=== PATIENT | female | born 1960 | race Caucasian/White ===

== ENCOUNTER 2019-01-04 13:03 | Emergency (ER) | payer SELFPAY ==
[~2019-01-04] VITALS: Ht 172.7 cm; Wt 59.9 kg
[~2019-01-04 13:03] MED LIST: APIX5TAB PO; ASPI-983 PO; CALC-694 PO; DILT180C84 PO; DILT90TA PO; LYSI100014 PO; MULT1TAB69 PO; VITAMIN C PO
[2019-01-04] MEDS ORDERED: NS IV 1000 ML 1,000 ML IV SCH ×3 (13:12→15:45)
[2019-01-04] MEDS ORDERED: DILTIAZEM INJECTION 125 MG in NS (IVPB) 100 ML IV SCH (13:15)
[2019-01-04] MEDS ORDERED: DILTIAZEM 25 MG/5 ML INJ (CARDIZEM) VIAL IVP ONE (13:15)
--- OUTSIDE RECORDS SUMMARY | 2019-01-04 13:20 | XMS REPORT ---
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 Name Role Phone PHUONG REILLY Unavailable PROBLEMS Unknown Problems ALLERGIES Substance Reaction Event Type Date Status Codeine Sulfate Unknown Drug Allergy Oct, Active ENCOUNTERS Encounter Location Date Diagnosis [facility] [id number], [place] [address] Oct, Bilateral impacted cerumen H61.23 [facility] [id number], [place] [id number] Aug, Dental examination Z01.20 and Dental caries K02.9 IMMUNIZATIONS No Known Immunizations SOCIAL HISTORY Never Assessed REASON FOR VISIT fluid in ear, reports right side worse but thinks left may have some also. CBrumbackRn PLAN OF CARE Activity Details Follow Up prn Reason: VITAL SIGNS Height 68 in 2017-11-12 Weight 133.3 lbs 2017-11-12 Temperature 98.0 degrees Fahrenheit 2017-11-12 Heart Rate 70 bpm 2017-11-12 Respiratory Rate 18 2017-11-12 BMI 20.27 kg/m2 2017-11-12 Blood pressure systolic 106 mmHg 2017-11-12 Blood pressure diastolic 76 mmHg 2017-11-12 MEDICATIONS Medication Instructions Dosage Frequency Start Date End Date Duration Status Eliquis 5 mg Orally 2 times a day 1 tablet 12h Active Multivitamin Active Cardizem 90 MG Orally 2 times a day 2 tablets 12h Active Vitamin C Active Calcium 600 MG Orally Twice a day 1 tablet with meals 12h Active RESULTS No Results PROCEDURES Procedure Date Ordered Result Body Site EAR LAVAGE 2017-11-12 N/A INSTRUCTIONS MEDICATIONS ADMINISTERED No Known Medications MEDICAL (GENERAL) HISTORY Type Description Date Medical History mitral valve prolapse Medical History blood thinners- aspirin Medical History A-Fib Surgical History Cardioversion for a-fib 08/2017 Hospitalization History a-fib 08/2016
[2019-01-04 13:22] LABS: BASOPHILS % (AUTO) 0 % (0-10); EOSINOPHILS % (AUTO) 0 % (0-10); HEMATOCRIT 46 % (35-52); HEMOGLOBIN 15.3 G/DL (11.5-16.0); LYMPHOCYTES # (AUTO) 1.5 X 10^3 (1.0-4.0); LYMPHOCYTES % (AUTO) 19 % (12-44); MEAN CORPUSCULAR HEMOGLOBIN 32 PG (25-34); MEAN CORPUSCULAR HGB CONC 33 G/DL (32-36); MEAN CORPUSCULAR VOLUME 97 FL (80-99); MEAN PLATELET VOLUME 10.5 FL (7.4-10.4); MONOCYTES # (AUTO) 0.4 X 10^3 (0.0-1.0); MONOCYTES % (AUTO) 5 % (0-12); NEUTROPHILS # (AUTO) 6.1 X 10^3 (1.8-7.8); NEUTROPHILS % (AUTO) 76 % (42-75); PLATELET COUNT 333 10^3/uL (130-400); RED CELL DISTRIBUTION WIDTH 12.2 % (10.0-14.5); WHITE BLOOD COUNT 8.1 10^3/uL (4.3-11.0)
--- NOTE | 2019-01-04 13:23 | ED Cardiac General ---
History of Present Illness General Stated Complaint: A-FIB Source: patient Exam Limitations: no limitations History of Present Illness Date Seen by Provider: Jan 04, 2019 Time Seen by Provider: 12:59 Initial Comments The patient presents to ER by private conveyance with chief complaint of palpitations, racing heart, fatigue and weakness since Wednesday. She says she knows she has a history of atrial fibrillation and she's had to be shocked for it before. She is on Cardizem 180 mg twice a day and Eliquis. She says she's been taking her medications routinely. She does not have a history of heart attacks, coronary artery disease, heart catheterizations, high blood pressure, thyroid, diabetes, cholesterolemia. She's not having any chest pain nausea sweats chills. She has for the past 3 weeks been having symptoms of an upper respiratory infection with facial congestion and runny nose. She took some over- the-counter medicines but she's not sure what they are called. She's not sure if they had pseudoephedrine or phenylephrine in them. Because of the illness she 's had rather poor appetite and fluid intake. She does not use caffeine, tobacco or alcohol. Allergies and Home Medications Allergies Coded Allergies: codeine (Verified Allergy, Mild, NAUSEA, 09/15/16) Home Medications Apixaban 5 Mg Tablet, 5 MG PO BID Prescribed by: UTE AMAYA on 09/16/16 1117 Calcium Carbonate/Vitamin D3 1 Each Tablet, 1 TAB PO HS, (Reported) Diltiazem HCl 180 Mg Cap.er.24h, 180 MG PO DAILY Prescribed by: UTE AMAYA on 09/16/16 1117 Lysine 1,000 Mg Tablet, 1,000 MG PO DAILY, (Reported) Multivitamin 1 Each Tablet, 1 TAB PO DAILY, (Reported) [Vitamin C] , 1 TAB PO HS, (Reported) Patient Home Medication List Home Medication List Reviewed: Yes Review of Systems Review of Systems Constitutional: No chills, No diaphoresis EENTM: No Blurred Vision, No Double Vision Respiratory: Denies Cough, Denies Shortness of Air Cardiovascular: Denies Chest Pain, Denies Edema; Irregular Heart Rate, Lightheadedness, Palpitations; Denies Syncope Gastrointestinal: Denies Abdomen Distended, Denies Abdominal Pain, Denies Nausea; Poor Appetite, Poor Fluid Intake Genitourinary: Denies Discharge, Denies Drainage Musculoskeletal: No joint pain, No joint swelling Past Qylujke-Oxfeiq-Cfyvqj Hx Patient Social History Alcohol Use: Denies Use Recreational Drug Use: No Smoking Status: Never a Smoker Recent Hopitalizations: No Seasonal Allergies Seasonal Allergies: Yes Past Medical History Reproductive Disorders: No Sexually Transmitted Disease: No HIV/AIDS: No Cataract Hearing Impairment: Denies Family Medical History Cardiovascular disease 19 FATHER 19 MOTHER Hypercholesterolemia 19 MOTHER Physical Exam Vital Signs Vital Signs - First Documented 01/04/19 01/04/19 13:07 16:10 Temp 96.7 Pulse 181 Resp 18 B/P (MAP) 123/112 (116) Pulse Ox 96 O2 Delivery Room Air O2 Flow Rate 2.00 Capillary Refill : Height, Weight, BMI Height: 5'8.00" Weight: 135lbs. 11.2oz. [id number]; 20.6 BMI Method: General Appearance: WD/WN, Mild Distress HEENT: PERRL/EOMI, Pharynx Normal; No Moist Mucous Membranes (moderately dry mucosa) Neck: Full Range of Motion, Normal Inspection, Non Tender, Supple Respiratory: Chest Non Tender, Lungs Clear, Normal Breath Sounds, No Accessory Muscle Use, No Respiratory Distress Cardiovascular: No Edema, Normal Peripheral Pulses, Irregularly Irregular, Tachycardia Gastrointestinal: Non Tender, Soft Extremity: Normal Capillary Refill, No Pedal Edema Neurologic/Psychiatric: Alert, Oriented x3, No Motor/Sensory Deficits Focused Exam Lactate Level 01/04/19 13:48: Lactic Acid Level 1.91 Lactic Acid Level Laboratory Tests Test 01/04/19 13:48 Lactic Acid Level 1.91 MMOL/L (0.50-2.00) Progress/Results/Core Measures Results/Orders Lab Results Laboratory Tests Test 01/04/19 13:15 01/04/19 13:48 01/04/19 14:51 Range/Units White Blood Count 8.1 4.3-11.0 10^3/uL Red Blood Count 4.73 4.35-5.85 10^6/uL Hemoglobin 15.3 11.5-16.0 G/DL Hematocrit 46 35-52 % Mean Corpuscular Volume 97 80-99 FL Mean Corpuscular Hemoglobin 32 25-34 PG Mean Corpuscular Hemoglobin Concent 33 32-36 G/DL Red Cell Distribution Width 12.2 10.0-14.5 % Platelet Count 333 130-400 10^3/uL Mean Platelet Volume 10.5 H 7.4-10.4 FL Neutrophils (%) (Auto) 76 H 42-75 % Lymphocytes (%) (Auto) 19 12-44 % Monocytes (%) (Auto) 5 0-12 % Eosinophils (%) (Auto) 0 0-10 % Basophils (%) (Auto) 0 0-10 % Neutrophils # (Auto) 6.1 1.8-7.8 X 10^3 Lymphocytes # (Auto) 1.5 1.0-4.0 X 10^3 Monocytes # (Auto) 0.4 0.0-1.0 X 10^3 Eosinophils # (Auto) 0.0 0.0-0.3 10^3/uL Basophils # (Auto) 0.0 0.0-0.1 10^3/uL Prothrombin Time 17.1 H 12.2-14.7 SEC INR Comment 1.4 0.8-1.4 Activated Partial Thromboplast Time 39 H 24-35 SEC Sodium Level 140 135-145 MMOL/L Potassium Level 3.8 3.6-5.0 MMOL/L Chloride Level 103 98-107 MMOL/L Carbon Dioxide Level 22 21-32 MMOL/L Anion Gap 15 H 5-14 MMOL/L Blood Urea Nitrogen 16 7-18 MG/DL Creatinine 1.24 0.60-1.30 MG/DL Estimat Glomerular Filtration Rate 44 BUN/Creatinine Ratio 13 Glucose Level 138 H 70-105 MG/DL Calcium Level 9.7 8.5-10.1 MG/DL Corrected Calcium 9.5 8.5-10.1 MG/DL Magnesium Level 1.9 1.8-2.4 MG/DL Total Bilirubin 0.9 0.1-1.0 MG/DL Aspartate Amino Transf (AST/SGOT) 27 5-34 U/L Alanine Aminotransferase (ALT/SGPT) 24 0-55 U/L Alkaline Phosphatase 50 40-136 U/L Troponin I < 0.028 <0.028 NG/ML B-Type Natriuretic Peptide 602.8 H <100.0 PG/ML Total Protein 7.2 6.4-8.2 GM/DL Albumin 4.2 3.2-4.5 GM/DL Thyroid Stimulating Hormone (TSH) 3.11 0.35-4.94 UIU/ML Serum Alcohol < 10 <10 MG/DL Lactic Acid Level 1.91 0.50-2.00 MMOL/L Urine Color YELLOW Urine Clarity CLEAR Urine pH 6 5-9 Urine Specific [place] 1.010 L 1.016-1.022 Urine Protein NEGATIVE NEGATIVE Urine Glucose (UA) NEGATIVE NEGATIVE Urine Ketones NEGATIVE NEGATIVE Urine Nitrite NEGATIVE NEGATIVE Urine Bilirubin NEGATIVE NEGATIVE Urine Urobilinogen NORMAL NORMAL MG/DL Urine Leukocyte Esterase NEGATIVE NEGATIVE Urine RBC (Auto) NEGATIVE NEGATIVE Urine RBC 0-2 /HPF Urine WBC RARE /HPF Urine Crystals NONE /LPF Urine Bacteria NEGATIVE /HPF Urine Casts NONE /LPF Urine Mucus NEGATIVE /LPF Urine Culture Indicated NO Urine Opiates Screen NEGATIVE NEGATIVE Urine Oxycodone Screen NEGATIVE NEGATIVE Urine Methadone Screen NEGATIVE NEGATIVE Urine Propoxyphene Screen NEGATIVE NEGATIVE Urine Barbiturates Screen NEGATIVE NEGATIVE Ur Tricyclic Antidepressants Screen NEGATIVE NEGATIVE Urine Phencyclidine Screen NEGATIVE NEGATIVE Urine Amphetamines Screen NEGATIVE NEGATIVE Urine Methamphetamines Screen NEGATIVE NEGATIVE Urine Benzodiazepines Screen NEGATIVE NEGATIVE Urine Cocaine Screen NEGATIVE NEGATIVE Urine Cannabinoids Screen NEGATIVE NEGATIVE Micro Results Microbiology 01/04/19 Influenza Types A,B Antigen (DEANA) - Final, Complete My Orders Orders - SILVESTRE CALDERON Saline Lock/Iv-Start (01/04/19 13:12) Ns Iv 1000 Ml (Sodium Chloride 0.9%) (01/04/19 13:12) Alcohol (01/04/19 13:12) BNP (01/04/19 13:12) Cbc With Automated Diff (01/04/19 13:12) Comprehensive Metabolic Panel (01/04/19 13:12) Drug Screen Stat (Urine) (01/04/19 13:12) Magnesium (01/04/19 13:12) Protime With Inr (01/04/19 13:12) Partial Thromboplastin Time (01/04/19 13:12) Thyroid Stimulating Hormone (01/04/19 13:12) Troponin I (01/04/19 13:12) Ua Culture If Indicated (01/04/19 13:12) Chest 1 View, Ap/Pa Only (01/04/19 13:12) Ekg Tracing (01/04/19 13:12) Monitor-Rhythm Ecg Trace Only (01/04/19 13:12) Ns (Ivpb) (Sodium C... W/Diltiazem Injec (01/04/19 13:15) Diltiazem Injection (Cardizem Injection) (01/04/19 13:15) Fentanyl Injection (Sublimaze Injection (01/04/19 13:30) Lorazepam Injection (Ativan Injection) (01/04/19 13:30) Digoxin Injection (Lanoxin Injection) (01/04/19 13:45) Influenza A And B Antigens (01/04/19 13:36) Blood Culture (01/04/19 13:36) Urine Culture (01/04/19 13:36) Saline Lock/Iv-Start (01/04/19 13:36) Vital Signs Adult Sepsis Patie Q15M (01/04/19 13:36) Remove Rings In Anticipation O (01/04/19 13:36) Lactic Acid Analyzer (01/04/19 13:36) Ns Iv 1000 Ml (Sodium Chloride 0.9%) (01/04/19 13:36) Ceftriaxone For Iv Use (Rocephin For I (01/04/19 13:45) Azithromycin Injection (Zithromax Inject (01/04/19 13:45) Ns (Ivpb) (Sodium Chloride 0.9% Ivpb Bag (01/04/19 13:57) Ondansetron Injection (Zofran Injectio (01/04/19 14:45) Ondansetron Injection (Zofran Injectio (01/04/19 14:41) Ns Iv 1000 Ml (Sodium Chloride 0.9%) (01/04/19 15:45) Medications Given in ED Current Medications Medications Dose Ordered Sig/Elayne Route Start Time Stop Time Status Last Admin Dose Admin Azithromycin 500 mg/Sodium Chloride 250 ml @ 250 mls/hr ONCE ONCE IV 01/04/19 13:45 01/04/19 14:44 DC 01/04/19 14:26 250 MLS/HR Ceftriaxone Sodium 1000 mg/ Sterile Water 10 ml @ 200 mls/hr ONCE ONCE IV 01/04/19 13:45 01/04/19 13:47 DC 01/04/19 14:05 200 MLS/HR Digoxin 0.25 mg ONCE ONCE IV 01/04/19 13:45 01/04/19 13:46 DC 01/04/19 13:46 0.25 MG Sodium Chloride 50 ml @ STK-MED ONCE .ROUTE 01/04/19 13:57 01/04/19 14:03 DC 01/04/19 14:27 50 MLS/HR Vital Signs/I&O 01/04/19 01/04/19 01/04/19 01/04/19 13:07 14:22 16:10 17:17 Temp 96.7 Pulse 181 130 74 87 Resp 18 18 18 18 B/P (MAP) 123/112 (116) 117/84 (95) 89/61 (70) 96/70 (79) Pulse Ox 96 100 100 100 O2 Delivery Room Air Nasal Cannula Nasal Cannula O2 Flow Rate 2.00 2.00 Progress Progress Note #1: Time: 13:22 Progress Note The patient is in atrial fibrillation with rapid ventricular response. She is comfortable able to transfer from chair to bed on her own power. No history of coronary artery disease and she is having no chest pain but were going to obtain another EKG after we have slow down and obtain troponin. We'll check her thyroid, labs. Clinically she appears dry so we'll start with a liter of fluids. Her blood pressure is on the soft side around 100-110 systolic. 2017 the patient had to be all bleed cardioverted secondary asymptomatic atrial fibrillation with rapid ventricular response. Transesophageal echocardiograph at that time did not demonstrate thrombus. She was converted with 100 J followed by 120 J which converted her. August 2017 echocardiogram transesophageal: Dr. Quinn; LV ejection fraction 50%. Progress Note #2: Time: 14:30 Progress Note After the IV fluids were initiated she got about 750 cc her blood pressure improved significantly to 110 systolic. Heart rate improved down to the 120s to 140 range. Presently she's got about 1-1/2 L in of normal saline and her blood pressures 115/71 and heart rate is 122. She is still in atrial fibrillation. Technically the patient would qualify for sepsis with shock but this was complicated by her A. fib RVR which was complicated by her tachycardia caused by her dehydration. She is fluid responsive. I would not consider her septic shock because there is no end organ dysfunction and her lactate is normal. Her hypotensive state early on was due to her rapid ventricular response secondary to atrial fibrillation. She is asymptomatic with no chest pain, sweats, nausea, shortness of breath. We'll keep her fluids going at 500 an hour and her Cardizem is still at 5 mg. It has been 2 hours and her heart rate is now in the 80-110 range so we will not repeat the digoxin. Initial ECG Impression Date: Jan 04, 2019 Initial ECG Impression Time: 13:04 Initial ECG Rate: 163 Initial ECG Rhythm: A Fib/Flutter Initial ECG Intervals: QT (488) Initial ECG Impression: Atrial Fibrillation w/RVR Diagnostic Imaging Diagonstic Imaging: Xray Plain Films/CT/US/NM/MRI: chest (1v) Comments NAME: BETTY COLLIER [facility] REC#: [id number] PT STATUS: REG ER : 1960 PHYSICIAN: SILVESTRE CALDERON MD ADMIT DATE: 01/04/19/ER Draft Date of Exam:01/04/19 CHEST 1 VIEW, AP/PA ONLY INDICATION: Atrial fibrillation. COMPARISON: 09/16/2016. FINDINGS: Single frontal view of the chest demonstrates borderline prominent cardiac silhouette. Pulmonary vasculature however is within normal limits. The lungs are well aerated and clear. No large pleural effusion or pneumothorax is seen. The visualized osseous structures show no acute abnormalities. IMPRESSION: Borderline prominent cardiac silhouette, which may be accentuated by portable technique. There is however no evidence of failure or focal infiltrate. Dictated on workstation # [id number] Dict: 01/04/19 1326 Trans: 01/04/19 1329 [facility] [id number] Interpreted by: NESSA GAINES MD Electronically signed by: Reviewed: Reviewed by Me Consults : Consulting Physician: MC QUINN MD FACP FAC CCDS Consults Notes Discussed case lab EKG and clinical findings and Dr. Quinn agrees with our workup plan to wants us to do a full septic workup including blood cultures etc. He also recommends IV fluids and do not bolus the Cardizem just give drip. He would also give 250 g of digoxin. He would repeat a digoxin dose in 2 hours of the heart rate continues to be above 120. He also does not recommend allowing the patient to go home even if the septic workup is unremarkable. Departure Impression Primary Impression: Atrial fibrillation with RVR Additional Impressions: Influenza B Dehydration Sepsis Qualified Codes: A41.9 - Sepsis, unspecified organism Disposition: XF [facility] HOSP Condition: Stable Transfer Time Spoke to Accepting Phy: 15:35 Transfer Progress Notes Discussed the case with Steve and they are on diaper. Discussed the case with Blossom and the patient was accepted by Dr. Gómez for Cardizem drip and management of her dehydration, flu B. Transfer Time: 17:17 Transfer Facility: [facility] [place] Method of Transfer: EMS Departure-Patient Inst. Referrals: JANICE DENIS MD (PCP/Family) Primary Care Physician Copy Copies To 1: JANICE DENIS MD, TITUS J Jan 04, 2019 13:23
[2019-01-04] MEDS ORDERED: fentaNYL INJECTION 100 MCG/2 ML AMP IVP ONE (13:30)
[2019-01-04] MEDS ORDERED: LORazepam INJ 2 MG/ML (ATIVAN) VIAL IVP ONE (13:30)
--- NOTE | 2019-01-04 13:30 | Diagnostic Imaging Report ---
INDICATION: Atrial fibrillation. COMPARISON: 09/16/2016. FINDINGS: Single frontal view of the chest demonstrates borderline prominent cardiac silhouette. Pulmonary vasculature however is within normal limits. The lungs are well aerated and clear. No large pleural effusion or pneumothorax is seen. The visualized osseous structures show no acute abnormalities. IMPRESSION: Borderline prominent cardiac silhouette, which may be accentuated by portable technique. There is however no evidence of failure or focal infiltrate. Dictated by: Dictated on workstation # [id number]
[2019-01-04 13:37] LABS: INR 1.4 (0.8-1.4); PROTHROMBIN TIME PATIENT 17.1 SEC (12.2-14.7)
[2019-01-04 13:40] LABS: ALANINE AMINOTRANSFERASE 24 U/L (0-55); ALBUMIN 4.2 GM/DL (3.2-4.5); ALKALINE PHOSPHATASE 50 U/L (40-136); BILIRUBIN,TOTAL 0.9 MG/DL (0.1-1.0); BUN/CREATININE RATIO 13; CALCIUM 9.7 MG/DL (8.5-10.1); CARBON DIOXIDE 22 MMOL/L (21-32); CHLORIDE 103 MMOL/L (98-107); CREATININE SERUM 1.24 MG/DL (0.60-1.30); GFR ESTIMATED 44; GLUCOSE 138 MG/DL (70-105); MAGNESIUM 1.9 MG/DL (1.8-2.4); POTASSIUM 3.8 MMOL/L (3.6-5.0); SODIUM 140 MMOL/L (135-145); TOTAL PROTEIN 7.2 GM/DL (6.4-8.2)
[2019-01-04] MEDS ORDERED: AZITHROMYCIN INJECTION 500 MG in NS (IVPB) 250 ML IV ONE (13:45)
[2019-01-04] MEDS ORDERED: cefTRIAXone FOR IV USE 1,000 MG in WATER (STERILE) FOR INJECTION 10 ML IV ONE (13:45)
[2019-01-04] MEDS ORDERED: DIGOXIN 0.25 MG/ML (LANOXIN) 2 ML AMP IV ONE (13:45)
--- NOTE | 2019-01-04 13:45 | NUR ---
TALKING WITH PATIENT ABOUT POSSIBEL CARDIOCONVERSION
--- NOTE | 2019-01-04 13:52 | NUR ---
DR CALDERON TALKED WITH DR WADE WILL DR ARCE AND DILTIAZEM DRIP A 5MG/HR
--- NOTE | 2019-01-04 13:52 | NUR ---
DILTIAZEM BOLUS HELD DUE TO SYSTOLIC B/P 90
--- NOTE | 2019-01-04 13:55 | NUR ---
Melissa cheung in [facility] - 01/04/19 at 1421 by PMCCLURE TALKING WITH PATIENT ABOUT POSSIBEL CARDIOCONVERSION
[2019-01-04] MEDS ORDERED: NS (IVPB) 50 ML ONE (13:57)
[2019-01-04 14:22] VITALS: BP 117/84
[2019-01-04] MEDS ORDERED: ONDANSETRON 4 MG/2 ML (SDV) Z0FRAN ONE (14:41)
[2019-01-04] MEDS ORDERED: ONDANSETRON 4 MG/2 ML (SDV) Z0FRAN IVP ONE (14:45)
--- NOTE | 2019-01-04 14:55 | NUR ---
UP TO BSC C/O NAUSEA MEDS OBTAINED. AFTER GETTING UP TO BSC DECIDED TO KEEP ZOFRAN ON HOLD
[2019-01-04 15:10] LABS: BILIRUBIN,URINE NEGATIVE (NEGATIVE); CLARITY,URINE CLEAR; COLOR,URINE YELLOW; GLUCOSE, URINE (UA) NEGATIVE (NEGATIVE); KETONES,URINE NEGATIVE (NEGATIVE); LEUKOCYTE ESTERASE ,URINE NEGATIVE (NEGATIVE); NITRITE,URINE NEGATIVE (NEGATIVE); PH,URINE 6 (5-9); PROTEIN,URINE NEGATIVE (NEGATIVE); UROBILINOGEN,URINE NORMAL (NORMAL)
--- NOTE | 2019-01-04 15:12 | NUR ---
LAB CALLED WITH POS FLU B
--- NOTE | 2019-01-04 15:26 | NUR ---
B/P 87/53 PATIENT LAUGHING AND TALKING TO DAUGHTER AND TEXTNG ON PHONE DR KVNG REVELES OF B/P
[2019-01-04 15:31] LABS: RBC,URINE 0-2 /HPF; WBC,URINE RARE /HPF
[2019-01-04 15:32] LABS: BACTERIA,URINE NEGATIVE /HPF
[2019-01-04 15:33] LABS: AMPHETAMINE SCREEN, URINE NEGATIVE (NEGATIVE); BARBITURATE SCREEN URINE NEGATIVE (NEGATIVE); BENZODIAZEPINES SCREEN URINE NEGATIVE (NEGATIVE); CANNABINOID SCREEN, URINE NEGATIVE (NEGATIVE); COCAINE SCREEN URINE NEGATIVE (NEGATIVE); METHADONE STAT NEGATIVE (NEGATIVE); METHAMPHETAMINE SCREEN URINE S NEGATIVE (NEGATIVE); OPIATE SCREEN URINE NEGATIVE (NEGATIVE); OXYCODONE STAT NEGATIVE (NEGATIVE); PROPOXYPHENE STAT NEGATIVE (NEGATIVE); TRICYCLIC ANTIDEPRESSANTS SCRE NEGATIVE (NEGATIVE)
--- NOTE | 2019-01-04 15:43 | NUR ---
DR CALDERON TALKING TO PATIENT AND FAMILY ABOUT TRANSFER TO [facility] DUE TO NO BEDS HERE.
--- NOTE | 2019-01-04 16:08 | NUR ---
WAITING FOR SUKHI YUNG TO CALL BACK FOR ROOM
[2019-01-04 16:10] VITALS: BP 89/61
--- NOTE | 2019-01-04 16:26 | NUR ---
EMS CALLED FOR TRANSFER
--- NOTE | 2019-01-04 17:09 | NUR ---
EMS HERE FOR TRANSFER
[2019-01-04 17:17] VITALS: BP 96/70
== END 2019-01-04 17:17 | disposition short-term general hospital (02) ==
LOC: EDUNIT# 13:03 → ER 13:04
DX: I48.91 Unspecified atrial fibrillation (principal); J10.1 Influenza due to other identified influenza virus with other respiratory manifestations; E86.0 Dehydration; A41.9 Sepsis, unspecified organism; Z88.5 Allergy status to narcotic agent; Z79.01 Long term (current) use of anticoagulants; Z82.49 Family history of ischemic heart disease and other diseases of the circulatory system
CPT/HCPCS: 36415; 71045; 80053; 80306; 80320; 81000; 83605; 83735; 83880; 84443; 84484; 85025; 85610; 85730; 87040; 87088; 87804; 93005; 93041

== ENCOUNTER → 2019-02-21 | Outpatient (CLI) | payer SELFPAY ==
[~2019-02-21] MED LIST changes: +CATHETER FLUSH 10 ML SYR IV PRN; +REGADENOSON 0.4 MG/5 ML SYR (LEXISCAN) IV ONE
[2019-02-21 09:28] VITALS: BP 121/85
[2019-02-21 09:35] VITALS: BP 108/81
--- NOTE | 2019-02-21 14:37 | STRESS TEST ---
DATE OF SERVICE: 02/21/2019 RESTING AND POST REGADENOSON TECHNETIUM-99M TETROFOSMIN SPECT CT IMAGING ORDERING PHYSICIAN: Myranda Aleman APRN CLINICAL DIAGNOSES: Cardiomyopathy and paroxysmal atrial fibrillation. Baseline images were carried out after injection of 10.81 mCi of technetium-99m Tetrofosmin. This was followed by 0.4 mg of Regadenoson and 29.4 mCi of technetium-99m Tetrofosmin for stress imaging. The electrocardiogram showed sinus rhythm at baseline. It did not change significantly with the Regadenoson infusion. The patient noted some shortness of breath following the Regadenoson infusion, which resolved in a few minutes. Review of images at rest and following stress does not indicate any significant perfusion defects consistent with significant myocardial ischemia or infarction. Gated images show normal global left ventricular systolic function with a normal regional wall motion. Left ventricular ejection fraction is calculated to be 61%. Left ventricular end diastolic volume is 48 mL. TID is absent (1.07). CONCLUSIONS: 1. No evidence of any significant myocardial ischemia or infarction on this study. 2. Normal regional wall motion. 3. Normal global left ventricular systolic function with a calculated ejection fraction is 61%. Job ID: [id number] DocumentID: [id number] Dictated Date: 02/21/2019 13:59:03 Track Oiler Date: 02/21/2019 14:36:20 Dictated By: MC WADE MD, MA, FACP, FACC, MTDD
== END ==
LOC: CARD 08:22
PROVIDERS: ATTEND Internal Medicine Cardiovascular Disease
DX: I48.0 Paroxysmal atrial fibrillation (principal); I43 Cardiomyopathy in diseases classified elsewhere; Z79.01 Long term (current) use of anticoagulants
CPT/HCPCS: 78452; 93017

== ENCOUNTER → 2019-11-24 | Outpatient (CLI) | payer SELFPAY ==
[~2019-11-24] MED LIST changes: -CATHETER FLUSH 10 ML SYR IV PRN; -REGADENOSON 0.4 MG/5 ML SYR (LEXISCAN) IV ONE
--- NOTE | 2019-11-24 16:32 | Diagnostic Imaging Report ---
PROCEDURE: CT lumbar spine without contrast. TECHNIQUE: Multiple contiguous axial images were obtained through the lumbar spine without the use of intravenous contrast. Sagittal and coronal reformations were then performed. Auto Exposure Controls were utilized during the CT exam to meet ALARA standards for radiation dose reduction. INDICATION: Right-sided sciatica. Back injury two weeks ago. COMPARISON: None. FINDINGS: Normal alignment. Vertebral body heights are preserved. Moderate degenerative endplate changes at L2-L4. No fractures. No substantial facet arthropathy. No evidence of high-grade spinal canal or neuroforaminal narrowing on soft tissue windows. Diverticulosis is partially visualized. IMPRESSION: 1. No acute CT findings in the lumbar spine. 2. Moderate degenerative endplate changes at L2-L4. No high-grade neural impingement is evident on this noncontrast exam. Dictated by: Dictated on workstation # [id number]
== END ==
LOC: RAD 15:23
PROVIDERS: ATTEND Nurse Practitioner Family
DX: M54.31 Sciatica, right side (principal); M79.604 Pain in right leg; M47.816 Spondylosis without myelopathy or radiculopathy, lumbar region
CPT/HCPCS: 72131

== ENCOUNTER 2020-06-14 13:51 | Emergency (ER) | payer SELFPAY ==
[~2020-06-14] VITALS: Ht 172.7 cm; Wt 61.3 kg
[~2020-06-14 13:51] MED LIST changes: +MULT-567 PO; -MULT1TAB69 PO
[2020-06-14] MEDS ORDERED: NS IV 1000 ML 1,000 ML IV SCH ×2 (14:09→14:41)
[2020-06-14] MEDS ORDERED: ASPIRIN 81 MG CHEW (CHILDREN'S ASA) PO ONE (14:15)
[2020-06-14 14:21] LABS: BASOPHILS % (AUTO) 0 % (0-10); EOSINOPHILS # (AUTO) 0.1 10^3/uL (0.0-0.3); EOSINOPHILS % (AUTO) 1 % (0-10); HEMATOCRIT 46 % (35-52); HEMOGLOBIN 15.8 G/DL (11.5-16.0); LYMPHOCYTES % (AUTO) 28 % (12-44); MEAN CORPUSCULAR HEMOGLOBIN 33 PG (25-34); MEAN CORPUSCULAR HGB CONC 34 G/DL (32-36); MEAN CORPUSCULAR VOLUME 97 FL (80-99); MEAN PLATELET VOLUME 11.1 FL (7.4-10.4); MONOCYTES # (AUTO) 0.5 X 10^3 (0.0-1.0); MONOCYTES % (AUTO) 7 % (0-12); NEUTROPHILS # (AUTO) 4.6 X 10^3 (1.8-7.8); NEUTROPHILS % (AUTO) 64 % (42-75); PLATELET COUNT 298 10^3/uL (130-400); RED CELL DISTRIBUTION WIDTH 12.6 % (10.0-14.5); WHITE BLOOD COUNT 7.1 10^3/uL (4.3-11.0)
[2020-06-14 14:29] LABS: ALBUMIN 4.3 GM/DL (3.2-4.5)
--- NOTE | 2020-06-14 14:29 | ED Cardiac General ---
History of Present Illness General Chief Complaint: Cardiac/General Problems Stated Complaint: A-FIB Source: patient Exam Limitations: no limitations History of Present Illness Date Seen by Provider: Jun 14, 2020 Time Seen by Provider: 13:53 Initial Comments Patient presents to ER by private conveyance from home with chief complaint that since about 9:00 last night she's had rapid pulse feeling weak and lightheaded but no chest pain nausea vomiting fever chills diarrhea constipation. She has a history of atrial fibrillation on Eliquis and sotalol. She's followed by Dr. Quinn and primary care through [facility]. She's not had any fevers chills cough. She doesn't have a history of coronary disease. She says she realizes this morning that she forgot to take her medications yesterday but she did take them this morning. Allergies and Home Medications Allergies Coded Allergies: codeine (Verified Allergy, Mild, NAUSEA, 09/15/16) Home Medications Apixaban 5 Mg Tablet, 5 MG PO BID Prescribed by: UTE AMAYA on 09/16/16 1117 Calcium Carbonate/Vitamin D3 1 Each Tablet, 1 TAB PO HS, (Reported) Diltiazem HCl 180 Mg Cap.er.24h, 180 MG PO DAILY Prescribed by: UTE AMAYA on 09/16/16 1117 Diltiazem HCl 120 Mg Cap.er.24h, 120 MG PO DAILY Prescribed by: SILVESTRE CALDERON on 06/14/20 1655 Lysine 1,000 Mg Tablet, 1,000 MG PO DAILY, (Reported) Multivitamin 1 Each Tablet, 1 TAB PO DAILY, (Reported) [Vitamin C] , 1 TAB PO HS, (Reported) Patient Home Medication List Home Medication List Reviewed: Yes Review of Systems Review of Systems Constitutional: No chills, No diaphoresis EENTM: No Blurred Vision, No Double Vision Respiratory: Denies Cough, Denies Shortness of Air Cardiovascular: Denies Chest Pain, Denies Edema; Irregular Heart Rate, Lightheadedness, Palpitations; Denies Syncope Gastrointestinal: Denies Abdomen Distended, Denies Abdominal Pain Genitourinary: Denies Burning, Denies Discharge Musculoskeletal: No back pain, No joint pain All Other Systems Reviewed Negative Unless Noted: Yes Past Frfyotd-Dwruvd-Phntpw Hx Patient Social History Alcohol Use: Denies Use Recreational Drug Use: No Smoking Status: Never a Smoker Recent Hopitalizations: No Seasonal Allergies Seasonal Allergies: Yes Past Medical History Surgeries: No Respiratory: No Cardiac: Yes Atrial Fibrillation Neurological: No Reproductive Disorders: No Sexually Transmitted Disease: No HIV/AIDS: No Gastrointestinal: No Musculoskeletal: No Endocrine: No Cataract Hearing Impairment: Denies Cancer: No Psychosocial: No Integumentary: No Blood Disorders: No Family Medical History Cardiovascular disease 19 FATHER 19 MOTHER Hypercholesterolemia 19 MOTHER Physical Exam Vital Signs Vital Signs - First Documented 06/14/20 13:51 Pulse 135 Resp 18 B/P (MAP) 98/54 (69) Pulse Ox 98 O2 Delivery Room Air Capillary Refill : Height, Weight, BMI Height: 5'8.00" Weight: 132lbs. 11.2oz. [id number]; 20.6 BMI Method:Stated General Appearance: WD/WN, Anxious, Mild Distress HEENT: PERRL/EOMI, Pharynx Normal, Moist Mucous Membranes Neck: Full Range of Motion, Normal Inspection Respiratory: Chest Non Tender, Lungs Clear, Normal Breath Sounds, No Accessory Muscle Use, No Respiratory Distress Cardiovascular: No Edema, No Gallop, Normal Peripheral Pulses, Irregularly Irregular, Tachycardia Gastrointestinal: Non Tender, Soft Extremity: Normal Capillary Refill, Normal Inspection, No Pedal Edema Neurologic/Psychiatric: Alert, Oriented x3, No Motor/Sensory Deficits Skin: Normal Color, Warm/Dry Progress/Results/Core Measures Results/Orders Lab Results Laboratory Tests Test 06/14/20 14:03 06/14/20 16:00 Range/Units White Blood Count 7.1 4.3-11.0 10^3/uL Red Blood Count 4.76 4.35-5.85 10^6/uL Hemoglobin 15.8 11.5-16.0 G/DL Hematocrit 46 35-52 % Mean Corpuscular Volume 97 80-99 FL Mean Corpuscular Hemoglobin 33 25-34 PG Mean Corpuscular Hemoglobin Concent 34 32-36 G/DL Red Cell Distribution Width 12.6 10.0-14.5 % Platelet Count 298 130-400 10^3/uL Mean Platelet Volume 11.1 H 7.4-10.4 FL Neutrophils (%) (Auto) 64 42-75 % Lymphocytes (%) (Auto) 28 12-44 % Monocytes (%) (Auto) 7 0-12 % Eosinophils (%) (Auto) 1 0-10 % Basophils (%) (Auto) 0 0-10 % Neutrophils # (Auto) 4.6 1.8-7.8 X 10^3 Lymphocytes # (Auto) 2.0 1.0-4.0 X 10^3 Monocytes # (Auto) 0.5 0.0-1.0 X 10^3 Eosinophils # (Auto) 0.1 0.0-0.3 10^3/uL Basophils # (Auto) 0.0 0.0-0.1 10^3/uL Prothrombin Time 17.0 H 12.2-14.7 SEC INR Comment 1.3 0.8-1.4 Activated Partial Thromboplast Time 36 H 24-35 SEC Sodium Level 139 135-145 MMOL/L Potassium Level 4.2 3.6-5.0 MMOL/L Chloride Level 105 98-107 MMOL/L Carbon Dioxide Level 23 21-32 MMOL/L Anion Gap 11 5-14 MMOL/L Blood Urea Nitrogen 21 H 7-18 MG/DL Creatinine 1.09 0.60-1.30 MG/DL Estimat Glomerular Filtration Rate 51 BUN/Creatinine Ratio 19 Glucose Level 168 H 70-105 MG/DL Calcium Level 9.7 8.5-10.1 MG/DL Corrected Calcium 9.5 8.5-10.1 MG/DL Magnesium Level 1.9 1.6-2.4 MG/DL Total Bilirubin 1.3 H 0.1-1.0 MG/DL Aspartate Amino Transf (AST/SGOT) 31 5-34 U/L Alanine Aminotransferase (ALT/SGPT) 31 0-55 U/L Alkaline Phosphatase 34 L 40-136 U/L Myoglobin 68.8 10.0-92.0 NG/ML Troponin I < 0.028 < 0.028 <0.028 NG/ML B-Type Natriuretic Peptide 754.6 H <100.0 PG/ML Total Protein 7.2 6.4-8.2 GM/DL Albumin 4.3 3.2-4.5 GM/DL My Orders Orders - SILVESTRE CALDERON Ekg Tracing (06/14/20 13:53) Continuous Ekg Monitoring (06/14/20 13:53) Ed Iv/Invasive Line Start (06/14/20 14:09) Ns Iv 1000 Ml (Sodium Chloride 0.9%) (06/14/20 14:09) Ed Iv/Invasive Line Start (06/14/20 14:41) Ns Iv 1000 Ml (Sodium Chloride 0.9%) (06/14/20 14:41) Diltiazem Drip Pre-Mix (Cardizem Drip Pr (06/14/20 15:00) Troponin I (06/14/20 15:59) Ekg Tracing (06/14/20 15:59) Diltiazem Cd 24 Hr Capsule (Cardizem Cd (06/15/20 09:00) Medications Given in ED Current Medications Medications Dose Ordered Sig/Elayne Route Start Time Stop Time Status Last Admin Dose Admin Aspirin 324 mg ONCE ONCE PO 06/14/20 14:15 06/14/20 14:16 DC 06/14/20 14:18 324 MG Vital Signs/I&O 06/14/20 06/14/20 06/14/20 13:51 14:48 16:17 Pulse 135 124 73 Resp 18 18 18 B/P (MAP) 98/54 (69) 114/63 (80) 94/65 (75) Pulse Ox 98 99 96 O2 Delivery Room Air Room Air Room Air Progress Progress Note #1: Time: 14:15 Progress Note Plan to dump 2 L of fluids in her. Despite having a low blood pressure she is talking and in no acute distress otherwise. Given a few minutes this evening get her blood pressure up before we electrically cardiovert her. Progress Note #2: Time: 14:48 Progress Note 500 cc of fluid are in and the patient's blood pressure is 114/63. Return to start the Cardizem drip at 10 mg per hour. Heart rate is 130. The patient is S atting fine, mentating fine and sitting up with cardiac paddles on. Progress Note #3: Time: 15:49 Progress Note Patient states her blood pressure always runs low and last time she was here she had several upper 80s to lower 90 systolic blood pressures. Patient's heart rate is under better control in the 70-90 range on Cardizem 10 mg per hour. Patient is mentating fine and having no difficulty chest pain shortness of air etc. Progress Note #4: Time: 16:49 Progress Note Patient received the Cardizem tablet and we received a normal second troponin. She was able to ambulate although it across the ER as well as to the bathroom without weakness nor near syncope. She's having no symptoms at this time. Her heart rate is now 61, atrial fibrillation with a continued blood pressure of 92/55. Initial ECG Impression Date: Jun 14, 2020 Initial ECG Impression Time: 13:55 Initial ECG Rate: 135 Initial ECG Rhythm: A Fib/Flutter Initial ECG Intervals: QT (495) Initial ECG Impression: Atrial Fibrillation w/RVR Comment Atrial fibrillation with rapid ventricular response. EKG : EKG Time: 16:04 Rate: 78 Rhythm: A Fib/Flutter Intervals: QT (526) ECG Comparisson: Changed ECG Impression: Atrial Fibrillation Comment Atrial fibrillation without rapid ventricular response. Prolonged QT interval. No ST-T wave elevation or depression. Diagnostic Imaging Diagonstic Imaging: Xray Plain Films/CT/US/NM/MRI: chest (1v) Comments NAME: BETTY COLLIER [facility] REC#: [id number] PT STATUS: REG ER : 1960 PHYSICIAN: JO VAZQUEZ LABEL DESIGNER ADMIT DATE: 06/14/20/ER Draft Date of Exam:06/14/20 CHEST 1 VIEW, AP/PA ONLY HISTORY: Atrial fibrillation. TECHNIQUE: Single frontal view of the chest. COMPARISON: 01/04/2019. FINDINGS: Lung volumes are large. No focal consolidation is seen. There is mild cardiomegaly which appears stable. There is biapical pleural scarring. No pleural effusion or pneumothorax is seen. IMPRESSION: 1. Large lung volumes and stable mild cardiomegaly with no acute pulmonary abnormality seen. Dictated on workstation # [id number] Dict: 06/14/20 1441 Trans: 06/14/20 1445 [id number] Interpreted by: BARBARA KUMARI MD Electronically signed by: Reviewed: Reviewed by Me Consults : Consulting Physician: Samantha LUNA MD Consults Notes Discussed the case with Dr. Luna and he agrees with plan to repeat a troponin and if she is feeling better and wants to go home on some Cardizem and follow-up with Dr. uQinn next week and would be fine. She has documented history of low blood pressures in the 90 systolic range and she states that this is her normal. She agrees that this does not represent hemodynamic instability but rather this is her baseline blood pressure. Departure Impression Primary Impression: Atrial fibrillation with rapid ventricular response Disposition: 01 HOME, SELF-CARE Condition: Stable Departure-Patient Inst. Decision time for Depature: 17:07 Referrals: MC QUINN MD [facility] SOL FISCHER MD (PCP/Family) Primary Care Physician Patient Instructions: Atrial Fibrillation (DC) Add. Discharge Instructions: Continue taking the Cardizem 1 tablet daily until you see Dr. Quinn. Call Dr. Quinn on Wednesday and request follow-up appointment next week. Return to the ER if you experience chest pain or continued weakness, palpitations, shortness of breath or rapid heart rate. All discharge instructions reviewed with patient and/or family. Voiced understanding. Scripts Diltiazem HCl (Cardizem Cd) 120 Mg Cap.er.24h 120 MG PO DAILY for 14 Days, #14 CAP 0 Refills Prov: SILVESTRE CALDERON 06/14/20 Copy Copies To 1: [facility] QUINN MD [facility] SILVESTRE CALDERON Jun 14, 2020 14:29
--- NOTE | 2020-06-14 14:29 | NUR ---
TALKING WITH BUSINESS TRANSFORMATION ANALYST STAFF. APPEARS TO BE IN NO DISTRESS.
[2020-06-14 14:30] LABS: POTASSIUM 4.2 MMOL/L (3.6-5.0)
[2020-06-14 14:31] LABS: CALCIUM 9.7 MG/DL (8.5-10.1)
[2020-06-14 14:32] LABS: INR 1.3 (0.8-1.4); TOTAL PROTEIN 7.2 GM/DL (6.4-8.2)
[2020-06-14 14:34] LABS: BILIRUBIN,TOTAL 1.3 MG/DL (0.1-1.0)
[2020-06-14 14:36] LABS: CREATININE SERUM 1.09 MG/DL (0.60-1.30)
[2020-06-14 14:38] LABS: MAGNESIUM 1.9 MG/DL (1.6-2.4)
--- NOTE | 2020-06-14 14:45 | Diagnostic Imaging Report ---
HISTORY: Atrial fibrillation. TECHNIQUE: Single frontal view of the chest. COMPARISON: 01/04/2019. FINDINGS: Lung volumes are large. No focal consolidation is seen. There is mild cardiomegaly which appears stable. There is biapical pleural scarring. No pleural effusion or pneumothorax is seen. IMPRESSION: 1. Large lung volumes and stable mild cardiomegaly with no acute pulmonary abnormality seen. Dictated by: Dictated on workstation # [id number]
--- NOTE | 2020-06-14 14:45 | NUR ---
PLACED ON CRASH CART MONITOR FOR POSSIBE CARDIOVERSION
[2020-06-14 14:48] VITALS: BP 114/63
--- NOTE | 2020-06-14 14:59 | NUR ---
patient has kept family updated.
[2020-06-14] MEDS ORDERED: dilTIAZem DRIP PRE-MIX 125 ML IV SCH (15:00)
--- NOTE | 2020-06-14 15:04 | NUR ---
B/P 90/77 HR 116 PATIETN TALKING ON PHONE
[2020-06-14 16:17] VITALS: BP 94/65
[2020-06-14] MEDS ORDERED: DILT120C82 PO (16:55)
--- NOTE | 2020-06-14 16:56 | NUR ---
CARDIZEM DRIP STOPPED. PATIENT INFORMED IF HEART RATE STAYS LIKE IT IS WILL BE ABLE TO DISCHARGE TO HOME.
[2020-06-14 17:23] VITALS: BP 96/73
[2020-06-15] MEDS ORDERED: dilTIAZem120 MG (CARDIZEM CD) CAP PO SCH (09:00)
== END 2020-06-14 17:28 | disposition home or self-care (01) ==
LOC: EDUNIT# 13:51 → ER 13:53
DX: I48.91 Unspecified atrial fibrillation (principal); Z88.5 Allergy status to narcotic agent; Z82.49 Family history of ischemic heart disease and other diseases of the circulatory system; Z79.01 Long term (current) use of anticoagulants
CPT/HCPCS: 36415; 71045; 80053; 83735; 83874; 83880; 84484; 85025; 85610; 85730; 93005; 93041

== ENCOUNTER 2020-06-15 19:21 | Inpatient (IN) | payer SELFPAY ==
[~2020-06-15] VITALS: Ht 172.7 cm; Wt 60.2 kg
[2020-06-15] VITALS (7 sets, daily range): BP systolic 96–109; BP diastolic 64–91
[~2020-06-15 19:21] MED LIST changes: +DILT120C82 PO
[2020-06-15] MEDS ORDERED: ASPIRIN 81 MG CHEW (CHILDREN'S ASA) PO ONE (19:30)
--- NOTE | 2020-06-15 19:38 | ED Cardiac General ---
History of Present Illness General Chief Complaint: Cardiac/General Problems Stated Complaint: A FIB Nursing Triage Note: to [facility] 7 with c/o AFib. Source: patient Exam Limitations: no limitations History of Present Illness Date Seen by Provider: Jun 15, 2020 Time Seen by Provider: 19:35 Initial Comments To ER with reports of atrial fibrillation. She has known paroxysmal atrial fibrillation managed with sotalol and Eliquis. About one half hours ago she noticed extreme fatigue and shortness of breath and decided to come to the emergency room. She was just here yesterday as well for an episode of atrial fibrillation with rapid ventricular response, heart rate was reduced to mid 70s at the time of discharge though she remained in atrial fibrillation. Timing/Duration: intermittent, 1-2 days Severity: moderate NTG SL MOPHEAD SEWER: No ASA po MOPHEAD SEWER: No Allergies and Home Medications Allergies Coded Allergies: codeine (Verified Allergy, Mild, NAUSEA, 09/15/16) Home Medications Apixaban 5 Mg Tablet, 5 MG PO BID Prescribed by: UTE AMAYA on 09/16/16 1117 Calcium Carbonate/Vitamin D3 1 Each Tablet, 1 TAB PO HS, (Reported) Diltiazem HCl 180 Mg Cap.er.24h, 180 MG PO DAILY Prescribed by: UTE AMAYA on 09/16/16 1117 Diltiazem HCl 120 Mg Cap.er.24h, 120 MG PO DAILY Prescribed by: SILVESTRE CALDERON on 06/14/20 1655 Lysine 1,000 Mg Tablet, 1,000 MG PO DAILY, (Reported) Multivitamin 1 Each Tablet, 1 TAB PO DAILY, (Reported) [Vitamin C] , 1 TAB PO HS, (Reported) Patient Home Medication List Home Medication List Reviewed: Yes Review of Systems Review of Systems Constitutional: see HPI EENTM: No Symptoms Reported Respiratory: See HPI, Shortness of Air Cardiovascular: See HPI; Denies Chest Pain; Irregular Heart Rate, Palpitations Gastrointestinal: See HPI Genitourinary: No Symptoms Reported Musculoskeletal: no symptoms reported Skin: no symptoms reported Psychiatric/Neurological: No Symptoms Reported Endocrine: No Symptoms Reported Hematologic/Lymphatic: No Symptoms Reported Past Iemmhzc-Rgdcuh-Syjobh Hx Patient Social History Recent Foreign Travel: No Contact w/Someone Who Travel: No Recent Infectious Disease Expo: No Recent Hopitalizations: No Seasonal Allergies Seasonal Allergies: Yes Past Medical History Surgeries: No Respiratory: No Cardiac: Yes Atrial Fibrillation Neurological: No Reproductive Disorders: No Sexually Transmitted Disease: No HIV/AIDS: No Gastrointestinal: No Musculoskeletal: No Endocrine: No Cataract Hearing Impairment: Denies Cancer: No Psychosocial: No Integumentary: No Blood Disorders: No Family Medical History Cardiovascular disease 19 FATHER 19 MOTHER Hypercholesterolemia 19 MOTHER Physical Exam Vital Signs Vital Signs - First Documented 06/15/20 19:31 Temp 36.5 Pulse 151 Resp 21 B/P (MAP) 82/52 (62) Pulse Ox 100 O2 Delivery Room Air Capillary Refill : Less Than 3 Seconds Height, Weight, BMI Height: 5'8.00" Weight: 132lbs. 11.2oz. 59.449366bk; 19.00 BMI Method:Stated General Appearance: No Apparent Distress, WD/WN, Other (alert and oriented, able to converse with me, pleasant, smiling and mentating well. Despite this her blood pressure is low at 82 systolic. Her heart rate is 160 narrow complex irreg ular.) Respiratory: No Accessory Muscle Use, No Respiratory Distress Cardiovascular: Normal Peripheral Pulses, Irregularly Irregular, Tachycardia Gastrointestinal: Normal Bowel Sounds, Non Tender, Soft Extremity: Normal Capillary Refill, Normal Inspection Neurologic/Psychiatric: Alert, Oriented x3 Skin: Normal Color, Warm/Dry Progress/Results/Core Measures Results/Orders Lab Results Laboratory Tests Test 06/15/20 19:35 Range/Units White Blood Count 6.0 4.3-11.0 10^3/uL Red Blood Count 4.43 4.35-5.85 10^6/uL Hemoglobin 14.7 11.5-16.0 G/DL Hematocrit 43 35-52 % Mean Corpuscular Volume 97 80-99 FL Mean Corpuscular Hemoglobin 33 25-34 PG Mean Corpuscular Hemoglobin Concent 34 32-36 G/DL Red Cell Distribution Width 12.6 10.0-14.5 % Platelet Count 244 130-400 10^3/uL Mean Platelet Volume 10.8 H 7.4-10.4 FL Neutrophils (%) (Auto) 58 42-75 % Lymphocytes (%) (Auto) 35 12-44 % Monocytes (%) (Auto) 5 0-12 % Eosinophils (%) (Auto) 2 0-10 % Basophils (%) (Auto) 1 0-10 % Neutrophils # (Auto) 3.5 1.8-7.8 X 10^3 Lymphocytes # (Auto) 2.1 1.0-4.0 X 10^3 Monocytes # (Auto) 0.3 0.0-1.0 X 10^3 Eosinophils # (Auto) 0.1 0.0-0.3 10^3/uL Basophils # (Auto) 0.0 0.0-0.1 10^3/uL Prothrombin Time 16.3 H 12.2-14.7 SEC INR Comment 1.3 0.8-1.4 Activated Partial Thromboplast Time 38 H 24-35 SEC Sodium Level 142 135-145 MMOL/L Potassium Level 4.1 3.6-5.0 MMOL/L Chloride Level 109 H 98-107 MMOL/L Carbon Dioxide Level 21 21-32 MMOL/L Anion Gap 12 5-14 MMOL/L Blood Urea Nitrogen 16 7-18 MG/DL Creatinine 1.12 0.60-1.30 MG/DL Estimat Glomerular Filtration Rate 49 BUN/Creatinine Ratio 14 Glucose Level 153 H 70-105 MG/DL Calcium Level 9.5 8.5-10.1 MG/DL Corrected Calcium 9.3 8.5-10.1 MG/DL Magnesium Level 1.9 1.6-2.4 MG/DL Total Bilirubin 0.8 0.1-1.0 MG/DL Aspartate Amino Transf (AST/SGOT) 53 H 5-34 U/L Alanine Aminotransferase (ALT/SGPT) 48 0-55 U/L Alkaline Phosphatase 35 L 40-136 U/L Myoglobin 71.2 10.0-92.0 NG/ML Troponin I < 0.028 <0.028 NG/ML B-Type Natriuretic Peptide 493.4 H <100.0 PG/ML Total Protein 7.3 6.4-8.2 GM/DL Albumin 4.3 3.2-4.5 GM/DL My Orders Orders - JO VAZQUEZ PRODUCTION INTERN Cbc With Automated Diff (06/15/20:) Magnesium (06/15/20:) Chest 1 View, Ap/Pa Only (06/15/20:) Ekg Tracing (06/15/20:) Comprehensive Metabolic Panel (06/15/20:) Myoglobin Serum (06/15/20:) Protime With Inr (7/18/20 19:25) Partial Thromboplastin Time (06/15/20 19:25) O2 (06/15/20 19:25) Monitor-Rhythm Ecg Trace Only (06/15/20 19:25) Lipid Panel (06/16/20 06:00) Ed Iv/Invasive Line Start (06/15/20 19:25) BNP (06/15/20 19:25) Troponin I (06/15/20 19:25) Aspirin Chewable Tablet (Baby Aspirin Ch (06/15/20 19:30) Diltiazem Drip Pre-Mix (Cardizem Drip Pr (06/15/20 19:45) Ns Iv 500 Ml (Sodium Chloride 0.9%) (06/15/20 19:45) Medications Given in ED Current Medications Medications Dose Ordered Sig/Elayne Route Start Time Stop Time Status Last Admin Dose Admin Aspirin 324 mg ONCE ONCE PO 06/15/20 19:30 06/15/20 19:31 DC 06/15/20 19:30 324 MG Vital Signs/I&O 06/15/20 19:31 Temp 36.5 Pulse 151 Resp 21 B/P (MAP) 82/52 (62) Pulse Ox 100 O2 Delivery Room Air Blood Pressure Mean: 62 Departure Communication (Admissions) Time/Spoke to Admitting Phy: 20:[address] Johnson, will admit, consult Dr. Luna. His with him, we'll continue the Cardizem drip, potentially cardioversion in the morning. At this time her heart rate is down to 80-100 still atrial fibrillation. Cardizem drip is 10 mg per hour. Blood pressure is 95-105 systolic. Still mentating well. Impression Primary Impression: Atrial fibrillation with RVR Disposition: ADMITTED INPATIENT Condition: Stable Admissions Decision to Admit Reason: Admit from ER (General) Decision to Admit/Date: Jun 15, 2020 Time/Decision to Admit Time: 20:24 Departure-Patient Inst. Referrals: SOL FISCHER MD (PCP/Family) Primary Care Physician JO VAZQUEZ APRN Jun 15, 2020 19:38
[2020-06-15 19:42] LABS: BASOPHILS % (AUTO) 1 % (0-10); EOSINOPHILS # (AUTO) 0.1 10^3/uL (0.0-0.3); EOSINOPHILS % (AUTO) 2 % (0-10); HEMATOCRIT 43 % (35-52); HEMOGLOBIN 14.7 G/DL (11.5-16.0); LYMPHOCYTES # (AUTO) 2.1 X 10^3 (1.0-4.0); LYMPHOCYTES % (AUTO) 35 % (12-44); MEAN CORPUSCULAR HEMOGLOBIN 33 PG (25-34); MEAN CORPUSCULAR HGB CONC 34 G/DL (32-36); MEAN CORPUSCULAR VOLUME 97 FL (80-99); MEAN PLATELET VOLUME 10.8 FL (7.4-10.4); MONOCYTES # (AUTO) 0.3 X 10^3 (0.0-1.0); MONOCYTES % (AUTO) 5 % (0-12); NEUTROPHILS # (AUTO) 3.5 X 10^3 (1.8-7.8); NEUTROPHILS % (AUTO) 58 % (42-75); PLATELET COUNT 244 10^3/uL (130-400); RED CELL DISTRIBUTION WIDTH 12.6 % (10.0-14.5)
[2020-06-15] MEDS ORDERED: dilTIAZem DRIP PRE-MIX 125 ML IV SCH (19:45)
[2020-06-15] MEDS ORDERED: NS IV 500 ML 500 ML IV SCH (19:45)
[2020-06-15 19:52] LABS: INR 1.3 (0.8-1.4); PROTHROMBIN TIME PATIENT 16.3 SEC (12.2-14.7)
--- NOTE | 2020-06-15 19:57 | Diagnostic Imaging Report ---
INDICATION: Atrial fibrillation. EXAMINATION: Portable erect AP chest at 7:51 p.m. FINDINGS: The mild cardiomegaly noted on the prior exam of 06/14/2020 is again evident and no different. The lungs remain clear. There is still no sign of failure, pneumonia or a pleural effusion to indicate an acute abnormality. The mediastinum is not widened. The osseous structures are intact. IMPRESSION: Stable chest. There has been no adverse change since the prior exam. Dictated by: Dictated on workstation # [id number]
[2020-06-15 19:59] LABS: ALBUMIN 4.3 GM/DL (3.2-4.5); BILIRUBIN,TOTAL 0.8 MG/DL (0.1-1.0); CALCIUM 9.5 MG/DL (8.5-10.1); CREATININE SERUM 1.12 MG/DL (0.60-1.30); MAGNESIUM 1.9 MG/DL (1.6-2.4); POTASSIUM 4.1 MMOL/L (3.6-5.0); TOTAL PROTEIN 7.3 GM/DL (6.4-8.2)
--- NOTE | 2020-06-15 21:00 | NUR ---
Room assignment received.
--- OUTSIDE RECORDS SUMMARY | 2020-06-15 21:03 | XMS REPORT | Continuity of Care Document ---
Author Organization Unknown Address Unknown Phone Unavailable Allergies Active Description Code Type Severity Reaction Onset Reported/Identified Relationship to Patient Clinical Status Yes codeine [id number] Drug Allergy Mild NAUSEA 09/15/2016 Yes No Known Drug Allergies [id number] Drug Allergy Unknown N/A 09/15/2016 Medications There is no data. Problems Date Dx Coded Attending Type Code Diagnosis Diagnosed By 09/16/2016 JAMES DUKES, TALITA Francis Ot I48.91 UNSPECIFIED ATRIAL FIBRILLATION 09/30/2016 BAIMA KIANA L MOLECULAR PATHOLOGIST Ot I07.1 RHEUMATIC TRICUSPID INSUFFICIENCY 09/30/2016 BAIMA, KIANA L MOLECULAR PATHOLOGIST Ot I34.0 NONRHEUMATIC MITRAL (VALVE) INSUFFICIENC 09/30/2016 BAIMA, KIANA L MOLECULAR PATHOLOGIST Ot I48.0 PAROXYSMAL ATRIAL FIBRILLATION 09/30/2016 BAIMA, KIANA L MOLECULAR PATHOLOGIST Ot R06.00 DYSPNEA, UNSPECIFIED 09/30/2016 BAIMA, KIANA L MOLECULAR PATHOLOGIST Ot Z79.01 ADMINISTRATIVE TECHNICIAN (CURRENT) USE OF ANTICOAGULANT 10/05/2016 BAIMA, KIANA L MOLECULAR PATHOLOGIST Ot I07.1 RHEUMATIC TRICUSPID INSUFFICIENCY 10/05/2016 BAIMA, KIANA L MOLECULAR PATHOLOGIST Ot I34.0 NONRHEUMATIC MITRAL (VALVE) INSUFFICIENC 10/05/2016 BAIMA, KIANA L MOLECULAR PATHOLOGIST Ot I48.0 PAROXYSMAL ATRIAL FIBRILLATION 10/05/2016 BAIMA, KIANA L MOLECULAR PATHOLOGIST Ot R06.00 DYSPNEA, UNSPECIFIED 10/05/2016 BAIMA, KIANA L MOLECULAR PATHOLOGIST Ot Z79.01 RETIREMENT (CURRENT) USE OF ANTICOAGULANT 10/05/2016 BAIMA, KIANA L MOLECULAR PATHOLOGIST Ot I07.1 RHEUMATIC TRICUSPID INSUFFICIENCY 10/05/2016 BAIMA, KIANA L MOLECULAR PATHOLOGIST Ot I34.0 NONRHEUMATIC MITRAL (VALVE) INSUFFICIENC 10/05/2016 BAIMA, KIANA L MOLECULAR PATHOLOGIST Ot I48.0 PAROXYSMAL ATRIAL FIBRILLATION 10/05/2016 BAIMA, KIANA L MOLECULAR PATHOLOGIST Ot R06.00 DYSPNEA, UNSPECIFIED 10/05/2016 BAIMA KIANA L MOLECULAR PATHOLOGIST Ot Z79.01 ADMINISTRATIVE TECHNICIAN (CURRENT) USE OF ANTICOAGULANT 10/06/2016 BAIMA, KIANA L MOLECULAR PATHOLOGIST Ot I07.1 RHEUMATIC TRICUSPID INSUFFICIENCY 10/06/2016 BAIMA, KIANA L MOLECULAR PATHOLOGIST Ot I34.0 NONRHEUMATIC MITRAL (VALVE) INSUFFICIENC 10/06/2016 BAIMA, KIANA L MOLECULAR PATHOLOGIST Ot I48.0 PAROXYSMAL ATRIAL FIBRILLATION 10/06/2016 BAIMA, KIANA L MOLECULAR PATHOLOGIST Ot R06.00 DYSPNEA, UNSPECIFIED 10/06/2016 BAIMA, KIANA L MOLECULAR PATHOLOGIST Ot Z79.01 RETIREMENT (CURRENT) USE OF ANTICOAGULANT 10/29/2016 BAIMA, KIANA L MOLECULAR PATHOLOGIST Ot I07.1 RHEUMATIC TRICUSPID INSUFFICIENCY 10/29/2016 BAIMA, KIANA L MOLECULAR PATHOLOGIST Ot I34.0 NONRHEUMATIC MITRAL (VALVE) INSUFFICIENC 10/29/2016 BAIMA, KIANA L MOLECULAR PATHOLOGIST Ot I48.0 PAROXYSMAL ATRIAL FIBRILLATION 10/29/2016 BAIMA, KIANA L MOLECULAR PATHOLOGIST Ot R06.00 DYSPNEA, UNSPECIFIED 10/29/2016 BAIMA, KIANA L MOLECULAR PATHOLOGIST Ot Z79.01 ADMINISTRATIVE TECHNICIAN (CURRENT) USE OF ANTICOAGULANT 11/24/2016 BAIMA, KIANA L MOLECULAR PATHOLOGIST Ot I07.1 RHEUMATIC TRICUSPID INSUFFICIENCY 11/24/2016 BAIMA, KIANA L MOLECULAR PATHOLOGIST Ot I34.0 NONRHEUMATIC MITRAL (VALVE) INSUFFICIENC 11/24/2016 BAIMA, KIANA L MOLECULAR PATHOLOGIST Ot I48.0 PAROXYSMAL ATRIAL FIBRILLATION 11/24/2016 BAIMA, KIANA L MOLECULAR PATHOLOGIST Ot R06.00 DYSPNEA, UNSPECIFIED 11/24/2016 BAIMA, KIANA L MOLECULAR PATHOLOGIST Ot Z79.01 RETIREMENT (CURRENT) USE OF ANTICOAGULANT 09/07/2017 BAIMA, KIANA L MOLECULAR PATHOLOGIST Ot I07.1 RHEUMATIC TRICUSPID INSUFFICIENCY 09/07/2017 BAIMA, KIANA L MOLECULAR PATHOLOGIST Ot I34.0 NONRHEUMATIC MITRAL (VALVE) INSUFFICIENC 09/07/2017 BAIMA, KIANA L MOLECULAR PATHOLOGIST Ot I48.0 PAROXYSMAL ATRIAL FIBRILLATION 09/07/2017 BAIMA, KIANA L MOLECULAR PATHOLOGIST Ot R06.00 DYSPNEA, UNSPECIFIED 09/07/2017 BAIMA, KIANA L MOLECULAR PATHOLOGIST Ot Z79.01 ADMINISTRATIVE TECHNICIAN (CURRENT) USE OF ANTICOAGULANT 09/07/2017 BAIMA, KIANA L MOLECULAR PATHOLOGIST Ot I07.1 RHEUMATIC TRICUSPID INSUFFICIENCY 09/07/2017 BAIMA, KIANA L MOLECULAR PATHOLOGIST Ot I34.0 NONRHEUMATIC MITRAL (VALVE) INSUFFICIENC 09/07/2017 BAIMA, KIANA L MOLECULAR PATHOLOGIST Ot I48.0 PAROXYSMAL ATRIAL FIBRILLATION 09/07/2017 BAIMA, KIANA L MOLECULAR PATHOLOGIST Ot R06.00 DYSPNEA, UNSPECIFIED 09/07/2017 BAIMA, KIANA L MOLECULAR PATHOLOGIST Ot Z79.01 ADMINISTRATIVE TECHNICIAN (CURRENT) USE OF ANTICOAGULANT 09/09/2017 BAIMA, KIANA L MOLECULAR PATHOLOGIST Ot I48.0 PAROXYSMAL ATRIAL FIBRILLATION 09/09/2017 BAIMA, KIANA L MOLECULAR PATHOLOGIST Ot I48.0 PAROXYSMAL ATRIAL FIBRILLATION 09/27/2017 BAIMA, KIANA L MOLECULAR PATHOLOGIST Ot I48.0 PAROXYSMAL ATRIAL FIBRILLATION 09/27/2017 BAIMA, KIANA L MOLECULAR PATHOLOGIST Ot Z79.01 ADMINISTRATIVE TECHNICIAN (CURRENT) USE OF ANTICOAGULANT 09/27/2017 BAIMA, KIANA L MOLECULAR PATHOLOGIST Ot Z79.899 OTHER RETIREMENT (CURRENT) DRUG THERAPY 09/28/2017 BAIMA, KIANA L MOLECULAR PATHOLOGIST Ot I48.0 PAROXYSMAL ATRIAL FIBRILLATION 09/28/2017 BAIMA, KIANA L MOLECULAR PATHOLOGIST Ot Z79.01 RETIREMENT (CURRENT) USE OF ANTICOAGULANT 09/28/2017 BAIMA, KIANA L MOLECULAR PATHOLOGIST Ot Z79.899 OTHER ADMINISTRATIVE TECHNICIAN (CURRENT) DRUG THERAPY 01/04/2019 BAIMA, KIANA L MOLECULAR PATHOLOGIST Ot I07.1 RHEUMATIC TRICUSPID INSUFFICIENCY 01/04/2019 BAIMA, KIANA L MOLECULAR PATHOLOGIST Ot I34.0 NONRHEUMATIC MITRAL (VALVE) INSUFFICIENC 01/04/2019 BAIMA, KIANA L MOLECULAR PATHOLOGIST Ot I48.0 PAROXYSMAL ATRIAL FIBRILLATION 01/04/2019 BAIMA, KIANA L MOLECULAR PATHOLOGIST Ot R06.00 DYSPNEA, UNSPECIFIED 01/04/2019 BAIMA, KIANA L MOLECULAR PATHOLOGIST Ot Z79.01 ADMINISTRATIVE TECHNICIAN (CURRENT) USE OF ANTICOAGULANT 01/04/2019 BAIMA, KIANA L MOLECULAR PATHOLOGIST Ot I48.0 PAROXYSMAL ATRIAL FIBRILLATION 01/04/2019 BAIMA, KIANA L MOLECULAR PATHOLOGIST Ot Z79.01 ADMINISTRATIVE TECHNICIAN (CURRENT) USE OF ANTICOAGULANT 01/04/2019 BAIMA, KIANA L MOLECULAR PATHOLOGIST Ot Z79.899 OTHER RETIREMENT (CURRENT) DRUG THERAPY 01/04/2019 SILVESTRE CALDERON MD Ot A41. 9 SEPSIS, UNSPECIFIED ORGANISM 01/04/2019 SILVESTRE CALDERON MD Ot E86. 0 DEHYDRATION 01/04/2019 SILVESTRE CALDERON MD Ot I48. 91 UNSPECIFIED ATRIAL FIBRILLATION 01/04/2019 SILVESTRE CALDERON MD Ot J10. 1 FLU DUE TO OTH IDENT INFLUENZA VIRUS W O 01/04/2019 SILVESTRE CALDERON MD Ot R00. 2 PALPITATIONS 01/04/2019 SILVESTRE CALDERON MD Ot Z79. 01 RETIREMENT (CURRENT) USE OF ANTICOAGULANT 01/04/2019 SILVESTRE CALDERON MD Ot Z82. 49 FAMILY HX OF ISCHEM HEART DIS AND OTH DI 01/04/2019 SILVESTRE CALDERON MD Ot Z88. 5 ALLERGY STATUS TO NARCOTIC AGENT STATUS 01/06/2019 SILVESTRE CALDERON MD Ot A41. 9 SEPSIS, UNSPECIFIED ORGANISM 01/06/2019 SILVESTRE CALDERON MD Ot E86. 0 DEHYDRATION 01/06/2019 SILVESTRE CALDERON MD Ot I48. 91 UNSPECIFIED ATRIAL FIBRILLATION 01/06/2019 SILVESTRE CALDERON MD Ot J10. 1 FLU DUE TO OTH IDENT INFLUENZA VIRUS W O 01/06/2019 SILVESTRE CALDERON MD Ot R00. 2 PALPITATIONS 01/06/2019 SILVESTRE CALDERON MD Ot Z79. 01 ADMINISTRATIVE TECHNICIAN (CURRENT) USE OF ANTICOAGULANT 01/06/2019 SILVESTRE CALDERON MD Ot Z82. 49 FAMILY HX OF ISCHEM HEART DIS AND OTH DI 01/06/2019 ISLVESTRE CALDERON MD Ot Z88. 5 ALLERGY STATUS TO NARCOTIC AGENT STATUS 02/22/2019 MAURO DUKES FACC, MC VILLATOROP CCDS Ot I43 CARDIOMYOPATHY IN DISEASES CLASSIFIED EL 02/22/2019 MAURO DUKES FACC, MC PERRY CCDS Ot I48.0 PAROXYSMAL ATRIAL FIBRILLATION 02/22/2019 MAURO DUKES FACC, MC VILLATOROP CCDS Ot Z79.01 RETIREMENT (CURRENT) USE OF ANTICOAGULANT 03/03/2019 KIANA MCLEAN MOLECULAR PATHOLOGIST Ot I07.1 RHEUMATIC TRICUSPID INSUFFICIENCY 03/03/2019 KIANA MCLEAN MOLECULAR PATHOLOGIST Ot I34.0 NONRHEUMATIC MITRAL (VALVE) INSUFFICIENC 03/03/2019 KIANA MCLEAN MOLECULAR PATHOLOGIST Ot I48.0 PAROXYSMAL ATRIAL FIBRILLATION 03/03/2019 KIANA MCLEAN MOLECULAR PATHOLOGIST Ot R06.00 DYSPNEA, UNSPECIFIED 03/03/2019 KIANA MCLEAN MOLECULAR PATHOLOGIST Ot Z79.01 RETIREMENT (CURRENT) USE OF ANTICOAGULANT 03/03/2019 KIMMAKIANA MOLECULAR PATHOLOGIST Ot I48.0 PAROXYSMAL ATRIAL FIBRILLATION 03/03/2019 BAIMAKIANA MOLECULAR PATHOLOGIST Ot Z79.01 ADMINISTRATIVE TECHNICIAN (CURRENT) USE OF ANTICOAGULANT 03/03/2019 KIANA MCLEAN MOLECULAR PATHOLOGIST Ot Z79.899 OTHER ADMINISTRATIVE TECHNICIAN (CURRENT) DRUG THERAPY 03/03/2019 MAURO DUKES FACC, MC VILLATOROP CCDS Ot I43 CARDIOMYOPATHY IN DISEASES CLASSIFIED EL 03/03/2019 MAURO DUKES FACC, ALI FACP CCDS Ot I48.0 PAROXYSMAL ATRIAL FIBRILLATION 03/03/2019 MAURO DUKES FACC, ALI FACP CCDS Ot Z79.01 ADMINISTRATIVE TECHNICIAN (CURRENT) USE OF ANTICOAGULANT 03/04/2019 SILVESTRE CALDERON MD Ot A41. 9 SEPSIS, UNSPECIFIED ORGANISM 03/04/2019 SILVESTRE CALDERON MD Ot E86. 0 DEHYDRATION 03/04/2019 SILVESTRE CALDERON MD Ot I48. 91 UNSPECIFIED ATRIAL FIBRILLATION 03/04/2019 SILVESTRE CALDERON MD Ot J10. 1 FLU DUE TO OT IDENT INFLUENZA VIRUS W O 03/04/2019 SILVESTRE CALDERON MD Ot R00. 2 PALPITATIONS 03/04/2019 SILVESTRE CALDERON MD Ot Z79. 01 ADMINISTRATIVE TECHNICIAN (CURRENT) USE OF ANTICOAGULANT 03/04/2019 SILVESTRE CALDERON MD Ot Z82. 49 FAMILY HX OF ISCHEM HEART DIS AND OTH DI 03/04/2019 SILVESTRE CALDERON MD Ot Z88. 5 ALLERGY STATUS TO NARCOTIC AGENT STATUS 03/17/2019 MAURO DUKES FACC, ALI IRVINGP CCDS Ot I43 CARDIOMYOPATHY IN DISEASES CLASSIFIED EL 03/17/2019 MAURO DUKES FACC, ALI FACP CCDS Ot I48.0 PAROXYSMAL ATRIAL FIBRILLATION 03/17/2019 MAURO DUKES FACC, ALI IRVINGP CCDS Ot Z79.01 RETIREMENT (CURRENT) USE OF ANTICOAGULANT 11/27/2019 KAY MANZO TRAIN CONDUCTOR Ot M47.816 SPONDYLOSIS W/O MYELOPATHY OR RADICULOPA 11/27/2019 KAY MANZO APRN Ot M54.31 SCIATICA, RIGHT SIDE 11/27/2019 KAY MANZO TRAIN CONDUCTOR Ot M79.604 PAIN IN RIGHT LEG 12/05/2019 BAIELIZABETH KIANA L MOLECULAR PATHOLOGIST Ot I07.1 RHEUMATIC TRICUSPID INSUFFICIENCY 12/05/2019 BAIMA, KIANA L MOLECULAR PATHOLOGIST Ot I34.0 NONRHEUMATIC MITRAL (VALVE) INSUFFICIENC 12/05/2019 BAIMA, KIANA L MOLECULAR PATHOLOGIST Ot I48.0 PAROXYSMAL ATRIAL FIBRILLATION 12/05/2019 BAIMA, KIANA L MOLECULAR PATHOLOGIST Ot R06.00 DYSPNEA, UNSPECIFIED 12/05/2019 BAIMA, KIANA L MOLECULAR PATHOLOGIST Ot Z79.01 RETIREMENT (CURRENT) USE OF ANTICOAGULANT 12/05/2019 BAIMA, KIANA L MOLECULAR PATHOLOGIST Ot I48.0 PAROXYSMAL ATRIAL FIBRILLATION 12/05/2019 BAIMA KIANA L MOLECULAR PATHOLOGIST Ot Z79.01 ADMINISTRATIVE TECHNICIAN (CURRENT) USE OF ANTICOAGULANT 12/05/2019 BAIMA, KIANA L MOLECULAR PATHOLOGIST Ot Z79.899 OTHER ADMINISTRATIVE TECHNICIAN (CURRENT) DRUG THERAPY 12/05/2019 MAURO DUKES FACC, MC VILLATOROP CCDS Ot I43 CARDIOMYOPATHY IN DISEASES CLASSIFIED EL 12/05/2019 MAURO DUKES FACC, MC FACP CCDS Ot I48.0 PAROXYSMAL ATRIAL FIBRILLATION 12/05/2019 MAURO DUKES FACC, MC FACP CCDS Ot Z79.01 RETIREMENT (CURRENT) USE OF ANTICOAGULANT 12/05/2019 KAY MANZO APRN Ot M47.816 SPONDYLOSIS W/O MYELOPATHY OR RADICULOPA 12/05/2019 KAY MANZO APRN Ot M54.31 SCIATICA, RIGHT SIDE 12/05/2019 KAY MANZO APRN Ot M79.604 PAIN IN RIGHT LEG 12/05/2019 KAY MANZO TRAIN CONDUCTOR Ot M47.816 SPONDYLOSIS W/O MYELOPATHY OR RADICULOPA 12/05/2019 KAY MANZO TRAIN CONDUCTOR Ot M54.31 SCIATICA, RIGHT SIDE 12/05/2019 KAY MANZO APRN Ot M79.604 PAIN IN RIGHT LEG 12/26/2019 KAY MANZO APRN Ot M47.816 SPONDYLOSIS W/O MYELOPATHY OR RADICULOPA 12/26/2019 KAY MANZO APRN Ot M54.31 SCIATICA, RIGHT SIDE 12/26/2019 KAY MANZO APRN Ot M79.604 PAIN IN RIGHT LEG 12/26/2019 KAY MANZO TRAIN CONDUCTOR Ot M47.816 SPONDYLOSIS W/O MYELOPATHY OR RADICULOPA 12/26/2019 KAY MANZO TRAIN CONDUCTOR Ot M54.31 SCIATICA, RIGHT SIDE 12/26/2019 KAY MANZO APRN Ot M79.604 PAIN IN RIGHT LEG Procedures There is no data. Results Test Result Range Complete blood count (CBC) with automate d white blood cell (WBC) differential - 09/15/16 14:15 Blood leukocytes automated count (number/volume) 5.8 10*3/uL 4.3-11.0 Blood erythrocytes automated count (number/volume) 4.38 10*6/uL 4.35-5.85 Venous blood hemoglobin measurement (mass/volume) 14.6 g/dL 11.5-16.0 Blood hematocrit (volume fraction) 42 % 35-52 Automated erythrocyte mean corpuscular volume 95 [ foz_us] 80-99 Automated erythrocyte mean corpuscular h emoglobin (mass per erythrocyte) 33 pg 25-34 Automated erythrocyte mean corpuscular h emoglobin concentration measurement (mass/volume) 35 g/dL 32-36 Automated erythrocyte distribution width ratio 12. 0 % 10.0- 14.5 Automated blood platelet count (count/volume) 250 10*3/uL 130-400 Automated blood platelet mean volume measurement 11.0 [foz_us] 7.4-10.4 Automated blood neutrophils/100 leukocytes 57 % 42-75 Automated blood lymphocytes/100 leukocytes 36 % 12-44 Blood monocytes/100 leukocytes 5 % 0-12 Automated blood eosinophils/100 leukocytes 1 % 0-10 Automated blood basophils/100 leukocytes 1 % 0-10 Blood neutrophils automated count (number/volume) 3.3 10*3 1.8-7.8 Blood lymphocytes automated count (number/volume) 2.1 10*3 1.0-4.0 Blood monocytes automated count (number/volume) 0. 3 10*3 0.0-1.0 Automated eosinophil count 0.1 10*3/uL 0 .0-0.3 Automated blood basophil count (count/volume) 0.0 10*3/uL 0.0-0.1 Comprehensive metabolic panel - 09/15/16 14:15 Serum or plasma sodium measurement (moles/volume) 141 mmol/L 135-145 Serum or plasma potassium measurement (moles/volume) 3.8 mmol/L 3.6-5.0 Serum or plasma chloride measurement (moles/volume) 107 mmol/L 98-107 Carbon dioxide 22 mmol/L 21-32 Serum or plasma anion gap determination (moles/volume) 12 mmol/L 5-14 Serum or plasma urea nitrogen measurement (mass/volume ) 15 mg/dL 7-18 Serum or plasma creatinine measurement (mass/volume) 1.02 mg/dL 0.60-1.30 Serum or plasma urea nitrogen/creatinine mass ratio 15 NRG Serum or plasma creatinine measurement w ith calculation of estimated glomerular filtration rate 56 NRG Serum or plasma glucose measurement (mass/volume) 184 mg/dL 70-105 Serum or plasma calcium measurement (mass/volume) 9.5 mg/dL 8.5-10.1 Serum or plasma total bilirubin measurement (mass/volu me) 1.0 mg/dL 0.1-1.0 Serum or plasma alkaline phosphatase john surement (enzymatic activity/volume) 33 U/L 40-136 Serum or plasma aspartate aminotransfera se measurement (enzymatic activity/volume) 48 U/L 5-34 Serum or plasma alanine aminotransferase measurement (enzymatic activity/volume) 64 U/L 0-55 Serum or plasma protein measurement (mass/volume) 6.6 g/dL 6.4-8.2 Serum or plasma albumin measurement (mass/volume) 4.2 g/dL 3.2-4.5 Serum or plasma thyrotropin measurement by detection limit <=0.05 miu/l (units/volume) - 09/15/16 14:15 Serum or plasma thyrotropin measurement by detection limit <=0.05 miu/l (units/volume) 2.69 u[iU]/mL 0.35-4.94 Comprehensive metabolic panel - 09/16/16 03:20 Serum or plasma sodium measurement (moles/volume) 143 mmol/L 135-145 Serum or plasma potassium measurement (moles/volume) 4.1 mmol/L 3.6-5.0 Serum or plasma chloride measurement (moles/volume) 113 mmol/L 98-107 Carbon dioxide 24 mmol/L 21-32 Serum or plasma anion gap determination (moles/volume) 6 mmol/L 5-14 Serum or plasma urea nitrogen measurement (mass/volume ) 16 mg/dL 7-18 Serum or plasma creatinine measurement (mass/volume) 0.80 mg/dL 0.60-1.30 Serum or plasma urea nitrogen/creatinine mass ratio 20 NRG Serum or plasma creatinine measurement w ith calculation of estimated glomerular filtration rate > NRG Serum or plasma glucose measurement (mass/volume) 90 mg/dL 70-105 Serum or plasma calcium measurement (mass/volume) 8.3 mg/dL 8.5-10.1 Serum or plasma total bilirubin measurement (mass/volu me) 0.6 mg/dL 0.1-1.0 Serum or plasma alkaline phosphatase john surement (enzymatic activity/volume) 26 U/L 40-136 Serum or plasma aspartate aminotransfera se measurement (enzymatic activity/volume) 34 U/L 5-34 Serum or plasma alanine aminotransferase measurement (enzymatic activity/volume) 51 U/L 0-55 Serum or plasma protein measurement (mass/volume) 5.3 g/dL 6.4-8.2 Serum or plasma albumin measurement (mass/volume) 3.4 g/dL 3.2-4.5 Magnesium - 09/16/16 03:20 Magnesium 2.1 mg/dL 1.8-2.4 Lipid 1996 panel - 09/16/16 03:20 Serum or plasma triglyceride measurement (mass/volume) 76 mg/dL <150 Serum or plasma cholesterol measurement (mass/volume) 140 mg/dL < 200 Serum or plasma cholesterol in HDL measurement (mass/v olume) 40 mg/dL 40-60 Cholesterol in LDL [mass/volume] in serum or plasma by direct assay 89 mg/dL 1-129 Serum or plasma cholesterol in VLDL measurement (mass/ volume) 15 mg/dL 5-40 Serum or plasma phosphate measurement (m ass/volume) - 09/16/16 03:20 Serum or plasma phosphate measurement (mass/volume) 3.5 mg/dL 2.3-4.7 Automated blood complete blood count (he mogram) panel - 09/16/16 03:50 Blood leukocytes automated count (number/volume) 4.6 10*3/uL 4.3-11.0 Blood erythrocytes automated count (number/volume) 3.80 10*6/uL 4.35-5.85 Venous blood hemoglobin measurement (mass/volume) 12.7 g/dL 11.5-16.0 Blood hematocrit (volume fraction) 37 % 35-52 Automated erythrocyte mean corpuscular volume 97 [ foz_us] 80-99 Automated erythrocyte mean corpuscular h emoglobin (mass per erythrocyte) 33 pg 25-34 Automated erythrocyte mean corpuscular h emoglobin concentration measurement (mass/volume) 35 g/dL 32-36 Automated erythrocyte distribution width ratio 12. 1 % 10.0- 14.5 Automated blood platelet count (count/volume) 186 10*3/uL 130-400 Automated blood platelet mean volume measurement 11.3 [foz_us] 7.4-10.4 Urine Culture - 11/16/16 14:00 PRELIM CULTURE RESULTS 20,000-50,000 Gram Ne gative DEANA / ID to Follow MEDIA PLATED Setup at 16:29 on 11/16/2016 CULTURE SOURCE urine Sensi - 11/16/16 14:00 FINAL CULTURE RESULTS Escherichia coli (Isolate 1) Ampicillin/Sulbactam <=8/4 Ampicillin <=8 Amoxicillin/K Clavulanate <=8/4 Ceftriaxone <=8 Ciprofloxacin <=1 Nitrofurantoin <=32 Gentamicin <=4 Levofloxacin <=2 Trimethoprim/ Sulfamethoxazole <=2/38 Tetracycline <=4 Amikacin <=16 Aztreonam <=8 Ceftazidime <=1 Ceftazidime/K Clavulanate <=0.25 Cephalothin <=8 Cefotaxime <=2 Cefotaxime/K Clavulanate <=0.5 Cefoxitin <=8 Cefazolin <=8 Cefepime <=8 Cefuroxime <=4 Ertapenem <=1 Imipenem <=4 Meropenem <=4 Piperacillin/Tazobactam <=16 Piperacillin <=16 Tigecycline <=2 Tobramycin <=4 Automated blood complete blood count (he mogram) panel - 09/07/17 13:36 Blood leukocytes automated count (number/volume) 5.1 10*3/uL 4.3-11.0 Blood erythrocytes automated count (number/volume) 4.27 10*6/uL 4.35-5.85 Venous blood hemoglobin measurement (mass/volume) 13.9 g/dL 11.5-16.0 Blood hematocrit (volume fraction) 42 % 35-52 Automated erythrocyte mean corpuscular volume 97 [ foz_us] 80-99 Automated erythrocyte mean corpuscular h emoglobin (mass per erythrocyte) 33 pg 25-34 Automated erythrocyte mean corpuscular h emoglobin concentration measurement (mass/volume) 34 g/dL 32-36 Automated erythrocyte distribution width ratio 12. 4 % 10.0- 14.5 Automated blood platelet count (count/volume) 220 10*3/uL 130-400 Automated blood platelet mean volume measurement 10.9 [foz_us] 7.4-10.4 PT panel in platelet poor plasma by coag ulation assay - 09/07/17 13:36 Prothrombin time (PT) in platelet poor plasma by coagu lation assay 15.0 s 12.2-14.7 INR in platelet poor plasma or blood by coagulation as say 1.2 0.8-1.4 Activated partial thromboplastin time (a PTT) in platelet poor plasma bycoagulation assay - 09/07/17 13:36 Activated partial thromboplastin time (a PTT) in platelet poor plasma bycoagulation assay 36 s 24-35 Comprehensive metabolic panel - 09/07/17 13:36 Serum or plasma sodium measurement (moles/volume) 138 mmol/L 135-145 Serum or plasma potassium measurement (moles/volume) 3.8 mmol/L 3.6-5.0 Serum or plasma chloride measurement (moles/volume) 104 mmol/L 98-107 Carbon dioxide 27 mmol/L 21-32 Serum or plasma anion gap determination (moles/volume) 7 mmol/L 5-14 Serum or plasma urea nitrogen measurement (mass/volume ) 19 mg/dL 7-18 Serum or plasma creatinine measurement (mass/volume) 0.99 mg/dL 0.60-1.30 Serum or plasma urea nitrogen/creatinine mass ratio 19 NRG Serum or plasma creatinine measurement w ith calculation of estimated glomerular filtration rate 58 NRG Serum or plasma glucose measurement (mass/volume) 92 mg/dL 70-105 Serum or plasma calcium measurement (mass/volume) 9.3 mg/dL 8.5-10.1 Serum or plasma total bilirubin measurement (mass/volu me) 1.2 mg/dL 0.1-1.0 Serum or plasma alkaline phosphatase john surement (enzymatic activity/volume) 49 U/L 40-136 Serum or plasma aspartate aminotransfera se measurement (enzymatic activity/volume) 53 U/L 5-34 Serum or plasma alanine aminotransferase measurement (enzymatic activity/volume) 93 U/L 0-55 Serum or plasma protein measurement (mass/volume) 6.9 g/dL 6.4-8.2 Serum or plasma albumin measurement (mass/volume) 4.1 g/dL 3.2-4.5 Lipid 1996 panel - 09/07/17 13:36 Serum or plasma triglyceride measurement (mass/volume) 65 mg/dL <150 Serum or plasma cholesterol measurement (mass/volume) 187 mg/dL < 200 Serum or plasma cholesterol in HDL measurement (mass/v olume) 59 mg/dL 40-60 Cholesterol in LDL [mass/volume] in serum or plasma by direct assay 117 mg/dL 1-129 Serum or plasma cholesterol in VLDL measurement (mass/ volume) 13 mg/dL 5-40 Methicillin resistant Staphylococcus aur eus (MRSA) screening culture - 09/07/17 13:36 Methicillin resistant Staphylococcus aureus (MRSA) scr eening culture NEG NRG Complete blood count (CBC) with automate d white blood cell (WBC) differential - 01/04/19 13:15 Blood leukocytes automated count (number/volume) 8.1 10*3/uL 4.3-11.0 Blood erythrocytes automated count (number/volume) 4.73 10*6/uL 4.35-5.85 Venous blood hemoglobin measurement (mass/volume) 15.3 g/dL 11.5-16.0 Blood hematocrit (volume fraction) 46 % 35-52 Automated erythrocyte mean corpuscular volume 97 [ foz_us] 80-99 Automated erythrocyte mean corpuscular h emoglobin (mass per erythrocyte) 32 pg 25-34 Automated erythrocyte mean corpuscular h emoglobin concentration measurement (mass/volume) 33 g/dL 32-36 Automated erythrocyte distribution width ratio 12. 2 % 10.0- 14.5 Automated blood platelet count (count/volume) 333 10*3/uL 130-400 Automated blood platelet mean volume measurement 10.5 [foz_us] 7.4-10.4 Automated blood neutrophils/100 leukocytes 76 % 42-75 Automated blood lymphocytes/100 leukocytes 19 % 12-44 Blood monocytes/100 leukocytes 5 % 0-12 Automated blood eosinophils/100 leukocytes 0 % 0-10 Automated blood basophils/100 leukocytes 0 % 0-10 Blood neutrophils automated count (number/volume) 6.1 10*3 1.8-7.8 Blood lymphocytes automated count (number/volume) 1.5 10*3 1.0-4.0 Blood monocytes automated count (number/volume) 0. 4 10*3 0.0-1.0 Automated eosinophil count 0.0 10*3/uL 0 .0-0.3 Automated blood basophil count (count/volume) 0.0 10*3/uL 0.0-0.1 PT panel in platelet poor plasma by coag ulation assay - 01/04/19 13:15 Prothrombin time (PT) in platelet poor plasma by coagu lation assay 17.1 s 12.2-14.7 INR in platelet poor plasma or blood by coagulation as say 1.4 0.8-1.4 Activated partial thromboplastin time (a PTT) in platelet poor plasma bycoagulation assay - 01/04/19 13:15 Activated partial thromboplastin time (a PTT) in platelet poor plasma bycoagulation assay 39 s 24-35 Comprehensive metabolic panel - 01/04/19 13:15 Serum or plasma sodium measurement (moles/volume) 140 mmol/L 135-145 Serum or plasma potassium measurement (moles/volume) 3.8 mmol/L 3.6-5.0 Serum or plasma chloride measurement (moles/volume) 103 mmol/L 98-107 Carbon dioxide 22 mmol/L 21-32 Serum or plasma anion gap determination (moles/volume) 15 mmol/L 5-14 Serum or plasma urea nitrogen measurement (mass/volume ) 16 mg/dL 7-18 Serum or plasma creatinine measurement (mass/volume) 1.24 mg/dL 0.60-1.30 Serum or plasma urea nitrogen/creatinine mass ratio 13 NRG Serum or plasma creatinine measurement w ith calculation of estimated glomerular filtration rate 44 NRG Serum or plasma glucose measurement (mass/volume) 138 mg/dL 70-105 Serum or plasma calcium measurement (mass/volume) 9.7 mg/dL 8.5-10.1 Serum or plasma total bilirubin measurement (mass/volu me) 0.9 mg/dL 0.1-1.0 Serum or plasma alkaline phosphatase john surement (enzymatic activity/volume) 50 U/L 40-136 Serum or plasma aspartate aminotransfera se measurement (enzymatic activity/volume) 27 U/L 5-34 Serum or plasma alanine aminotransferase measurement (enzymatic activity/volume) 24 U/L 0-55 Serum or plasma protein measurement (mass/volume) 7.2 g/dL 6.4-8.2 Serum or plasma albumin measurement (mass/volume) 4.2 g/dL 3.2-4.5 CALCIUM CORRECTED 9.5 mg/dL 8.5-10.1 Magnesium - 01/04/19 13:15 Magnesium 1.9 mg/dL 1.8-2.4 Serum or plasma troponin i.cardiac measu rement (mass/volume) - 01/04/19 13:15 Serum or plasma troponin i.cardiac measurement (mass/v olume) < ng/mL <0.028 THYROID STIMULATING HORMONE - 01/04/19 1 3:15 THYROID STIMULATING HORMONE 3.11 u[iU]/mL 0.35-4.94 Serum or plasma ethanol measurement (mas s/volume) - 01/04/19 13:15 Serum or plasma ethanol measurement (mass/volume) < mg/dL <10 Serum or plasma lithium measurement (mol es/volume) - 01/04/19 13:15 BNP level 602.8 pg/mL <100.0 Blood lactic acid measurement (moles/vol ume) - 01/04/19 13:48 Blood lactic acid measurement (moles/volume) 1.91 mmol/L 0.50-2.00 Bacterial blood culture - 01/04/19 13:48 QUANTITY OF GROWTH . [facility] Bacterial blood culture SEE COMMEN [facility] Bacterial blood culture - 01/04/19 13:54 Bacterial blood culture [facility] Influenza virus A and B antigen detectio n - 01/04/19 14:43 CALL POSITIVES (F1 HELP) FLU CALLED TO ALDA AT 1511 [facility] FLU RESULT POSITIVE FOR INFLUENZA B ANT IGEN, NEG FOR A ANTIGEN, BY IA [facility] Complete urinalysis with reflex to cultu re - 01/04/19 14:51 Urine color determination YELLOW NRG Urine clarity determination CLEAR NR G Urine pH measurement by test strip 6 5-9 Specific gravity of urine by test strip 1.010 1.016-1.022 Urine protein assay by test strip, semi-quantitative NEGATIVE NEGATIVE Urine glucose detection by automated test strip NE GATIVE NEGATIVE Erythrocytes detection in urine sediment by light micr oscopy NEGATIVE NEGATIVE Urine ketones detection by automated test strip NE GATIVE NEGATIVE Urine nitrite detection by test strip NEGATIVE NEGATIVE Urine total bilirubin detection by test strip NEGA TIVE NEGATIVE Urine urobilinogen measurement by automated test strip (mass/volume) NORMAL NORMAL Urine leukocyte esterase detection by dipstick NEG ATIVE NEGATIVE Automated urine sediment erythrocyte cou nt by microscopy (number/high power field) [HPF] NRG Automated urine sediment leukocyte count by microscopy (number/high power field) RARE NRG Bacteria detection in urine sediment by light microsco py NEGATIVE NRG Crystals detection in urine sediment by light microsco py NONE NRG Casts detection in urine sediment by light microscopy NONE NRG Mucus detection in urine sediment by light microscopy NEGATIVE NRG Complete urinalysis with reflex to culture NO NRG Urine drug screening test - 01/04/19 14: 51 Urine phencyclidine detection by screening method NEGATIVE NEGATIVE Urine benzodiazepines detection by screening method NEGATIVE NEGATIVE Urine cocaine detection NEGATIVE NEGATI VE Urine amphetamines detection by screening method N EGATIVE NEGATIVE Urine methamphetamine detection by screening method NEGATIVE NEGATIVE Urine cannabinoids detection by screening method N EGATIVE NEGATIVE Urine opiates detection by screening method NEGATI VE NEGATIVE Urine barbiturates detection NEGATIVE N EGATIVE Screening urine tricyclic antidepressants detection NEGATIVE NEGATIVE Urine methadone detection by screening method NEGA TIVE NEGATIVE Urine oxycodone detection NEGATIVE NEGA TIVE Urine propoxyphene detection NEGATIVE N EGATIVE Bacterial urine culture - 01/04/19 14:51 Bacterial urine culture NG NRG CULTURE, URINE - 12/18/19 19:00 CULTURE, URINE, ROUTINE SEE NOTE NRG Complete blood count (CBC) with automate d white blood cell (WBC) differential - 06/14/20 14:03 Blood leukocytes automated count (number/volume) 7.1 10*3/uL 4.3-11.0 Blood erythrocytes automated count (number/volume) 4.76 10*6/uL 4.35-5.85 Venous blood hemoglobin measurement (mass/volume) 15.8 g/dL 11.5-16.0 Blood hematocrit (volume fraction) 46 % 35-52 Automated erythrocyte mean corpuscular volume 97 [ foz_us] 80-99 Automated erythrocyte mean corpuscular h emoglobin (mass per erythrocyte) 33 pg 25-34 Automated erythrocyte mean corpuscular h emoglobin concentration measurement (mass/volume) 34 g/dL 32-36 Automated erythrocyte distribution width ratio 12. 6 % 10.0- 14.5 Automated blood platelet count (count/volume) 298 10*3/uL 130-400 Automated blood platelet mean volume measurement 11.1 [foz_us] 7.4-10.4 Automated blood neutrophils/100 leukocytes 64 % 42-75 Automated blood lymphocytes/100 leukocytes 28 % 12-44 Blood monocytes/100 leukocytes 7 % 0-12 Automated blood eosinophils/100 leukocytes 1 % 0-10 Automated blood basophils/100 leukocytes 0 % 0-10 Blood neutrophils automated count (number/volume) 4.6 10*3 1.8-7.8 Blood lymphocytes automated count (number/volume) 2.0 10*3 1.0-4.0 Blood monocytes automated count (number/volume) 0. 5 10*3 0.0-1.0 Automated eosinophil count 0.1 10*3/uL 0 .0-0.3 Automated blood basophil count (count/volume) 0.0 10*3/uL 0.0-0.1 Comprehensive metabolic panel - 06/14/20 14:03 Serum or plasma sodium measurement (moles/volume) 139 mmol/L 135-145 Serum or plasma potassium measurement (moles/volume) 4.2 mmol/L 3.6-5.0 Serum or plasma chloride measurement (moles/volume) 105 mmol/L 98-107 Carbon dioxide 23 mmol/L 21-32 Serum or plasma anion gap determination (moles/volume) 11 mmol/L 5-14 Serum or plasma urea nitrogen measurement (mass/volume ) 21 mg/dL 7-18 Serum or plasma creatinine measurement (mass/volume) 1.09 mg/dL 0.60-1.30 Serum or plasma urea nitrogen/creatinine mass ratio 19 NRG Serum or plasma creatinine measurement w ith calculation of estimated glomerular filtration rate 51 NRG Serum or plasma glucose measurement (mass/volume) 168 mg/dL 70-105 Serum or plasma calcium measurement (mass/volume) 9.7 mg/dL 8.5-10.1 Serum or plasma total bilirubin measurement (mass/volu me) 1.3 mg/dL 0.1-1.0 Serum or plasma alkaline phosphatase john surement (enzymatic activity/volume) 34 U/L 40-136 Serum or plasma aspartate aminotransfera se measurement (enzymatic activity/volume) 31 U/L 5-34 Serum or plasma alanine aminotransferase measurement (enzymatic activity/volume) 31 U/L 0-55 Serum or plasma protein measurement (mass/volume) 7.2 g/dL 6.4-8.2 Serum or plasma albumin measurement (mass/volume) 4.3 g/dL 3.2-4.5 CALCIUM CORRECTED 9.5 mg/dL 8.5-10.1 PT panel in platelet poor plasma by coag ulation assay - 06/14/20 14:03 Prothrombin time (PT) in platelet poor plasma by coagu lation assay 17.0 s 12.2-14.7 INR in platelet poor plasma or blood by coagulation as say 1.3 0.8-1.4 Activated partial thromboplastin time (a PTT) in platelet poor plasma bycoagulation assay - 06/14/20 14:03 Activated partial thromboplastin time (a PTT) in platelet poor plasma bycoagulation assay 36 s 24-35 Magnesium - 06/14/20 14:03 Magnesium 1.9 mg/dL 1.6-2.4 Myoglobin, serum - 06/14/20 14:03 Myoglobin, serum 68.8 ng/mL 10.0-92.0 Serum or plasma troponin i.cardiac measu rement (mass/volume) - 06/14/20 14:03 Serum or plasma troponin i.cardiac measurement (mass/v olume) < ng/mL <0.028 Serum or plasma lithium measurement (mol es/volume) - 06/14/20 14:03 BNP PT 754.6 pg/mL <100.0 Serum or plasma troponin i.cardiac measu rement (mass/volume) - 06/14/20 16:00 Serum or plasma troponin i.cardiac measurement (mass/v olume) < ng/mL <0.028 Complete blood count (CBC) with automate d white blood cell (WBC) differential - 06/15/20 19:35 Blood leukocytes automated count (number/volume) 6.0 10*3/uL 4.3-11.0 Blood erythrocytes automated count (number/volume) 4.43 10*6/uL 4.35-5.85 Venous blood hemoglobin measurement (mass/volume) 14.7 g/dL 11.5-16.0 Blood hematocrit (volume fraction) 43 % 35-52 Automated erythrocyte mean corpuscular volume 97 [ foz_us] 80-99 Automated erythrocyte mean corpuscular h emoglobin (mass per erythrocyte) 33 pg 25-34 Automated erythrocyte mean corpuscular h emoglobin concentration measurement (mass/volume) 34 g/dL 32-36 Automated erythrocyte distribution width ratio 12. 6 % 10.0- 14.5 Automated blood platelet count (count/volume) 244 10*3/uL 130-400 Automated blood platelet mean volume measurement 10.8 [foz_us] 7.4-10.4 Automated blood neutrophils/100 leukocytes 58 % 42-75 Automated blood lymphocytes/100 leukocytes 35 % 12-44 Blood monocytes/100 leukocytes 5 % 0-12 Automated blood eosinophils/100 leukocytes 2 % 0-10 Automated blood basophils/100 leukocytes 1 % 0-10 Blood neutrophils automated count (number/volume) 3.5 10*3 1.8-7.8 Blood lymphocytes automated count (number/volume) 2.1 10*3 1.0-4.0 Blood monocytes automated count (number/volume) 0. 3 10*3 0.0-1.0 Automated eosinophil count 0.1 10*3/uL 0 .0-0.3 Automated blood basophil count (count/volume) 0.0 10*3/uL 0.0-0.1 PT panel in platelet poor plasma by coag ulation assay - 06/15/20 19:35 Prothrombin time (PT) in platelet poor plasma by coagu lation assay 16.3 s 12.2-14.7 INR in platelet poor plasma or blood by coagulation as say 1.3 0.8-1.4 Activated partial thromboplastin time (a PTT) in platelet poor plasma bycoagulation assay - 06/15/20 19:35 Activated partial thromboplastin time (a PTT) in platelet poor plasma bycoagulation assay 38 s 24-35 Comprehensive metabolic panel - 06/15/20 19:35 Serum or plasma sodium measurement (moles/volume) 142 mmol/L 135-145 Serum or plasma potassium measurement (moles/volume) 4.1 mmol/L 3.6-5.0 Serum or plasma chloride measurement (moles/volume) 109 mmol/L 98-107 Carbon dioxide 21 mmol/L 21-32 Serum or plasma anion gap determination (moles/volume) 12 mmol/L 5-14 Serum or plasma urea nitrogen measurement (mass/volume ) 16 mg/dL 7-18 Serum or plasma creatinine measurement (mass/volume) 1.12 mg/dL 0.60-1.30 Serum or plasma urea nitrogen/creatinine mass ratio 14 NRG Serum or plasma creatinine measurement w ith calculation of estimated glomerular filtration rate 49 NRG Serum or plasma glucose measurement (mass/volume) 153 mg/dL 70-105 Serum or plasma calcium measurement (mass/volume) 9.5 mg/dL 8.5-10.1 Serum or plasma total bilirubin measurement (mass/volu me) 0.8 mg/dL 0.1-1.0 Serum or plasma alkaline phosphatase john surement (enzymatic activity/volume) 35 U/L 40-136 Serum or plasma aspartate aminotransfera se measurement (enzymatic activity/volume) 53 U/L 5-34 Serum or plasma alanine aminotransferase measurement (enzymatic activity/volume) 48 U/L 0-55 Serum or plasma protein measurement (mass/volume) 7.3 g/dL 6.4-8.2 Serum or plasma albumin measurement (mass/volume) 4.3 g/dL 3.2-4.5 CALCIUM CORRECTED 9.3 mg/dL 8.5-10.1 Magnesium - 06/15/20 19:35 Magnesium 1.9 mg/dL 1.6-2.4 Myoglobin, serum - 06/15/20 19:35 Myoglobin, serum 71.2 ng/mL 10.0-92.0 Serum or plasma troponin i.cardiac measu rement (mass/volume) - 06/15/20 19:35 Serum or plasma troponin i.cardiac measurement (mass/v olume) < ng/mL <0.028 Serum or plasma lithium measurement (mol es/volume) - 06/15/20 19:35 BNP PT 493.4 pg/mL <100.0 Encounters ACCT No. Visit Date/Time Discharge Status Pt. Type Provider Facility Loc./Unit Complaint [id number] 11/12/2019 15:20:00 11/12/2019 23:59: 59 CLS Outpatient MAC CAMACHO LAC [facility] [id number] 12/18/2019 10:40:00 Document Registration [id number] 11/16/2016 14:21:00 11/16/2016 23:59: 00 DIS Outpatient Dayna Campbell [id number] 06/14/2020 13:53:00 020 17:28:00 DIS Emergency SILVESTRE CALDERON MD [facility] ER A-FIB [id number] 11/24/2019 15:23:00 23:59:59 CLS Outpatient REESESANTOSHARIANDANETTE KAY Ajit TRAIN CONDUCTOR [facility] RAD RIGHT ADRI N ERVE [id number] 02/21/2019 08:22:00 23:59:59 CLS Outpatient MAURO DUKES FACC, MC FACP CC DS [facility] CARD PAF,CARDIOMYOPATHY,CHRONIC ANTICOAGULATION [id number] 01/04/2019 13:04:00 019 17:17:00 DIS Emergency SILVESTRE CALDERON MD [facility] ER A-FIB [id number] 09/07/2017 13:11:00 017 23:59:59 CLS Outpatient KIANA MCLEAN [facility] SDC PAF [id number] 09/29/2016 07:25:00 016 23:59:59 CLS Outpatient KIANA MCLEAN MOLECULAR PATHOLOGIST [facility] CARD PAF,DYSPNEA,MR, TR [id number] 09/15/2016 13:21:00 016 13:20:00 DIS Inpatient TALITA RAMIREZ MD [facility] ICU A FIB WITH RVR, PARMINDER MAHER ET [id number] 06/15/2020 19:43:00 Document Registration
[2020-06-15] MEDS ORDERED: NS IV 1000 ML 1,000 ML ONE (21:57)
[2020-06-15] MEDS: NS IV 1000 ML 1,000 ML IV SCH (22:26)
[2020-06-15] MEDS ORDERED: dilTIAZem DRIP 125 MG/125 ML DRIP IV SCH (22:30)
[2020-06-15] MEDS: APIXABAN 5 MG (ELIQUIS) TABLET PO SCH (23:05)
[2020-06-16] VITALS (16 sets, daily range): BP systolic 88–123; BP diastolic 57–80
[2020-06-16 03:15] LABS: BASOPHILS % (AUTO) 1 % (0-10); EOSINOPHILS # (AUTO) 0.1 10^3/uL (0.0-0.3); EOSINOPHILS % (AUTO) 2 % (0-10); HEMATOCRIT 42 % (35-52); HEMOGLOBIN 14.3 G/DL (11.5-16.0); LYMPHOCYTES # (AUTO) 1.9 X 10^3 (1.0-4.0); LYMPHOCYTES % (AUTO) 44 % (12-44); MEAN CORPUSCULAR HEMOGLOBIN 33 PG (25-34); MEAN CORPUSCULAR HGB CONC 34 G/DL (32-36); MEAN CORPUSCULAR VOLUME 97 FL (80-99); MEAN PLATELET VOLUME 10.6 FL (7.4-10.4); MONOCYTES # (AUTO) 0.3 X 10^3 (0.0-1.0); MONOCYTES % (AUTO) 8 % (0-12); NEUTROPHILS % (AUTO) 46 % (42-75); PLATELET COUNT 215 10^3/uL (130-400); RED CELL DISTRIBUTION WIDTH 12.5 % (10.0-14.5); WHITE BLOOD COUNT 4.4 10^3/uL (4.3-11.0)
[2020-06-16 03:23] LABS: CHLORIDE 110 MMOL/L (98-107)
[2020-06-16 03:24] LABS: POTASSIUM 3.7 MMOL/L (3.6-5.0); SODIUM 143 MMOL/L (135-145)
[2020-06-16 03:26] LABS: GLUCOSE 90 MG/DL (70-105); TRIGLYCERIDES 131 MG/DL (<150); VLDL CHOLESTEROL 26 MG/DL (5-40)
[2020-06-16 03:27] LABS: CARBON DIOXIDE 22 MMOL/L (21-32)
[2020-06-16 03:29] LABS: PHOSPHORUS 2.9 MG/DL (2.3-4.7)
[2020-06-16 03:30] LABS: CREATININE SERUM 0.84 MG/DL (0.60-1.30); GFR ESTIMATED > 60
[2020-06-16 03:31] LABS: BUN/CREATININE RATIO 15; CHOLESTEROL 197 MG/DL (< 200)
[2020-06-16 03:32] LABS: HDL CHOLESTEROL 50 MG/DL (40-60); MAGNESIUM 1.9 MG/DL (1.6-2.4)
[2020-06-16] MEDS: APIXABAN 5 MG (ELIQUIS) TABLET PO SCH (08:44)
[2020-06-16] MEDS ORDERED: APIXABAN 5 MG (ELIQUIS) TABLET PO SCH (09:00)
--- NOTE | 2020-06-16 09:28 | History & Physical-Hospitalist ---
History of Present Illness HPI/Chief Complaint This is a 60-year-old white female with a history of atrial fibrillation with poor rate control. This is her second presentation in the emergency room with A. fib with RVR. She is admitted for rate control and further evaluation. Currently she notes no problems and does not know what starts the A. fib and cannot identify any inciting events. It does make her sick to her stomach when it occurs and she feels short of breath. Source: patient Exam Limitations: no limitations Date Seen 06/16/20 Time Seen by a Provider: 08:45 Attending Physician Fanny Johnson MD PCP Pennie Garvin MD Referring Physician Date of Admission Jun 15, 2020 at 20:21 Home Medications & Allergies Home Medications Reviewed patient Home Medication Reconciliation performed by pharmacy medication reconciliations rehab technician and/or nursing. Patients Allergies have been reviewed. 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) Alcohol Use: Denies Use Recreational Drug Use: No Smoking Status: Never a Smoker Recent Foreign Travel: No Contact w/other who traveled: No Recent Hopitalizations: No Recent Infectious Disease Expo: No Seasonal Allergies Seasonal Allergies: Yes Past Medical History Surgeries: Tonsillectomy Cardiac: Atrial Fibrillation, High Cholesterol Reproductive: No Sexually Transmitted Disease: No HIV/AIDS: No HEENT: Cataract Hearing Impairment: Denies History of Blood Disorders: No Family History Cardiovascular disease 19 FATHER 19 MOTHER Hypercholesterolemia 19 MOTHER No Pertinent Family Hx Review of Systems Constitutional: see HPI EENTM: no symptoms reported Respiratory: no symptoms reported Cardiovascular: palpitations Gastrointestinal: no symptoms reported Musculoskeletal: no symptoms reported Skin: no symptoms reported Psychiatric/Neurological: No Symptoms Reported Physical Exam Physical Exam Vital Signs Vital Signs - First Documented 06/15/20 19:31 Temp 36.5 Pulse 151 Resp 21 B/P (MAP) 82/52 (62) Pulse Ox 100 O2 Delivery Room Air Capillary Refill : Less Than 3 Seconds Height, Weight, BMI Height: 5'8.00" Weight: 132lbs. 11.2oz. [id number]; 19.84 BMI Method:Stated General Appearance: No Apparent Distress, WD/WN HEENT: TMs Normal, Normal ENT Inspection, Pharynx Normal Neck: Full Range of Motion, Normal Inspection, Non Tender, Supple Respiratory: Chest Non Tender, Lungs Clear, Normal Breath Sounds, No Accessory Muscle Use, No Respiratory Distress Cardiovascular: No Edema, No JVD, Normal Peripheral Pulses, Systolic Murmur, Irregularly Irregular Gastrointestinal: Normal Bowel Sounds, No Organomegaly, No Pulsatile Mass, Non Tender, Soft Rectal: Deferred Back: Normal Inspection Extremity: Normal Capillary Refill, Normal Inspection, Normal Range of Motion, Non Tender, No Calf Tenderness, No Pedal Edema Neurologic/Psychiatric: Alert, Oriented x3, No Motor/Sensory Deficits, Normal Mood/Affect, lung gun operator II-XII Norm as Tested Skin: Normal Color, Warm/Dry Lymphatic: No Adenopathy Results Results/Procedures Labs Laboratory Tests 06/15/20 19:35 06/16/20 03:10 Patient resulted labs reviewed. Imaging: Reviewed Imaging Report Assessment/Plan Admission Diagnosis A. fib with RVR-associated with chest discomfort recurrent Need for screening colonoscopy Plan to admit for rate control and cardiology consultation Admission Status: Observation Clinical Quality Measures AMI/AHF: ASA po Prior to arrival: No DVT/VTE Risk/Contraindication: Risk Factor Score Per Nursin RFS Level Per Nursing on Admit: 1=Low/No VTE PPX Copy Copies To 1: TAMAR HERNANDEZ MD, KATHLEEN M MD Jun 16, 2020 09:28
[2020-06-16] MEDS ORDERED: ACETAMINOPHEN 325 MG TABLET PO PRN (11:00)
[2020-06-16] MEDS ORDERED: NS IV 1000 ML 1,000 ML IV ONE (11:35)
[2020-06-16] MEDS ORDERED: SOTA120T PO ×2 (11:38)
[2020-06-16] MEDS ORDERED: proPOfol 200 MG/20 ML (DIPRIVAN) VIAL IV ONE (11:42)
[2020-06-16] MEDS ORDERED: MIDAZOLAM 5 MG/5 ML (VERSED) VIAL IV ONE (11:45)
[2020-06-16] MEDS ORDERED: proPOfol 500 MG/50 ML (DIPRIVAN) VIAL IV ONE (11:45)
--- NOTE | 2020-06-16 12:25 | NUR ---
Dr. Luna et anesthesia at bedside. Pt placed on O2 via NC at 3L with ETCO2 connected. BP chnaged to Q5, suction on et ready at bedside. Pt given sedation by anesthesia. Pt shocked on sync mode with 200J electricity. Cardiac rhythm converted so SR rate 60s. EKG obtained
[2020-06-16] MEDS: NS IV 1000 ML 1,000 ML IV SCH (12:44)
--- NOTE | 2020-06-16 12:48 | Anesthesia-General Post-Op ---
MAC Patient Condition Mental Status/LOC: Same as Preop Cardiovascular: Satisfactory Nausea/Vomiting: Absent Respiratory: Satisfactory Pain: Controlled Complications: Absent Post Op Complications Complications None Follow Up Care/Instructions Patient Instructions None needed. Anesthesiology Discharge Order Discharge Order Patient is doing well, no complaints, stable vital signs, no apparent adverse anesthesia problems. No complications reported per nursing. MIGUEL LAURA FISH ROD MAKER Jun 16, 2020 12:48
--- NOTE | 2020-06-16 14:53 | Consultation-Cardiology ---
HPI-Cardiology Cardiology Consultation: Date of Consultation 06/16/20 Date of Admission Attending Physician Fanny Johnson MD Admitting Physician Pennie Garvin MD Consulting Physician Samantha LUNA MD HPI: Time Seen by a Provider: 12:00 Chief Complaint: Palpitations This is a 60-year-old lady who is a patient of Dr. Quinn. She has history of paroxysmal atrial fibrillation with 2 previous cardioversion. She is on sotalol and Eliquis. She complained of fatigue, shortness of breath and palpitation. In the last 48 hours she is had an episode of atrial fibrillation with RVR requiring an ER visit however she was in controlled heart rate and therefore discharged from the ER. She presents again and is in atrial fibrillation with rapid ventricular response. She was started on Cardizem infusion and admitted. She denies active smoking. Family history is negative. She denies any other cardiac complaints. Review of Systems-Cardiology Review of Systems Constitutional: As described under HPI; No As described under HPI, No no symptoms reported, No chills, No fever, No lightheadedness; tiredness Eyes: No As described under HPI, No no symptoms reported, No blindness, No blurred vision, No contact lenses, No drainage, No decreased acuity, No foreign body sensation, No pain, No vision change Ears/Nose/Throat: No As described under HPI, No no symptoms reported, No chronic hearing loss, No ear discharge, No ear pain, No nasal drainage, No ulcerations Respiratory: No no symptoms reported; As described under HPI; No As described under HPI, No cough, No orthopnea; shortness of breath; No SOB with excertion Cardiovascular: No no symptoms reported; As described under HPI; No As described under HPI, No chest pain, No edema, No irregular heart rate, No lightheadedness; palpitations Gastrointestinal: No no symptoms reported, No As described under HPI, No abdomen distended, No abdominal pain, No blood streaked bowels, No constipation, No diarrhea, No nausea, No vomiting, No stool coloration changes Genitourinary: No As described under HPI, No burning, No dysuria, No discharge, No frequency, No flank pain, No hematuria, No urgency : Yes : No Skin: No rash, No skin related problems, No ulcerations Psychiatric/Neurological: No anxiety, No depression, No seizure, No focal weakness, No syncope Hematologic: No bleeding abnormalities [id number] Hx Patient Social History Marrital Status: 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 Family Medical History Family Medical History: She reports her father has CAD and has had CABG in his 70's. She reports her mother has CAD and a-fib. Family History: Cardiovascular disease 19 FATHER 19 MOTHER Hypercholesterolemia 19 MOTHER Allergies and Home Medications Allergies Coded Allergies: codeine (Verified Allergy, Mild, NAUSEA, 09/15/16) Home Medications Apixaban 5 Mg Tablet, 5 MG PO BID Prescribed by: UTE AMAYA on 09/16/16 1117 Calcium Carbonate/Vitamin D3 1 Each Tablet, 1 TAB PO HS, (Reported) Lysine 1,000 Mg Tablet, 1,000 MG PO DAILY, (Reported) Multivitamin 1 Each Tablet, 1 TAB PO DAILY, (Reported) Sotalol HCl 120 Mg Tablet, 120 MG PO BID, (Reported) [Vitamin C] , 1 TAB PO HS, (Reported) Patient Home Medication List Home Medication List Reviewed: Yes Physical Exam-Cardiology Physical Exam Vital Signs/I&O 06/16/20 06/16/20 06/16/20 06/16/20 03:00 04:00 04:00 05:00 Temp 36.5 Pulse 70 89 85 Resp 15 17 16 B/P (MAP) 97/64 (75) 93/67 (76) 88/58 (68) Pulse Ox 98 96 98 97 O2 Delivery Room Air Room Air Room Air Room Air 06/16/20 06/16/20 06/16/20 06/16/20 06:00 07:00 07:01 07:40 Temp 37.0 Pulse 70 61 66 Resp 16 15 B/P (MAP) 93/67 (76) 100/66 (77) Pulse Ox 95 95 O2 Delivery Room Air Room Air 06/16/20 06/16/20 06/16/20 06/16/20 08:00 08:29 09:00 10:00 Pulse 73 81 85 Resp 16 23 18 B/P (MAP) 105/70 (82) 106/80 (89) 114/79 (91) Pulse Ox 96 98 98 96 O2 Delivery Room Air Room Air Room Air Room Air 06/16/20 06/16/20 06/16/20 06/16/20 11:00 12:00 12:00 13:00 Pulse 71 97 64 Resp 34 14 12 B/P (MAP) 103/73 (83) 123/80 (94) 89/67 (74) Pulse Ox 96 99 98 98 O2 Delivery Room Air Room Air Room Air Room Air 06/16/20 00:00 Intake Total 500 ml Balance 500 ml Capillary Refill : Less Than 3 Seconds Constitutional: appears stated age; No apparent distress; well-developed, well- nourished HEENT: PERRL; No discharge; hearing is well preserved, oral hygience is good; No ulceration, No xanthelasmas are seen Neck: No carotid bruit; carotid pulses are 2 + bilaterally Respiratory: chest is bilaterally symmetric, lungs clear to auscultation Cardiovascular: irregularly irregular, S1 and S2 Gastrointestinal: soft, audible bowel sounds; No spleenomegaly Rectal: deferred Extremities: normal range of motion, non-tender, normal inspection; No clubbing, No cyanosis; no lower extremity edema bilateral; No significant edema Neurologic/Psychiatric: no motor/sensory deficits, alert, normal mood/affect, oriented x 3, power is 5/5 both on sides Skin: normal color, warm/dry; No rash, No ulcerations Data Review Labs Laboratory Tests 06/15/20 19:35: White Blood Count 6.0, Red Blood Count 4.43, Hemoglobin 14.7, Hematocrit 43, Mean Corpuscular Volume 97, Mean Corpuscular Hemoglobin 33, Mean Corpuscular Hemoglobin Concent 34, Red Cell Distribution Width 12.6, Platelet Count 244, Mean Platelet Volume 10.8H, Neutrophils (%) (Auto) 58, Lymphocytes (%) (Auto) 35, Monocytes (%) (Auto) 5, Eosinophils (%) (Auto) 2, Basophils (%) (Auto) 1, Neutrophils # (Auto) 3.5, Lymphocytes # (Auto) 2.1, Monocytes # (Auto) 0.3, Eosinophils # (Auto) 0.1, Basophils # (Auto) 0.0, Prothrombin Time 16.3H, INR Comment 1.3, Activated Partial Thromboplast Time 38H, Sodium Level 142, Potassi um Level 4.1, Chloride Level 109H, Carbon Dioxide Level 21, Anion Gap 12, Blood Urea Nitrogen 16, Creatinine 1.12, Estimat Glomerular Filtration Rate 49, BUN/Creatinine Ratio 14, Glucose Level 153H, Calcium Level 9.5, Corrected Calcium 9.3, Magnesium Level 1.9, Total Bilirubin 0.8, Aspartate Amino Transf (AST/SGOT) 53H, Alanine Aminotransferase (ALT/SGPT) 48, Alkaline Phosphatase 35L , Myoglobin 71.2, Troponin I < 0.028, B-Type Natriuretic Peptide 493.4H, Total Protein 7.3, Albumin 4.3 06/16/20 03:10: White Blood Count 4.4, Red Blood Count 4.31L, Hemoglobin 14.3, Hematocrit 42, Mean Corpuscular Volume 97, Mean Corpuscular Hemoglobin 33, Mean Corpuscular Hemoglobin Concent 34, Red Cell Distribution Width 12.5, Platelet Count 215, Mean Platelet Volume 10.6H, Neutrophils (%) (Auto) 46, Lymphocytes (%) (Auto) 44, Monocytes (%) (Auto) 8, Eosinophils (%) (Auto) 2, Basophils (%) (Auto) 1, Neutrophils # (Auto) 2.0, Lymphocytes # (Auto) 1.9, Monocytes # (Auto) 0.3, Eosinophils # (Auto) 0.1, Basophils # (Auto) 0.0, Sodium Level 143, Potassium Level 3.7, Chloride Level 110H, Carbon Dioxide Level 22, Anion Gap 11, Blood Urea Nitrogen 13, Creatinine 0.84, Estimat Glomerular Filtration Rate > 60, BUN/Creatinine Ratio 15, Glucose Level 90, Calcium Level 9.0, Magnesium Level 1.9, Troponin I < 0.028, Phosphorus Level 2.9, Triglycerides Level 131, Cholesterol Level 197, LDL Cholesterol Direct 139H, VLDL Cholesterol 26, HDL Cholesterol 50 ECG Impression ECG Initial ECG Impression: Atrial Fibrillation w/RVR A/P-Cardiology Assessment/Admission Diagnosis Atrial fibrillation with rapid ventricular rate Plan Atrial fibrillation with rapid ventricular rate on admission. Started on Cardizem infusion. Already on sotalol and Eliquis uninterrupted for 1 month. I spoke at length to the patient and think that atrial fibrillation ablation is the best long-term therapy for this patient. However at this point in time we will go ahead and perform direct electrical cardioversion. risk of stroke was discussed with the patient. Since she has been on uninterrupted Eliquis for the last one month we will perform cardioversion without transesophageal echocardiogram. She will continue sotalol and Eliquis and follow-up with Dr. Quinn tomorrow 06/17/2020. Likely EP consultation in the near future. Thank you for your consultation. Please call me if you have any questions. Jono Luna MD, FACP, FACC, FSCAI, FHRS, CCDS Interventional Cardiology Cardiac Electrophysiology Vascular Medicine and Endovascular Interventions Clinical Quality Measures AMI/AHF: ASA po Prior to arrival: No DVT/VTE Risk/Contraindication: Risk Factor Score Per Nursin RFS Level Per Nursing on Admit: 1=Low/No VTE PPX Samantha LUNA MD Jun 16, 2020 14:53
--- NOTE | 2020-06-16 14:53 | Cardioversion ---
Cardioversion PROCEDURE PHYSICIAN: Jono Luna MD DATE OF PROCEDURE: 06/16/20 DIRECT EXTERNAL ELECTRICAL CARDIOVERSION: Indications: Atrial Fibrillation with rapid ventricular rate Preoperative diagnoses: Atrial Fibrillation with rapid ventricular rate Postoperative diagnosis: Sinus rhythm, Successful Electrical Cardioversion History: Paroxysmal atrial fibrillation with rapid ventricular rate. On sotalol and Eliquis. Anesthesia: By Anesthesia services Complications: None Specimen: None Contrast: 0 Flouroscopy: none Procedure Details: The patient was brought the electronic lab technician after informed consent was taken, all the risks and complications were explained including the risk of stroke. Electrical cardioversion was carried out with anesthesia support with propofol. 200 joules of synchronized shock was delivered through external patches which promptly restored sinus rhythm. The patient tolerated the procedure well. Conclusions: 1.Successful Cardioversion. 2.Continue oral anticoagulation and rate controlling agent. 3.Follow up with Dr. Quinn. Jono Luna MD, [facility] Cardiac Electrophysiology Samantha LUNA MD Jun 16, 2020 14:53
== END 2020-06-16 15:30 | disposition home or self-care (01) | DRG 310 ==
LOC: EDUNIT# 19:21 → ER 19:22 → ICU 20:21 → UNDOADMIN 20:21
PROVIDERS: ADMIT Internal Medicine; ATTEND Internal Medicine
PROC: 5A2204Z Restoration of Cardiac Rhythm, Single (ICD-10-PCS; principal; 2020-06-15)
DX: I48.0 Paroxysmal atrial fibrillation (principal); E78.00 Pure hypercholesterolemia, unspecified; Z79.01 Long term (current) use of anticoagulants
CPT/HCPCS: 36415; 71045; 80048; 80053; 80061; 83735; 83874; 83880; 84100; 84484; 85025; 85610; 85730; 87081; 93005; 93041; 93306

== ENCOUNTER → 2020-06-21 | Day surgery (SDC) | payer SELFPAY ==
[~2020-06-21] MED LIST changes: +LIDOCAINE 1% INJ 20 ML 20 ML VIAL ONE; +SOTA120T PO
[2020-06-21 13:10] VITALS: BP 121/79
--- NOTE | 2020-06-21 13:21 | Implantation of Loop Monitor ---
Implant of Loop Monitior PROCEDURE PHYSICIAN: Jono Luna MD IMPLANTATION OF LOOP MONITOR REPORT DATE OF PROCEDURE: 06/21/20 ATTENDING PHYSICIAN: Dr. Ariel Luna. REFERRING PHYSICIAN: PERFORMING PHYSICIAN: Dr. Ariel Luna. INDICATION: Long-term surveillance of atrial fibrillation PREOP DIAGNOSIS: Long-term surveillance of atrial fibrillation POSTOP DIAGNOSIS: Atrial fibrillation, s/p implantation of loop recorder. PROCEDURE DETAILS: The patient is a 60 female with history of paroxysmal atrial fibrillation requiring long-term surveillance. Therefore implantable loop recorder was discussed and agreed with the patient. Informed consent was taken. All risks and complications were discussed at length. The patient was draped and prepped in the usual sterile fashion. Local anesthesia was lidocaine, which was given in the substernal area close to the 4th intercostal space. Loop monitor was implanted according to the protocol. Steri-Strips were placed at the end of the procedure. There were no complications and the patient tolerated the procedure well. The device was interrogated with a voltage of. ANESTHESIA: Local anesthesia with lidocaine. COMPLICATIONS: None CONTRAST/FLUOROSCOPY: None CONCLUSION: 1. Successful implantation of loop monitor for recurrent syncope. 2. No complication and the patient tolerated the procedure well. Jono Luna MD, RS, CCDS Cardiac Electrophysiology Samantha LUNA MD Jun 21, 2020 13:21
== END | disposition home or self-care (01) ==
LOC: CATH 11:40
PROVIDERS: ATTEND Internal Medicine Interventional Cardiology
DX: I48.0 Paroxysmal atrial fibrillation (principal); E78.00 Pure hypercholesterolemia, unspecified; Z88.5 Allergy status to narcotic agent; Z79.01 Long term (current) use of anticoagulants; Z79.899 Other long term (current) drug therapy
CPT/HCPCS: 33285; C1764

== ENCOUNTER → 2020-07-08 | Outpatient (CLI) | payer OTHER ==
[~2020-07-08] MED LIST changes: -LIDOCAINE 1% INJ 20 ML 20 ML VIAL ONE
== END ==
LOC: LABNPT 06:53
PROVIDERS: ATTEND Internal Medicine Interventional Cardiology
DX: Z01.818 Encounter for other preprocedural examination (principal)

== ENCOUNTER 2020-07-11 06:55 | Day surgery (SDC) | payer OTHER ==
[~2020-07-11] VITALS: Ht 172.7 cm; Wt 59.0 kg
[2020-07-11] VITALS (17 sets, daily range): BP systolic 97–125; BP diastolic 62–76
--- OUTSIDE RECORDS SUMMARY | 2020-07-11 07:01 | XMS REPORT | Continuity of Care Document ---
Author Organization Unknown Address Unknown Phone Unavailable Allergies Active Description Code Type Severity Reaction Onset Reported/Identified Relationship to Patient Clinical Status Yes codeine [id number] Drug Allergy Mild NAUSEA 09/15/2016 Yes No Known Drug Allergies [id number] Drug Allergy Unknown N/A 09/15/2016 Medications There is no data. Problems Date Dx Coded Attending Type Code Diagnosis Diagnosed By 09/16/2016 JAMES DUKES, TALITA Francis Ot I48.91 UNSPECIFIED ATRIAL FIBRILLATION 09/30/2016 BAIMA KIANA L SUPERVISOR MOTOR VEHICLE ASSEMBLY Ot I07.1 RHEUMATIC TRICUSPID INSUFFICIENCY 09/30/2016 BAIMA, KIANA L SUPERVISOR MOTOR VEHICLE ASSEMBLY Ot I34.0 NONRHEUMATIC MITRAL (VALVE) INSUFFICIENC 09/30/2016 BAIMA, KIANA L SUPERVISOR MOTOR VEHICLE ASSEMBLY Ot I48.0 PAROXYSMAL ATRIAL FIBRILLATION 09/30/2016 BAIMA, KIANA L SUPERVISOR MOTOR VEHICLE ASSEMBLY Ot R06.00 DYSPNEA, UNSPECIFIED 09/30/2016 BAIMA, KIANA L SUPERVISOR MOTOR VEHICLE ASSEMBLY Ot Z79.01 GAME BREEDING FARM MANAGER (CURRENT) USE OF ANTICOAGULANT 10/05/2016 BAIMA, KIANA L SUPERVISOR MOTOR VEHICLE ASSEMBLY Ot I07.1 RHEUMATIC TRICUSPID INSUFFICIENCY 10/05/2016 BAIMA, KIANA L SUPERVISOR MOTOR VEHICLE ASSEMBLY Ot I34.0 NONRHEUMATIC MITRAL (VALVE) INSUFFICIENC 10/05/2016 BAIMA, KIANA L SUPERVISOR MOTOR VEHICLE ASSEMBLY Ot I48.0 PAROXYSMAL ATRIAL FIBRILLATION 10/05/2016 BAIMA, KIANA L SUPERVISOR MOTOR VEHICLE ASSEMBLY Ot R06.00 DYSPNEA, UNSPECIFIED 10/05/2016 BAIMA, KIANA L SUPERVISOR MOTOR VEHICLE ASSEMBLY Ot Z79.01 USP (CURRENT) USE OF ANTICOAGULANT 10/05/2016 BAIMA, KIANA L SUPERVISOR MOTOR VEHICLE ASSEMBLY Ot I07.1 RHEUMATIC TRICUSPID INSUFFICIENCY 10/05/2016 BAIMA, KIANA L SUPERVISOR MOTOR VEHICLE ASSEMBLY Ot I34.0 NONRHEUMATIC MITRAL (VALVE) INSUFFICIENC 10/05/2016 BAIMA, KIANA L SUPERVISOR MOTOR VEHICLE ASSEMBLY Ot I48.0 PAROXYSMAL ATRIAL FIBRILLATION 10/05/2016 BAIMA, KIANA L SUPERVISOR MOTOR VEHICLE ASSEMBLY Ot R06.00 DYSPNEA, UNSPECIFIED 10/05/2016 BAIMA KIANA L SUPERVISOR MOTOR VEHICLE ASSEMBLY Ot Z79.01 GAME BREEDING FARM MANAGER (CURRENT) USE OF ANTICOAGULANT 10/06/2016 BAIMA, KIANA L SUPERVISOR MOTOR VEHICLE ASSEMBLY Ot I07.1 RHEUMATIC TRICUSPID INSUFFICIENCY 10/06/2016 BAIMA, KIANA L SUPERVISOR MOTOR VEHICLE ASSEMBLY Ot I34.0 NONRHEUMATIC MITRAL (VALVE) INSUFFICIENC 10/06/2016 BAIMA, KIANA L SUPERVISOR MOTOR VEHICLE ASSEMBLY Ot I48.0 PAROXYSMAL ATRIAL FIBRILLATION 10/06/2016 BAIMA, KIANA L SUPERVISOR MOTOR VEHICLE ASSEMBLY Ot R06.00 DYSPNEA, UNSPECIFIED 10/06/2016 BAIMA, KIANA L SUPERVISOR MOTOR VEHICLE ASSEMBLY Ot Z79.01 USP (CURRENT) USE OF ANTICOAGULANT 10/29/2016 BAIMA, KIANA L SUPERVISOR MOTOR VEHICLE ASSEMBLY Ot I07.1 RHEUMATIC TRICUSPID INSUFFICIENCY 10/29/2016 BAIMA, KIANA L SUPERVISOR MOTOR VEHICLE ASSEMBLY Ot I34.0 NONRHEUMATIC MITRAL (VALVE) INSUFFICIENC 10/29/2016 BAIMA, KIANA L SUPERVISOR MOTOR VEHICLE ASSEMBLY Ot I48.0 PAROXYSMAL ATRIAL FIBRILLATION 10/29/2016 BAIMA, KIANA L SUPERVISOR MOTOR VEHICLE ASSEMBLY Ot R06.00 DYSPNEA, UNSPECIFIED 10/29/2016 BAIMA, KIANA L SUPERVISOR MOTOR VEHICLE ASSEMBLY Ot Z79.01 USP (CURRENT) USE OF ANTICOAGULANT 11/24/2016 BAIMA, KIANA L SUPERVISOR MOTOR VEHICLE ASSEMBLY Ot I07.1 RHEUMATIC TRICUSPID INSUFFICIENCY 11/24/2016 BAIMA, KIANA L SUPERVISOR MOTOR VEHICLE ASSEMBLY Ot I34.0 NONRHEUMATIC MITRAL (VALVE) INSUFFICIENC 11/24/2016 BAIMA, KIANA L SUPERVISOR MOTOR VEHICLE ASSEMBLY Ot I48.0 PAROXYSMAL ATRIAL FIBRILLATION 11/24/2016 BAIMA, KIANA L SUPERVISOR MOTOR VEHICLE ASSEMBLY Ot R06.00 DYSPNEA, UNSPECIFIED 11/24/2016 BAIMA, KIANA L SUPERVISOR MOTOR VEHICLE ASSEMBLY Ot Z79.01 USP (CURRENT) USE OF ANTICOAGULANT 09/07/2017 BAIMA, KIANA L SUPERVISOR MOTOR VEHICLE ASSEMBLY Ot I07.1 RHEUMATIC TRICUSPID INSUFFICIENCY 09/07/2017 BAIMA, KIANA L SUPERVISOR MOTOR VEHICLE ASSEMBLY Ot I34.0 NONRHEUMATIC MITRAL (VALVE) INSUFFICIENC 09/07/2017 BAIMA, KIANA L SUPERVISOR MOTOR VEHICLE ASSEMBLY Ot I48.0 PAROXYSMAL ATRIAL FIBRILLATION 09/07/2017 BAIMA, KIANA L SUPERVISOR MOTOR VEHICLE ASSEMBLY Ot R06.00 DYSPNEA, UNSPECIFIED 09/07/2017 BAIMA, KIANA L SUPERVISOR MOTOR VEHICLE ASSEMBLY Ot Z79.01 GAME BREEDING FARM MANAGER (CURRENT) USE OF ANTICOAGULANT 09/07/2017 BAIMA, KIANA L SUPERVISOR MOTOR VEHICLE ASSEMBLY Ot I07.1 RHEUMATIC TRICUSPID INSUFFICIENCY 09/07/2017 BAIMA, KIANA L SUPERVISOR MOTOR VEHICLE ASSEMBLY Ot I34.0 NONRHEUMATIC MITRAL (VALVE) INSUFFICIENC 09/07/2017 BAIMA, KIANA L SUPERVISOR MOTOR VEHICLE ASSEMBLY Ot I48.0 PAROXYSMAL ATRIAL FIBRILLATION 09/07/2017 BAIMA, KIANA L SUPERVISOR MOTOR VEHICLE ASSEMBLY Ot R06.00 DYSPNEA, UNSPECIFIED 09/07/2017 BAIMA, KIANA L SUPERVISOR MOTOR VEHICLE ASSEMBLY Ot Z79.01 GAME BREEDING FARM MANAGER (CURRENT) USE OF ANTICOAGULANT 09/09/2017 BAIMA, KIANA L SUPERVISOR MOTOR VEHICLE ASSEMBLY Ot I48.0 PAROXYSMAL ATRIAL FIBRILLATION 09/09/2017 BAIMA, KIANA L SUPERVISOR MOTOR VEHICLE ASSEMBLY Ot I48.0 PAROXYSMAL ATRIAL FIBRILLATION 09/27/2017 BAIMA, KIANA L SUPERVISOR MOTOR VEHICLE ASSEMBLY Ot I48.0 PAROXYSMAL ATRIAL FIBRILLATION 09/27/2017 BAIMA, KIANA L SUPERVISOR MOTOR VEHICLE ASSEMBLY Ot Z79.01 GAME BREEDING FARM MANAGER (CURRENT) USE OF ANTICOAGULANT 09/27/2017 BAIMA, KIANA L SUPERVISOR MOTOR VEHICLE ASSEMBLY Ot Z79.899 OTHER USP (CURRENT) DRUG THERAPY 09/28/2017 BAIMA, KIANA L SUPERVISOR MOTOR VEHICLE ASSEMBLY Ot I48.0 PAROXYSMAL ATRIAL FIBRILLATION 09/28/2017 BAIMA, KIANA L SUPERVISOR MOTOR VEHICLE ASSEMBLY Ot Z79.01 USP (CURRENT) USE OF ANTICOAGULANT 09/28/2017 BAIMA, KIANA L SUPERVISOR MOTOR VEHICLE ASSEMBLY Ot Z79.899 OTHER GAME BREEDING FARM MANAGER (CURRENT) DRUG THERAPY 01/04/2019 BAIMA, KIANA L SUPERVISOR MOTOR VEHICLE ASSEMBLY Ot I07.1 RHEUMATIC TRICUSPID INSUFFICIENCY 01/04/2019 BAIMA, KIANA L SUPERVISOR MOTOR VEHICLE ASSEMBLY Ot I34.0 NONRHEUMATIC MITRAL (VALVE) INSUFFICIENC 01/04/2019 BAIMA, KIANA L SUPERVISOR MOTOR VEHICLE ASSEMBLY Ot I48.0 PAROXYSMAL ATRIAL FIBRILLATION 01/04/2019 BAIMA, KIANA L SUPERVISOR MOTOR VEHICLE ASSEMBLY Ot R06.00 DYSPNEA, UNSPECIFIED 01/04/2019 BAIMA, KIANA L SUPERVISOR MOTOR VEHICLE ASSEMBLY Ot Z79.01 GAME BREEDING FARM MANAGER (CURRENT) USE OF ANTICOAGULANT 01/04/2019 BAIMA, KIANA L SUPERVISOR MOTOR VEHICLE ASSEMBLY Ot I48.0 PAROXYSMAL ATRIAL FIBRILLATION 01/04/2019 BAIMA, KIANA L SUPERVISOR MOTOR VEHICLE ASSEMBLY Ot Z79.01 GAME BREEDING FARM MANAGER (CURRENT) USE OF ANTICOAGULANT 01/04/2019 BAIMA, KIANA L SUPERVISOR MOTOR VEHICLE ASSEMBLY Ot Z79.899 OTHER USP (CURRENT) DRUG THERAPY 01/04/2019 SILVESTRE CALDERON MD Ot A41. 9 SEPSIS, UNSPECIFIED ORGANISM 01/04/2019 SILVESTRE CALDEORN MD Ot E86. 0 DEHYDRATION 01/04/2019 SILVESTRE CALDERON MD Ot I48. 91 UNSPECIFIED ATRIAL FIBRILLATION 01/04/2019 SILVESTRE CALDERON MD Ot J10. 1 FLU DUE TO OTH IDENT INFLUENZA VIRUS W O 01/04/2019 SILVESTRE CALDERON MD Ot R00. 2 PALPITATIONS 01/04/2019 SILVESTRE CALDERON MD Ot Z79. 01 USP (CURRENT) USE OF ANTICOAGULANT 01/04/2019 SILVESTRE CALDERON [...] 01/06/2019 SILVESTRE CALDERON MD Ot Z79. 01 GAME BREEDING FARM MANAGER (CURRENT) USE OF ANTICOAGULANT 01/06/2019 SILVESTRE CALDERON MD Ot Z82. 49 FAMILY HX OF ISCHEM HEART DIS AND OTH DI 01/06/2019 SILVESTRE CALDERON MD Ot Z88. 5 ALLERGY STATUS TO NARCOTIC AGENT STATUS 02/22/2019 MAURO DUKES FACC, MC VILLATOROP CCDS Ot I43 CARDIOMYOPATHY IN DISEASES CLASSIFIED EL 02/22/2019 MAURO DUKES FACC, MC PERRY CCDS Ot I48.0 PAROXYSMAL ATRIAL FIBRILLATION 02/22/2019 MAURO DUKES FACC, MC VILLATOROP CCDS Ot Z79.01 USP (CURRENT) USE OF ANTICOAGULANT 03/03/2019 KIANA MCLEAN SUPERVISOR MOTOR VEHICLE ASSEMBLY Ot I07.1 RHEUMATIC TRICUSPID INSUFFICIENCY 03/03/2019 KIANA MCLEAN SUPERVISOR MOTOR VEHICLE ASSEMBLY Ot I34.0 NONRHEUMATIC MITRAL (VALVE) INSUFFICIENC 03/03/2019 KIANA MCLEAN SUPERVISOR MOTOR VEHICLE ASSEMBLY Ot I48.0 PAROXYSMAL ATRIAL FIBRILLATION 03/03/2019 KIANA MCLEAN SUPERVISOR MOTOR VEHICLE ASSEMBLY Ot R06.00 DYSPNEA, UNSPECIFIED 03/03/2019 KIANA MCLEAN SUPERVISOR MOTOR VEHICLE ASSEMBLY Ot Z79.01 USP (CURRENT) USE OF ANTICOAGULANT 03/03/2019 KIMMAKIANA SUPERVISOR MOTOR VEHICLE ASSEMBLY Ot I48.0 PAROXYSMAL ATRIAL FIBRILLATION 03/03/2019 BAIMAKIANA SUPERVISOR MOTOR VEHICLE ASSEMBLY Ot Z79.01 GAME BREEDING FARM MANAGER (CURRENT) USE OF ANTICOAGULANT 03/03/2019 KIANA MCLEAN SUPERVISOR MOTOR VEHICLE ASSEMBLY Ot Z79.899 OTHER GAME BREEDING FARM MANAGER (CURRENT) DRUG THERAPY 03/03/2019 MAURO DUKES FACC, MC VILLATOROP CCDS Ot I43 CARDIOMYOPATHY IN DISEASES CLASSIFIED EL 03/03/2019 MAURO DUKES FACC, ALI FACP CCDS Ot I48.0 PAROXYSMAL ATRIAL FIBRILLATION 03/03/2019 MAURO DUKES FACC, ALI FACP CCDS Ot Z79.01 GAME BREEDING FARM MANAGER (CURRENT) USE OF ANTICOAGULANT 03/04/2019 SILVESTRE CALDERON MD Ot A41. 9 SEPSIS, UNSPECIFIED ORGANISM 03/04/2019 SILVESTRE CALDERON MD Ot E86. 0 DEHYDRATION 03/04/2019 SILVESTRE CALDERON MD Ot I48. 91 UNSPECIFIED ATRIAL FIBRILLATION 03/04/2019 SILVESTRE CALDERON MD Ot J10. 1 FLU DUE TO OT IDENT INFLUENZA VIRUS W O 03/04/2019 SILVESTRE CALDERON MD Ot R00. 2 PALPITATIONS 03/04/2019 SILVESTRE CALDERON MD Ot Z79. 01 GAME BREEDING FARM MANAGER (CURRENT) USE OF ANTICOAGULANT 03/04/2019 SILVESTRE CALDERON [...] DUKES FACC, ALI IRVINGP CCDS Ot Z79.01 USP (CURRENT) USE OF ANTICOAGULANT 11/27/2019 KAY MANZO HOSPICE/HOME HEALTH AIDE Ot M47.816 SPONDYLOSIS W/O MYELOPATHY OR RADICULOPA 11/27/2019 KAY MANZO APRN Ot M54.31 SCIATICA, RIGHT SIDE 11/27/2019 KAY MANZO HOSPICE/HOME HEALTH AIDE Ot M79.604 PAIN IN RIGHT LEG 12/05/2019 BAIELIZABETH KIANA L SUPERVISOR MOTOR VEHICLE ASSEMBLY Ot I07.1 RHEUMATIC TRICUSPID INSUFFICIENCY 12/05/2019 BAIMA, KIANA L SUPERVISOR MOTOR VEHICLE ASSEMBLY Ot I34.0 NONRHEUMATIC MITRAL (VALVE) INSUFFICIENC 12/05/2019 BAIMA, KIANA L SUPERVISOR MOTOR VEHICLE ASSEMBLY Ot I48.0 PAROXYSMAL ATRIAL FIBRILLATION 12/05/2019 BAIMA, KIANA L SUPERVISOR MOTOR VEHICLE ASSEMBLY Ot R06.00 DYSPNEA, UNSPECIFIED 12/05/2019 BAIMA, KIANA L SUPERVISOR MOTOR VEHICLE ASSEMBLY Ot Z79.01 USP (CURRENT) USE OF ANTICOAGULANT 12/05/2019 BAIMA, KIANA L SUPERVISOR MOTOR VEHICLE ASSEMBLY Ot I48.0 PAROXYSMAL ATRIAL FIBRILLATION 12/05/2019 BAIMA KIANA L SUPERVISOR MOTOR VEHICLE ASSEMBLY Ot Z79.01 GAME BREEDING FARM MANAGER (CURRENT) USE OF ANTICOAGULANT 12/05/2019 BAIMA, KIANA L SUPERVISOR MOTOR VEHICLE ASSEMBLY Ot Z79.899 OTHER GAME BREEDING FARM MANAGER (CURRENT) DRUG THERAPY 12/05/2019 MAURO DUKES FACC, MC VILLATOROP CCDS Ot I43 CARDIOMYOPATHY IN DISEASES CLASSIFIED EL 12/05/2019 MAURO DUKES FACC, MC FACP CCDS Ot I48.0 PAROXYSMAL ATRIAL FIBRILLATION 12/05/2019 MAURO DUKES FACC, MC FACP CCDS Ot Z79.01 USP (CURRENT) USE OF ANTICOAGULANT 12/05/2019 KAY MANZO APRN Ot M47.816 SPONDYLOSIS W/O MYELOPATHY OR RADICULOPA 12/05/2019 KAY MANZO APRN Ot M54.31 SCIATICA, RIGHT SIDE 12/05/2019 KAY MANZO APRN Ot M79.604 PAIN IN RIGHT LEG 12/05/2019 KAY MANZO HOSPICE/HOME HEALTH AIDE Ot M47.816 SPONDYLOSIS W/O MYELOPATHY OR RADICULOPA 12/05/2019 KAY MANZO [facility]OSPICE/HOME HEALTH AIDE Ot M54.31 SCIATICA, RIGHT SIDE 12/05/2019 KAY MANZO APRN Ot M79.604 PAIN IN RIGHT LEG 12/26/2019 STIKAY [facility]NAVIDES [facility]/HOME HEALTH AIDE Ot M47.816 SPONDYLOSIS W/O MYELOPATHY OR RADICULOPA 12/26/2019 KAY MANZO [facility]OSPICE/HOME HEALTH AIDE Ot M54.31 SCIATICA, RIGHT SIDE 12/26/2019 ANAIS, KAY Fong HOSPICE/HOME HEALTH AIDE Ot M79.604 PAIN IN RIGHT LEG 12/26/2019 REESENEBADANETTE, KAY Fong HOSPICE/HOME HEALTH AIDE Ot M47.816 SPONDYLOSIS W/O MYELOPATHY OR RADICULOPA 12/26/2019 REESENEBADANETTE, KAY Fong HOSPICE/HOME HEALTH AIDE Ot M54.31 SCIATICA, RIGHT SIDE 12/26/2019 REESENEBADANETTE, KAY Fong HOSPICE/HOME HEALTH AIDE Ot M79.604 PAIN IN RIGHT LEG 06/14/2020 SILVESTRE CALDERON MD Ot I48. 91 UNSPECIFIED ATRIAL FIBRILLATION 06/14/2020 SILVESTRE CALDERON MD Ot Z79. 01 GAME BREEDING FARM MANAGER (CURRENT) USE OF ANTICOAGULANT 06/14/2020 SILVESTRE CALDERON MD Ot Z82. 49 FAMILY HX OF ISCHEM HEART DIS AND OTH DI 06/14/2020 SILVESTRE CALDERON MD Ot Z88. 5 ALLERGY STATUS TO NARCOTIC AGENT STATUS 06/16/2020 AYANA MASON MD Ot E78.00 PURE HYPERCHOLESTEROLEMIA, UNSPECIFIED 06/16/2020 AYANA MASON MD Ot I48.0 PAROXYSMAL ATRIAL FIBRILLATION 06/16/2020 AYANA MASON MD Ot Z79.01 GAME BREEDING FARM MANAGER (CURRENT) USE OF ANTICOAGULANT 06/17/2020 SILVESTRE CALDERON MD Ot I48. 91 UNSPECIFIED ATRIAL FIBRILLATION 06/17/2020 SILVESTRE CALDERON MD Ot Z79. 01 GAME BREEDING FARM MANAGER (CURRENT) USE OF ANTICOAGULANT 06/17/2020 SILVESTRE CALDERON MD Ot Z82. 49 FAMILY HX OF ISCHEM HEART DIS AND OTH DI 06/17/2020 SILVESTRE CALDERON MD Ot Z88. 5 ALLERGY STATUS TO NARCOTIC AGENT STATUS 06/25/2020 Samantha LIM MD Ot I48.91 UNSPECIFIED ATRIAL FIBRILLATION 06/25/2020 Samantha LIM MD Ot I48.91 UNSPECIFIED ATRIAL FIBRILLATION 06/25/2020 Samantha LIM MD Ot E78.00 PURE HYPERCHOLESTEROLEMIA, UNSPECIFIED 06/25/2020 Samantha LIM MD Ot I48 .0 PAROXYSMAL ATRIAL FIBRILLATION 06/25/2020 Samantha LIM MD Ot Z79.01 USP (CURRENT) USE OF ANTICOAGULANT 06/25/2020 Samantha LIM MD Ot Z79.899 OTHER GAME BREEDING FARM MANAGER (CURRENT) DRUG THERAPY 06/25/2020 Samantha LIM MD, Ot Z88 .5 ALLERGY STATUS TO NARCOTIC AGENT STATUS 06/25/2020 RAPAHEL DUKES, Samantha SHETH Ot E78.00 PURE HYPERCHOLESTEROLEMIA, UNSPECIFIED 06/25/2020 Samantha LIM MD Ot I48 .0 PAROXYSMAL ATRIAL FIBRILLATION 06/25/2020 Samantha LIM MD Ot Z79.01 GAME BREEDING FARM MANAGER (CURRENT) USE OF ANTICOAGULANT 06/25/2020 Samantha LIM MD Ot Z79.899 OTHER GAME BREEDING FARM MANAGER (CURRENT) DRUG THERAPY 06/25/2020 Samantha LIM MD, Ot Z88 .5 ALLERGY STATUS TO NARCOTIC AGENT STATUS 07/08/2020 BAIMA, KIANA L SUPERVISOR MOTOR VEHICLE ASSEMBLY Ot I07.1 RHEUMATIC TRICUSPID INSUFFICIENCY 07/08/2020 BAIMA, KIANA L SUPERVISOR MOTOR VEHICLE ASSEMBLY Ot I34.0 NONRHEUMATIC MITRAL (VALVE) INSUFFICIENC 07/08/2020 BAIMA, KIANA L SUPERVISOR MOTOR VEHICLE ASSEMBLY Ot I48.0 PAROXYSMAL ATRIAL FIBRILLATION 07/08/2020 BAIMA, KIANA L SUPERVISOR MOTOR VEHICLE ASSEMBLY Ot R06.00 DYSPNEA, UNSPECIFIED 07/08/2020 BAIMA, KIANA L SUPERVISOR MOTOR VEHICLE ASSEMBLY Ot Z79.01 USP (CURRENT) USE OF ANTICOAGULANT 07/08/2020 BAIMA, KIANA L SUPERVISOR MOTOR VEHICLE ASSEMBLY Ot I48.0 PAROXYSMAL ATRIAL FIBRILLATION 07/08/2020 BAIMA, KIANA L SUPERVISOR MOTOR VEHICLE ASSEMBLY Ot Z79.01 GAME BREEDING FARM MANAGER (CURRENT) USE OF ANTICOAGULANT 07/08/2020 BAIMA, KIANA L SUPERVISOR MOTOR VEHICLE ASSEMBLY Ot Z79.899 OTHER GAME BREEDING FARM MANAGER (CURRENT) DRUG THERAPY 07/08/2020 MAURO DUKES FACC, MC VILLATOROP CCDS Ot I43 CARDIOMYOPATHY IN DISEASES CLASSIFIED EL 07/08/2020 MAURO DUKES FACC, MC VILLATOROP CCDS Ot I48.0 PAROXYSMAL ATRIAL FIBRILLATION 07/08/2020 MAURO DUKES FACC, ALI IRVINGP CCDS Ot Z79.01 USP (CURRENT) USE OF ANTICOAGULANT 07/08/2020 KAY MANZO APRN Ot M47.816 SPONDYLOSIS W/O MYELOPATHY OR RADICULOPA 07/08/2020 KAY MANZO APRN Ot M54.31 SCIATICA, RIGHT SIDE 07/08/2020 KAY MANZO APRN Ot M79.604 PAIN IN RIGHT LEG 07/08/2020 Samantha LIM MD, Ot E78.00 PURE HYPERCHOLESTEROLEMIA, UNSPECIFIED 07/08/2020 Samantha LIM MD, Ot I48 .0 PAROXYSMAL ATRIAL FIBRILLATION 07/08/2020 Samantha LIM MD Ot Z79.01 GAME BREEDING FARM MANAGER (CURRENT) USE OF ANTICOAGULANT 07/08/2020 Samantha LIM MD, Ot Z79.899 OTHER USP (CURRENT) DRUG THERAPY 07/08/2020 Samantha LIM MD Ot Z88 .5 ALLERGY STATUS TO NARCOTIC AGENT STATUS 07/08/2020 Samantha LIM MD Ot E78.00 PURE HYPERCHOLESTEROLEMIA, UNSPECIFIED 07/08/2020 Samantha LIM MD Ot I48 .0 PAROXYSMAL ATRIAL FIBRILLATION 07/08/2020 Samantha LIM MD Ot Z79.01 GAME BREEDING FARM MANAGER (CURRENT) USE OF ANTICOAGULANT 07/08/2020 Samantha LIM MD, Ot Z79.899 OTHER USP (CURRENT) DRUG THERAPY 07/08/2020 Samantha LIM MD, Ot Z88 .5 ALLERGY STATUS TO NARCOTIC AGENT STATUS 07/10/2020 Samantha LIM MD, Ot Z01.818 ENCOUNTER FOR OTHER PREPROCEDURAL EXAMIN Procedures Code Description Performed By Per formed On [id number] RE STORATION OF CARDIAC RHYTHM, SINGLE 06/15/2020 Results Test Result Range Complete blood count [...] - 01/04/19 13:48 QUANTITY OF GROWTH . NRG Bacterial blood culture SEE COMMEN NRG Bacterial blood culture - 01/04/19 13:54 Bacterial blood culture NG NRG Influenza virus A and B antigen detectio n - 01/04/19 14:43 CALL POSITIVES (F1 HELP) FLU CALLED TO ALDA AT 1511 NRG FLU RESULT POSITIVE FOR INFLUENZA B ANT IGEN, NEG FOR A ANTIGEN, BY IA NRG Complete urinalysis with reflex to cultu re [...] 06/15/20 19:35 BNP PT 493.4 pg/mL <100.0 Methicillin resistant Staphylococcus aur eus (MRSA) screening culture - 06/15/20 22:12 Methicillin resistant Staphylococcus aureus (MRSA) scr eening culture NEG NRG Complete blood count (CBC) with automate d white blood cell (WBC) differential - 06/16/20 03:10 Blood leukocytes automated count (number/volume) 4.4 10*3/uL 4.3-11.0 Blood erythrocytes automated count (number/volume) 4.31 10*6/uL 4.35-5.85 Venous blood hemoglobin measurement (mass/volume) 14.3 g/dL 11.5-16.0 Blood hematocrit (volume fraction) 42 % 35-52 Automated erythrocyte mean corpuscular volume 97 [ foz_us] 80-99 Automated erythrocyte mean corpuscular h emoglobin (mass per erythrocyte) 33 pg 25-34 Automated erythrocyte mean corpuscular h emoglobin concentration measurement (mass/volume) 34 g/dL 32-36 Automated erythrocyte distribution width ratio 12. 5 % 10.0- 14.5 Automated blood platelet count (count/volume) 215 10*3/uL 130-400 Automated blood platelet mean volume measurement 10.6 [foz_us] 7.4-10.4 Automated blood neutrophils/100 leukocytes 46 % 42-75 Automated blood lymphocytes/100 leukocytes 44 % 12-44 Blood monocytes/100 leukocytes 8 % 0-12 Automated blood eosinophils/100 leukocytes 2 % 0-10 Automated blood basophils/100 leukocytes 1 % 0-10 Blood neutrophils automated count (number/volume) 2.0 10*3 1.8-7.8 Blood lymphocytes automated count (number/volume) 1.9 10*3 1.0-4.0 Blood monocytes automated count (number/volume) 0. 3 10*3 0.0-1.0 Automated eosinophil count 0.1 10*3/uL 0 .0-0.3 Automated blood basophil count (count/volume) 0.0 10*3/uL 0.0-0.1 Whole blood basic metabolic panel - 05/29 08/18 03:10 Serum or plasma sodium measurement (moles/volume) 143 mmol/L 135-145 Serum or plasma potassium measurement (moles/volume) 3.7 mmol/L 3.6-5.0 Serum or plasma chloride measurement (moles/volume) 110 mmol/L 98-107 Carbon dioxide 22 mmol/L 21-32 Serum or plasma anion gap determination (moles/volume) 11 mmol/L 5-14 Serum or plasma urea nitrogen measurement (mass/volume ) 13 mg/dL 7-18 Serum or plasma creatinine measurement (mass/volume) 0.84 mg/dL 0.60-1.30 Serum or plasma urea nitrogen/creatinine mass ratio 15 NRG Serum or plasma creatinine measurement w ith calculation of estimated glomerular filtration rate > NRG Serum or plasma glucose measurement (mass/volume) 90 mg/dL 70-105 Serum or plasma calcium measurement (mass/volume) 9.0 mg/dL 8.5-10.1 Serum or plasma phosphate measurement (m ass/volume) - 06/16/20 03:10 Serum or plasma phosphate measurement (mass/volume) 2.9 mg/dL 2.3-4.7 Magnesium - 06/16/20 03:10 Magnesium 1.9 mg/dL 1.6-2.4 Serum or plasma troponin i.cardiac measu rement (mass/volume) - 06/16/20 03:10 Serum or plasma troponin i.cardiac measurement (mass/v olume) < ng/mL <0.028 Lipid 1996 panel - 06/16/20 03:10 Serum or plasma triglyceride measurement (mass/volume) 131 mg/dL <150 Serum or plasma cholesterol measurement (mass/volume) 197 mg/dL < 200 Serum or plasma cholesterol in HDL measurement (mass/v olume) 50 mg/dL 40-60 Cholesterol in LDL [mass/volume] in serum or plasma by direct assay 139 mg/dL 1-129 Serum or plasma cholesterol in VLDL measurement (mass/ volume) 26 mg/dL 5-40 Encounters ACCT No. Visit Date/Time Discharge Status Pt. Type Provider Facility Loc./Unit Complaint [id number] 11/12/2019 15:20:00 11/12/2019 23:59: 59 CLS Outpatient [facility] [id number] 12/18/2019 10:40:00 Document Registration [id number] 11/16/2016 14:21:00 11/16/2016 23:59: 00 DIS Outpatient Campbell Dayna [id number] 06/21/2020 11:40:00 23:59:59 CLS Outpatient Samantha LIM MD [facility] CATH PERSISTENT AF [id number] 06/15/2020 20:21:00 15:30:00 DIS Inpatient AYANA MASON MD [facility] ICU AFIB W/ RVR [id number] 06/14/2020 13:53:00 17:28:00 DIS Emergency SILVESTRE CALDERON MD [facility] ER A-FIB [id number] 11/24/2019 15:23:00 23:59:59 CLS Outpatient KAY [facility]ZO [facility]HOME HEALTH AIDE [facility] RAD RIGHT SCIATIC N ERVE [id number] 02/21/2019 08:22:00 019 23:59:59 CLS Outpatient MAURO DUKES FACC, ALI FACP CC DS [facility] CARD PAF,CARDIOMYOPATHY,CHRONIC ANTICOAGULATION [id number] 01/04/2019 13:04:00 019 17:17:00 DIS Emergency SILVESTRE CALDERON MD [facility] ER A-FIB [id number] 09/07/2017 13:11:00 23:59:59 CLS Outpatient KIANA MCLEAN [facility] SDC PAF [id number] 09/29/2016 07:25:00 23:59:59 CLS Outpatient KIANA MCLEAN [facility] CARD PAF,DYSPNEA,MR, TR [id number] 09/15/2016 13:21:00 13:20:00 DIS Inpatient JAMES DUKES, TALITA Francis [facility] ICU A FIB WITH RVR, NEW ONS ET [id number] 07/11/2020 08:00:00 P EN Preadmit RAPHAEL DUKES, Samantha SHETH [facility] CATH PERSISTENT AF [id number] 07/08/2020 06:53:[address] Outpatient RAPHAEL DUKES, Samantha SHETH [facility] LABNPT
[2020-07-11] MEDS ORDERED: NS IV 1000 ML 1,000 ML ONE ×2 (07:02→07:23)
[2020-07-11] MEDS ORDERED: LIDOCAINE 1% INJ 20 ML 20 ML VIAL ONE (07:02)
[2020-07-11] MEDS ORDERED: HEParin (CATH LAB) 3,000 ML IV ONE (07:02)
[2020-07-11] MEDS ORDERED: NS IV 1000 ML 1,000 ML IV SCH (07:13)
[2020-07-11] MEDS ORDERED: ISOPROTERENOL 0.2 MG/D5W 50 ML IV ONE (07:15)
[2020-07-11 07:24] LABS: HEMOGLOBIN 12.3 G/DL (11.5-16.0); MEAN PLATELET VOLUME 9.9 FL (7.4-10.4); WHITE BLOOD COUNT 5.1 10^3/uL (4.3-11.0)
[2020-07-11 07:38] LABS: INR 1.2 (0.8-1.4); PROTHROMBIN TIME PATIENT 15.9 SEC (12.2-14.7)
[2020-07-11] MEDS ORDERED: OMG1KC PO (07:40)
[2020-07-11] MEDS ORDERED: MAGN500C15 PO (07:41)
[2020-07-11] MEDS ORDERED: HEParin 1000 UNIT/ML (10ML VIAL) FOR BOLUS ONE (07:50)
[2020-07-11] MEDS ORDERED: HEParin DRIP 25000 UNIT/500ML 500 ML IV ONE (07:50)
[2020-07-11 08:04] LABS: ALANINE AMINOTRANSFERASE 13 U/L (0-55); ALBUMIN 4.2 GM/DL (3.2-4.5); ALKALINE PHOSPHATASE 37 U/L (40-136); BILIRUBIN,TOTAL 0.8 MG/DL (0.1-1.0); BUN/CREATININE RATIO 24; CALCIUM 9.4 MG/DL (8.5-10.1); CARBON DIOXIDE 29 MMOL/L (21-32); CHLORIDE 105 MMOL/L (98-107); CREATININE SERUM 0.86 MG/DL (0.60-1.30); GFR ESTIMATED > 60; GLUCOSE 107 MG/DL (70-105); POTASSIUM 3.8 MMOL/L (3.6-5.0); SODIUM 142 MMOL/L (135-145); TOTAL PROTEIN 7.4 GM/DL (6.4-8.2)
[2020-07-11] MEDS ORDERED: proPOfol 200 MG/20 ML (DIPRIVAN) VIAL IV ONE (08:17)
[2020-07-11] MEDS ORDERED: ROCURONIUM 10 MG/ML 5 ML SYRINGE IV ONE (08:18)
[2020-07-11] MEDS ORDERED: LIDOCAINE PF 1% 2 ML AMP ONE (08:18)
[2020-07-11] MEDS ORDERED: LIDOCAINE 2% 20 ML (XYLOCAINE) VIAL ONE (08:18)
[2020-07-11] MEDS ORDERED: SEVOFLURANE (ULTANE) 15 ML INHAL SOLN ONE ×2 (08:21→12:48)
[2020-07-11] MEDS ORDERED: MIDAZOLAM 2 MG/2 ML (VERSED) VIAL ONE (08:22)
[2020-07-11] MEDS ORDERED: fentaNYL INJECTION 100 MCG/2 ML AMP ONE (08:22)
[2020-07-11] MEDS ORDERED: LACTATED RINGERS 1,000 ML IV ONE (09:34)
[2020-07-11] MEDS ORDERED: PHENYLEPHRINE 100 MCG/ML 10 ML (ANESTHESIA) SYR ONE (11:50)
[2020-07-11] MEDS ORDERED: ONDANSETRON 4 MG/2 ML (SDV) Z0FRAN ONE ×2 (12:12→14:30)
[2020-07-11] MEDS ORDERED: PROTAMINE 50 MG/5 ML VIAL ONE (12:40)
--- NOTE | 2020-07-11 12:48 | Electrophysiology Procedure ---
EP Procedure Persistent atrial fibrillation ablation operative report. DATE OF SERVICE:07/11/20 CARDIAC SUPERVISOR FABRICATION AND ASSEMBLY: Jono Luna MD, [facility] INDICATION: Persistent atrial fibrillation refractory to medical therapy. PREOPERATIVE DIAGNOSIS: Persistent atrial fibrillation refractory to medical therapy. POSTOPERATIVE DIAGNOSES: Persistent atrial fibrillation ablation. HISTORY: This is a 60-year-old lady with history of hypertension. Atrial fibrillation with rapid ventricular rate. She was already on sotalol. Successful cardioversion. The patient is planned for comprehensive EP study and ablation. PROCEDURE PERFORMED: 1. Comprehensive EP study with induction. 2. Fluoroscopy. 3. Left atrial pacing and recording. 4. Drug infusion. 5. Left ventricular pacing and recording. 6. Comprehensive 3D mapping with the carto system. 7. Pulmonary vein isolation. 8. Additional atrial fibrillation ablation, complex fractionated atrial electrogram ablation. 9. Additional atrial fibrillation ablation, posterior box isolation. 10. Direct external electrical cardioversion. 11. Intracardiac echocardiogram. COMPLICATION: None. ESTIMATED BLOOD LOSS: 10 mL. CONTRAST USED: None. FLUOROSCOPY TIME: 8.32 minutes. FLUOROSCOPY DOSE: 21 mgy. SPECIMENS: None. ANESTHESIA: Done by our anesthesia colleagues. ANTICOAGULATION: Uninterrupted Eliquis. PROCEDURE IN DETAIL: After informed consent was taken, the patient was brought to the EP lab. Anesthesia was provided by our anesthesia colleagues. The patient was draped and prepped in the usual sterile fashion. The patient presented to the EP lab in sinus rhythm. 3D mapping was done with Carto system. Left atrial pacing and recording was also done. Access was gained in the right femoral vein with one 8-Scottish sheath and one 7 Scottish sheath. Left access in left femoral vein was gained with 12 Scottish sheath and a 6 Scottish sheath. A his catheter was advanced through the 6 Scottish sheath in the left femoral vein and a CS catheter were advanced through the 6 Scottish sheaths in the right femoral vein. Intracardiac echocardiogram was performed with an ICE catheter. Numerous images were taken of the RV, RA, left atrium and LV. There was no pericardial effusion. There was no thrombus in the left atrium or left atrial appendage. All 4 pulmonary veins were identified. A carto-sound map was created with the ice catheter. We then advanced a guidewire into the superior vena cava. A long sheath was advanced with the transseptal needle. A PFO was identified. Every time we will try to get a decent transseptal position, the tip of the sheath wouldn't advance into the PFO. If we pulled the sheath inferiorly that will be right at the border of the myocardium and the septum and in my opinion was not safe to perform her transseptal. After spending 30 minutes trying to get a reasonable position for transseptal; I decided to go through the PFO. The wire was advanced into the left superior pulmonary vein followed by the sheath. Left atrial pressure was documented. IV heparin bolus was given followed by heparin infusion. ACT target over 350 seconds. Patient was on uninterrupted oral anticoagulation therapy. The transseptal needle was taken out and a PENTARAY mapping catheter was utilized to perform voltage mapping of the left atrium. We then proceeded with pulmonary vein isolation. Pulmonary vein isolation was performed for the left pulmonary veins. Exit block was confirmed. We then proceeded to the right pulmonary vein. Exit block was again confirmed. At this point in time the ablation catheter was advanced in the LV and we decided to perform retrograde Wenckebach. However around cycle length 300 ms the patient went into atrial fibrillation. We waited for spontaneous conversion, however the patient continued to be in atrial fibrillation. Therefore we took the ablation catheter out and went in again with multipolar mapping catheter and performed complex fractionated atrial electrogram mapping. There were numerous fractionated signals in the posterior wall as well as on the roof. The patient continued to be in atrial fibrillation therefore we proceeded with complex fractionated atrial electrogram ablation. However the patient continued to be in atrial fibrillation therefore we proceeded with posterior box isolation. However patient continued to be in atrial fibrillation. Direct electrical cardioversion was performed at 200 J which converted the patient to sinus rhythm. Bilateral negrita lines were done. Also on the left veins further ablation was done in the ridge area. After the patient converted to sinus rhythm, all 4 veins were checked and demonstrated exit block with high output pacing. This was after more than 30 minutes after the last ablation. Isuprel infusion was given at 4 g with rapid atrial pacing at cycle length 270 ms with no sustained induction of atrial fibrillation, atrial tachycardia or atrial flutter. We then pulled the ablation catheter as well as the transseptal catheter into the right atrium. IV heparin was discontinued. Intracardiac echocardiogram demonstrated no pericardial effusion. Final intracardiac echocardiogram images demonstrated no pericardial effusion. All the sheaths were taken out. 20 mg of IV protamine was given. 10 mg of Decadron was given. Figure of 8 sutures were done in both venous access and manual compression done for 5 minutes. Hemostasis was achieved. Patient tolerated the procedure well and did not have any complications. The patient left the EP lab in sinus rhythm. Total ablation time 49 minutes. MEASUREMENTS/EP STUDY: AA interval 646 ms, CT interval 81 ms, QRS duration 80 ms, QT interval to 45 ms, R-R interval 644 ms, AV Wenckebach when pacing at 300 ms, Atrial ERP was 600/250 ms, Left ventricular pacing at 300 ms showed VA dissociation, however patient went into atrial fibrillation. Left ventricular pacing did not show any evidence of left-sided bypass tract. Left atrial pacing did not demonstrate a left-sided bypass tract. PLAN: The patient will be observed overnight and will be discharged home tomorrow with precise followup instructions. Jono Luna MD, [facility] Cardiac Electrophysiology Samantha LUNA MD Jul 11, 2020 12:48
[2020-07-11] MEDS ORDERED: ISOFLURANE (FORANE) 15 ML/15 MIN INHALATION ONE (12:49)
[2020-07-11] MEDS ORDERED: GLYCOPYRROLATE 0.2 MG/ML (ROBINUL) 2 ML VIAL ONE (12:55)
[2020-07-11] MEDS ORDERED: NEOSTIGMINE 3 MG/3 ML VIAL ONE (12:55)
[2020-07-11] MEDS ORDERED: PATIENT MAY USE OWN MEDS, ALL PO SCH (13:00)
--- NOTE | 2020-07-11 13:24 | Anesthesia-General Post-Op ---
General Patient Condition Mental Status/LOC: Same as Preop Cardiovascular: Satisfactory Nausea/Vomiting: Absent Respiratory: Satisfactory Pain: Controlled Complications: Absent Post Op Complications Complications None Follow Up Care/Instructions Patient Instructions None needed. Anesthesia/Patient Condition Patient Condition Patient is doing well, no complaints, stable vital signs, no apparent adverse anesthesia problems. No complications reported per nursing. JACQUIE RUDD CRNA Jul 11, 2020 13:24
[2020-07-11] MEDS ORDERED: morphine INJ 10 MG/ML 1ML (SYR OR VIAL) IVP ONE (13:30)
[2020-07-11] MEDS: ONDANSETRON 4 MG/2 ML (SDV) Z0FRAN IVP PRN ×2 (14:33→18:40)
[2020-07-11] MEDS: NS IV 1000 ML 1,000 ML IV SCH ×2 (15:45→22:55)
--- NOTE | 2020-07-11 15:51 | NUR ---
THIS NURSE NOTIFIED DR LIM PT IS C/O BACK PAIN 04/07. GROIN SITES LOOK GOOD AND ARE SOFT. LAST BP WAS 115/73 AND HER HR WAS 64. ORDERS GIVEN FOR PAIN MEDS.
[2020-07-11] MEDS ORDERED: morphine INJ 4 MG/ML 1 ML (VIAL/SYRINGE) IVP PRN (16:00)
[2020-07-11] MEDS: APIXABAN 5 MG (ELIQUIS) TABLET PO SCH (21:11)
[2020-07-11] MEDS ORDERED: ACETAMINOPHEN 325 MG TABLET PO PRN (23:00)
--- NOTE | 2020-07-11 23:08 | NUR ---
1303- CONTACTED [facility]. SPOKE WITH DR. NIETO. REQUESTED TYLENOL FOR HEADACHE. ORDER RECEIVED.
[2020-07-12] VITALS (20 sets, daily range): BP systolic 83–113; BP diastolic 51–74
[2020-07-12] MEDS: NS IV 1000 ML 1,000 ML IV SCH (03:28)
[2020-07-12 04:23] LABS: MEAN PLATELET VOLUME 10.5 FL (7.4-10.4); RED CELL DISTRIBUTION WIDTH 12.1 % (10.0-14.5); WHITE BLOOD COUNT 7.7 10^3/uL (4.3-11.0)
[2020-07-12 04:45] LABS: BUN/CREATININE RATIO 16; CALCIUM 8.6 MG/DL (8.5-10.1); CARBON DIOXIDE 22 MMOL/L (21-32); CHLORIDE 108 MMOL/L (98-107); CREATININE SERUM 0.73 MG/DL (0.60-1.30); GFR ESTIMATED > 60; GLUCOSE 114 MG/DL (70-105); SODIUM 140 MMOL/L (135-145)
[2020-07-12] MEDS: APIXABAN 5 MG (ELIQUIS) TABLET PO SCH (07:30)
--- NOTE | 2020-07-12 10:10 | NUR ---
Pt taken for a walk at this time prior to discharge. Pt stated post walk that her heart felt strange. Pt placed back on bedside monitor during this time. HR noted to be 150s. EKG obtained and Dr. Luna notified of pt's status change.
--- NOTE | 2020-07-12 10:53 | Anesthesia-General Post-Op ---
General Patient Condition Mental Status/LOC: Same as Preop Cardiovascular: Satisfactory (Appears to be in A-Fib with RVR) Nausea/Vomiting: Absent Respiratory: Satisfactory Pain: Controlled Complications: Absent Post Op Complications Complications None Follow Up Care/Instructions Patient Instructions None needed. Anesthesia/Patient Condition Patient Condition Patient was doing well this morning but appeared to be in A-Fib with RVR. She was having an EKG done and then waiting to hear back from Dr Luna. We will be available if needed. JOSHUA MURO DO Jul 12, 2020 10:53
--- NOTE | 2020-07-12 11:44 | NUR ---
Dr. Luna called at this time. New orders received to start cardizem and amiodarone gtts. Two Ivs started at this time and pt placed back in hospital gown. Pt had already been on bedside monitor at this time. Discharge placed on hold at this time. Pt also made NPO for possible cardioversion.
[2020-07-12] MEDS ORDERED: AMIODARONE INJECTION 450 MG in D5W IV SOLUTION (EXCEL) 250 ML IV SCH (12:00)
[2020-07-12] MEDS ORDERED: dilTIAZem DRIP PRE-MIX 125 ML IV SCH (12:00)
[2020-07-12] MEDS ORDERED: AMIODARONE INJECTION 150 MG in D5W 100 ML IVPB 100 ML IV NR (12:00)
--- NOTE | 2020-07-12 17:26 | Cardiology Discharge Summary ---
Diagnosis/Chief Complaint Date of Admission 07/11/2020 Date of Discharge 07/12/2020 Admission Diagnosis Persistent atrial fibrillation Final/Discharge Diagnosis Persistent atrial fibrillation, status post successful ablation. Chief Complaint/HPI Chief Complaint/HPI 60-year-old lady with persistent atrial fibrillation. Persistent atrial fibrillation ablation is recommended. Discharge Summary Procedures Persistent atrial fibrillation ablation with PVI, complex fractionated e lectrogram ablation, posterior box isolation. Discharge Physical Examination Normal cardiovascular examination. Hospital Course Was the Problem List Reviewed?: Yes Patient went into atrial fibrillation. Was given sotalol and amiodarone 150 mg IV. Patient spontaneously converted to sinus rhythm. Subsequently discharged. Discussion & Recommendations Discussion Discharge took over 30 minutes to complete. All discharge instructions were provided to the patient. Follow up appt.: Dr. Luna in 2-3 weeks. Dicharge Diet: Cardiac Diet Home Medications Reviewed patient Home Medication Reconciliation performed by pharmacy medication reconciliations rim technician and/or nursing. Patients Allergies have been reviewed. Discharge Home Medications: Reviewed and agree with Discharge Medication list on patient's Discharge Instruction sheet Condition at discharge Stable. Instructions to patient/family Discussed with the patient. Samantha LUNA MD Jul 12, 2020 17:26
--- NOTE | 2020-07-12 17:27 | Discharge Inst-Post CATH ---
Discharge Inst-CATH/EP Problems Reviewed?: Yes Final Diagnosis persistent atrial fibrillation, status post ablation. Post Cardiac Cath/EP D/C Inst Follow Up/Plan Dr. Luna in 2-3 weeks. <b>CARDIAC CATH/EP PROCEDURE DISCHARGE INSTRUCTIONS</b> ACTIVITY * Go Home directly and rest. * Limit activity of the leg (or wrist if it was used) for 7 days including aerobics, swimming, jogging, bicycling, etc. * Restrict stair-climbing for 7 days if possible, if not, climb up with your non-cath leg, then bring together on the same step. * Avoid lifting, pushing, pulling or excessive movement of the affected extremity for 7 days. * Customary sexual activity may be resumed after 2 days-use caution not to use a position that strains or causes pain to the affected extremity. * No driving for 24 hours. * NO SMOKING. * Avoid straining for bowel movements for 7 days. * Gentle walking on level ground is allowed. * Returning to work will depend on the type of procedure and the results. Your doctor will discuss this with you. CALL YOUR DOCTOR FOR ANY OF THE FOLLOWING: *If bleeding from the puncture site occurs- Apply gentle pressure to site with clean cloth and call your doctor or EMS. * If a knot or lump forms under the skin, increases in size, or causes pain. * If bruising appears to be worsening or moving further down your leg instead of disappearing. * Temperature above 101 F. CARE OF YOUR GROIN INCISION; * Bruising or purple discoloration of the skin near the puncture site is common. * You may shower only, no bathtub bathing for 5 days. Be careful to avoid slipping as your leg may feel stiff. * If a closure device was used on your femoral artery, please see the attached guide regarding care of the device and your leg. * Leave dressing on FOR 24 hours. CARE OF YOUR WRIST INCISION; * Bruising or purple discoloration of the skin near the puncture site is common. * You may shower. * DO NOT submerge wrist. * Leave dressing on FOR 24 hours. Samantha LUNA MD Jul 12, 2020 17:27
--- NOTE | 2020-07-12 18:00 | NUR ---
Dr. Luna notified of pt's conversion to NSR at this time. Orders received to d/c drips and discharge pt at this time. All previous discharge instructions remain the same.
--- NOTE | 2020-07-12 18:15 | NUR ---
Pt walked at this time to elicit possible afib post drip removal. Pt had no change from NSR during walk. Will continue to monitor.
--- NOTE | 2020-07-12 18:30 | NUR ---
This RN spoke with pt at this time regarding discharge. Pt is comfortable with being discharged home at this time. Discharge instructions given again at this time. IVs removed from pt, catheters intact upon removal. VSS. Pt remains in NSR. Pt currently has no questions at this time.
--- NOTE | 2020-07-12 19:00 | NUR ---
Pt discharged from hospital at this time. MALIK Roberson assisted pt down to personal automobile at this time with personal belongings with pt during transfer.
== END 2020-07-12 19:00 | disposition home or self-care (01) ==
LOC: CATH 06:55 → ICU 14:18 → CATH 07-12 19:00
PROVIDERS: ATTEND Internal Medicine Interventional Cardiology
DX: I48.19 Other persistent atrial fibrillation (principal); I10 Essential (primary) hypertension; Z79.899 Other long term (current) drug therapy; Z79.01 Long term (current) use of anticoagulants; Z88.5 Allergy status to narcotic agent
CPT/HCPCS: 80053; 85027; 85610; 85730; 87081; 92960; 93613; 93622; 93656; 93657; 93662; C1730 ×2; C1732 ×2; C1759; C1894 ×5; 36415; 80048; 93005

== ENCOUNTER 2020-07-23 16:52 | Inpatient (IN) | payer OTHER ==
[~2020-07-23] VITALS: Ht 172 cm; Wt 59.0 kg
[2020-07-23] VITALS (9 sets, daily range): BP systolic 86–103; BP diastolic 59–78
[~2020-07-23 16:52] MED LIST changes: +MAGN500C15 PO; +OMG1KC PO
[2020-07-23 17:14] LABS: BASOPHILS % (AUTO) 0 % (0-10); EOSINOPHILS % (AUTO) 1 % (0-10); HEMATOCRIT 45 % (35-52); HEMOGLOBIN 15.1 G/DL (11.5-16.0); LYMPHOCYTES # (AUTO) 1.5 X 10^3 (1.0-4.0); LYMPHOCYTES % (AUTO) 23 % (12-44); MEAN CORPUSCULAR HEMOGLOBIN 33 PG (25-34); MEAN CORPUSCULAR HGB CONC 34 G/DL (32-36); MEAN CORPUSCULAR VOLUME 97 FL (80-99); MONOCYTES # (AUTO) 0.3 X 10^3 (0.0-1.0); MONOCYTES % (AUTO) 5 % (0-12); NEUTROPHILS # (AUTO) 4.9 X 10^3 (1.8-7.8); NEUTROPHILS % (AUTO) 72 % (42-75); PLATELET COUNT 387 10^3/uL (130-400); RED CELL DISTRIBUTION WIDTH 12.8 % (10.0-14.5); WHITE BLOOD COUNT 6.8 10^3/uL (4.3-11.0)
[2020-07-23] MEDS ORDERED: fentaNYL INJECTION 100 MCG/2 ML AMP IVP ONE (17:15)
[2020-07-23] MEDS ORDERED: MIDAZOLAM 5 MG/5 ML (VERSED) VIAL IVP ONE ×2 (17:15→18:15)
[2020-07-23] MEDS ORDERED: NS IV 1000 ML 1,000 ML IV SCH (17:15)
--- NOTE | 2020-07-23 17:16 | NUR ---
1716 CONSCIOUS SEDATION ORDER GIVEN BY DR. DAVIS 1722 CONSENT SIGNED BY PT 1725 FENTANYL 50 MCG AND VERSED 2 MG GIVEN 1727 VERSED 2 MG GIVEN [address] DAVIS. 120 J. 1729 PT IN SIINUS RHYTHM WITH A RATE OF 71, O2 APPLIED BY NC AT 4 LPM
[2020-07-23 17:26] LABS: INR 1.3 (0.8-1.4); PROTHROMBIN TIME PATIENT 16.8 SEC (12.2-14.7)
[2020-07-23 17:39] LABS: ALBUMIN 4.2 GM/DL (3.2-4.5); BILIRUBIN,TOTAL 1.1 MG/DL (0.1-1.0); CALCIUM 10.2 MG/DL (8.5-10.1); CREATININE SERUM 1.34 MG/DL (0.60-1.30); MAGNESIUM 2.1 MG/DL (1.6-2.4); POTASSIUM 4.4 MMOL/L (3.6-5.0); TOTAL PROTEIN 7.2 GM/DL (6.4-8.2)
--- NOTE | 2020-07-23 17:46 | ED Cardiac General ---
History of Present Illness General Chief Complaint: Cardiac/General Problems Stated Complaint: AFIB / SOA Source: patient Exam Limitations: no limitations (MAXIMILIAN WHITE) History of Present Illness Date Seen by Provider: Jul 23, 2020 Time Seen by Provider: 16:53 Initial Comments 60-year-old female who presents to the emergency room with complaints of atrial fibrillation and shortness of air that started yesterday around 1430. She report s that Dr. Luna performed an oblation last week and up until yesterday she has been in normal rhythms. She reports extreme fatigue over the last day. She denies any nausea or vomiting. Patient is hypotensive with systolic blood pressure 50 on arrival to the emergency room. Patient reports that she normally runs 90 systolic. Timing/Duration: 24 hours NTG SL FINANCIAL RECORDING CLERK: No ASA po FINANCIAL RECORDING CLERK: No Associated Systoms: Shortness of Air (MAXIMILIAN WHITE) Allergies and Home Medications Allergies Coded Allergies: codeine (Verified Allergy, Mild, NAUSEA, 09/15/16) Home Medications Apixaban 5 Mg Tablet, 5 MG PO BID Prescribed by: UTE AMAYA on 09/16/16 1117 Calcium Carbonate/Vitamin D3 1 Each Tablet, 1 TAB PO HS, (Reported) Lysine 1,000 Mg Tablet, 1,000 MG PO DAILY, (Reported) Magnesium Oxide 500 Mg Capsule, 500 MG PO DAILY, (Reported) Multivitamin 1 Each Tablet, 1 TAB PO DAILY, (Reported) [place] 3 Polyunsat Fatty Acids 1,000 Mg Cap, 1,000 MG PO DAILY, (Reported) Sotalol HCl 120 Mg Tablet, 120 MG PO BID, (Reported) [Vitamin C] , 1 TAB PO HS, (Reported) Patient Home Medication List Home Medication List Reviewed: Yes (MAXIMILIAN WHITE) Review of Systems Review of Systems Constitutional: see HPI; No chills, No fever; weakness Respiratory: See HPI, Shortness of Air Cardiovascular: See HPI, Irregular Heart Rate (MAXIMILIAN WHITE) All Other Systems Reviewed Negative Unless Noted: Yes (MAXIMILIAN WHITE) Past Lujstps-Dqccsx-Oqvxfn Hx Past Med/Social Hx: Reviewed Nursing Past Med/Soc Hx (MAXIMILIAN WHITE) Patient Social History 2nd Hand Smoke Exposure: No Recent Foreign Travel: No Contact w/Someone Who Travel: No Recent Hopitalizations: Yes (AFIB MAY2020) (MAXIMILIAN WHITE) Seasonal Allergies Seasonal Allergies: Yes (MAXIMILIAN WHITE) Past Medical History Surgeries: No Tonsillectomy Respiratory: No Currently Using CPAP: No Currently Using BIPAP: No Cardiac: Yes Atrial Fibrillation Neurological: No Reproductive Disorders: No Sexually Transmitted Disease: No HIV/AIDS: No Genitourinary: No Gastrointestinal: No Musculoskeletal: No Endocrine: No HEENT: No Cataract Hearing Impairment: Denies Cancer: No Psychosocial: No Integumentary: No Blood Disorders: No Adverse Reaction/Blood Tranf: No (MAXIMILIAN WHITE) Family Medical History Reviewed Nursing Family Hx (MAXIMILIAN WHITE) Cardiovascular disease 19 FATHER 19 MOTHER Hypercholesterolemia 19 MOTHER No Pertinent Family Hx (MAXIMILIAN WHITE) Physical Exam Vital Signs Vital Signs - First Documented 07/23/20 07/23/20 17:00 17:29 Temp 36.5 Pulse 137 Resp 20 B/P (MAP) 78/58 (65) Pulse Ox 97 O2 Delivery Room Air O2 Flow Rate 4.00 (KATELYN DAVIS MD) Vital Signs Capillary Refill : (MAXIMILIAN WHITE) Height, Weight, BMI Height: 5'8.00" Weight: 132lbs. 11.2oz. 59.802466wl; 19.78 BMI Method:Stated General Appearance: No Apparent Distress, WD/WN Respiratory: Chest Non Tender, Lungs Clear, Normal Breath Sounds, No Accessory Muscle Use, No Respiratory Distress Cardiovascular: No Edema, No Gallop, No JVD, No Murmur, Irregularly Irregular Extremity: Normal Capillary Refill, No Pedal Edema Neurologic/Psychiatric: Alert, Oriented x3, Normal Mood/Affect Skin: Normal Color, Warm/Dry (MAXIMILIAN WHITE) Procedures/Interventions Additional Procedures: cardioversion/defib Progress 1715: Discussed the case with Dr. Luna and Dr. Mireles they recommend cardioversion. 1725: The patient was given 50 g of fentanyl and 2 mg of Versed this didn't induce mild sedation. 1727 the patient was given an additional 2 mg of Versed. 1728 the patient was cardioverted 120 J with successful cardioversion. Normal sinus rhythm was captured by EKG. Patient tolerated procedure well. Dr. Rivera was at bedside assisting. (MAXIMILIAN WHITE) Progress/Results/Core Measures Results/Orders Lab Results Laboratory Tests Test 07/23/20 17:05 Range/Units White Blood Count 6.8 4.3-11.0 10^3/uL Red Blood Count 4.59 4.35-5.85 10^6/uL Hemoglobin 15.1 11.5-16.0 G/DL Hematocrit 45 35-52 % Mean Corpuscular Volume 97 80-99 FL Mean Corpuscular Hemoglobin 33 25-34 PG Mean Corpuscular Hemoglobin Concent 34 32-36 G/DL Red Cell Distribution Width 12.8 10.0-14.5 % Platelet Count 387 130-400 10^3/uL Mean Platelet Volume 10.0 7.4-10.4 FL Neutrophils (%) (Auto) 72 42-75 % Lymphocytes (%) (Auto) 23 12-44 % Monocytes (%) (Auto) 5 0-12 % Eosinophils (%) (Auto) 1 0-10 % Basophils (%) (Auto) 0 0-10 % Neutrophils # (Auto) 4.9 1.8-7.8 X 10^3 Lymphocytes # (Auto) 1.5 1.0-4.0 X 10^3 Monocytes # (Auto) 0.3 0.0-1.0 X 10^3 Eosinophils # (Auto) 0.0 0.0-0.3 10^3/uL Basophils # (Auto) 0.0 0.0-0.1 10^3/uL Prothrombin Time 16.8 H 12.2-14.7 SEC INR Comment 1.3 0.8-1.4 Activated Partial Thromboplast Time 20 L 24-35 SEC Sodium Level 140 135-145 MMOL/L Potassium Level 4.4 3.6-5.0 MMOL/L Chloride Level 105 98-107 MMOL/L Carbon Dioxide Level 23 21-32 MMOL/L Anion Gap 12 5-14 MMOL/L Blood Urea Nitrogen 18 7-18 MG/DL Creatinine 1.34 H 0.60-1.30 MG/DL Estimat Glomerular Filtration Rate 40 BUN/Creatinine Ratio 13 Glucose Level 209 H 70-105 MG/DL Calcium Level 10.2 H 8.5-10.1 MG/DL Corrected Calcium 10.0 8.5-10.1 MG/DL Magnesium Level 2.2 1.6-2.4 MG/DL Total Bilirubin 1.1 H 0.1-1.0 MG/DL Aspartate Amino Transf (AST/SGOT) 19 5-34 U/L Alanine Aminotransferase (ALT/SGPT) 24 0-55 U/L Alkaline Phosphatase 44 40-136 U/L Myoglobin 48.0 10.0-92.0 NG/ML Troponin I 0.028 <0.028 NG/ML B-Type Natriuretic Peptide 773.6 H <100.0 PG/ML Total Protein 7.2 6.4-8.2 GM/DL Albumin 4.2 3.2-4.5 GM/DL (KATELYN DAVIS MD) My Orders Orders - KATELYN DAVIS MD Midazolam Injection (Versed Injection) (07/23/20 17:15) Fentanyl Injection (Sublimaze Injection (07/23/20 17:15) Midazolam Injection (Versed Injection) (07/23/20 18:15) (KATELYN DAVIS MD) Medications Given in ED Current Medications Medications Dose Ordered Sig/Elayne Route Start Time Stop Time Status Last Admin Dose Admin Fentanyl Citrate 50 mcg ONCE ONCE IVP 07/23/20 17:15 07/23/20 17:16 DC 07/23/20 17:25 50 MCG Midazolam HCl 2 mg ONCE ONCE IVP 07/23/20 17:15 07/23/20 17:16 DC 07/23/20 17:25 2 MG (KATELYN DAVIS MD) Vital Signs/I&O 07/23/20 07/23/20 07/23/20 17:00 17:16 17:29 Temp 36.5 Pulse 137 Resp 20 B/P (MAP) 78/58 (65) Pulse Ox 97 94 O2 Delivery Room Air Room Air Nasal Cannula O2 Flow Rate 4.00 (KATELYN DAVIS MD) Progress Progress Note : Time: 17:40 Progress Note Discussed the case with Dr. Quinn he agrees to accept the patient to his services. He recommends giving the patient 5 mg of Eliquis twice a day and Cardizem CD 180 mg now and daily and admitting to cardiac stepdown. Recommends continuing all home medications. Patient agrees with plans for admission. (MAXIMILIAN WHITE) Progress Note : Progress Note Care of this patient was managed by Maximilian White NP under my supervision. Mr. White consulted with Dr. Quinn who recommended cardioversion. This was performed under my supervision. Risks and benefits were discussed with the patient. She agreed to conscious sedation and signed consent. She was provided a white conscious sedation with Versed 2 mg and fentanyl 50 g. This was not quite sufficient and an additional 2 mg of Versed was administered. After adequate sedation was achieved, cardioversion was performed with synchronized shock at 120 J. This promptly converted her to sinus rhythm. Care of the patient was then transferred back over to Maximilian White. (KATELYN DAVIS MD) Departure Communication (Admissions) Time/Spoke to Admitting Phy: 17:40 Dr. Quinn (MAXIMILIAN WHITE) Impression Primary Impression: Atrial fibrillation with RVR Additional Impression: Hypotension Qualified Codes: I95.9 - Hypotension, unspecified Disposition: ADMITTED INPATIENT Condition: Stable Admissions Decision to Admit Reason: Admit from ER (General) Decision to Admit/Date: Jul 23, 2020 Time/Decision to Admit Time: 17:00 (MAXIMILIAN WHITE) Decision to Admit Reason: Admit from ER (General) Decision to Admit/Date: Jul 23, 2020 Time/Decision to Admit Time: 17:00 (KATELYN DAVIS MD) Departure-Patient Inst. Referrals: TAMAR HERNANDEZ MD (PCP/Family) Primary Care Physician MAXIMILIAN WHITE Jul 23, 2020 17:46 KATELYN DAVIS MD Jul 23, 2020 19:53
--- NOTE | 2020-07-23 17:53 | Diagnostic Imaging Report ---
INDICATION: Atrial fibrillation, shortness of air as well as chest pain. TIME OF EXAM: 5:44 PM CORRELATION is made with prior chest from 06/15/2020. FINDINGS: The heart size is stable. External pacer overlies the right hemithorax. The lungs are clear. No infiltrates are detected. No effusion or pneumothorax is seen. IMPRESSION: No acute cardiopulmonary process is detected. Dictated by: Dictated on workstation # [id number]
[2020-07-23] MEDS ORDERED: CATHETER FLUSH 10 ML SYR IV PRN (19:15)
[2020-07-23] MEDS: CATHETER FLUSH 10 ML SYR IV SCH (22:28)
[2020-07-23] MEDS: APIXABAN 5 MG (ELIQUIS) TABLET PO SCH (22:28)
--- NOTE | 2020-07-23 22:50 | NUR ---
058- THIS RN PAGED DR. WADE TO NOTIFY THAT PATIENT HAD NOT RECEIVED ORDERED PO CARDIZEM AT 1800, PT ALSO TAKES 120MG SOTALOL PO BID AT HOME AND IS REQUESTING TO TAKE PM DOSE. ATTEMPTING TO CONFIRM ORDERS. 973- DR. WADE RETURNED PAGE AT THIS TIME. THIS RN ALSO NOTIFIED DR. WADE THAT PATIENT HAD NOT VOIDED, SBP IN 80-90'S. PATIENT STATES HER SBP BASELINE IS "USUALLY IN THE 90'S". NEW ORDERS RECEIVED AT THIS TIME FOR THE FOLLOWINML BOLUS OF NS OVER 30 MINUTES THEN START NS AT 100ML/HR CONTINUOUS, GIVE SOTALOL 120MG PO BID START NOW, AND GIVE 1800 DOSE OF CARDIZEM 180MG PO ONLY IF SBP SUSTAINS >90, OTHERWISE DO NOT GIVE TONIGHT AND START DAILY TOMORROW. SEE EMAR.
[2020-07-23] MEDS ORDERED: NS (IVPB) 250 ML ONE (22:59)
[2020-07-23] MEDS ORDERED: SOTALOL 80 MG (BETAPACE) TAB ONE (23:04)
[2020-07-23] MEDS: SOTALOL 80 MG (BETAPACE) TAB PO SCH (23:05)
[2020-07-23] MEDS ORDERED: NS (IVPB) 250 ML IV ONE (23:15)
[2020-07-23] MEDS: NS IV 1000 ML 1,000 ML IV SCH (23:20)
--- NOTE | 2020-07-23 23:42 | NUR ---
TIME LINE NOTE BELOW PAGED DR WADE AT 2132, 2152, 2223 TO NOTIFY PATIENT HAD NOT RECEIVED ORDER 1800 CARDIZEM, OR SOTALOL HOME MED. ATTEMPTING TO CONFIRM ORDERS.
[2020-07-24] VITALS (9 sets, daily range): BP systolic 86–101; BP diastolic 53–64
[2020-07-24 03:20] LABS: BASOPHILS % (AUTO) 0 % (0-10); EOSINOPHILS # (AUTO) 0.1 10^3/uL (0.0-0.3); EOSINOPHILS % (AUTO) 1 % (0-10); HEMATOCRIT 35 % (35-52); HEMOGLOBIN 11.7 G/DL (11.5-16.0); LYMPHOCYTES # (AUTO) 1.9 X 10^3 (1.0-4.0); LYMPHOCYTES % (AUTO) 29 % (12-44); MEAN CORPUSCULAR HEMOGLOBIN 33 PG (25-34); MEAN CORPUSCULAR HGB CONC 34 G/DL (32-36); MEAN CORPUSCULAR VOLUME 98 FL (80-99); MEAN PLATELET VOLUME 10.3 FL (7.4-10.4); MONOCYTES # (AUTO) 0.5 X 10^3 (0.0-1.0); MONOCYTES % (AUTO) 7 % (0-12); NEUTROPHILS # (AUTO) 4.3 X 10^3 (1.8-7.8); NEUTROPHILS % (AUTO) 63 % (42-75); PLATELET COUNT 272 10^3/uL (130-400); RED CELL DISTRIBUTION WIDTH 12.7 % (10.0-14.5); WHITE BLOOD COUNT 6.8 10^3/uL (4.3-11.0)
[2020-07-24 03:40] LABS: ALANINE AMINOTRANSFERASE 18 U/L (0-55); ALBUMIN 3.4 GM/DL (3.2-4.5); ALKALINE PHOSPHATASE 35 U/L (40-136); BILIRUBIN,TOTAL 0.7 MG/DL (0.1-1.0); BUN/CREATININE RATIO 22; CALCIUM 8.4 MG/DL (8.5-10.1); CARBON DIOXIDE 20 MMOL/L (21-32); CHLORIDE 108 MMOL/L (98-107); CHOLESTEROL 173 MG/DL (< 200); CREATININE SERUM 0.79 MG/DL (0.60-1.30); GFR ESTIMATED > 60; GLUCOSE 85 MG/DL (70-105); HDL CHOLESTEROL 38 MG/DL (40-60); POTASSIUM 3.9 MMOL/L (3.6-5.0); SODIUM 138 MMOL/L (135-145); TOTAL PROTEIN 5.9 GM/DL (6.4-8.2); TRIGLYCERIDES 113 MG/DL (<150); VLDL CHOLESTEROL 23 MG/DL (5-40)
[2020-07-24] MEDS: CATHETER FLUSH 10 ML SYR IV SCH (06:00)
--- NOTE | 2020-07-24 07:58 | Cardiology History & Physical ---
HPI-Cardiology Cardiology H&P Date of Admission Primary Care Physician Teresita Starr MD Attending Physician Ganga Quinn MD Facp Fac Ccds Consulting Physician TITA Ms. Rogers is a 60 yr old female admitted to ICU 9 from the ED with a-fib with RVR, post cardioversion in the ED with buddhist of SR. She reports she was picking up her sleeping grandchild at home when the palpitations began. She felt weak at the time. She underwent ablation on Jul 11, [address] Luna. She reports she has had some occ fluttering since the ablation, but they have been brief episodes. Yesterday the palpitations did not resolve and she felt u nwell prompting her to come to the ED. She was found to be hypotensive at the time of ED eval. She is tearful this morning. No c/o CP. No c/o n/v/d. No c/o fever or chills. No c/o LE swelling. She reports she has a f/u appt post ablation with Dr. Luna at 2 p.m. today. Review of Systems-Cardiology Review of Systems Constitutional: No chills, No fever; malaise Eyes: No vision change Ears/Nose/Throat: No epistaxis, No recent hearing loss Respiratory: As described under HPI Cardiovascular: As described under HPI Gastrointestinal: No constipation, No diarrhea, No nausea, No vomiting Genitourinary: No dysuria, No hematuria Musculoskeletal: no symptoms reported Skin: No rash on exposed areas, No ulcerations on exposed areas Psychiatric/Neurological: anxiety; No depression, No seizure, No focal weakness, No syncope Hematologic: No bleeding abnormalities All Other Systems Reviewed Negative Unless Noted: Yes TDV-Ccijez-Bhorco Hx Patient Social History Alcohol Use: Denies Use Recreational Drug Use: No Smoking Status: Never a Smoker 2nd Hand Smoke Exposure: No Recent Foreign Travel: No Recent Infectious Disease Expo: No Past Medical History PMH As described under Assessment. Family Medical History Family Medical History: She reports her father has CAD and has had CABG in his 70's. She reports her mother has CAD and a-fib. Family History: Cardiovascular disease 19 FATHER 19 MOTHER Hypercholesterolemia 19 MOTHER Allergies and Home Medications Allergies Coded Allergies: codeine (Verified Allergy, Mild, NAUSEA, 09/15/16) Home Medications Apixaban 5 Mg Tablet, 5 MG PO BID Prescribed by: UTE AMAYA on 09/16/16 1117 Calcium Carbonate/Vitamin D3 1 Each Tablet, 1 TAB PO HS, (Reported) Diltiazem HCl 180 Mg Cap.er.24h, 180 MG PO DAILY@0900 Prescribed by: KIANA MCLEAN on 07/24/20 0831 Lysine 1,000 Mg Tablet, 1,000 MG PO DAILY, (Reported) Magnesium Oxide 500 Mg Capsule, 500 MG PO DAILY, (Reported) Multivitamin 1 Each Tablet, 1 TAB PO DAILY, (Reported) [place] 3 Polyunsat Fatty Acids 1,000 Mg Cap, 1,000 MG PO DAILY, (Reported) Sotalol HCl 120 Mg Tablet, 120 MG PO BID, (Reported) [Vitamin C] , 1 TAB PO HS, (Reported) Physical Exam-Cardiology Physical Exam Vital Signs/I&O Capillary Refill : Less Than 3 Seconds Constitutional: AAO x 3, well-developed, well-nourished HEENT: PERRL, hearing is well preserved, oral hygience is good Neck: No carotid bruit; carotid pulses are 2 + bilaterally Respiratory: No accessory muscle use, No respiratory distress; chest expansion is symmetric, chest is bilaterally symmetric, lungs clear to auscultation Cardiovascular: regular rate-rhythm; No JVD; S1 and S2 Gastrointestinal: No tender; soft, audible bowel sounds Extremities: no lower extremity edema bilateral Neurologic/Psychiatric: grossly intact (moves all extremities) Skin: No rash on exposed areas, No ulcerations on exposed areas Data Review Labs Microbiology 07/23/20 MRSA Screen - Final, Complete MRSA not isolated Radiology NAME: BETTY ROGERS [facility] REC#: [id number] PT STATUS: REG ER : 1960 PHYSICIAN: MAXIMILIAN LYNN ADMIT DATE: 07/23/20/ER Signed Date of Exam:07/23/20 CHEST 1 VIEW, AP/PA ONLY INDICATION: Atrial fibrillation, shortness of air as well as chest pain. TIME OF EXAM: 5:44 PM CORRELATION is made with prior chest from 06/15/2020. FINDINGS: The heart size is stable. External pacer overlies the right hemithorax. The lungs are clear. No infiltrates are detected. No effusion or pneumothorax is seen. IMPRESSION: No acute cardiopulmonary process is detected. Dictated by: Dictated on workstation # [id number] Dict: 07/23/201749 Trans: 07/23/201806 [facility] [id number] Interpreted by: CARYN CAO MD Electronically signed by: CARYN CAO MD 07/23/201806 ECG Impression ECG Initial ECG Impression: Atrial Fibrillation w/RVR A/P-Cardiology Assessment/Admission Diagnosis A-fib with RVR - s/p successful cardioversion on Jul 23, 2020 S/P a-fib ablation on Jul 11, [address] Luna H/O PAF first diagnosed during a hospitalization in 2015. Recurrent PAF on 08/25/17, Dec 2018, May 2020, Jun 2020 associated with RVR; each episode treated with cardioversion Mild acute renal insufficiency on lab of 07-23-2020 - resolved MPI of February 21, 2019 showed no evidence of any significant myocardial ischemia of infarction. LVEF 61%. Echocardiogram of June 16, [address] Luna LVEF 55-65%. PASP 30-35 mmHg Family h/o CAD Normal TSH on lab of 09-16-16 OAC with Eliquis Admission Status: Observation Discussion and Recomendations Complex management issue Recurrence of a-fib with RVR - cardioverted successfully on 07-23-2020 - maintaining SR Mild acute renal insufficiency at time of ED eval - resolved Continue Sotalol and Diltiazem Continue Eliquis for stroke prophylaxis Likely discharge home to today and advised her to keep her out pt f/u appt with Dr. Luna for later today Clinical Quality Measures AMI/AHF: ASA po Prior to arrival: No DVT/VTE Risk/Contraindication: Risk Factor Score Per Nursin RFS Level Per Nursing on Admit: 4+=Very High KIANA MCLEAN Jul 24, 2020 07:58
[2020-07-24] MEDS ORDERED: DILT180C85 PO (08:31)
[2020-07-24] MEDS: APIXABAN 5 MG (ELIQUIS) TABLET PO SCH (08:31)
[2020-07-24] MEDS: SOTALOL 80 MG (BETAPACE) TAB PO SCH (08:32)
--- NOTE | 2020-07-24 08:32 | Discharge Inst-Cardiology ---
Discharge Inst-Cardiac Discharge Medications New Medications: Diltiazem HCl (Diltiazem 24Hr ER) 180 Mg Cap.er.24h 180 MG PO DAILY@0900, #30 CAP 2 Refills Continued Medications: Apixaban (Eliquis) 5 Mg Tablet 5 MG PO BID, #60 TAB Calcium Carbonate/Vitamin D3 (Calcium 600 + Vit D Caplet) 1 Each Tablet 1 TAB PO HS, TAB Lysine (Lysine) 1,000 Mg Tablet 1000 MG PO DAILY, TAB Magnesium Oxide (Magnesium) 500 Mg Capsule 500 MG PO DAILY, CAP Multivitamin (Multivitamins) 1 Each Tablet 1 TAB PO DAILY, TAB [place] 3 Polyunsat Fatty Acids (Fish Oil 1,000 mg Capsule) 1,000 Mg Cap 1000 MG PO DAILY, CAP Sotalol HCl (Sotalol) 120 Mg Tablet 120 MG PO BID, TAB [Vitamin C] () 1 TAB PO HS Patient Instructions Patient Instructions: Keep already scheduled follow up appointment with Dr. Luna for today. KIANA MCLEAN Jul 24, 2020 08:32
[2020-07-24] MEDS: NS IV 1000 ML 1,000 ML IV SCH (09:25)
--- NOTE | 2020-07-24 10:47 | NUR ---
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 PT REPORTS THAT DR WADE SAW HER THIS AM AND TOLD PT SHE COULD D/C
--- NOTE | 2020-07-24 11:07 | NUR ---
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 Community:Connected with family and friends and eager to get home. Action:No emergent spiritual needs. Director Translation offered blessing.
--- NOTE | 2020-07-24 17:24 | Consultation-Cardiology ---
HPI-Cardiology Cardiology Consultation: Date of Consultation 07/24/20 Time Seen by a Provider: 09:15 Date of Admission Attending Physician Ganga Quinn MD, MA [facility] Admitting Physician Teresita Starr MD Consulting Physician GANGA QUINN MD, FACP, [facility] HPI: Chief Complaint: CC: Palpitations HPI Ms. Rogers is a 60 yr old female admitted to ICU 9 from the ED with a-fib with RVR, post cardioversion in the ED with worship of SR. She reports she was picking up her sleeping grandchild at home when the palpitations began. She felt weak at the time. She underwent ablation on Jul 11, [address] Luna. She reports she has had some occ fluttering since the ablation, but they have been brief episodes. Yesterday the palpitations did not resolve and she felt unwell prompting her to come to the ED. She was found to be hypotensive at the time of ED eval. She is tearful this morning. No c/o CP. No c/o n/v/d. No c/o fever or chills. No c/o LE swelling. She reports she has a f/u appt post ablation with Dr. Luna at 2 p.m. today. Review of Systems-Cardiology Review of Systems Constitutional: No chills, No fever; malaise Eyes: No vision change Ears/Nose/Throat: No epistaxis, No recent hearing loss Respiratory: As described under HPI Cardiovascular: As described under HPI Gastrointestinal: No constipation, No diarrhea, No nausea, No vomiting Genitourinary: No dysuria, No hematuria Musculoskeletal: no symptoms reported Skin: No rash on exposed areas, No ulcerations on exposed areas Psychiatric/Neurological: anxiety; No depression, No seizure, No focal weakness, No syncope Hematologic: No bleeding abnormalities All Other Systems Reviewed Negative Unless Noted: Yes YBP-Eafnca-Egdojj Hx Patient Social History Alcohol Use: Denies Use Recreational Drug Use: No Smoking Status: Never a Smoker 2nd Hand Smoke Exposure: No Recent Foreign Travel: No Recent Infectious Disease Expo: No Past Medical History PMH As described under Assessment. Family Medical History Family Medical History: She reports her father has CAD and has had CABG in his 70's. She reports her mother has CAD and a-fib. Family History: Cardiovascular disease 19 FATHER 19 MOTHER Hypercholesterolemia 19 MOTHER Allergies and Home Medications Allergies Coded Allergies: codeine (Verified Allergy, Mild, NAUSEA, 09/15/16) Home Medications Apixaban 5 Mg Tablet, 5 MG PO BID Prescribed by: UTE AMAYA on 09/16/16 1117 Calcium Carbonate/Vitamin D3 1 Each Tablet, 1 TAB PO HS, (Reported) Diltiazem HCl 180 Mg Cap.er.24h, 180 MG PO DAILY@0900 Prescribed by: KIANA MCLEAN on 07/24/20 0831 Lysine 1,000 Mg Tablet, 1,000 MG PO DAILY, (Reported) Magnesium Oxide 500 Mg Capsule, 500 MG PO DAILY, (Reported) Multivitamin 1 Each Tablet, 1 TAB PO DAILY, (Reported) [place] 3 Polyunsat Fatty Acids 1,000 Mg Cap, 1,000 MG PO DAILY, (Reported) Sotalol HCl 120 Mg Tablet, 120 MG PO BID, (Reported) [Vitamin C] , 1 TAB PO HS, (Reported) Patient Home Medication List Home Medication List Reviewed: Yes Physical Exam-Cardiology Physical Exam Vital Signs/I&O 07/24/20 07/24/20 07/24/20 07/24/20 06:00 06:41 07:45 07:50 Temp 37.0 Pulse 55 57 Resp 17 B/P (MAP) 101/59 (73) O2 Delivery Room Air Room Air 07/24/20 07/24/20 07/24/20 08:00 08:20 10:57 Pulse 61 Resp 8 B/P (MAP) 101/63 (76) Pulse Ox 95 O2 Delivery Room Air Room Air 07/24/20 00:00 Intake Total 1250 ml Balance 1250 ml Capillary Refill : Less Than 3 Seconds Constitutional: AAO x 3, well-developed, well-nourished HEENT: PERRL, hearing is well preserved, oral hygience is good Neck: No carotid bruit; carotid pulses are 2 + bilaterally Respiratory: No accessory muscle use, No respiratory distress; chest expansion is symmetric, chest is bilaterally symmetric, lungs clear to auscultation Cardiovascular: regular rate-rhythm; No JVD; S1 and S2 Gastrointestinal: No tender; soft, audible bowel sounds Extremities: no lower extremity edema bilateral Neurologic/Psychiatric: grossly intact (moves all extremities) Skin: No rash on exposed areas, No ulcerations on exposed areas Data Review Labs Laboratory Tests 07/24/20 02:47: White Blood Count 6.8, Red Blood Count 3.55L, Hemoglobin 11.7#, Hematocrit 35, Mean Corpuscular Volume 98, Mean Corpuscular Hemoglobin 33, Mean Corpuscular Hemoglobin Concent 34, Red Cell Distribution Width 12.7, Platelet Count 272, Mean Platelet Volume 10.3, Neutrophils (%) (Auto) 63, Lymphocytes (%) (Auto) 29, Monocytes (%) (Auto) 7, Eosinophils (%) (Auto) 1, Basophils (%) (Auto) 0, Ne utrophils # (Auto) 4.3, Lymphocytes # (Auto) 1.9, Monocytes # (Auto) 0.5, Eosinophils # (Auto) 0.1, Basophils # (Auto) 0.0, Sodium Level 138, Potassium Level 3.9, Chloride Level 108H, Carbon Dioxide Level 20L, Anion Gap 10, Blood Urea Nitrogen 17, Creatinine 0.79, Estimat Glomerular Filtration Rate > 60, BUN/Creatinine Ratio 22, Glucose Level 85, Calcium Level 8.4L, Corrected Calcium 8.9, Total Bilirubin 0.7, Aspartate Amino Transf (AST/SGOT) 18, Alanine Aminotransferase (ALT/SGPT) 18, Alkaline Phosphatase 35L, Total Protein 5.9L, Albumin 3.4, Triglycerides Level 113, Cholesterol Level 173, LDL Cholesterol Direct 136H, VLDL Cholesterol 23, HDL Cholesterol 38L Laboratory Tests 07/23/20 17:05 07/24/20 02:47 A/P-Cardiology Assessment/Admission Diagnosis A-fib with RVR - s/p successful cardioversion on Jul 23, 2020 S/P a-fib ablation on Jul 11, [address] Luna H/O PAF first diagnosed during a hospitalization in 2016. Recurrent PAF on 08/25/17, Dec 2018, May 2020, Jun 2020 associated with RVR; each episode treated with cardioversion Chronically low bp Mild acute renal insufficiency on lab of 07-23-2020 - resolved Some drop in H/H on 06/30/20, compared to 07/23/20, because of iv fluids overnight MPI of February 21, 2019 showed no evidence of any significant myocardial ischemia of infarction. LVEF 61%. Echocardiogram of June 16, [address] Luna LVEF 55-65%. PASP 30-35 mmHg Family h/o CAD Normal TSH on lab of 09-16-16 OAC with Eliquis Discussion and Recomendations Recurrence of a-fib with RVR - cardioverted successfully on 07-23-2020 - maintaining SR Mild acute renal insufficiency at time of ED eval - resolved Continue Sotalol and Diltiazem Continue Eliquis for stroke prophylaxis Likely discharge home to today and advised her to keep her out pt f/u appt with Dr. Luna for later today Clinical Quality Measures AMI/AHF: ASA po Prior to arrival: No DVT/VTE Risk/Contraindication: Risk Factor Score Per Nursin RFS Level Per Nursing on Admit: 4+=Very High GANGA QUINN MD FACP FAC [facility] Jul 24, 2020 17:24
== END 2020-07-24 11:01 | disposition home or self-care (01) | DRG 310 ==
LOC: EDUNIT# 16:52 → ER 16:53 → ICU 18:20
PROVIDERS: ADMIT Internal Medicine Cardiovascular Disease; ATTEND Internal Medicine Cardiovascular Disease
PROC: 5A2204Z Restoration of Cardiac Rhythm, Single (ICD-10-PCS; principal; 2020-07-23)
DX: I48.0 Paroxysmal atrial fibrillation (principal); N28.9 Disorder of kidney and ureter, unspecified; I95.9 Hypotension, unspecified; Z82.49 Family history of ischemic heart disease and other diseases of the circulatory system; Z88.5 Allergy status to narcotic agent
CPT/HCPCS: 36415; 71045; 80053; 80061; 83735; 83874; 83880; 84484; 85025; 85610; 85730; 87081; 93005; 93041; 99291

== ENCOUNTER 2020-11-09 00:35 | Emergency (ER) | payer OTHER ==
[~2020-11-09] VITALS: Ht 172.7 cm; Wt 58.9 kg
[~2020-11-09 00:35] MED LIST changes: +ASPI-1238 PO; -ASPI-983 PO; +DILT180C85 PO
[2020-11-09] MEDS ORDERED: NS IV 1000 ML 1,000 ML ONE ×2 (00:52→01:25)
[2020-11-09] MEDS ORDERED: MIDAZOLAM 5 MG/5 ML (VERSED) VIAL ONE (00:57)
[2020-11-09] MEDS ORDERED: fentaNYL INJECTION 100 MCG/2 ML AMP ONE (00:58)
[2020-11-09 01:14] LABS: BASOPHILS % (AUTO) 1 % (0-10); EOSINOPHILS # (AUTO) 0.1 10^3/uL (0.0-0.3); EOSINOPHILS % (AUTO) 2 % (0-10); HEMATOCRIT 45 % (35-52); HEMOGLOBIN 14.7 g/dL (11.5-16.0); LYMPHOCYTES # (AUTO) 1.9 10^3/uL (1.0-4.0); LYMPHOCYTES % (AUTO) 29 % (12-44); MEAN CORPUSCULAR HEMOGLOBIN 32 pg (25-34); MEAN CORPUSCULAR HGB CONC 33 g/dL (32-36); MEAN CORPUSCULAR VOLUME 99 fL (80-99); MEAN PLATELET VOLUME 10.8 fL (9.0-12.2); MONOCYTES # (AUTO) 0.4 10^3/uL (0.0-1.0); MONOCYTES % (AUTO) 6 % (0-12); NEUTROPHILS # (AUTO) 4.1 10^3/uL (1.8-7.8); NEUTROPHILS % (AUTO) 62 % (42-75); PLATELET COUNT 264 10^3/uL (130-400); WHITE BLOOD COUNT 6.5 10^3/uL (4.3-11.0)
[2020-11-09 01:24] LABS: ALBUMIN 3.8 GM/DL (3.2-4.5); CHLORIDE 106 MMOL/L (98-107); POTASSIUM 3.8 MMOL/L (3.6-5.0); SODIUM 139 MMOL/L (135-145)
[2020-11-09 01:25] LABS: CALCIUM 8.3 MG/DL (8.5-10.1)
[2020-11-09 01:26] LABS: GLUCOSE 190 MG/DL (70-105); TOTAL PROTEIN 6.2 GM/DL (6.4-8.2)
[2020-11-09 01:27] LABS: CARBON DIOXIDE 21 MMOL/L (21-32); INR 1.2 (0.8-1.4); PROTHROMBIN TIME PATIENT 15.7 SEC (12.2-14.7)
[2020-11-09 01:30] LABS: ALKALINE PHOSPHATASE 32 U/L (40-136); CREATININE SERUM 0.88 MG/DL (0.60-1.30); GFR ESTIMATED > 60
[2020-11-09] MEDS ORDERED: MIDAZOLAM 5 MG/5 ML (VERSED) VIAL IVP ONE (01:30)
[2020-11-09] MEDS ORDERED: NS IV 1000 ML 1,000 ML IV SCH (01:30)
[2020-11-09] MEDS ORDERED: fentaNYL INJECTION 100 MCG/2 ML AMP IVP ONE (01:30)
[2020-11-09 01:31] LABS: BUN/CREATININE RATIO 22
[2020-11-09 01:33] LABS: ALANINE AMINOTRANSFERASE 30 U/L (0-55); CREATINE KINASE 319 U/L (29-168); MAGNESIUM 1.8 MG/DL (1.6-2.4)
[2020-11-09 01:40] LABS: CREATINE KINASE MB 4.8 NG/ML (<6.6)
[2020-11-09 01:53] LABS: TSH (THYROID ANALYZER) 3.16 UIU/ML (0.35-4.94)
[2020-11-09 02:00] VITALS: BP 84/61
[2020-11-09] MEDS ORDERED: LACTATED RINGERS 1,000 ML IV ONE (02:30)
--- NOTE | 2020-11-09 03:06 | ED Cardiac General ---
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 NO CHEST PAIN C/O SLIGHT SHORTNESS OF BREATH C/O SWEATS C/O FEELING WEAK AND FEELING LIKE SHE MIGHT PASS OUT TONIGHT. TOOK A DOSE OF CARDIZEM AT 1600 TOOK SOTALOL AND ELIQUIS AT 2300, BUT VOMITED THEM UP AT MIDNIGHT. NO LONGER NAUSEATED. NO MEDICATION CHANGES, NO MISSED DOSES OF MEDICATIONS STATES SHE HAS A LONG HISTORY OF ATRIAL FIBRILLATION, AND HAD A CARDIAC ABLATION 07/11/[address] LIM. STATES "THE ONLY WAY IT WILL GO BACK IN RHYTHM IS WITH CARDIOVERSION" WHICH SHE HAS HAD MULTIPLE TIMES. . Allergies and Home Medications Allergies Coded Allergies: codeine (Verified Allergy, Mild, NAUSEA, 09/15/16) Home Medications Apixaban 5 Mg Tablet, 5 MG PO BID Prescribed by: UTE AMAYA on 09/16/16 1117 Calcium Carbonate/Vitamin D3 1 Each Tablet, 1 TAB PO HS, (Reported) Diltiazem HCl 180 Mg Cap.er.24h, 180 MG PO DAILY@0900 Prescribed by: KIANA MCLEAN on 07/24/20 0831 Lysine 1,000 Mg Tablet, 1,000 MG PO DAILY, (Reported) Magnesium Oxide 500 Mg Capsule, 500 MG PO DAILY, (Reported) Multivitamin 1 Each Tablet, 1 TAB PO DAILY, (Reported) [place] 3 Polyunsat Fatty Acids 1,000 Mg Cap, 1,000 MG PO DAILY, (Reported) Sotalol HCl 120 Mg Tablet, 120 MG PO BID, (Reported) [Vitamin C] , 1 TAB PO HS, (Reported) Patient Home Medication List Home Medication List Reviewed: Yes Review of Systems Review of Systems Constitutional: see HPI; No chills, No diaphoresis; dizziness; No fever; malaise, weakness EENTM: No Symptoms Reported Respiratory: See HPI, Shortness of Air Cardiovascular: See HPI; Denies Chest Pain, Denies Edema; Irregular Heart Rate, Lightheadedness, Palpitations; Denies Syncope; Other (NEAR-SYNCOPE) Gastrointestinal: See HPI; Denies Abdominal Pain; Nausea, Vomiting Genitourinary: No Symptoms Reported Musculoskeletal: no symptoms reported; No back pain Skin: no symptoms reported Psychiatric/Neurological: No Symptoms Reported Endocrine: No Symptoms Reported Hematologic/Lymphatic: No Symptoms Reported Past Wnmjklg-Tjouwt-Gfzmxz Hx Past Med/Social Hx: Reviewed and Corrections made Patient Social History Alcohol Use: Denies Use Recreational Drug Use: No Smoking Status: Never a Smoker 2nd Hand Smoke Exposure: No Recent Hopitalizations: Yes (AFIB MAY2020) Seasonal Allergies Seasonal Allergies: Yes Past Medical History Surgeries: Yes (CARDIAC ABLATION 06/[address] LIM; MULTIPLE CARDI OVERSIONS) Cardiac, Tonsillectomy Respiratory: No Currently Using CPAP: No Currently Using BIPAP: No Cardiac: Yes Atrial Fibrillation Neurological: No Reproductive Disorders: No Sexually Transmitted Disease: No HIV/AIDS: No Genitourinary: No Gastrointestinal: No Musculoskeletal: No Endocrine: No HEENT: Yes Cataract Hearing Impairment: Denies Cancer: No Psychosocial: No Integumentary: No Blood Disorders: No Adverse Reaction/Blood Tranf: No Family Medical History Cardiovascular disease 19 FATHER 19 MOTHER Hypercholesterolemia 19 MOTHER No Pertinent Family Hx Physical Exam Vital Signs Vital Signs - First Documented 11/09/20 11/09/20 00:50 01:10 Temp 36.6 Pulse 134 Resp 12 B/P (MAP) 70/49 Pulse Ox 98 O2 Delivery Nasal Cannula O2 Flow Rate 6.00 Capillary Refill : Height, Weight, BMI Height: 5'8.00" Weight: 132lbs. 11.2oz. [id number]; 19.00 BMI Method:Stated General Appearance: No Apparent Distress, WD/WN, Thin, Other (GENERALIZED WEAKNESS) HEENT: Normal ENT Inspection Neck: Normal Inspection Respiratory: Normal Breath Sounds, No Accessory Muscle Use, No Respiratory Distress Cardiovascular: No Murmur, Normal Peripheral Pulses, Irregularly Irregular, Tachycardia Gastrointestinal: Non Tender, Soft Extremity: Normal Capillary Refill, Normal Inspection, No Pedal Edema Neurologic/Psychiatric: Alert, Oriented x3, No Motor/Sensory Deficits, manager regional II- XII Norm as Tested Skin: Normal Color, Warm/Dry Procedures/Interventions Procedure: sedation/cardioversion Patient Education: Explained Benefits, Explained Risks, Pt. Ack. Understanding Agreement on procedure with pt: Yes Breath Sounds per Auscultation: Clear Heart Sounds per Auscultation: Irregular Airway Exam: Mouth opens >2 fingers PT CARDIOVERTED AT 120 J X 1 ATTEMPT, WITH CONSCIOUS SEDATION USING VERSED AND FENTANYL. NO COMPLICATIONS Additional Procedures: cardioversion/defib Progress ABOVE Progress/Results/Core Measures Results/Orders Lab Results Laboratory Tests Test 11/09/20 00:55 Range/Units White Blood Count 6.5 4.3-11.0 10^3/uL Red Blood Count 4.58 3.80-5.11 10^6/uL Hemoglobin 14.7 11.5-16.0 g/dL Hematocrit 45 35-52 % Mean Corpuscular Volume 99 80-99 fL Mean Corpuscular Hemoglobin 32 25-34 pg Mean Corpuscular Hemoglobin Concent 33 32-36 g/dL Red Cell Distribution Width 12.2 10.0-14.5 % Platelet Count 264 130-400 10^3/uL Mean Platelet Volume 10.8 9.0-12.2 fL Immature Granulocyte % (Auto) 0 % Neutrophils (%) (Auto) 62 42-75 % Lymphocytes (%) (Auto) 29 12-44 % Monocytes (%) (Auto) 6 0-12 % Eosinophils (%) (Auto) 2 0-10 % Basophils (%) (Auto) 1 0-10 % Neutrophils # (Auto) 4.1 1.8-7.8 10^3/uL Lymphocytes # (Auto) 1.9 1.0-4.0 10^3/uL Monocytes # (Auto) 0.4 0.0-1.0 10^3/uL Eosinophils # (Auto) 0.1 0.0-0.3 10^3/uL Basophils # (Auto) 0.0 0.0-0.1 10^3/uL Immature Granulocyte # (Auto) 0.0 0.0-0.1 10^3/uL Prothrombin Time 15.7 H 12.2-14.7 SEC INR Comment 1.2 0.8-1.4 Activated Partial Thromboplast Time 30 24-35 SEC Sodium Level 139 135-145 MMOL/L Potassium Level 3.8 3.6-5.0 MMOL/L Chloride Level 106 98-107 MMOL/L Carbon Dioxide Level 21 21-32 MMOL/L Anion Gap 12 5-14 MMOL/L Blood Urea Nitrogen 19 H 7-18 MG/DL Creatinine 0.88 0.60-1.30 MG/DL Estimat Glomerular Filtration Rate > 60 BUN/Creatinine Ratio 22 Glucose Level 190 H 70-105 MG/DL Calcium Level 8.3 L 8.5-10.1 MG/DL Corrected Calcium 8.5 8.5-10.1 MG/DL Magnesium Level 1.8 1.6-2.4 MG/DL Total Bilirubin 1.0 0.1-1.0 MG/DL Aspartate Amino Transf (AST/SGOT) 31 5-34 U/L Alanine Aminotransferase (ALT/SGPT) 30 0-55 U/L Alkaline Phosphatase 32 L 40-136 U/L Total Creatine Kinase 319 H 29-168 U/L Creatine Kinase MB 4.8 <6.6 NG/ML Troponin I < 0.028 <0.028 NG/ML B-Type Natriuretic Peptide 376.4 H <100.0 PG/ML Total Protein 6.2 L 6.4-8.2 GM/DL Albumin 3.8 3.2-4.5 GM/DL TSH [place] Testing 3.16 0.35-4.94 UIU/ML My Orders Orders - SUDARSHAN HICKEY DO Ed Iv/Invasive Line Start (11/09/20 00:50) Ekg Tracing (11/09/20 00:50) Monitor-Rhythm Ecg Trace Only (11/09/20 00:50) BNP (11/09/20 00:50) Cbc With Automated Diff (11/09/20 00:50) Comprehensive Metabolic Panel (11/09/20 00:50) Creatine Kinase (11/09/20 00:50) Creatine Kinase Mb (11/09/20 00:50) Magnesium (11/09/20 00:50) Protime With Inr (11/09/20 00:50) Partial Thromboplastin Time (11/09/20 00:50) Thyroid Analyzer (11/09/20 00:50) Troponin I (11/09/20 00:50) Chest 1 View, Ap/Pa Only (11/09/20 00:50) Ns Iv 1000 Ml (Sodium Chloride 0.9%) (11/09/20 00:52) Midazolam Injection (Versed Injection) (11/09/20 00:57) Fentanyl Injection (Sublimaze Injection (11/09/20 00:58) Ekg Tracing (11/09/20 01:17) O2 (11/09/20 01:17) Ns Iv 1000 Ml (Sodium Chloride 0.9%) (11/09/20 01:25) Ed Iv/Invasive Line Start (11/09/20 01:29) Ns Iv 1000 Ml (Sodium Chloride 0.9%) (11/09/20 01:30) Midazolam Injection (Versed Injection) (11/09/20 01:30) Fentanyl Injection (Sublimaze Injection (11/09/20 01:30) Ed Iv/Invasive Line Start (11/09/20 02:29) Lactated Ringers (Lr 1000 Ml Iv Solution (11/09/20 02:30) Medications Given in ED Current Medications Medications Dose Ordered Sig/Elayne Route Start Time Stop Time Status Last Admin Dose Admin Fentanyl Citrate 50 mcg ONCE ONCE IVP 11/09/20 01:30 11/09/20 01:31 DC 11/09/20 01:11 50 MCG Lactated Ringer's 1,000 ml @ 0 mls/hr Q0M ONCE IV 11/09/20 02:30 11/09/20 02:31 DC 11/09/20 02:42 999 MLS/HR Midazolam HCl 4 mg ONCE ONCE IVP 11/09/20 01:30 11/09/20 01:31 DC 11/09/20 01:11 4 MG Sodium Chloride 1,000 ml @ ud STK-MED ONCE .ROUTE 11/09/20 01:25 11/09/20 01:28 DC 11/09/20 00:55 999 MLS/HR Vital Signs/I&O 11/09/20 11/09/20 11/09/20 11/09/20 00:50 00:55 01:10 01:15 Temp 36.6 Pulse 134 69 Resp 12 13 B/P (MAP) 70/49 103/67 Pulse Ox 98 97 98 O2 Delivery Nasal Cannula Nasal Cannula Nasal Cannula Nasal Cannula O2 Flow Rate 6.00 6.00 6.00 6.00 11/09/20 11/09/20 11/09/20 11/09/20 01:20 01:25 01:30 01:35 Pulse 67 69 66 67 Resp 14 14 10 12 B/P (MAP) 87/54 79/52 79/46 81/51 Pulse Ox 98 98 99 100 O2 Delivery Nasal Cannula Nasal Cannula Nasal Cannula Nasal Cannula O2 Flow Rate 4.00 4.00 4.00 4.00 11/09/20 11/09/20 11/09/20 11/09/20 01:40 01:45 01:50 01:55 Pulse 69 79 65 66 Resp 12 12 16 18 B/P (MAP) 91/52 82/54 85/55 87/51 Pulse Ox 100 99 99 98 O2 Delivery Nasal Cannula Nasal Cannula Nasal Cannula Nasal Cannula O2 Flow Rate 4.00 4.00 2.00 2.00 11/09/20 02:00 Pulse 71 Resp 18 B/P (MAP) 84/61 Pulse Ox 98 O2 Delivery Nasal Cannula O2 Flow Rate 2.00 Progress Progress Note : Progress Note GIVEN IV FLUIDS PT AWAKE, ALERT, ORIENTED X 4 PT LOOKS MUCH BETTER, SMILING, ANIMATED PT STATES SHE FEELS MUCH BETTER PT REMAINED IN NSR FOR REMAINDER OF ER STAY BP UP TO > 90 SYSTOLIC PRIOR TO DISMISSAL Initial ECG Impression Date: Nov 09, 2020 Initial ECG Impression Time: 01:03 Initial ECG Rate: 132 Initial ECG Rhythm: A Fib/Flutter Initial ECG Impression: Nonspecific Changes, Atrial Fibrillation w/RVR EKG : EKG Time: 01:12 Rate: 70 Rhythm: Normal Sinus (LAFB, ONE PVC) Diagnostic Imaging Comments CXR-NO ACUTE PROCESS, PENDING RADIOLOGIST REVIEW Reviewed: Reviewed by Me Departure Communication (Admissions) Family Conversation 0320--SPOKE WITH PT'S DAUGHTER, UPDATED HER ON PT'S CONDITION 0130--SPOKE WITH DR. LIM, HE ADVISES THAT IF PT'S BLOOD PRESSURE GOES UP, AND SHE REMAINS IN SINUS RHYTHM, PT MAY BE DISMISSED TO HOME. WILL CALL HIM BACK IF PT GOES BACK INTO ATRIAL FIBRILLATION. Impression Primary Impression: Atrial fibrillation with RVR Disposition: HOME, SELF-CARE Condition: Improved Departure-Patient Inst. Referrals: TAMAR HERNANDEZ MD (PCP/Family) Primary Care Physician MC WADE MD FACP [facility] Samantha LIM MD Patient Instructions: Atrial Fibrillation (DC), Cardioversion (DC), Moderate Sedation in Adults (DC), Moderate Sedation in Children (DC) Add. Discharge Instructions: CONTINUE ALL MEDICATIONS PRESCRIBED FOLLOW UP WITH DR. WADE OR DR. LIM ON WEDNESDAY RETURN TO ER IF SYMPTOMS RETURN SUDARSHAN HICKEY DO Nov 09, 2020 03:05
--- NOTE | 2020-11-09 03:30 | NUR ---
DR. HICKEY UPDATED PT DAUGHTER ON ER VISIT AND DISCHARGE INSTRUCTIONS AT THIS TIME.
--- NOTE | 2020-11-09 06:44 | Diagnostic Imaging Report ---
INDICATION: A-fib. Comparison is made with prior examination from 07/23/2020. FINDINGS: There is cardiomegaly. Lungs are clear. There is no pleural effusion or pneumothorax. Mediastinum is unremarkable. IMPRESSION: No acute cardiopulmonary abnormality Cardiomegaly Dictated by: Dictated on workstation # [id number]
== END 2020-11-09 03:43 | disposition home or self-care (01) ==
LOC: EDUNIT# 00:35 → ER 00:38
DX: I48.20 Chronic atrial fibrillation, unspecified (principal); Z82.49 Family history of ischemic heart disease and other diseases of the circulatory system; Z88.5 Allergy status to narcotic agent; Z79.01 Long term (current) use of anticoagulants
CPT/HCPCS: 36415; 71045; 80053; 82550; 82553; 83735; 83880; 84443; 84484; 85025; 85610; 85730; 93005; 93041

== ENCOUNTER 2020-12-13 13:07 | Emergency (ER) | payer OTHER ==
[~2020-12-13] VITALS: Ht 172.7 cm; Wt 58.0 kg
[2020-12-13] MEDS ORDERED: ASPIRIN 81 MG CHEW (CHILDREN'S ASA) PO ONE (13:15)
--- NOTE | 2020-12-13 13:17 | ED Cardiac General ---
History of Present Illness General Stated Complaint: AFIB-CARDIOVERSION Source: patient Exam Limitations: no limitations History of Present Illness Date Seen by Provider: Dec 13, 2020 Time Seen by Provider: 13:15 Initial Comments To ER by private vehicle from Dr. Panchal's office with reports of atrial fibrillation. She has palpitations and general weakness. Symptoms began last night at 9 PM. She has paroxysmal atrial fibrillation and she is on sotalol and Eliquis. She has not missed any doses of these medications. She states that she has had to be electrically cardioverted several times and that is the only way that she woke convert to a sinus rhythm. Since she is so symptomatic with this atrial fibrillation she requests to be cardioverted again. Timing/Duration: changing over time Severity: moderate Activities at Onset: none NTG SL OVERNIGHT CAREGIVER: No ASA po OVERNIGHT CAREGIVER: No Associated Systoms: Denies Symptoms Allergies and Home Medications Allergies Coded Allergies: codeine (Verified Allergy, Mild, NAUSEA, 09/15/16) Home Medications Apixaban 5 Mg Tablet, 5 MG PO BID Prescribed by: UTE AMAYA on 09/16/16 1117 Calcium Carbonate/Vitamin D3 1 Each Tablet, 1 TAB PO HS, (Reported) Diltiazem HCl 180 Mg Cap.er.24h, 180 MG PO DAILY@0900 Prescribed by: KIANA MCLEAN on 07/24/20 0831 Lysine 1,000 Mg Tablet, 1,000 MG PO DAILY, (Reported) Magnesium Oxide 500 Mg Capsule, 500 MG PO DAILY, (Reported) Multivitamin 1 Each Tablet, 1 TAB PO DAILY, (Reported) [place] 3 Polyunsat Fatty Acids 1,000 Mg Cap, 1,000 MG PO DAILY, (Reported) Sotalol HCl 120 Mg Tablet, 120 MG PO BID, (Reported) [Vitamin C] , 1 TAB PO HS, (Reported) Patient Home Medication List Home Medication List Reviewed: Yes Review of Systems Review of Systems Constitutional: see HPI EENTM: No Symptoms Reported Respiratory: No Symptoms Reported Cardiovascular: See HPI; Denies Chest Pain; Irregular Heart Rate, Lightheadedness, Palpitations Gastrointestinal: No Symptoms Reported Genitourinary: No Symptoms Reported Musculoskeletal: no symptoms reported Skin: no symptoms reported Psychiatric/Neurological: No Symptoms Reported Endocrine: No Symptoms Reported Past Gnoyxkl-Rptabk-Dyuagt Hx Patient Social History 2nd Hand Smoke Exposure: No Recent Hopitalizations: Yes (AFIB MAY2020) Seasonal Allergies Seasonal Allergies: Yes Past Medical History Surgeries: Yes (CARDIAC ABLATION 06/[address] LUNA; MULTIPLE CARDIOVERSI ONS) Cardiac, Tonsillectomy Respiratory: No Currently Using CPAP: No Currently Using BIPAP: No Cardiac: Yes Atrial Fibrillation, Hypertension Neurological: No Reproductive Disorders: No Sexually Transmitted Disease: No HIV/AIDS: No Genitourinary: No Gastrointestinal: No Musculoskeletal: No Endocrine: No HEENT: Yes Cataract Hearing Impairment: Denies Cancer: No Psychosocial: No Integumentary: No Blood Disorders: No Adverse Reaction/Blood Tranf: No Family Medical History Cardiovascular disease 19 FATHER 19 MOTHER Hypercholesterolemia 19 MOTHER No Pertinent Family Hx Physical Exam Vital Signs Vital Signs - First Documented 12/13/20 12/13/20 13:12 13:36 Pulse 114 Resp 20 B/P (MAP) 103/61 (75) Pulse Ox 99 O2 Delivery Room Air O2 Flow Rate 4.00 Capillary Refill : Height, Weight, BMI Height: 5'8.00" Weight: 132lbs. 11.2oz. [id number]; 19.00 BMI Method:Stated General Appearance: No Apparent Distress, WD/WN, Other (Alert and oriented no distress pleasant) Neck: Full Range of Motion, Normal Inspection Respiratory: No Accessory Muscle Use, No Respiratory Distress Gastrointestinal: Non Tender, Soft Extremity: Normal Capillary Refill, Normal Inspection Neurologic/Psychiatric: Alert, Oriented x3 Skin: Normal Color, Warm/Dry Procedures/Interventions Patient Education: Explained Benefits, Explained Risks, Pt. Ack. Understanding Breath Sounds per Auscultation: Clear Heart Sounds per Auscultation: Irregular Airway Exam: Mouth opens >2 fingers Progress/Results/Core Measures Results/Orders Lab Results Laboratory Tests Test 12/13/20 13:20 Range/Units White Blood Count 5.9 4.3-11.0 10^3/uL Red Blood Count 4.72 3.80-5.11 10^6/uL Hemoglobin 15.4 11.5-16.0 g/dL Hematocrit 46 35-52 % Mean Corpuscular Volume 97 80-99 fL Mean Corpuscular Hemoglobin 33 25-34 pg Mean Corpuscular Hemoglobin Concent 34 32-36 g/dL Red Cell Distribution Width 11.9 10.0-14.5 % Platelet Count 274 130-400 10^3/uL Mean Platelet Volume 10.1 9.0-12.2 fL Immature Granulocyte % (Auto) 0 % Neutrophils (%) (Auto) 64 42-75 % Lymphocytes (%) (Auto) 27 12-44 % Monocytes (%) (Auto) 7 0-12 % Eosinophils (%) (Auto) 2 0-10 % Basophils (%) (Auto) 1 0-10 % Neutrophils # (Auto) 3.8 1.8-7.8 10^3/uL Lymphocytes # (Auto) 1.6 1.0-4.0 10^3/uL Monocytes # (Auto) 0.4 0.0-1.0 10^3/uL Eosinophils # (Auto) 0.1 0.0-0.3 10^3/uL Basophils # (Auto) 0.0 0.0-0.1 10^3/uL Immature Granulocyte # (Auto) 0.0 0.0-0.1 10^3/uL Prothrombin Time 15.6 H 12.2-14.7 SEC INR Comment 1.2 0.8-1.4 Activated Partial Thromboplast Time 39 H 24-35 SEC Sodium Level 141 135-145 MMOL/L Potassium Level 4.0 3.6-5.0 MMOL/L Chloride Level 107 98-107 MMOL/L Carbon Dioxide Level 22 21-32 MMOL/L Anion Gap 12 5-14 MMOL/L Blood Urea Nitrogen 20 H 7-18 MG/DL Creatinine 0.98 0.60-1.30 MG/DL Estimat Glomerular Filtration Rate 58 BUN/Creatinine Ratio 20 Glucose Level 126 H 70-105 MG/DL Calcium Level 10.6 H 8.5-10.1 MG/DL Corrected Calcium 10.4 H 8.5-10.1 MG/DL Magnesium Level 1.9 1.6-2.4 MG/DL Total Bilirubin 1.0 0.1-1.0 MG/DL Aspartate Amino Transf (AST/SGOT) 24 5-34 U/L Alanine Aminotransferase (ALT/SGPT) 22 0-55 U/L Alkaline Phosphatase 33 L 40-136 U/L Myoglobin 66.8 10.0-92.0 NG/ML Troponin I < 0.028 <0.028 NG/ML Total Protein 7.3 6.4-8.2 GM/DL Albumin 4.3 3.2-4.5 GM/DL My Orders Orders - JO VAZQUEZ [employer]AF[employer] COUNCIL DIRECTOR Cbc With Automated Diff (12/13/20 13:15) Magnesium (12/13/20 13:15) Chest 1 View, Ap/Pa Only (12/13/20 13:15) Ekg Tracing (12/13/20 13:15) Comprehensive Metabolic Panel (12/13/20 13:15) Myoglobin Serum (12/13/20 13:15) Protime With Inr (12/13/20 13:15) Partial Thromboplastin Time (12/13/20 13:15) O2 (12/13/20 13:15) Monitor-Rhythm Ecg Trace Only (12/13/20 13:15) Lipid Panel (12/14/20 06:00) Ed Iv/Invasive Line Start (12/13/20 13:15) Troponin I (12/13/20 13:15) Aspirin Chewable Tablet (Baby Aspirin Ch (12/13/20 13:15) Ns Iv 1000 Ml (Sodium Chloride 0.9%) (12/13/20 13:30) Midazolam Injection (Versed Injection) (12/13/20 13:30) Fentanyl Injection (Sublimaze Injection (12/13/20 13:30) Ekg Tracing (12/13/20 13:56) Propofol Injection (Diprivan Injection) (12/13/20 13:55) Medications Given in ED Current Medications Medications Dose Ordered Sig/Elayne Route Start Time Stop Time Status Last Admin Dose Admin Aspirin 324 mg ONCE ONCE PO 12/13/20 13:15 12/13/20 13:16 DC 12/13/20 13:28 324 MG Midazolam HCl 5 mg ONCE ONCE IVP 12/13/20 13:30 12/13/20 13:31 DC 12/13/20 13:50 2 MG Vital Signs/I&O 12/13/20 12/13/20 13:12 13:36 Pulse 114 Resp 20 B/P (MAP) 103/61 (75) Pulse Ox 99 O2 Delivery Room Air Nasal Cannula O2 Flow Rate 4.00 Diagnostic Imaging Diagonstic Imaging: Xray Plain Films/CT/US/NM/MRI: chest Comments NAME: STEVE COLLIER Yemi [facility] REC#: [id number] PT STATUS: REG ER : 1960 PHYSICIAN: JO VAZQUEZ APRN ADMIT DATE: 12/13/20/ER Draft Date of Exam:12/13/20 CHEST 1 VIEW, AP/PA ONLY INDICATION: Chest pain COMPARISON: 11/09/2020 FINDINGS: Single frontal view of the chest demonstrates normal heart size and pulmonary vascularity. The lungs are well aerated and clear. No large pleural effusion or pneumothorax is seen. The visualized osseous structures show no acute abnormalities. IMPRESSION: 1. No acute cardiopulmonary process. Dictated on workstation # [id number] Dict: 12/13/20 1331 Trans: 12/13/20 1332 CVB [id number] Interpreted by: NESSA GAINES MD Electronically signed by: Departure Communication (Admissions) Spoke with Dr. Luna. Agrees with cardioversion. He came down along with Dr. Valentino from anesthesia and did a bedside electrical cardioversion under conscious sedation. Patient tolerated well. Impression Primary Impression: Atrial fibrillation with RVR Disposition: HOME, SELF-CARE Condition: Stable Departure-Patient Inst. Decision time for Depature: 14:04 Referrals: TAMAR HERNANDEZ MD (PCP/Family) Primary Care Physician Patient Instructions: Atrial Fibrillation JO VAZQUEZ APRN Dec 13, 2020 13:17
[2020-12-13 13:27] LABS: BASOPHILS % (AUTO) 1 % (0-10); EOSINOPHILS # (AUTO) 0.1 10^3/uL (0.0-0.3); EOSINOPHILS % (AUTO) 2 % (0-10); HEMATOCRIT 46 % (35-52); HEMOGLOBIN 15.4 g/dL (11.5-16.0); LYMPHOCYTES # (AUTO) 1.6 10^3/uL (1.0-4.0); LYMPHOCYTES % (AUTO) 27 % (12-44); MEAN CORPUSCULAR HEMOGLOBIN 33 pg (25-34); MEAN CORPUSCULAR HGB CONC 34 g/dL (32-36); MEAN CORPUSCULAR VOLUME 97 fL (80-99); MEAN PLATELET VOLUME 10.1 fL (9.0-12.2); MONOCYTES # (AUTO) 0.4 10^3/uL (0.0-1.0); MONOCYTES % (AUTO) 7 % (0-12); NEUTROPHILS # (AUTO) 3.8 10^3/uL (1.8-7.8); NEUTROPHILS % (AUTO) 64 % (42-75); PLATELET COUNT 274 10^3/uL (130-400); WHITE BLOOD COUNT 5.9 10^3/uL (4.3-11.0)
[2020-12-13] MEDS ORDERED: fentaNYL INJECTION 100 MCG/2 ML AMP IVP ONE (13:30)
[2020-12-13] MEDS ORDERED: NS IV 1000 ML 1,000 ML IV SCH (13:30)
[2020-12-13] MEDS ORDERED: MIDAZOLAM 5 MG/5 ML (VERSED) VIAL IVP ONE (13:30)
--- NOTE | 2020-12-13 13:32 | Diagnostic Imaging Report ---
INDICATION: Chest pain COMPARISON: 11/09/2020 FINDINGS: Single frontal view of the chest demonstrates normal heart size and pulmonary vascularity. The lungs are well aerated and clear. No large pleural effusion or pneumothorax is seen. The visualized osseous structures show no acute abnormalities. IMPRESSION: 1. No acute cardiopulmonary process. Dictated by: Dictated on workstation # [id number]
[2020-12-13 13:38] LABS: ALBUMIN 4.3 GM/DL (3.2-4.5); INR 1.2 (0.8-1.4); PROTHROMBIN TIME PATIENT 15.6 SEC (12.2-14.7)
[2020-12-13 13:39] LABS: CALCIUM 10.6 MG/DL (8.5-10.1)
[2020-12-13 13:40] LABS: TOTAL PROTEIN 7.3 GM/DL (6.4-8.2)
[2020-12-13 13:44] LABS: CREATININE SERUM 0.98 MG/DL (0.60-1.30)
[2020-12-13 13:47] LABS: MAGNESIUM 1.9 MG/DL (1.6-2.4)
[2020-12-13] MEDS ORDERED: proPOfol 200 MG/20 ML (DIPRIVAN) VIAL IV ONE (13:55)
--- NOTE | 2020-12-13 14:07 | NUR ---
PT IS ALERT AND RESTING COMFORTABLY AT THIS TIME. PT WAS ABLE TO DRINK WITHOUT DIFFICULTY.
--- NOTE | 2020-12-13 14:19 | Consultation-Cardiology ---
HPI-Cardiology Cardiology Consultation: Date of Consultation 12/13/20 Date of Admission Attending Physician Admitting Physician Teresita Starr MD Consulting Physician Samantha ULNA MD HPI: Time Seen by a Provider: 13:00 Chief Complaint: Atrial fibrillation with RVR This is a 60-year-old lady with history of persistent atrial fibrillation requiring ablation in summer. She required significant amount of ablation including PVI, roof line, posterior box isolation, complex fractionated atrial electrogram ablation. She is also has previous history of cardioversion. However since the ablation she was not having any atrial fibrillation until October 2020 which is around 5-6 months after the ablation. She presented to Dr. Quinn's office with complains of palpitations. She was sent to the ER. Review of Systems-Cardiology Review of Systems Constitutional: As described under HPI; No As described under HPI, No no symptoms reported, No chills, No fever, No lightheadedness Eyes: No As described under HPI, No no symptoms reported, No blindness, No blurred vision, No contact lenses, No drainage, No decreased acuity, No foreign body sensation, No pain, No vision change Ears/Nose/Throat: No As described under HPI, No no symptoms reported, No chroni c hearing loss, No ear discharge, No ear pain, No nasal drainage, No ulcerations Respiratory: No no symptoms reported; As described under HPI; No As described under HPI, No cough, No orthopnea, No shortness of breath, No SOB with excertion Cardiovascular: No no symptoms reported; As described under HPI; No As described under HPI, No chest pain, No edema, No irregular heart rate, No lightheadedness; palpitations Gastrointestinal: No no symptoms reported, No As described under HPI, No abdomen distended, No abdominal pain, No blood streaked bowels, No constipation, No diarrhea, No nausea, No vomiting, No stool coloration changes Genitourinary: No As described under HPI, No burning, No dysuria, No discharge, No frequency, No flank pain, No hematuria, No urgency : Yes : No Skin: No rash, No skin related problems, No ulcerations Psychiatric/Neurological: No anxiety, No depression, No seizure, No focal weakness, No syncope Hematologic: No bleeding abnormalities NLP-Xtverv-Dizfha Hx Patient Social History Smoking Status: Never a Smoker 2nd Hand Smoke Exposure: No Immunizations Up To Date Tetanus Booster (TDap): Unknown Past Medical History PMH As described under Assessment. Family Medical History Family Medical History: She reports her father has CAD and has had CABG in his 70's. She reports her mother has CAD and a-fib. Family History: Cardiovascular disease 19 FATHER 19 MOTHER Hypercholesterolemia 19 MOTHER Allergies and Home Medications Allergies Coded Allergies: codeine (Verified Allergy, Mild, NAUSEA, 09/15/16) Home Medications Apixaban 5 Mg Tablet, 5 MG PO BID Prescribed by: UTE AMAYA on 09/16/16 1117 Calcium Carbonate/Vitamin D3 1 Each Tablet, 1 TAB PO HS, (Reported) Diltiazem HCl 180 Mg Cap.er.24h, 180 MG PO DAILY@0900 Prescribed by: KIANA MCLEAN on 07/24/20 0831 Lysine 1,000 Mg Tablet, 1,000 MG PO DAILY, (Reported) Magnesium Oxide 500 Mg Capsule, 500 MG PO DAILY, (Reported) Multivitamin 1 Each Tablet, 1 TAB PO DAILY, (Reported) [place] 3 Polyunsat Fatty Acids 1,000 Mg Cap, 1,000 MG PO DAILY, (Reported) Sotalol HCl 120 Mg Tablet, 120 MG PO BID, (Reported) [Vitamin C] , 1 TAB PO HS, (Reported) Patient Home Medication List Home Medication List Reviewed: Yes Physical Exam-Cardiology Physical Exam Vital Signs/I&O Capillary Refill : Less Than 3 Seconds Constitutional: appears stated age; No apparent distress; well-developed, well- nourished HEENT: PERRL; No discharge; hearing is well preserved, oral hygience is good; No ulceration, No xanthelasmas are seen Neck: No carotid bruit; carotid pulses are 2 + bilaterally Respiratory: chest is bilaterally symmetric, lungs clear to auscultation Cardiovascular: irregularly irregular, tachycardia, S1 and S2 Gastrointestinal: soft, audible bowel sounds; No spleenomegaly Rectal: deferred Extremities: No clubbing, No cyanosis; no lower extremity edema bilateral; No significant edema Neurologic/Psychiatric: no motor/sensory deficits, alert, normal mood/affect, oriented x 3, power is 5/5 both on sides Skin: normal color; No rash, No ulcerations Data Review Labs ECG Impression ECG Initial ECG Impression: Atrial Fibrillation w/RVR A/P-Cardiology Assessment/Admission Diagnosis Persistent atrial fibrillation with RVR Plan Persistent atrial flutter fibrillation with RVR. Patient has been on uninterrupted Eliquis. The patient is already on sotalol. Direct cardioversion with anesthesia support was successful. Patient will be discharged to follow-up with Dr. Quinn. Thank you for your consultation. Please call me if you have any questions. Jono Luna MD, FACP, FACC, FSCAI, FHRS, CCDS Interventional Cardiology Cardiac Electrophysiology Vascular Medicine and Endovascular Interventions Clinical Quality Measures AMI/AHF: ASA po Prior to arrival: Samantha Agosto MD Dec 13, 2020 14:19
--- NOTE | 2020-12-13 14:19 | Cardioversion ---
Cardioversion PROCEDURE PHYSICIAN: Jono Luna MD DATE OF PROCEDURE: 12/13/20 DIRECT EXTERNAL ELECTRICAL CARDIOVERSION: Indications: Atrial Fibrillation with rapid ventricular rate Preoperative diagnoses: Atrial Fibrillation with rapid ventricular rate Postoperative diagnosis: Sinus rhythm, Successful Electrical Cardioversion History: History of atrial fibrillation ablation last year June. 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 Electrical cardioversion was carried out with anesthesia support with propofol. 200 joules of synchronized shock was delivered through external patches which promptly re stored sinus rhythm. The patient tolerated the procedure well. Conclusions: 1.Successful Cardioversion. 2.Continue oral anticoagulation and rate controlling agent. 3.Follow up Dr. Quinn in 7 days. Jono Luna MD, [facility] Cardiac Electrophysiology Samantha LUNA MD Dec 13, 2020 14:19
--- NOTE | 2020-12-13 14:36 | Anesthesia-General Post-Op ---
MAC Patient Condition Mental Status/LOC: Same as Preop Cardiovascular: Satisfactory Nausea/Vomiting: Absent Respiratory: Satisfactory Pain: Controlled Complications: Absent Post Op Complications Complications None Follow Up Care/Instructions Patient Instructions None needed. Anesthesiology Discharge Order Discharge Order Patient was seen after the procedure and she was doing well, no complaints, stable vital signs, no apparent adverse anesthesia problems. JOSHUA MURO DO Dec 13, 2020 14:36
[2020-12-13 15:54] VITALS: BP 97/69
--- NOTE | 2020-12-13 16:19 | NUR ---
1338- ANESTHESIA TO RM 1339- DR LIM TO RM 1340- HR 107, RR 26, O2 100%, BP 89/66, ETCO2 32 1341- VERSED 2MG ADMINISTERED BY DR MURO 1344- PROPROFOL 50MG ADMINISTERED BY DR MURO 1345- FIRST SHOCK ADMINISTERED @ 120 JOULES. PT CONVERTED BACK TO SINUS RHYTHM.
== END 2020-12-13 15:54 | disposition home or self-care (01) ==
LOC: EDUNIT# 13:07 → ER 13:09
DX: I48.20 Chronic atrial fibrillation, unspecified (principal); I10 Essential (primary) hypertension; Z88.5 Allergy status to narcotic agent; Z82.49 Family history of ischemic heart disease and other diseases of the circulatory system; Z79.01 Long term (current) use of anticoagulants
CPT/HCPCS: 36415; 71045; 80053; 83735; 83874; 84484; 85025; 85610; 85730; 92960; 93005; 93041; 99291

== ENCOUNTER 2021-06-28 18:01 | Emergency (ER) | payer SELFPAY ==
[2021-06-28] MEDS ORDERED: fentaNYL INJ 100 MCG/2 ML AMP IV ONE (18:04)
[2021-06-28] MEDS ORDERED: MIDAZOLAM 5 MG/5 ML (VERSED) VIAL IJ ONE (18:04)
[2021-06-28] MEDS ORDERED: NS IV 1000 ML 1,000 ML IV SCH ×2 (18:15→19:15)
[2021-06-28] MEDS ORDERED: MIDAZOLAM 10 MG/2 ML (VERSED) VIAL IVP PRN (18:30)
[2021-06-28] MEDS ORDERED: fentaNYL INJ 100 MCG/2 ML AMP ONE (18:30)
[2021-06-28 18:35] LABS: BASOPHILS % (AUTO) 1 % (0-10); EOSINOPHILS # (AUTO) 0.1 10^3/uL (0.0-0.3); EOSINOPHILS % (AUTO) 1 % (0-10); HEMATOCRIT 46 % (35-52); HEMOGLOBIN 15.6 g/dL (11.5-16.0); LYMPHOCYTES % (AUTO) 28 % (12-44); MEAN CORPUSCULAR HEMOGLOBIN 33 pg (25-34); MEAN CORPUSCULAR HGB CONC 34 g/dL (32-36); MEAN CORPUSCULAR VOLUME 97 fL (80-99); MEAN PLATELET VOLUME 10.6 fL (9.0-12.2); MONOCYTES # (AUTO) 0.4 10^3/uL (0.0-1.0); MONOCYTES % (AUTO) 6 % (0-12); NEUTROPHILS # (AUTO) 4.6 10^3/uL (1.8-7.8); NEUTROPHILS % (AUTO) 64 % (42-75); PLATELET COUNT 280 10^3/uL (130-400); WHITE BLOOD COUNT 7.1 10^3/uL (4.3-11.0)
[2021-06-28 18:40] LABS: ALBUMIN 4.3 GM/DL (3.2-4.5)
[2021-06-28 18:41] LABS: CHLORIDE 104 MMOL/L (98-107); INR 1.3 (0.8-1.4); POTASSIUM 4.2 MMOL/L (3.6-5.0); PROTHROMBIN TIME PATIENT 16.4 SEC (12.2-14.7); SODIUM 143 MMOL/L (135-145)
[2021-06-28 18:42] LABS: CALCIUM 10.5 MG/DL (8.5-10.1)
[2021-06-28 18:43] LABS: GLUCOSE 191 MG/DL (70-105); TOTAL PROTEIN 7.3 GM/DL (6.4-8.2)
[2021-06-28 18:44] LABS: CARBON DIOXIDE 23 MMOL/L (21-32)
[2021-06-28 18:45] LABS: BILIRUBIN,TOTAL 1.5 MG/DL (0.1-1.0)
[2021-06-28 18:46] LABS: ALKALINE PHOSPHATASE 33 U/L (40-136)
[2021-06-28 18:47] LABS: CREATININE SERUM 1.07 MG/DL (0.60-1.30); GFR ESTIMATED 52
[2021-06-28 18:48] LABS: BUN/CREATININE RATIO 15
[2021-06-28 18:49] LABS: ALANINE AMINOTRANSFERASE 19 U/L (0-55)
[2021-06-28 18:50] LABS: CREATINE KINASE 243 U/L (29-168)
[2021-06-28 18:58] LABS: CREATINE KINASE MB 3.4 NG/ML (<6.6)
[2021-06-28] MEDS ORDERED: NS IV 1000 ML 1,000 ML ONE (19:01)
--- NOTE | 2021-06-28 19:09 | ED Cardiac General ---
History of Present Illness General Chief Complaint: Conscious Sedation Stated Complaint: IRR HEART RATE Source: patient, old records History of Present Illness Date Seen by Provider: Jun 28, 2021 Time Seen by Provider: 18:10 Initial Comments PT ARRIVES VIA POV FROM HOME STATES "I'M IN A-FIB" PT HAS LONG HISTORY OF ATRIAL FIBRILLATION HAS HAD CARDIAC ABLATION AND MULTIPLE CARDIOVERSIONS PT STATES "NONE OF THE MEDICINES EVER WORK--THEY HAVE TO CARDIOVERT ME EVERY TIME" LAST CARDIOVERSION HERE 12/13/20 STATES SHE WOKE UP WITH IRREGULAR AND RAPID HEART RATE AT 0800 THIS AM--HIGHEST HEART RATE AT HOME WAS IN 140'S STATES SHE TOOK A CARDIZEM THIS AM, IN ADDITION TO HER REGULAR MEDICATIONS PT IS ON ELIQUIS AND SOTALOL DENIES ANY MISSED DOSES OF MEDICATIONS OR CHANGES IN MEDICATIONS/DOSES + SHORTNESS OF BREATH WITH EXERTION NO CHEST PAIN + SWEATS TONIGHT + NAUSEA STATES SHE STARTED FEELING LIKE SHE WAS GOING TO PASS OUT THIS EVENING NO FEVER OR RECENT ILLNESS HAD COVID-19 LAST HAS NOT HAD COVID-19 VACCINE PCP: DR. HERNANDEZ AT [facility] [place] [employer]--HAS SEEN DR. WADE SINCE DR. 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 [place] Allergies and Home Medications Allergies Coded Allergies: codeine (Verified Allergy, Mild, NAUSEA, 09/15/16) Home Medications Apixaban 5 Mg Tablet, 5 MG PO BID Prescribed by: UTE AMAYA on 09/16/16 1117 Calcium Carbonate/Vitamin D3 1 Each Tablet, 1 TAB PO HS, (Reported) Diltiazem HCl 180 Mg Cap.er.24h, 180 MG PO DAILY@0900 Prescribed by: KIANA MCLEAN on 07/24/20 0831 Lysine 1,000 Mg Tablet, 1,000 MG PO DAILY, (Reported) Magnesium Oxide 500 Mg Capsule, 500 MG PO DAILY, (Reported) Multivitamin 1 Each Tablet, 1 TAB PO DAILY, (Reported) [place] 3 Polyunsat Fatty Acids 1,000 Mg Cap, 1,000 MG PO DAILY, (Reported) Sotalol HCl 120 Mg Tablet, 120 MG PO BID, (Reported) [Vitamin C] , 1 TAB PO HS, (Reported) Patient Home Medication List Home Medication List Reviewed: Yes Review of Systems Review of Systems Constitutional: see HPI, diaphoresis, dizziness, weakness Respiratory: See HPI, SOA With Exertion Cardiovascular: See HPI; Denies Chest Pain; Irregular Heart Rate, Lightheadedness, Palpitations; Denies Syncope Gastrointestinal: Denies Abdominal Pain; Nausea; Denies Vomiting Genitourinary: No Symptoms Reported Musculoskeletal: no symptoms reported Skin: no symptoms reported Psychiatric/Neurological: No Symptoms Reported Endocrine: No Symptoms Reported Hematologic/Lymphatic: No Symptoms Reported Past Kpbzehn-Zalqhp-Tqmwxx Hx Patient Social History Tobacco Use?: No Smokeless Tobacco Frequency: Never a User Use of E-Cig and/or Vaping Ben: Never a User Substance use?: No Alcohol Use?: No Immunizations Up To Date Tetanus Booster (TDap): Unknown Seasonal Allergies Seasonal Allergies: Yes Past Medical History Surgeries: Yes (CARDIAC ABLATION 06/[address] LIM; MULTIPLE CARDIOVERSIONS) Cardiac, Tonsillectomy Respiratory: No Currently Using CPAP: No Currently Using BIPAP: No Cardiac: Yes Atrial Fibrillation, Hypertension Neurological: No Reproductive Disorders: No Sexually Transmitted Disease: No HIV/AIDS: No Genitourinary: No Gastrointestinal: No Musculoskeletal: No Endocrine: No HEENT: Yes Cataract Hearing Impairment: Denies Cancer: No Psychosocial: No Integumentary: No Blood Disorders: No Adverse Reaction/Blood Tranf: No Family Medical History Cardiovascular disease 19 FATHER 19 MOTHER Hypercholesterolemia 19 MOTHER No Pertinent Family Hx Physical Exam Vital Signs Vital Signs - First Documented 06/28/21 06/28/21 18:30 18:38 Temp 37.0 Pulse 91 Resp 20 B/P (MAP) 100/72 Pulse Ox 97 O2 Delivery Room Air O2 Flow Rate 15.00 Capillary Refill : Height, Weight, BMI Height: 5'8.00" Weight: 132lbs. 11.2oz. [id number]; 19.00 BMI Method:Stated General Appearance: No Apparent Distress, WD/WN, Thin Neck: Normal Inspection Respiratory: Normal Breath Sounds, No Accessory Muscle Use, No Respiratory Distress Cardiovascular: No JVD, No Murmur, Normal Peripheral Pulses, Irregularly Irregular, Tachycardia Gastrointestinal: Non Tender, Soft Extremity: Normal Inspection, No Pedal Edema Neurologic/Psychiatric: Alert, Oriented x3, No Motor/Sensory Deficits, Normal Mood/Affect, log roper II-XII Norm as Tested Skin: Warm/Dry, Pallor Procedures/Interventions Patient Education: Explained Benefits, Explained Risks, Pt. Ack. Understanding Agreement on procedure with pt: Yes Breath Sounds per Auscultation: Clear Heart Sounds per Auscultation: Irregular Airway Exam: Mouth opens >2 fingers SEE NURSING NOTES FOR DETAILS PT SEDATED WITH FENTANYL 50 MCG AND VERSED 4 MG PT CARDIOVERTED AT 50 J X 1 NO COMPLICATIONS PT TOLERATED WELL Re-examination RE-EXAMINED PT EVERY 15 MINUTES FOR AN HOUR POST CARDIOVERSION PT AROUSABLE AND IS ABLE TO TALK AND FOLLOW COMMANDS PT IS ORIENTED X 4 NO DETERIORATION IN PT'S CONDITION DURING ER STAY PT STATES HER BP IS ALWAYS "ON THE LOW SIDE"--AROUND 100/60 IS NORMAL FOR HER Progress/Results/Core Measures Results/Orders Lab Results Laboratory Tests Test 06/28/21 18:15 Range/Units White Blood Count 7.1 4.3-11.0 10^3/uL Red Blood Count 4.77 3.80-5.11 10^6/uL Hemoglobin 15.6 11.5-16.0 g/dL Hematocrit 46 35-52 % Mean Corpuscular Volume 97 80-99 fL Mean Corpuscular Hemoglobin 33 25-34 pg Mean Corpuscular Hemoglobin Concent 34 32-36 g/dL Red Cell Distribution Width 11.9 10.0-14.5 % Platelet Count 280 130-400 10^3/uL Mean Platelet Volume 10.6 9.0-12.2 fL Immature Granulocyte % (Auto) 0 % Neutrophils (%) (Auto) 64 42-75 % Lymphocytes (%) (Auto) 28 12-44 % Monocytes (%) (Auto) 6 0-12 % Eosinophils (%) (Auto) 1 0-10 % Basophils (%) (Auto) 1 0-10 % Neutrophils # (Auto) 4.6 1.8-7.8 10^3/uL Lymphocytes # (Auto) 2.0 1.0-4.0 10^3/uL Monocytes # (Auto) 0.4 0.0-1.0 10^3/uL Eosinophils # (Auto) 0.1 0.0-0.3 10^3/uL Basophils # (Auto) 0.0 0.0-0.1 10^3/uL Immature Granulocyte # (Auto) 0.0 0.0-0.1 10^3/uL Prothrombin Time 16.4 H 12.2-14.7 SEC INR Comment 1.3 0.8-1.4 Activated Partial Thromboplast Time 29 24-35 SEC Sodium Level 143 135-145 MMOL/L Potassium Level 4.2 3.6-5.0 MMOL/L Chloride Level 104 98-107 MMOL/L Carbon Dioxide Level 23 21-32 MMOL/L Anion Gap 16 H 5-14 MMOL/L Blood Urea Nitrogen 16 7-18 MG/DL Creatinine 1.07 0.60-1.30 MG/DL Estimat Glomerular Filtration Rate 52 BUN/Creatinine Ratio 15 Glucose Level 191 H 70-105 MG/DL Calcium Level 10.5 H 8.5-10.1 MG/DL Corrected Calcium 10.3 H 8.5-10.1 MG/DL Magnesium Level 2.0 1.6-2.4 MG/DL Total Bilirubin 1.5 H 0.1-1.0 MG/DL Aspartate Amino Transf (AST/SGOT) 23 5-34 U/L Alanine Aminotransferase (ALT/SGPT) 19 0-55 U/L Alkaline Phosphatase 33 L 40-136 U/L Total Creatine Kinase 243 H 29-168 U/L Creatine Kinase MB 3.4 <6.6 NG/ML Myoglobin 71.5 10.0-92.0 NG/ML Troponin I < 0.028 <0.028 NG/ML B-Type Natriuretic Peptide 676.7 H <100.0 PG/ML Total Protein 7.3 6.4-8.2 GM/DL Albumin 4.3 3.2-4.5 GM/DL TSH [place] Testing 1.50 0.35-4.94 UIU/ML My Orders Orders - SUDARSHAN HICKEY DO Ed Iv/Invasive Line Start (06/28/21 18:10) Ekg Tracing (06/28/21 18:10) Monitor-Rhythm Ecg Trace Only (06/28/21 18:10) BNP (06/28/21 18:10) Cbc With Automated Diff (06/28/21 18:10) Comprehensive Metabolic Panel (06/28/21 18:10) Creatine Kinase (06/28/21 18:10) Creatine Kinase Mb (06/28/21 18:10) Magnesium (06/28/21 18:10) Protime With Inr (06/28/21 18:10) Partial Thromboplastin Time (06/28/21 18:10) Thyroid Analyzer (06/28/21 18:10) Myoglobin Serum (06/28/21 18:10) Troponin I (06/28/21 18:10) Chest 1 View, Ap/Pa Only (06/28/21 18:10) Ed Iv/Invasive Line Start (06/28/21 18:14) Ns Iv 1000 Ml (Sodium Chloride 0.9%) (06/28/21 18:15) Midazolam Injection (Versed Injection) (06/28/21 18:30) Fentanyl Inj (Sublimaze Injection) (06/28/21 18:30) Ekg Tracing (06/28/21 18:51) O2 (06/28/21 18:51) Ed Iv/Invasive Line Start (06/28/21 19:01) Ns Iv 1000 Ml (Sodium Chloride 0.9%) (06/28/21 19:15) Ns Iv 1000 Ml (Sodium Chloride 0.9%) (06/28/21 19:01) Medications Given in ED Current Medications Medications Dose Ordered Sig/Elayne Route Start Time Stop Time Status Last Admin Dose Admin Fentanyl Citrate 1 MCG/KG (MAX DOSE 100M... ONCE ONCE NA 06/28/21 18:30 06/28/21 18:31 DC 06/28/21 18:29 100 MCG Midazolam HCl PRN PRN IVP 06/28/21 18:30 06/28/21 18:33 4 MG Vital Signs/I&O 06/28/21 06/28/21 18:30 18:38 Temp 37.0 Pulse 91 Resp 20 B/P (MAP) 100/72 Pulse Ox 97 99 O2 Delivery Room Air OxyMask O2 Flow Rate 15.00 Initial ECG Impression Date: Jun 28, 2021 Initial ECG Impression Time: 18:15 Initial ECG Rate: 139 Initial ECG Rhythm: A Fib/Flutter (WITH RIVR) Initial ECG Impression: Nonspecific Changes EKG : EKG Time: 18:36 Rate: 71 Rhythm: Normal Sinus Diagnostic Imaging Comments CXR--PER RADIOLOGIST REPORT AT 1940 FINDINGS: The cardiac silhouette is mildly enlarged. No significant pulmonary vascular congestion. Loop recorder is noted overlying the left heart, stable from the prior exam. Multiple leads and pads are seen overlying the chest. The lungs are clear of focal pulmonary opacity. No pleural effusion. No pneumothorax. No acute osseous abnormality. IMPRESSION: Cardiomegaly without pulmonary vascular congestion or additional superimposed acute cardiopulmonary abnormality. Reviewed: Reviewed by Me Departure Communication (Admissions) Family Conversation SPOKE WITH SON AND DAUGHTER, WHO BROUGHT PT HERE UPDATED THEM ON PT'S CONDITION WILL CALL THEM WHEN PT IS AWAKE, ALERT, ETC. THEY REPORT THAT PT USUALLY IS ABLE TO GO HOME ONCE SHE IS CARDIOVERTED, USUALLY DOES NOT REQUIRE OVERNIGHT STAY 1816--SPOKE WITH DR. HYMAN, [employer], ADVISES TO CARDIOVERT AND SEND HOME IF SHE REMAINS IN SINUS RHYTHM AND IS STABLE Impression Primary Impression: Atrial fibrillation with RVR Disposition: HOME, SELF-CARE Condition: Improved Departure-Patient Inst. Decision time for Depature: 20:15 Referrals: TAMAR HERNANDEZ MD (PCP/Family) Primary Care Physician MC WADE MD FACP FACC CCDS Patient Instructions: Moderate Sedation in Adults (DC), Atrial Fibrillation (DC) Add. Discharge Instructions: CONTINUE YOUR REGULAR MEDICATIONS PRESCRIBED INCREASE YOUR FLUID INTAKE FOLLOW UP WITH YOUR [employer] IN 2-3 DAYS--CALL ON WEDNESDAY TO SCHEDULE APPOINTMENT RETURN TO ER IF SYMPTOMS RETURN SUDARSHAN HICKEY DO Jun 28, 2021 19:09
--- NOTE | 2021-06-28 19:30 | Diagnostic Imaging Report ---
INDICATION: Palpitations. COMPARISON: 12/13/2020. TECHNIQUE: Single radiograph of the chest dated June 28, 2021. FINDINGS: The cardiac silhouette is mildly enlarged. No significant pulmonary vascular congestion. Loop recorder is noted overlying the left heart, stable from the prior exam. Multiple leads and pads are seen overlying the chest. The lungs are clear of focal pulmonary opacity. No pleural effusion. No pneumothorax. No acute osseous abnormality. IMPRESSION: Cardiomegaly without pulmonary vascular congestion or additional superimposed acute cardiopulmonary abnormality. Dictated by: Dictated on workstation # [id number]
[2021-06-28 20:39] VITALS: BP 107/70
== END 2021-06-28 20:39 | disposition home or self-care (01) ==
LOC: EDUNIT# 18:01 → ER 18:03
DX: I48.20 Chronic atrial fibrillation, unspecified (principal); I10 Essential (primary) hypertension; Z79.01 Long term (current) use of anticoagulants; Z79.899 Other long term (current) drug therapy
CPT/HCPCS: 36415; 71045; 80053; 82550; 82553; 83735; 83874; 83880; 84443; 84484; 85025; 85610; 85730; 93005; 93041

== ENCOUNTER 2021-10-07 16:33 | Emergency (ER) | payer SELFPAY ==
[~2021-10-07] VITALS: Ht 172 cm; Wt 56.0 kg
[2021-10-07] MEDS ORDERED: NS IV 1000 ML 1,000 ML IV SCH (17:00)
[2021-10-07 17:01] LABS: BASOPHILS % (AUTO) 1 % (0-10); EOSINOPHILS # (AUTO) 0.1 10^3/uL (0.0-0.3); EOSINOPHILS % (AUTO) 2 % (0-10); HEMATOCRIT 44 % (35-52); HEMOGLOBIN 15.2 g/dL (11.5-16.0); LYMPHOCYTES # (AUTO) 1.6 10^3/uL (1.0-4.0); LYMPHOCYTES % (AUTO) 23 % (12-44); MEAN CORPUSCULAR HEMOGLOBIN 33 pg (25-34); MEAN CORPUSCULAR HGB CONC 35 g/dL (32-36); MEAN CORPUSCULAR VOLUME 97 fL (80-99); MEAN PLATELET VOLUME 10.4 fL (9.0-12.2); MONOCYTES # (AUTO) 0.4 10^3/uL (0.0-1.0); MONOCYTES % (AUTO) 5 % (0-12); NEUTROPHILS # (AUTO) 4.9 10^3/uL (1.8-7.8); NEUTROPHILS % (AUTO) 70 % (42-75); PLATELET COUNT 242 10^3/uL (130-400); WHITE BLOOD COUNT 7.1 10^3/uL (4.3-11.0)
--- NOTE | 2021-10-07 17:02 | ED Cardiac General ---
History of Present Illness General Chief Complaint: Cardiac/General Problems Stated Complaint: HIGH HEART RATE, WEAKNESS, AFIB Nursing Triage Note: COMPLAINTS OF TACHYCARDIA STARTING AT NOON. Source: patient Exam Limitations: no limitations History of Present Illness Date Seen by Provider: Oct 07, 2021 Time Seen by Provider: 16:48 Initial Comments Patient is a 61-year-old female, patient of Dr. Quinn who presents to the emerg ency room with a chief complaint of A. fib with RVR. Patient states that she was exerting herself around noon rushing to save her grandchild from an overly active puppy when she felt her self suddenly tipped off into RVR. Patient states she has generalized weakness and can feel her heart "racing". She denies any shortness of breath or chest pain. No nausea. She has had this multiple times in the past. She is asking to be cardioverted. She states that medications never worked for her to cardiovert her. She has seen an sort supervisor in [place] and underwent a failed ablation in June of this year. Patient is chronically anticoagulated on Eliquis 5 mg twice daily. She states she has not missed any doses in at least the last 3 weeks. Patient is also on sotalol. She denies any recent illnesses such as fever, chills, cough, loss of taste or smell. No abdominal pain, problems with bowel or bladder. She is not Covid vaccinated and declines vaccination. All other review of systems reviewed and negative except as stated. Timing/Duration: 4-6 hours Severity: moderate Activities at Onset: activity Prior CP/Workup: other (afib ablation, failed) NTG SL STAPLER COIL UNIT: No ASA po STAPLER COIL UNIT: No Associated Systoms: Weakness, Other (palpitations) Allergies and Home Medications Allergies Coded Allergies: codeine (Verified Allergy, Mild, NAUSEA, 09/15/16) Patient Home Medication List Home Medication List Reviewed: Yes Apixaban (Eliquis) 5 Mg Tablet, 5 MG PO BID Prescribed by: UTE AMAYA on 09/16/16 1117 Calcium Carbonate/Vitamin D3 (Calcium 600 + Vit D Caplet) 1 Each Tablet, 1 TAB PO HS, (Reported) Entered as Reported by: SHRUTHI BIRCH on 09/15/16 1456 Diltiazem HCl (Diltiazem 24Hr ER) 180 Mg Cap.er.24h, 180 MG PO DAILY@0900 Prescribed by: KIANA MCLEAN on 07/24/20 0831 Lysine (Lysine) 1,000 Mg Tablet, 1,000 MG PO DAILY, (Reported) Entered as Reported by: MARY WHIPPLE on 09/07/17 1351 Magnesium Oxide (Magnesium) 500 Mg Capsule, 500 MG PO DAILY, (Reported) Entered as Reported by: ASIA ORTEGA on 07/11/20 0741 Multivitamin (Multivitamins) 1 Each Tablet, 1 TAB PO DAILY, (Reported) Entered as Reported by: SHRUTHI BIRCH on 09/15/16 1456 [place] 3 Polyunsat Fatty Acids (Fish Oil 1,000 mg Capsule) 1,000 Mg Cap, 1,000 MG PO DAILY, (Reported) Entered as Reported by: ASIA ORTEGA on 07/11/20 0740 Sotalol HCl (Sotalol) 120 Mg Tablet, 120 MG PO BID, (Reported) Entered as Reported by: VALARIE BEASLEY on 06/16/20 1138 [Vitamin C] , 1 TAB PO HS, (Reported) Entered as Reported by: SHRUTHI BIRCH on 09/15/16 1456 Review of Systems Review of Systems Constitutional: see HPI, weakness EENTM: No Symptoms Reported Respiratory: No Symptoms Reported Cardiovascular: Palpitations Gastrointestinal: No Symptoms Reported Genitourinary: No Symptoms Reported Musculoskeletal: no symptoms reported Skin: no symptoms reported Psychiatric/Neurological: No Symptoms Reported All Other Systems Reviewed Negative Unless Noted: Yes Past Astmnkr-Tnasyl-Zldoyf Hx Immunizations Up To Date Tetanus Booster (TDap): Unknown Seasonal Allergies Seasonal Allergies: Yes Past Medical History Surgeries: Yes (CARDIAC ABLATION 06/[address] LIM; MULTIPLE CARDIOVERSIONS) Cardiac, Tonsillectomy Respiratory: No Currently Using CPAP: No Currently Using BIPAP: No Cardiac: Yes Atrial Fibrillation, Hypertension Neurological: No Reproductive Disorders: No Sexually Transmitted Disease: No HIV/AIDS: No Genitourinary: No Gastrointestinal: No Musculoskeletal: No Endocrine: No HEENT: Yes Cataract Hearing Impairment: Denies Cancer: No Psychosocial: No Integumentary: No Blood Disorders: No Adverse Reaction/Blood Tranf: No Family Medical History Cardiovascular disease 19 FATHER 19 MOTHER Hypercholesterolemia 19 MOTHER No Pertinent Family Hx Physical Exam Vital Signs Vital Signs - First Documented 10/07/21 10/07/21 16:45 17:38 Temp 36.3 Pulse 149 Resp 16 B/P (MAP) 136/87 (103) Pulse Ox 93 O2 Delivery Room Air O2 Flow Rate 3.00 Capillary Refill : Less Than 3 Seconds Height, Weight, BMI Height: 5'8.00" Weight: 132lbs. 11.2oz. [id number]; 18.00 BMI Method:Stated General Appearance: No Apparent Distress, WD/WN HEENT: PERRL/EOMI Neck: Normal Inspection Respiratory: Lungs Clear, Normal Breath Sounds, No Accessory Muscle Use, No Respiratory Distress Cardiovascular: Normal Peripheral Pulses, Irregularly Irregular, Tachycardia Gastrointestinal: Non Tender, Soft Extremity: Normal Capillary Refill, Normal Inspection, Normal Range of Motion, Non Tender, No Calf Tenderness Neurologic/Psychiatric: Alert, Oriented x3, No Motor/Sensory Deficits, Normal Mood/Affect, loom checker II-XII Norm as Tested Skin: Normal Color, Warm/Dry Procedures/Interventions Patient Education: Explained Benefits, Explained Risks, Pt. Ack. Understanding Breath Sounds per Auscultation: Clear Heart Sounds per Auscultation: Irregular Airway Exam: Mouth opens >2 fingers Additional Procedures: cardioversion/defib Progress Patient was sedated with 20 mg of etomidate, IV fluids running, oral intake was 11 AM. Patient required sequential defib at 120, 150 and finally successful cardioversion at 200 and normal sinus rhythm rate at 50. Progress/Results/Core Measures Results/Orders Lab Results Laboratory Tests Test 10/07/21 16:50 Range/Units White Blood Count 7.1 4.3-11.0 10^3/uL Red Blood Count 4.57 3.80-5.11 10^6/uL Hemoglobin 15.2 11.5-16.0 g/dL Hematocrit 44 35-52 % Mean Corpuscular Volume 97 80-99 fL Mean Corpuscular Hemoglobin 33 25-34 pg Mean Corpuscular Hemoglobin Concent 35 32-36 g/dL Red Cell Distribution Width 11.8 10.0-14.5 % Platelet Count 242 130-400 10^3/uL Mean Platelet Volume 10.4 9.0-12.2 fL Immature Granulocyte % (Auto) 0 % Neutrophils (%) (Auto) 70 42-75 % Lymphocytes (%) (Auto) 23 12-44 % Monocytes (%) (Auto) 5 0-12 % Eosinophils (%) (Auto) 2 0-10 % Basophils (%) (Auto) 1 0-10 % Neutrophils # (Auto) 4.9 1.8-7.8 10^3/uL Lymphocytes # (Auto) 1.6 1.0-4.0 10^3/uL Monocytes # (Auto) 0.4 0.0-1.0 10^3/uL Eosinophils # (Auto) 0.1 0.0-0.3 10^3/uL Basophils # (Auto) 0.0 0.0-0.1 10^3/uL Immature Granulocyte # (Auto) 0.0 0.0-0.1 10^3/uL Sodium Level 142 135-145 MMOL/L Potassium Level 4.0 3.6-5.0 MMOL/L Chloride Level 106 98-107 MMOL/L Carbon Dioxide Level 21 21-32 MMOL/L Anion Gap 15 H 5-14 MMOL/L Blood Urea Nitrogen 15 7-18 MG/DL Creatinine 0.77 0.60-1.30 MG/DL Estimat Glomerular Filtration Rate 76 BUN/Creatinine Ratio 19 Glucose Level 120 H 70-105 MG/DL Calcium Level 10.4 H 8.5-10.1 MG/DL My Orders Orders - TRAE GILL MD Ed Iv/Invasive Line Start (10/07/21 16:55) Cbc With Automated Diff (10/07/21 16:55) Basic Metabolic Panel (10/07/21 16:55) Ns Iv 1000 Ml (Sodium Chloride 0.9%) (10/07/21 17:00) Ekg Tracing (10/07/21 16:56) Etomidate Injection (Amidate Injection) (10/07/21 17:30) Ondansetron Injection (Zofran Injectio (10/07/21 18:15) Medications Given in ED Vital Signs/I&O 10/07/21 10/07/21 10/07/21 16:45 17:38 20:40 Temp 36.3 Pulse 149 68 Resp 16 16 B/P (MAP) 136/87 (103) 114/68 Pulse Ox 93 98 O2 Delivery Room Air Nasal Cannula Room Air O2 Flow Rate 3.00 10/08/21 00:00 Intake Total 1000 ml Balance 1000 ml Blood Pressure Mean: 103 Progress Progress Note #1: Time: 17:05 Progress Note Discussed the case with Dr. Quinn, he states as long as she has been completely compliant with her Eliquis for the last 3 weeks that electrical cardioversion is safe. I will reconfirm with the patient that she has not missed any doses. He recommends starting out at 120 J. Synchronized cardioversion. Progress Note #2: Time: 17:13 Progress Note Patient confirmed that she has indeed been compliant with her daily Eliquis at 5 mg twice daily for the last 3 weeks. She states her n.p.o. status is about 10:00 this morning. Mallampati 2 classification. Initial ECG Impression Date: Oct 07, 2021 Initial ECG Impression Time: 16:48 Initial ECG Rate: 150 Initial ECG Rhythm: A Fib/Flutter Initial ECG Impression: Atrial Fibrillation w/RVR EKG : EKG Time: 17:44 Rate: 50 Rhythm: Normal Sinus Intervals: Normal ECG Comparisson: Changed ECG Impression: Normal Critical Care Note Critical Care Start Time: 16:48 Stop Time: 18:00 Total Time (minutes) Critical care time 30 minutes in the evaluation and management of this patient with atrial fibrillation with rapid ventricular response. Time includes initial evaluation and management of the patient IV fluids, review of the medical records, discussion with cardiology services, review and interpretation of laboratory studies. Time also includes monitoring of the patient post electrical cardioversion. time does not include time involved doing procedures Departure Impression Primary Impression: Atrial fibrillation with rapid ventricular response Disposition: 01 HOME, SELF-CARE Condition: Stable Departure-Patient Inst. Decision time for Depature: 17:19 Referrals: TAMAR HERNANDEZ MD (PCP/Family) Primary Care Physician Patient Instructions: Atrial Fibrillation (DC) Add. Discharge Instructions: Please continue to take your medications as prescribed by your quote clerk and primary care doctor. Please come back to the emergency room for reevaluation if you experience any chest pain, shortness of breath, return of symptoms. Keep your follow-up appointments with Dr. Quinn as scheduled. Copy Copies To 1: [facility] QUINN MD [facility] CCDS Copies To 2: TAMAR HERNANDEZ MD, KATHRYN M MD Oct 07, 2021 17:02
[2021-10-07 17:12] LABS: CALCIUM 10.4 MG/DL (8.5-10.1)
[2021-10-07 17:16] LABS: CREATININE SERUM 0.77 MG/DL (0.60-1.30)
[2021-10-07] MEDS ORDERED: ETOMIDATE IV SOLN 20 MG/10 ML VIAL IV ONE (17:30)
[2021-10-07] MEDS ORDERED: ONDANSETRON 4 MG/2 ML (SDV) Z0FRAN IVP ONE (18:15)
[2021-10-07 20:40] VITALS: BP 114/68
== END 2021-10-07 20:40 | disposition home or self-care (01) ==
LOC: EDUNIT# 16:33 → ER 16:36
DX: I48.20 Chronic atrial fibrillation, unspecified (principal); I10 Essential (primary) hypertension; Z79.01 Long term (current) use of anticoagulants
CPT/HCPCS: 36415; 80048; 85025; 93005; 93041

== ENCOUNTER 2021-10-28 06:15 | Outpatient (CLI) | payer SELFPAY ==
[~2021-10-28] VITALS: Ht 172.7 cm; Wt 57.0 kg
[2021-10-31] MEDS ORDERED: L.AC1CAP6 PO (15:20)
[2021-10-31] MEDS ORDERED: CRAN500T3 PO (15:20)
[2021-10-31] MEDS ORDERED: ASCO500T7 PO (15:20)
[2021-11-03] MEDS ORDERED: MAGN250T35 PO (11:37)
[2021-11-03] MEDS ORDERED: LYSI500T37 PO (11:37)
[2021-11-03] MEDS ORDERED: FISH12002 PO (11:37)
[2021-11-03] MEDS ORDERED: CALC-823 PO (11:39)
[2021-11-03] MEDS ORDERED: APIX5TAB PO (11:40)
[2021-11-03] MEDS ORDERED: ASCO-262 PO (11:49)
[2021-11-03] MEDS ORDERED: CRAN1CAP9 PO (11:49)
[2021-11-03] MEDS ORDERED: TUME1CAP PO (11:57)
[2021-11-03] MEDS ORDERED: ACET-2267 PO (12:02)
[2021-11-03] MEDS ORDERED: ACHD5005 PO (16:00)
== END 2021-11-03 09:39 | disposition home or self-care (01) ==
LOC: PREOP 06:15
PROVIDERS: ATTEND Surgery
DX: Z01.818 Encounter for other preprocedural examination (principal)

== ENCOUNTER 2021-11-02 18:33 | Day surgery (SDC) | payer SELFPAY ==
[~2021-11-02] VITALS: Ht 172 cm; Wt 56.0 kg
[~2021-11-02 18:33] MED LIST changes: -ACET-2267 PO; -ACHD5005 PO; -ASCO-262 PO; -CALC-823 PO; -CRAN1CAP9 PO; -FISH12002 PO; -HOLD METFORMIN - RECEIVED CONTRAST 20 ML VIAL IV SCH; -IOHEXOL 350 MG/ML 100 ML (OMNIPAQUE 350) VIAL IV ONE; -LYSI500T37 PO; -MAGN250T35 PO; -NS 100 ML (IVPB) BAG IV ONE; -TUME1CAP PO
[2021-11-02] MEDS ORDERED: NS IV 1000 ML 1,000 ML IV STA (18:49)
--- NOTE | 2021-11-02 18:53 | ED Abdominal Pain ---
General Chief Complaint: Abdominal/GI Problems Stated Complaint: CT SCAN SHOWED APPENDICITIS Source of Information: Patient Exam Limitations: No Limitations History of Present Illness Date Seen by Provider: Nov 02, 2021 Time Seen by Provider: 18:51 Initial Comments Patient is a 61-year-old female who presents ED with right lower quadrant abdominal pain. Pain since Wednesday. Increasing pain yesterday with improvement in pain today. Worse with movement. Denies of any radiation, nausea, vomiting, diarrhea. No history of previous abdominal surgery. She had an outpatient CT abdomen pelvis performed today at [facility] that showed positive appendicitis. Radiology contacted the ER recommended patient to return for acute appendicitis and surgical consult. Patient slightly tachycardic on arrival. Denies of any urinary symptoms, fever, chills, chest pain, shortness of breath. Patient denies any trauma. Currently on Eliquis secondary to A. fib Allergies and Home Medications Allergies Coded Allergies: codeine (Verified Allergy, Mild, NAUSEA, 09/15/16) Patient Home Medication List Home Medication List Reviewed: Yes Apixaban (Eliquis) 5 Mg Tablet, 5 MG PO BID Prescribed by: UTE AMAYA on 09/16/16 1117 Ascorbic Acid (Ascorbic Acid) 500 Mg Tablet, 500 MG PO DAILY, (Reported) Entered as Reported by: SOL HUGHES on 10/31/21 1520 Calcium Carbonate/Vitamin D3 (Calcium 600 + Vit D Caplet) 1 Each Tablet, 1 TAB PO HS, (Reported) Entered as Reported by: SHRUTHI BIRCH on 09/15/16 1456 Cranberry Extract (Cranberry) 500 Mg Tablet, 500 MG PO DAILY, (Reported) Entered as Reported by: SOL HUGHES on 10/31/21 1520 L.acidoph & Paracasei,B.lactis (Probiotic) 1 Each Capsule, 1 EACH PO DAILY, (Reported) Entered as Reported by: SOL HUGHES on 10/31/21 1520 Lysine (Lysine) 1,000 Mg Tablet, 1,000 MG PO DAILY, (Reported) Entered as Reported by: MARY WHIPPLE on 09/07/17 1351 Magnesium Oxide (Magnesium) 500 Mg Capsule, 500 MG PO DAILY, (Reported) Entered as Reported by: ASIA ORTEGA on 07/11/20 0741 Multivitamin (Multivitamins) 1 Each Tablet, 1 TAB PO DAILY, (Reported) Entered as Reported by: SHRUTHI BIRCH on 09/15/16 1456 [place] 3 Polyunsat Fatty Acids (Fish Oil 1,000 mg Capsule) 1,000 Mg Cap, 1,000 MG PO DAILY, (Reported) Entered as Reported by: ASIA ORTEGA on 07/11/20 0740 Sotalol HCl (Sotalol) 120 Mg Tablet, 120 MG PO BID, (Reported) Entered as Reported by: VALARIE BEASLEY on 06/16/20 1138 Discontinued Medications Diltiazem HCl (Diltiazem 24Hr ER) 180 Mg Cap.er.24h, 180 MG PO DAILY@0900 Discontinued Reason: No Longer Taking Prescribed by: KIANA MCLEAN on 07/24/20 0831 [Vitamin C] , 1 TAB PO HS, (Reported) Discontinued Reason: No Longer Taking Entered as Reported by: SHRUTHI BIRCH on 09/15/16 1456 Review of Systems Review of Systems Constitutional: No dizziness, No fever EENTM: No Blurred Vision, No Eye Pain, No Eye Tearing Respiratory: Denies Cough, Denies Shortness of Air, Denies SOA With Exertion Gastrointestinal: Denies Abdomen Distended; Abdominal Pain; Denies Constipated, Denies Diarrhea, Denies Nausea, Denies Vomiting Genitourinary: Denies Burning, Denies Drainage, Denies Frequency Musculoskeletal: No back pain, No joint pain Skin: No change in color, No change in hair/nails All Other Systems Reviewed Negative Unless Noted: Yes Past Pfecsxo-Yhjdiq-Xmibrq Hx Immunizations Up To Date Tetanus Booster (TDap): Unknown First/Initial COVID19 Vaccinat: NO Seasonal Allergies Seasonal Allergies: Yes Past Medical History Surgeries: Yes (CARDIAC ABLATION 06/[address] LIM; MULTIPLE CARDIOVERSIONS) Cardiac, Tonsillectomy Respiratory: No Currently Using CPAP: No Currently Using BIPAP: No Cardiac: Yes Atrial Fibrillation, Hypertension Neurological: No Reproductive Disorders: No Sexually Transmitted Disease: No HIV/AIDS: No Genitourinary: No Gastrointestinal: No Musculoskeletal: No Endocrine: No HEENT: Yes Cataract Hearing Impairment: Denies Cancer: No Psychosocial: No Integumentary: No Blood Disorders: No Adverse Reaction/Blood Tranf: No Family Medical History Cardiovascular disease 19 FATHER 19 MOTHER Hypercholesterolemia 19 MOTHER No Pertinent Family Hx Physical Exam Vital Signs Vital Signs - First Documented 11/02/21 18:45 Temp 37.1 Pulse 129 Resp 18 B/P (MAP) 111/76 (88) Pulse Ox 97 Capillary Refill : Height/Weight/BMI Height: 5'8.00" Weight: 132lbs. 11.2oz. [age]yo; 19.11 BMI Method:Stated General Appearance: WD/WN, no apparent distress HEENT: PERRL/EOMI, normal ENT inspection, TMs normal, pharynx normal Neck: non-tender, full range of motion, supple Respiratory: chest non-tender, lungs clear, normal breath sounds Cardiovascular: regular rate, rhythm, no edema, no JVD Gastrointestinal: normal bowel sounds, soft, no organomegaly, tenderness (Right lower quadrant tenderness on palpation.) Rectal: normal exam, normal rectal tone, heme negative stool Extremities: normal range of motion, non-tender, normal inspection, no pedal edema Procedures/Interventions Patient Education: Explained Benefits, Explained Risks, Pt. Ack. Understanding Breath Sounds per Auscultation: Clear Heart Sounds per Auscultation: Irregular Airway Exam: Mouth opens >2 fingers Progress/Results/Core Measures Results/Orders Lab Results Laboratory Tests Test 11/02/21 18:50 11/02/21 19:22 Range/Units White Blood Count 9.0 4.3-11.0 10^3/uL Red Blood Count 4.33 3.80-5.11 10^6/uL Hemoglobin 14.1 11.5-16.0 g/dL Hematocrit 42 35-52 % Mean Corpuscular Volume 98 80-99 fL Mean Corpuscular Hemoglobin 33 25-34 pg Mean Corpuscular Hemoglobin Concent 33 32-36 g/dL Red Cell Distribution Width 11.8 10.0-14.5 % Platelet Count 233 130-400 10^3/uL Mean Platelet Volume 10.5 9.0-12.2 fL Immature Granulocyte % (Auto) 0 % Neutrophils (%) (Auto) 68 42-75 % Lymphocytes (%) (Auto) 22 12-44 % Monocytes (%) (Auto) 9 0-12 % Eosinophils (%) (Auto) 1 0-10 % Basophils (%) (Auto) 0 0-10 % Neutrophils # (Auto) 6.1 1.8-7.8 10^3/uL Lymphocytes # (Auto) 1.9 1.0-4.0 10^3/uL Monocytes # (Auto) 0.8 0.0-1.0 10^3/uL Eosinophils # (Auto) 0.1 0.0-0.3 10^3/uL Basophils # (Auto) 0.0 0.0-0.1 10^3/uL Immature Granulocyte # (Auto) 0.0 0.0-0.1 10^3/uL Sodium Level 138 135-145 MMOL/L Potassium Level 4.1 3.6-5.0 MMOL/L Chloride Level 102 98-107 MMOL/L Carbon Dioxide Level 21 21-32 MMOL/L Anion Gap 15 H 5-14 MMOL/L Blood Urea Nitrogen 13 7-18 MG/DL Creatinine 0.87 0.60-1.30 MG/DL Estimat Glomerular Filtration Rate 66 BUN/Creatinine Ratio 15 Glucose Level 97 70-105 MG/DL Calcium Level 10.3 H 8.5-10.1 MG/DL Corrected Calcium 10.0 8.5-10.1 MG/DL Total Bilirubin 2.5 H 0.1-1.0 MG/DL Aspartate Amino Transf (AST/SGOT) 19 5-34 U/L Alanine Aminotransferase (ALT/SGPT) 19 0-55 U/L Alkaline Phosphatase 35 L 40-136 U/L Total Protein 7.8 6.4-8.2 GM/DL Albumin 4.4 3.2-4.5 GM/DL Lipase 14 8-78 U/L Urine Color YELLOW Urine Clarity CLEAR Urine pH 6.0 5-9 Urine Specific [place] <=1.005 1.016-1.022 Urine Protein NEGATIVE NEGATIVE Urine Glucose (UA) NEGATIVE NEGATIVE Urine Ketones 1+ H NEGATIVE Urine Nitrite NEGATIVE NEGATIVE Urine Bilirubin NEGATIVE NEGATIVE Urine Urobilinogen 0.2 < = 1.0 MG/DL Urine Leukocyte Esterase NEGATIVE NEGATIVE Urine RBC (Auto) 2+ H NEGATIVE Urine RBC RARE /HPF Urine WBC NONE /HPF Urine Squamous Epithelial Cells NONE /HPF Urine Renal Epithelial Cells NONE /HPF Urine Crystals NONE /LPF Urine Bacteria NEGATIVE /HPF Urine Casts NONE /LPF Urine Mucus NEGATIVE /LPF Urine Culture Indicated NO My Orders Orders - NIA HERRON Cbc With Automated Diff (11/02/21 18:37) Comprehensive Metabolic Panel (11/02/21 18:37) Lipase (11/02/21 18:37) Nothing By Mouth (11/02/21 Dinner) Ua Culture If Indicated (11/02/21 18:37) Ns Iv 1000 Ml (Sodium Chloride 0.9%) (11/02/21 18:49) Ekg Tracing (11/02/21 18:54) Piperacillin/Tazobactam (Bulk) (Zosyn In (11/02/21 20:00) Piperacillin Sodium/Tazobactam (Zosyn Vi (11/02/21 19:54) Ns (Ivpb) (Sodium Chloride 0.9% Ivpb Bag (11/02/21 19:54) Consult Cardiology (11/02/21 19:59) Medications Given in ED Current Medications Medications Dose Ordered Sig/Elayne Route Start Time Stop Time Status Last Admin Dose Admin Piperacillin Sod/ Tazobactam Sod 4.5 gm/Sodium Chloride 120 ml @ 240 mls/hr ONCE ONCE IV 11/02/21 20:00 11/02/21 20:29 11/02/21 19:57 240 MLS/HR Vital Signs/I&O 11/02/21 18:45 Temp 37.1 Pulse 129 Resp 18 B/P (MAP) 111/76 (88) Pulse Ox 97 Departure Communication (Admissions) Time/Spoke to Admitting Phy: 20:18 Patient presents ED for acute appendicitis. Discussed patient with radiology. Outpatient CT abdomen and pelvis acute appendicitis. Patient lab work otherwise unremarkable. Currently on Eliquis. History of A. fib. Slightly tachycardic was given a liter fluid. EKG showed normal sinus rhythm. Patient last dose of Eliquis is in the morning. No known history of coronary artery disease, CHF, COPD, diabetes. Consult with cardiology was okay with surgery at this time. P atient was discussed with Dr. Pérez who will take patient to the OR in the morning. N.p.o. after midnight. Started on IV Zosyn. 150 ml/hr IV fluids. Pain medication was ordered as needed. Patient agrees with admission at this time. Impression Primary Impression: Acute appendicitis Disposition: ADMITTED INPATIENT Condition: Stable Admissions Decision to Admit Reason: Admit from ER (General) Decision to Admit/Date: Nov 02, 2021 Time/Decision to Admit Time: 19:51 Departure-Patient Inst. Referrals: TAMAR HERNANDEZ MD (PCP/Family) Primary Care Physician NIA HERRON Nov 02, 2021 18:53
[2021-11-02 18:57] LABS: BASOPHILS % (AUTO) 0 % (0-10); EOSINOPHILS # (AUTO) 0.1 10^3/uL (0.0-0.3); EOSINOPHILS % (AUTO) 1 % (0-10); HEMATOCRIT 42 % (35-52); HEMOGLOBIN 14.1 g/dL (11.5-16.0); LYMPHOCYTES # (AUTO) 1.9 10^3/uL (1.0-4.0); LYMPHOCYTES % (AUTO) 22 % (12-44); MEAN CORPUSCULAR HEMOGLOBIN 33 pg (25-34); MEAN CORPUSCULAR HGB CONC 33 g/dL (32-36); MEAN CORPUSCULAR VOLUME 98 fL (80-99); MEAN PLATELET VOLUME 10.5 fL (9.0-12.2); MONOCYTES # (AUTO) 0.8 10^3/uL (0.0-1.0); MONOCYTES % (AUTO) 9 % (0-12); NEUTROPHILS # (AUTO) 6.1 10^3/uL (1.8-7.8); NEUTROPHILS % (AUTO) 68 % (42-75); PLATELET COUNT 233 10^3/uL (130-400)
[2021-11-02 19:27] LABS: ALBUMIN 4.4 GM/DL (3.2-4.5); BILIRUBIN,TOTAL 2.5 MG/DL (0.1-1.0); CALCIUM 10.3 MG/DL (8.5-10.1); CREATININE SERUM 0.87 MG/DL (0.60-1.30); POTASSIUM 4.1 MMOL/L (3.6-5.0); TOTAL PROTEIN 7.8 GM/DL (6.4-8.2)
[2021-11-02 19:32] LABS: BILIRUBIN,URINE NEGATIVE (NEGATIVE); CLARITY,URINE CLEAR; COLOR,URINE YELLOW; GLUCOSE, URINE (UA) NEGATIVE (NEGATIVE); KETONES,URINE 1+ (NEGATIVE); LEUKOCYTE ESTERASE ,URINE NEGATIVE (NEGATIVE); NITRITE,URINE NEGATIVE (NEGATIVE); PROTEIN,URINE NEGATIVE (NEGATIVE)
[2021-11-02 19:38] LABS: BACTERIA,URINE NEGATIVE /HPF; RBC,URINE RARE /HPF
[2021-11-02] MEDS ORDERED: NS (IVPB) 100 ML ONE (19:54)
[2021-11-02] MEDS ORDERED: PIPERACILLIN/TAZO 4.5 GM VIAL (ZOSYN) IV ONE (19:54)
[2021-11-02] MEDS ORDERED: PIPERACILLIN/TAZOBACTAM (BULK) 4.5 GM in NS (IVPB) 100 ML IV ONE (20:00)
[2021-11-02 21:03] VITALS: BP 113/54
[2021-11-02] MEDS ORDERED: CATHETER FLUSH 10 ML SYR IV PRN (21:15)
[2021-11-02] MEDS ORDERED: morphine INJ 4 MG/ML 1 ML (VIAL/SYRINGE) IV PRN (21:15)
[2021-11-02] MEDS ORDERED: NS IV 1000 ML 1,000 ML ONE (21:15)
[2021-11-02] MEDS: NS IV 1000 ML 1,000 ML IV SCH (21:35)
[2021-11-02 23:20] VITALS: BP 93/55
[2021-11-03] VITALS (12 sets, daily range): BP systolic 98–118; BP diastolic 62–76
[2021-11-03] MEDS: NS IV 1000 ML 1,000 ML IV SCH ×3 (03:50→16:40)
--- NOTE | 2021-11-03 09:02 | Consultation - Surgery ---
KENYATTA INGRAM MED STUDENT 11/03/21 0901: History of Present Illness History of Present Illness Patient Consulted On(юлия/time) 11/03/21 08:38 Date Seen by Provider: Nov 03, 2021 Time Seen by Provider: 08:00 History of Present Illness This is Jasmine a 61 yo female with the chief complaint of acute appendicitis. Pt states that on Wednesday evening she began to feel fatigued and diffuse abdominal pain. On Wednesday the pain was more localized to the RLQ and experienced loss of appetite. She presented to [facility] and had a CT completed yesterday which showed acute uncomplicated appendicitis. She stated that the pain had improved yesterday. Upon entering the room Pt was laying in bed on her phone in no apparent distress. She placed the pain today at a 1-2/10 while laying in bed but increases to a 3/10 with movement. Pt is currently not taking narcotics and only taking Tylenol for pain management. She states that she had a sandwich last night for dinner. Pt last took Eliquis yesterday morning. Pt is NPO. Allergies and Home Medications Allergies Coded Allergies: codeine (Verified Allergy, Mild, NAUSEA, 09/15/16) Patient Home Medication List Acetaminophen (Tylenol Extra Strength) 500 Mg Tablet, 1,000 MG PO Q8H PRN for PAIN-MILD (1-4), (Reported) Entered as Reported by: NORMAN GLASGOW on 11/03/21 1202 Last Action: Reviewed Apixaban (Eliquis) 5 Mg Tablet, 5 MG PO BID, (Reported) Entered as Reported by: NORMAN GLASGOW on 11/03/21 1140 Last Action: Reviewed Ascorbate Calcium (Vitamin C) 500 Mg Tablet, 500 MG PO DAILY, (Reported) Entered as Reported by: NORMAN GLASGOW on 11/03/21 1149 Last Action: Reviewed Calcium Carbonate/Vitamin D3 (Calcium 600 + Vit D Caplet) 1 Each Tablet, 1 TAB PO BID, (Reported) Entered as Reported by: SHRUTHI BIRCH on 09/15/16 1456 Last Action: Reviewed Cranberry Conc/Ascorbic Acid (Cranberry Concentrate Softgel) 1 Each Capsule, 1 EACH PO DAILY, (Reported) Entered as Reported by: NORMAN GLASGOW on 11/03/21 1149 Last Action: Reviewed Fish Oil/Borage/Flax/Om3,6,9#1 (Stanton 3-6-9 1,200 mg Softgel) 1,200 Mg Capsule, 1,200 MG PO DAILY, (Reported) Entered as Reported by: NORMAN GLASGOW on 11/03/21 1137 Last Action: Reviewed L.acidoph & Paracasei,B.lactis (Probiotic) 1 Each Capsule, 1 EACH PO DAILY, (Reported) Entered as Reported by: SOL HUGHES on 10/31/21 1520 Last Action: Reviewed Lysine HCl (l-Lysine) 500 Mg Tablet, 500 MG PO DAILY, (Reported) Entered as Reported by: NORMAN GLASGOW on 11/03/21 113 Last Action: Reviewed Magnesium Oxide (Magnesium Oxide) 250 Mg Tablet, 250 MG PO DAILY, (Reported) Entered as Reported by: NORMAN GLASGOW on 11/03/21 113 Last Action: Reviewed Multivitamin (Multivitamins) 1 Each Tablet, 1 TAB PO DAILY, (Reported) Entered as Reported by: SHRUTHI BIRCH on 09/15/16 1456 Last Action: Reviewed Sotalol HCl (Sotalol) 120 Mg Tablet, 120 MG PO BID, (Reported) Entered as Reported by: VALARIE BEASLEY on 06/16/20 1138 Last Action: Reviewed Tumeric/Ging/Bowman/Oreg/Capryl (Candicidal Capsule) 1 Each Capsule, 1 EACH PO DAILY, (Reported) Entered as Reported by: NORMAN GLASGOW on 11/03/21 1157 Last Action: Reviewed Discontinued Medications Apixaban (Eliquis) 5 Mg Tablet, 5 MG PO BID Discontinued Reason: No Longer Taking Prescribed by: UTE AMAYA on 09/16/16 1117 Last Action: Discontinued Ascorbic Acid (Ascorbic Acid) 500 Mg Tablet, 500 MG PO DAILY, (Reported) Discontinued Reason: Prescription changed Entered as Reported by: SOL HUGHES on 10/31/21 1520 Calcium Carbonate (Calcium) 500 Mg Tablet, 500 MG PO DAILY, (Reported) Discontinued Reason: No Longer Taking Entered as Reported by: NORMAN GLASGOW on 11/03/21 1139 Last Action: Discontinued Cranberry Extract (Cranberry) 500 Mg Tablet, 500 MG PO DAILY, (Reported) Discontinued Reason: Prescription changed Entered as Reported by: SOL HUGHES on 10/31/21 1520 Last Action: Last Taken Edited Diltiazem HCl (Diltiazem 24Hr ER) 180 Mg Cap.er.24h, 180 MG PO DAILY@0900 Discontinued Reason: No Longer Taking Prescribed by: KIANA MCLEAN on 07/24/20 0831 Lysine (Lysine) 1,000 Mg Tablet, 1,000 MG PO DAILY, (Reported) Discontinued Reason: Prescription changed Entered as Reported by: MARY WHIPPLE on 09/07/17 1351 Magnesium Oxide (Magnesium) 500 Mg Capsule, 500 MG PO DAILY, (Reported) Discontinued Reason: Prescription changed Entered as Reported by: ASIA ORTEGA on 07/11/20 0741 Stanton 3 Polyunsat Fatty Acids (Fish Oil 1,000 mg Capsule) 1,000 Mg Cap, 1,000 MG PO DAILY, (Reported) Discontinued Reason: Prescription changed Entered as Reported by: ASIA ORTEGA on 07/11/20 0740 [Vitamin C] , 1 TAB PO HS, (Reported) Discontinued Reason: No Longer Taking Entered as Reported by: SHRUTHI BIRCH on 09/15/16 1456 Past Kagsyug-Pcwkkh-Bprvxs Hx Patient Social History Number of Drinks Today: 0 Smoking Status: Never a Smoker 2nd Hand Smoke Exposure: No Recent Hopitalizations: Yes (ED for a fib complications in May and Sep of this year) Alcohol Use?: No Have you traveled recently?: No Immunizations Up To Date Tetanus Booster (TDap): Unknown Seasonal Allergies Seasonal Allergies: Yes Surgeries History of Surgeries: Yes (Pt states she had a lump removed from her face but couldn't recall details) Surgeries: Cardiac (ablation June 2020), Orthopedic (wisdom teeth) Respiratory History of Respiratory Disorde: No Cardiovascular History of Cardiac Disorders: Yes Cardiac Disorders: Atrial Fibrillation (complicated with multiple hospital stays), Hypertension Neurological History of Neurological Disord: No Reproductive System Hx Reproductive Disorders: No Sexually Transmitted Disease: No HIV/AIDS: No Genitourinary History of Genitourinary Disor: No Gastrointestinal History of Gastrointestinal Di: No Musculoskeletal History of Musculoskeletal Dis: Yes (history of sciatica and chronic bilateral shoulder pain) Endocrine History of Endocrine Disorders: No HEENT History of HEENT Disorders: Yes HEENT Disorders: Cataract Hearing Impairment: Denies Cancer History of Cancer: No Psychosocial History of Psychiatric Problem: No Integumentary History of Skin or Integumenta: No Blood Transfusions History of Blood Disorders: No Adverse Reaction to a Blood Tr: No Family Medical History Significant Family History: Hypertension (mother and father), Other Conditions /Hx (dementia- mother, a fib-mother, CHF-father) Family Medial History: Cardiovascular disease 19 FATHER 19 MOTHER Hypercholesterolemia 19 MOTHER Review of Systems-General Constitutional: No chills, No diaphoresis, No dizziness, No fever, No weakness, No weight gain; weight loss (minimal over last few days of not eating well), other (fatigue) EENTM: No ear discharge, No hearing loss, No ear pain, No blurred vision, No double vision, No eye pain, No hoarseness, No mouth pain, No nose pain, No throat pain Respiratory: No cough, No dyspnea on exertion, No hemoptysis, No short of breath Cardiovascular: No chest pain, No edema, No Hx of Intervention, No palpitations, No syncope Gastrointestinal: RLQ, abdominal pain (RLQ), constipation (small BM yesterday); No diarrhea, No hematemesis, No jaundice; loss of appetite; No melena; nausea (only on Wednesday); No vomiting Genitourinary: No decreased output, No discharge, No dysuria, No frequency, No hematuria, No pain Musculoskeletal: No back pain; joint pain (chronic bilateral shoulder pain); No joint swelling, No muscle pain, No muscle stiffness, No muscle weakness Skin: No change in color, No dryness, No lesions, No rash Psychiatric/Neurological: Denies Anxiety, Denies Depressed, Denies Emotional Problems, Denies Headache, Denies Weakness Physical Exam-General Problems Physical Exam Vital Signs Vital Signs - First Documented 11/02/21 11/02/21 11/03/21 18:45 20:33 08:30 Temp 37.1 Pulse 129 Resp 18 B/P (MAP) 111/76 (88) Pulse Ox 97 O2 Delivery Room Air O2 Flow Rate 0.00 Capillary Refill : Less Than 3 Seconds General Appearance: WD/WN, no apparent distress HEENT: PERRL/EOMI, pharynx normal Neck: non-tender, supple, normal inspection Respiratory: chest non-tender, lungs clear, normal breath sounds, no respiratory distress, no accessory muscle use Cardiovascular: normal peripheral pulses, regular rate, rhythm, no edema, no gallop, no murmur Gastrointestinal: soft, tenderness (to palpation in RLQ) Rectal: deferred Back: normal inspection, no CVA tenderness, no vertebral tenderness Extremities: non-tender, normal inspection, no pedal edema, no calf tenderness, normal capillary refill Neurologic/Psychiatric: no motor/sensory deficits, alert, normal mood/affect, oriented x 3 Skin: normal color, warm/dry Lymphatic: no adenopathy (cervical or supraclavicular) Data Review Labs Laboratory Tests 11/02/21 18:50: White Blood Count 9.0, Red Blood Count 4.33, Hemoglobin 14.1, Hematocrit 42, Mean Corpuscular Volume 98, Mean Corpuscular Hemoglobin 33, Mean Corpuscular Hemoglobin Concent 33, Red Cell Distribution Width 11.8, Platelet Count 233, Mean Platelet Volume 10.5, Immature Granulocyte % (Auto) 0, Neutrophils (%) (Auto) 68, Lymphocytes (%) (Auto) 22, Monocytes (%) (Auto) 9, Eosinophils (%) (Auto) 1, Basophils (%) (Auto) 0, Neutrophils # (Auto) 6.1, Lymphocytes # (Auto) 1.9, Monocytes # (Auto) 0.8, Eosinophils # (Auto) 0.1, Basophils # (Auto) 0.0, Immature Granulocyte # (Auto) 0.0, Sodium Level 138, Potassium Level 4.1, Chloride Level 102, Carbon Dioxide Level 21, Anion Gap 15H, Blood Urea Nitrogen 13, Creatinine 0.87, Estimat Glomerular Filtration Rate 66, BUN/Creatinine Ratio 15, Glucose Level 97, Calcium Level 10.3H, Corrected Calcium 10.0, Total Bili mike 2.5H, Aspartate Amino Transf (AST/SGOT) 19, Alanine Aminotransferase (ALT/SGPT) 19, Alkaline Phosphatase 35L, Total Protein 7.8, Albumin 4.4, Lipase 14 11/02/21 19:22: Urine Color YELLOW, Urine Clarity CLEAR, Urine pH 6.0, Urine Specific Crawford <=1.005, Urine Protein NEGATIVE, Urine Glucose (UA) NEGATIVE, Urine Ketones 1+H, Urine Nitrite NEGATIVE, Urine Bilirubin NEGATIVE, Urine Urobilinogen 0.2, Urine Leukocyte Esterase NEGATIVE, Urine RBC (Auto) 2+H, Urine RBC RARE, Urine WBC NONE, Urine Squamous Epithelial Cells NONE, Urine Renal Epithelial Cells NONE, Urine Crystals NONE, Urine Bacteria NEGATIVE, Urine Casts NONE, Urine Mucus NEGATIVE, Urine Culture Indicated NO 11/02/21 21:30: SARS-CoV-2 RNA (RT-PCR) Not Detected Assessment/Plan Assessment/Plan Assessment/Plan Assessment: CT Pelvis 11/02- acute uncomplicated appendicitis RLQ pain most likely from above a fib hypertension NPO Plan: Appendectomy with Dr. Anderson later today continue IV antibiotics continue Tylenol PRN and pain medication if needed continue home medications hold Eliquis until after surgery MRAY ANDERSON DO 11/03/21 1258: History of Present Illness History of Present Illness Time Seen by Provider: 12:44 History of Present Illness Surgery asked to admit for Acute appendicitis. Pt seen this afternoon and appears in no acute distress. Very pleasant and answering questions. Still has RLQ pain, but minimal. Denied nausea or vomiti ng in past 2 days. Pain 2-3 out of 10, sharp with movement. Allergies and Home Medications Allergies Coded Allergies: codeine (Verified Allergy, Mild, NAUSEA, 09/15/16) Patient Home Medication List Home Medication List Reviewed: Yes Acetaminophen (Tylenol Extra Strength) 500 Mg Tablet, 1,000 MG PO Q8H PRN for PAIN-MILD (1-4), (Reported) Entered as Reported by: NORMAN GLASGOW on 11/03/21 1202 Last Action: Reviewed Apixaban (Eliquis) 5 Mg Tablet, 5 MG PO BID, (Reported) Entered as Reported by: NORMAN GLASGOW on 11/03/21 1140 Last Action: Reviewed Ascorbate Calcium (Vitamin C) 500 Mg Tablet, 500 MG PO DAILY, (Reported) Entered as Reported by: NORMAN GLASGOW on 11/03/21 1149 Last Action: Reviewed Calcium Carbonate/Vitamin D3 (Calcium 600 + Vit D Caplet) 1 Each Tablet, 1 TAB PO BID, (Reported) Entered as Reported by: SHRUTHI BIRCH on 09/15/16 1456 Last Action: Reviewed Cranberry Conc/Ascorbic Acid (Cranberry Concentrate Softgel) 1 Each Capsule, 1 EACH PO DAILY, (Reported) Entered as Reported by: NORMAN GLASGOW on 11/03/21 1149 Last Action: Reviewed Fish Oil/Borage/Flax/Om3,6,9#1 (Stanton 3-6-9 1,200 mg Softgel) 1,200 Mg Capsule, 1,200 MG PO DAILY, (Reported) Entered as Reported by: NORMAN GLASGOW on 11/03/21 1137 Last Action: Reviewed L.acidoph & Paracasei,B.lactis (Probiotic) 1 Each Capsule, 1 EACH PO DAILY, (Reported) Entered as Reported by: SOL HUGHES on 10/31/21 1520 Last Action: Reviewed Lysine HCl (l-Lysine) 500 Mg Tablet, 500 MG PO DAILY, (Reported) Entered as Reported by: NORMAN GLASGOW on 11/03/21 1137 Last Action: Reviewed Magnesium Oxide (Magnesium Oxide) 250 Mg Tablet, 250 MG PO DAILY, (Reported) Entered as Reported by: NORMAN GLASGOW on 11/03/21 113 Last Action: Reviewed Multivitamin (Multivitamins) 1 Each Tablet, 1 TAB PO DAILY, (Reported) Entered as Reported by: SHRUTHI BIRCH on 09/15/16 1456 Last Action: Reviewed Sotalol HCl (Sotalol) 120 Mg Tablet, 120 MG PO BID, (Reported) Entered as Reported by: VALARIE BEASLEY on 06/16/20 1138 Last Action: Reviewed Tumeric/Ging/Bowman/Oreg/Capryl (Candicidal Capsule) 1 Each Capsule, 1 EACH PO DAILY, (Reported) Entered as Reported by: NORMAN GLASGOW on 11/03/21 1157 Last Action: Reviewed Discontinued Medications Apixaban (Eliquis) 5 Mg Tablet, 5 MG PO BID Discontinued Reason: No Longer Taking Prescribed by: UTE AMAYA on 09/16/16 1117 Last Action: Discontinued Ascorbic Acid (Ascorbic Acid) 500 Mg Tablet, 500 MG PO DAILY, (Reported) Discontinued Reason: Prescription changed Entered as Reported by: SOL HUGHES on 10/31/21 152 Calcium Carbonate (Calcium) 500 Mg Tablet, 500 MG PO DAILY, (Reported) Discontinued Reason: No Longer Taking Entered as Reported by: NORMAN GLASGOW on 11/03/21 1139 Last Action: Discontinued Cranberry Extract (Cranberry) 500 Mg Tablet, 500 MG PO DAILY, (Reported) Discontinued Reason: Prescription changed Entered as Reported by: SOL HUGHES on 10/31/21 1520 Last Action: Last Taken Edited Diltiazem HCl (Diltiazem 24Hr ER) 180 Mg Cap.er.24h, 180 MG PO DAILY@0900 Discontinued Reason: No Longer Taking Prescribed by: KIANA MCLEAN on 07/24/20 0831 Lysine (Lysine) 1,000 Mg Tablet, 1,000 MG PO DAILY, (Reported) Discontinued Reason: Prescription changed Entered as Reported by: MARY WHIPPLE on 09/07/17 1351 Magnesium Oxide (Magnesium) 500 Mg Capsule, 500 MG PO DAILY, (Reported) Discontinued Reason: Prescription changed Entered as Reported by: ASIA ORTEGA on 07/11/20 0741 Stanton 3 Polyunsat Fatty Acids (Fish Oil 1,000 mg Capsule) 1,000 Mg Cap, 1,000 MG PO DAILY, (Reported) Discontinued Reason: Prescription changed Entered as Reported by: ASIA ORTEGA on 07/11/20 0740 [Vitamin C] , 1 TAB PO HS, (Reported) Discontinued Reason: No Longer Taking Entered as Reported by: SHRUTHI BIRCH on 09/15/16 1456 Past Fsiszbs-Bohtqf-Slefxp Hx Patient Social History Smoking Status: Never a Smoker Recent Hopitalizations: Yes (ED for a fib complications in May and Sep of this year) Alcohol Use?: No Surgeries History of Surgeries: Yes (Pt states she had a lump removed from her face but couldn't recall details) Surgeries: Cardiac (ablation June 2020), Orthopedic (wisdom teeth) Respiratory History of Respiratory Disorde: No Cardiovascular History of Cardiac Disorders: Yes Cardiac Disorders: Atrial Fibrillation (complicated with multiple hospital stays), Hypertension Neurological History of Neurological Disord: No Genitourinary History of Genitourinary Disor: No Gastrointestinal History of Gastrointestinal Di: No Musculoskeletal History of Musculoskeletal Dis: Yes (history of sciatica and chronic bilateral shoulder pain) Endocrine History of Endocrine Disorders: No HEENT History of HEENT Disorders: No Cancer History of Cancer: No Psychosocial History of Psychiatric Problem: No Family Medical History Significant Family History: Hypertension (mother and father), Other Conditions/Hx (dementia- mother, a fib-mother, CHF-father) Family Medial History: Cardiovascular disease 19 FATHER 19 MOTHER Hypercholesterolemia 19 MOTHER Review of Systems-General Constitutional: No dizziness, No fever, No weakness; weight loss (minimal over last few days of not eating well), other (fatigue) EENTM: No ear discharge, No blurred vision, No double vision, No hoarseness, No throat pain Respiratory: No cough, No dyspnea on exertion, No hemoptysis, No short of breath Cardiovascular: No chest pain; Hx of Intervention, palpitations Gastrointestinal: abdominal pain (RLQ), constipation (small BM yesterday); No diarrhea, No jaundice; loss of appetite, nausea (only on Wednesday); No vomiting Genitourinary: No dysuria, No frequency, No hematuria Musculoskeletal: No back pain; joint pain (chronic bilateral shoulder pain); No joint swelling, No muscle pain Skin: No change in color, No dryness Psychiatric/Neurological: Denies Anxiety, Denies Depressed, Denies Headache, Denies Weakness Physical Exam-General Problems Physical Exam General Appearance: WD/WN, no apparent distress, thin Eyes: Bilateral Eye PERRL, Bilateral Eye EOMI HEENT: pharynx normal; No scleral icterus (R), No scleral icterus (L) Neck: non-tender, supple Respiratory: lungs clear, normal breath sounds, no respiratory distress, no accessory muscle use Cardiovascular: regular rate, rhythm, no murmur Gastrointestinal: soft, no organomegaly, tenderness (to palpation in RLQ), hernia (large umbilical hernia) Rectal: deferred Back: no CVA tenderness, no vertebral tenderness Extremities: normal inspection, no pedal edema, normal capillary refill Neurologic/Psychiatric: no motor/sensory deficits, alert, normal mood/affect, oriented x 3 Skin: normal color, warm/dry Lymphatic: no adenopathy (cervical or supraclavicular) Data Review Radiology Date of Exam:11/02/21 CT PELVIS W WO PROCEDURE; CT pelvis with and without contrast. TECHNIQUE: After oral contrast administration, imaging was obtained from the iliac crest to the lesser trochanters. Repeat imaging was performed after intravenous contrast administration. Auto Exposure Controls were utilized during the CT exam to meet ALARA standards for radiation dose reduction. INDICATION: Right lower quadrant pain. Concern for appendicitis. COMPARISON: None. FINDINGS: There is a dilated and fluid-filled appendix measuring 1.1 cm in diameter. Periventricular fat stranding is seen. No evidence of bowel obstruction. No free fluid or free air is seen in the abdomen and pelvis. Diverticuli are seen in the sigmoid colon. No mass is seen in the pelvis. A fat-containing periumbilical hernia is seen. No acute osseous abnormalities. IMPRESSION: Findings consistent with acute uncomplicated appendicitis. Findings were called to the emergency department at 5:38 PM on 11/02/[address] Rosa Adkins. Dictated by: Dictated on workstation # [id number] Dict: 11/02/21 1734 Trans: 12/04/18 1741 [facility] [id number] Interpreted by: ROSA ADKINS DO Electronically signed by: ROSA ADKINS DO 11/02/211740 Assessment/Plan Assessment/Plan Assessment/Plan Acute appendicitis A fib, HTN Large Umbilical hernia Plan for Laparoscopic Appendectomy possible open, she is on IV antibiotics, pain meds as needed, her Eliquis has been stopped for over 24 hours. I discussed the procedure with the pt; risks and complications not limited to pain, bleeding, infection, scar, damage to bowel and need for further procedure. I also talked to her about her Eliquis and the fact that she will be at increased risk for bleeding and more bruising than normal. It has been held for 24 hours which is the recommendation for low risk surgery. She understood all this and the fact that waiting longer could lead to perforation of appendix. All questions answered to her satisfaction. I did review the CT films myself. Supervisory-Addendum Brief Verification & Attestation Participated in pt care: history, MDM, physical Personally performed: exam, history, MDM, supervision of care Care discussed with: Medical Student Procedures: n/a Verification and Attestation of Medical Student E/M Service A medical student performed and documented this service. I then reviewed and verified all information documented by the medical student and made modifications to such information, when appropriate. I personally performed a physical exam, medical decision making and then discussed any differences between the notes and made revisions as necessary to create one note. Mary Anderson , 11/03/21 , 13:03 KENYATTA INGRAM MED STUDENT Nov 03, 2021 09:01 MARY ANDERSON DO Nov 03, 2021 12:58
--- NOTE | 2021-11-03 09:39 | Consultation-Cardiology ---
HPI-Cardiology Cardiology Consultation: Date of Consultation 11/03/21 Time Seen by a Provider: 10:00 Date of Admission 11-02-21 Attending Physician Mary Anderson DO Admitting Physician Teresita Starr MD Consulting Physician Ganga Quinn MD HPI: Chief Complaint: PAF Ms. Rogers is a 61 yr old female who has been admitted to [facility] from the ED with acute appendicitis. She reports she started to have RLQ discomfort on Wednesday night. She reports gen fatigue. No c/o CP, SOB or palpitations. She reports the RLQ discomfort persisted from Wednesday to Wednesday prompting her to come to the ED for eval. She reports her abd discomfort has improved, but not resolved. No LE swelling. Review of Systems-Cardiology Review of Systems Constitutional: As described under HPI; No chills, No fever Eyes: No vision change Ears/Nose/Throat: No epistaxis, No recent hearing loss Respiratory: As described under HPI Cardiovascular: As described under HPI Gastrointestinal: As described under HPI Genitourinary: No dysuria, No hematuria Skin: No rash on exposed areas, No ulcerations on exposed areas Psychiatric/Neurological: No anxiety, No depression, No seizure, No focal weakness, No syncope Hematologic: No bleeding abnormalities All Other Systems Reviewed Negative Unless Noted: Yes ASA-Voadoj-Oxucsl Hx Patient Social History Smoking Status: Never a Smoker 2nd Hand Smoke Exposure: No Have you traveled recently?: No Alcohol Use?: No Pt feels they are or have been: No Immunizations Up To Date Tetanus Booster (TDap): Unknown Past Medical History PMH As described under Assessment. Family Medical History Family Medical History: She reports her father has CAD and has had CABG in his 70's. She reports her mother has CAD and a-fib. Family History: Cardiovascular disease 19 FATHER 19 MOTHER Hypercholesterolemia 19 MOTHER Allergies and Home Medications Allergies Coded Allergies: codeine (Verified Allergy, Mild, NAUSEA, 09/15/16) Patient Home Medication List Acetaminophen (Tylenol Extra Strength) 500 Mg Tablet, 1,000 MG PO Q8H PRN for PAIN-MILD (1-4), (Reported) Entered as Reported by: NORMAN GLASGOW on 11/03/21 1202 Last Action: Reviewed Ascorbate Calcium (Vitamin C) 500 Mg Tablet, 500 MG PO DAILY, (Reported) Entered as Reported by: NORMAN GLASGOW on 11/03/21 1149 Last Action: Reviewed Calcium Carbonate/Vitamin D3 (Calcium 600 + Vit D Caplet) 1 Each Tablet, 1 TAB PO BID, (Reported) Entered as Reported by: SHRUTHI BIRCH on 09/15/16 145 Last Action: Reviewed Cranberry Conc/Ascorbic Acid (Cranberry Concentrate Softgel) 1 Each Capsule, 1 EACH PO DAILY, (Reported) Entered as Reported by: NORMAN GLASGOW on 11/03/21 114 Last Action: Reviewed Fish Oil/Borage/Flax/Om3,6,9#1 ([place] 3-6-9 1,200 mg Softgel) 1,200 Mg Capsule, 1,200 MG PO DAILY, (Reported) Entered as Reported by: NORMAN GLASGOW on 11/03/21 113 Last Action: Reviewed Hydrocodone Bit/Acetaminophen (HYDROcodone/APAP 5 MG/325 MG TAB) 1 Tab Tab, 1 TAB PO Q8H PRN for PAIN-MODERATE (5-7) Prescribed by: MARY ANDERSON on 11/03/21 1601 L.acidoph & Paracasei,B.lactis (Probiotic) 1 Each Capsule, 1 EACH PO DAILY, (Reported) Entered as Reported by: SOL HUGHES on 10/31/21 1520 Last Action: Reviewed Lysine HCl (l-Lysine) 500 Mg Tablet, 500 MG PO DAILY, (Reported) Entered as Reported by: NORMAN GLASGOW on 11/03/21 113 Last Action: Reviewed Magnesium Oxide (Magnesium Oxide) 250 Mg Tablet, 250 MG PO DAILY, (Reported) Entered as Reported by: NORMAN GLASGOW on 11/03/21 113 Last Action: Reviewed Multivitamin (Multivitamins) 1 Each Tablet, 1 TAB PO DAILY, (Reported) Entered as Reported by: SHRUTHI BIRCH on 09/15/16 1456 Last Action: Reviewed Sotalol HCl (Sotalol) 120 Mg Tablet, 120 MG PO BID, (Reported) Entered as Reported by: VALARIE BEASLEY on 06/16/20 113 Last Action: Reviewed Tumeric/Ging/[place]/Oreg/Capryl (Candicidal Capsule) 1 Each Capsule, 1 EACH PO DAILY, (Reported) Entered as Reported by: NORMAN GLASGOW on 11/03/21 1157 Last Action: Reviewed Physical Exam-Cardiology Physical Exam Vital Signs/I&O Capillary Refill : Less Than 3 Seconds Constitutional: AAO x 3, well-developed, well-nourished HEENT: PERRL, hearing is well preserved, oral hygience is good Neck: No carotid bruit; carotid pulses are 2 + bilaterally Respiratory: No accessory muscle use, No respiratory distress; chest expansion is symmetric, chest is bilaterally symmetric, lungs clear to auscultation Cardiovascular: regular rate-rhythm; No JVD; S1 and S2 Gastrointestinal: tender (RLQ), soft; No guarding; audible bowel sounds Extremities: no lower extremity edema bilateral Neurologic/Psychiatric: grossly intact (moves all extremities) Skin: No rash on exposed areas, No ulcerations on exposed areas Data Review Labs Microbiology 11/02/21 MRSA Screen - Final, Complete MRSA not isolated Radiology NAME: STEV[facility] REC#: [id number] PT STATUS: REG CLI : 1960 PHYSICIAN: EVELYN ESPINOZA ADMIT DATE: 11/02/21/RAD Signed Date of Exam:11/02/21 CT PELVIS W WO PROCEDURE; CT pelvis with and without contrast. TECHNIQUE: After oral contrast administration, imaging was obtained from the iliac crest to the lesser trochanters. Repeat imaging was performed after intravenous contrast administration. Auto Exposure Controls were utilized during the CT exam to meet ALARA standards for radiation dose reduction. INDICATION: Right lower quadrant pain. Concern for appendicitis. COMPARISON: None. FINDINGS: There is a dilated and fluid-filled appendix measuring 1.1 cm in diameter. Periventricular fat stranding is seen. No evidence of bowel obstruction. No free fluid or free air is seen in the abdomen and pelvis. Diverticuli are seen in the sigmoid colon. No mass is seen in the pelvis. A fat-containing periumbilical hernia is seen. No acute osseous abnormalities. IMPRESSION: Findings consistent with acute uncomplicated appendicitis. Findings were called to the emergency department at 5:38 PM on 11/02/[address] Rosa Barnett. Dictated by: Dictated on workstation # [id number] Dict: 11/02/21 1734 Trans: 11/02/211740 [facility] [id number] Interpreted by: ROSA BARNETT DO Electronically signed by: ROSA BARNETT DO 11/02/211740 ECG Impression ECG Initial ECG Rhythm: Normal Sinus A/P-Cardiology Assessment/Admission Diagnosis Acute appendicitis - awaiting surgery later today PAF first diagnosed during a hospitalization in 2016. - Recurrence of a-fib for which she has had multiple cardioversions in the past - ILR implant [address] Luna - H/O a-fib ablation July 11, [address] Luna. - Recurrence of a-fib with RVR Jul 23, 2020 - cardioverted by Dr. Luna - Recurrent of a-fib with RVR Nov 09, 2020 - cardioverted at that time - Recurrent a-fib with RVR 10-07-21 - cardioverted in the ED at that time - OAC with Eliquis Mild acute renal insuff on blood work of 08/26/17 MPI of February 21, 2019 showed no evidence of any significant myocardial ischemia of infarction. LVEF 61%. Echocardiogram of June 16, [address] Luna LVEF 55-65%. PASP 30-35 mmHg DISHA prior to cardioversion on 09-07-17 showed LVEF approx 50%. Trivial MR Family h/o CAD Normal TSH on lab of 09-16-16 Discussion and Recomendations Management of acute appendicitis is per surgical services Continue home medications Continue OAC with Eliquis for stroke prophylaxis following procedure if deemed surgically safe by Dr. Anderson Monitor lab Tele Further recs will be based on her hospital course We feel her risk for non-cardiac surgery is intermediate - advise continuation of anti-arrhythmics and OAC We would like to thank medical services for this consult KIANA MCLEAN Nov 03, 2021 09:39
[2021-11-03] MEDS ORDERED: LIDOCAINE/EPI 1%-1:100,000 (XYLOCAINE) 20ML ONE (11:09)
[2021-11-03] MEDS ORDERED: FISH12002 PO (11:37)
[2021-11-03] MEDS ORDERED: MAGN250T35 PO (11:37)
[2021-11-03] MEDS ORDERED: LYSI500T37 PO (11:37)
[2021-11-03] MEDS ORDERED: CALC-823 PO (11:39)
[2021-11-03] MEDS ORDERED: APIX5TAB PO (11:40)
[2021-11-03] MEDS ORDERED: SEVOFLURANE (ULTANE) 15 ML INHAL SOLN ONE ×2 (11:48→14:44)
[2021-11-03] MEDS ORDERED: LIDOCAINE PF 2% 5 ML (XYLOCAINE) VIAL ONE (11:48)
[2021-11-03] MEDS ORDERED: fentaNYL INJ 100 MCG/2 ML AMP ONE ×2 (11:48→15:10)
[2021-11-03] MEDS ORDERED: ONDANSETRON 4 MG/2 ML (SDV) Z0FRAN ONE (11:48)
[2021-11-03] MEDS ORDERED: MIDAZOLAM 2 MG/2 ML (VERSED) VIAL ONE (11:48)
[2021-11-03] MEDS ORDERED: proPOfol 200 MG/20 ML (DIPRIVAN) VIAL IV ONE (11:48)
[2021-11-03] MEDS ORDERED: CRAN1CAP9 PO (11:49)
[2021-11-03] MEDS ORDERED: ASCO-262 PO (11:49)
[2021-11-03] MEDS ORDERED: TUME1CAP PO (11:57)
[2021-11-03] MEDS ORDERED: ACET-2267 PO (12:02)
[2021-11-03] MEDS: LACTATED RINGERS 1,000 ML IV PRN ×2 (13:05→14:13)
[2021-11-03] MEDS ORDERED: PIPERACILLIN/TAZOBACTAM (BULK) 4.5 GM in NS (IVPB) 100 ML IV ONE (13:30)
[2021-11-03] MEDS ORDERED: ATROPINE INJ 0.4 MG/ML SDV ONE (13:49)
[2021-11-03] MEDS ORDERED: NEOSTIGMINE 3 MG/3 ML VIAL ONE (14:24)
[2021-11-03] MEDS ORDERED: GLYCOPYRROLATE 0.2 MG/ML (ROBINUL) 2 ML VIAL ONE (14:24)
[2021-11-03] MEDS ORDERED: ROCURONIUM 50 MG/5 ML (ZEMURON) VIAL IV ONE (14:32)
--- NOTE | 2021-11-03 14:46 | Progress Note-Post Operative ---
Post-Operative Progess Note Surgeon (s)/Human Service Coordinator (s) Surgeon MARY ANDERSON DO Human Service Coordinator: ZACH Ochoa Pre-Operative Diagnosis Acute appy, [facility] Post-Operative Diagnosis Acute appy with perf Incarcerated [facility] Procedure & Operative Findings Date of Procedure 11/03/21 Procedure Performed/Findings Laparoscopic Appendectomy Incarcerated Umbilical herniarraphy COMPLICATIONS: None. INDICATIONS: The patient is a 61 year old female who has been having right lower quadrant abdominal pain. Patient's exam consistent with appendicitis. I discussed risk and benefits of laparoscopic appendectomy and all indicated procedures with the possibility of increased bleeding. The patient understands the risks and benefits and wishes to proceed. Consent was signed on the chart. DESCRIPTION OF PROCEDURE: The patient was taken to the operating suite, prepped and draped in a sterile fashion. Timeout was performed. Local anesthetic was infiltrated just above the umbilicus and 11-blade scalpel was used to make a skin incision. Cautery was used to dissect down to the fascia. Encountered the incarcerated umbilical hernia with large amount of fat and hernia sac. Dissected and cut out the hernia sac and then able to visualize the fascia. The balloon trocar was inserted into the abdomen and pneumoperitoneum was achieved. Under direct visualization of the laparoscope, a 5 mm trocar was placed in the suprapubic region and a 5 mm trocar was placed in the left lower quadrant. There was fat attached to the abdominal wall; it appeared to be what was incarcerated in umbilicus and came from falciform ligament. Could not really see the Appendix because it appeared to be under some fat and a lot of inflammation. I also noted bilateral femoral hernias and some type of hernia just above the pubic symphsis and bladder; pictures were taken. Then started trying to dissect out the appendix, using some blunt dissectio, hydro-dissection and the Ligasure. The mesoappendix was divided in order to get to the base of the appendix. Once at the base an Endo-MONICA 2.5 stapler was then fired across the base of the appendix. It was then placed in an Endobag and removed through the 12 mm trocar site. The abdomen was then irrigated and suctioned. No other pathology noted and no bleeding at the end of the case. Kochers were used to grasp and elevate the fascia and an 0 Vicryl was placed in a [id number] fashion as well as a single interrupted O-Vicryl for closure of the fascia. The abdomen had been desufflated and then reinsuflated to take picture of the umbilical hernia closure; looked good and no leak of pneumoperitoneum. Allowed pneumo to escape and trocars were removed. The skin was then closed using 4-0 Monocryl in a subcuticular fashion. The abdomen was then washed and dried and Skin Affix was placed over the incisions. The patient tolerated the procedure well without any complications and was taken to the recovery room in stable condition. Anesthesia Type GET Estimated Blood Loss Estimated blood loss (mL): scant Specimens/Packing Specimens Removed appy umbilical hernia sac MARY ANDERSON DO Nov 03, 2021 14:46
[2021-11-03] MEDS ORDERED: ONDANSETRON 4 MG/2 ML (SDV) Z0FRAN IVP PRN (15:00)
[2021-11-03] MEDS ORDERED: fentaNYL INJ 100 MCG/2 ML AMP IVP ONE (15:00)
[2021-11-03] MEDS ORDERED: MEPERIDINE (DEMEROL) INJ 50 MG/ML IVP ONE (15:00)
[2021-11-03] MEDS ORDERED: ACHD5005 PO (16:00)
--- NOTE | 2021-11-03 16:02 | Discharge Inst-Surgical ---
Discharge Inst-Surgical Depart Medication/Instructions New, Converted or Re-Newed RX: Transmitted to Pharmacy Patient Instructions Follow up Appt: Make appointment for 1 week. [phone] Instructions: No lifting greater than 20 pounds. No strenuous activity. May shower in 24 hours, no tub bath or soaking. Use incentive spirometer at home as directed. No Smoking Skin/Wound Care: May remove bandages in am. You need to leave the Dermabond on incision it will fall off on it's own. Symptoms to Report: Appetite Changes, Extremity Discoloration, Numbness/Tingling, Swelling Increased, Bleeding Excessive, Eyesight Changes, Pain Increased, Urine Color Change, Constipation(Persistent), Fever over 101 degree F, Pain/Pressure in chest, Urinating Difficulty, Cough Up/Vomit Blood, Heart Beat Irreg/Pounding, Pain/Pressure in jaw, Cramps in feet or legs, Lightheadedness, Pain/Pressure in shoulder, Diarrhea(Persistent), Memory Changes Suddenly, Questions/Concerns, Weight gain consecutive days, Dizziness/Fainting, Nausea/Vomiting, Shortness of Breath, Weight gain over 2 pounds If questions or concerns contact your physician Or seek help at emergency department. Activity Activity as Tolerated: Yes Activity Instructions: Avoid Stress to Incision Driving Instructions: No Driving/Refer to Dr. Mckay Discharge Diet: No Restrictions Diet After 24 Hours: Clear Liquid if Nauseous If Any Problems/Questions/Issu: Contact Your Physician, Go to Emergency Room Skin/Wound Care Infection Signs and Symptoms: Increased Redness, Foul Odor of Wound, Increased Drainage, Skin Itchy or Has a Rash, Increased Swelling, Temperature Above 101 F Wound Care Comment: Heating pad to shoulder or neck tonight for pain Bathing Instructions: Shower Stitches/[place]/Dermabond Dis: Dermabond Ice Pack: Ice On and Off Site MARY ANDERSON DO Nov 03, 2021 16:02
--- NOTE | 2021-11-03 17:13 | Consultation-Cardiology ---
HPI-Cardiology Cardiology Consultation: Date of Consultation 11/03/21 Time Seen by a Provider: 16:50 Date of Admission Attending Physician Mary Anderson DO Admitting Physician Teresita Starr MD Consulting Physician MC WADE MD, MA, FACP, FACC, FSCAI, CCDS HPI: Chief Complaint: Reason for Cardiology consult: PAF HPI Ms. Rogers is a 61 yr old female who has been admitted to [facility] from the ED with acute appendicitis. She reports she started to have RLQ discomfort on Wednesday night. She reports gen fatigue. No c/o CP, SOB or palpitations. She reports the RLQ discomfort persisted from Wednesday to Wednesday prompting her to come to the ED for eval. She reports her abd discomfort has improved, but not resolved. No LE swelling. Review of Systems-Cardiology Review of Systems Constitutional: As described under HPI; No chills, No fever Eyes: No vision change Ears/Nose/Throat: No epistaxis, No recent hearing loss Respiratory: As described under HPI Cardiovascular: As described under HPI Gastrointestinal: As described under HPI Genitourinary: No dysuria, No hematuria Skin: No rash on exposed areas, No ulcerations on exposed areas Psychiatric/Neurological: No anxiety, No depression, No seizure, No focal weakness, No syncope Hematologic: No bleeding abnormalities All Other Systems Reviewed Negative Unless Noted: Yes NUI-Megilj-Vpjmxe Hx Patient Social History Smoking Status: Never a Smoker 2nd Hand Smoke Exposure: No Have you traveled recently?: No Alcohol Use?: No Pt feels they are or have been: No Immunizations Up To Date Tetanus Booster (TDap): Unknown Past Medical History PMH As described under Assessment. Family Medical History Family Medical History: She reports her father has CAD and has had CABG in his 70's. She reports her mother has CAD and a-fib. Family History: Cardiovascular disease 19 FATHER 19 MOTHER Hypercholesterolemia 19 MOTHER Allergies and Home Medications Allergies Coded Allergies: codeine (Verified Allergy, Mild, NAUSEA, 09/15/16) Patient Home Medication List Home Medication List Reviewed: Yes Acetaminophen (Tylenol Extra Strength) 500 Mg Tablet, 1,000 MG PO Q8H PRN for PAIN-MILD (1-4), (Reported) Entered as Reported by: NORMAN GLASGOW on 11/03/21 1202 Last Action: Reviewed Apixaban (Eliquis) 5 Mg Tablet, 5 MG PO BID, (Reported) Entered as Reported by: NORMAN GLASGOW on 11/03/21 1140 Last Action: Reviewed Ascorbate Calcium (Vitamin C) 500 Mg Tablet, 500 MG PO DAILY, (Reported) Entered as Reported by: NORMAN GLASGOW on 11/03/21 114 Last Action: Reviewed Calcium Carbonate/Vitamin D3 (Calcium 600 + Vit D Caplet) 1 Each Tablet, 1 TAB PO BID, (Reported) Entered as Reported by: SHRUTHI BIRCH on 09/15/16 145 Last Action: Reviewed Cranberry Conc/Ascorbic Acid (Cranberry Concentrate Softgel) 1 Each Capsule, 1 EACH PO DAILY, (Reported) Entered as Reported by: NORMAN GLASGOW on 11/03/21 114 Last Action: Reviewed Fish Oil/Borage/Flax/Om3,6,9#1 ([place] 3-6-9 1,200 mg Softgel) 1,200 Mg Capsule, 1,200 MG PO DAILY, (Reported) Entered as Reported by: NORMAN GLASGOW on 11/03/21 113 Last Action: Reviewed Hydrocodone Bit/Acetaminophen (HYDROcodone/APAP 5 MG/325 MG TAB) 1 Tab Tab, 1 TAB PO Q8H PRN for PAIN-MODERATE (5-7) Prescribed by: MARY ANDERSON on 11/03/21 1601 L.acidoph & Paracasei,B.lactis (Probiotic) 1 Each Capsule, 1 EACH PO DAILY, (Reported) Entered as Reported by: SOL HUGHES on 10/31/21 1520 Last Action: Reviewed Lysine HCl (l-Lysine) 500 Mg Tablet, 500 MG PO DAILY, (Reported) Entered as Reported by: NORMAN GLASGOW on 11/03/21 113 Last Action: Reviewed Magnesium Oxide (Magnesium Oxide) 250 Mg Tablet, 250 MG PO DAILY, (Reported) Entered as Reported by: NORMAN GLASGOW on 11/03/21 113 Last Action: Reviewed Multivitamin (Multivitamins) 1 Each Tablet, 1 TAB PO DAILY, (Reported) Entered as Reported by: SHRUTHI BIRCH on 09/15/16 145 Last Action: Reviewed Sotalol HCl (Sotalol) 120 Mg Tablet, 120 MG PO BID, (Reported) Entered as Reported by: VALARIE BEASLEY on 06/16/20 1138 Last Action: Reviewed Tumeric/Ging/[place]/Oreg/Capryl (Candicidal Capsule) 1 Each Capsule, 1 EACH PO DAILY, (Reported) Entered as Reported by: NORMAN GLASGOW on 11/03/21 1157 Last Action: Reviewed Discontinued Medications Apixaban (Eliquis) 5 Mg Tablet, 5 MG PO BID Discontinued Reason: No Longer Taking Prescribed by: UTE AMAYA on 09/16/16 1117 Last Action: Discontinued Ascorbic Acid (Ascorbic Acid) 500 Mg Tablet, 500 MG PO DAILY, (Reported) Discontinued Reason: Prescription changed Entered as Reported by: SOL HGUHES on 10/31/21 1520 Calcium Carbonate (Calcium) 500 Mg Tablet, 500 MG PO DAILY, (Reported) Discontinued Reason: No Longer Taking Entered as Reported by: NORMAN GLASGOW on 11/03/21 1139 Last Action: Discontinued Cranberry Extract (Cranberry) 500 Mg Tablet, 500 MG PO DAILY, (Reported) Discontinued Reason: Prescription changed Entered as Reported by: SOL HUGHES on 10/31/21 1520 Last Action: Last Taken Edited Diltiazem HCl (Diltiazem 24Hr ER) 180 Mg Cap.er.24h, 180 MG PO DAILY@0900 Discontinued Reason: No Longer Taking Prescribed by: KIANA MCLEAN on 07/24/20 0831 Lysine (Lysine) 1,000 Mg Tablet, 1,000 MG PO DAILY, (Reported) Discontinued Reason: Prescription changed Entered as Reported by: MARY WHIPPLE on 09/07/17 1351 Magnesium Oxide (Magnesium) 500 Mg Capsule, 500 MG PO DAILY, (Reported) Discontinued Reason: Prescription changed Entered as Reported by: ASIA ORTEGA on 07/11/20 0741 [place] 3 Polyunsat Fatty Acids (Fish Oil 1,000 mg Capsule) 1,000 Mg Cap, 1,000 MG PO DAILY, (Reported) Discontinued Reason: Prescription changed Entered as Reported by: ASIA ORTEGA on 07/11/20 0740 [Vitamin C] , 1 TAB PO HS, (Reported) Discontinued Reason: No Longer Taking Entered as Reported by: SHRUTHI BIRCH on 09/15/16 1456 Physical Exam-Cardiology Physical Exam Vital Signs/I&O 11/03/21 11/03/21 11/03/21 11/03/21 08:00 08:00 08:30 11:45 Temp 36.6 36.6 Pulse 64 66 Resp 18 20 B/P (MAP) 111/74 (86) 117/76 (90) Pulse Ox 99 99 98 O2 Delivery Room Air Room Air Room Air Room Air O2 Flow Rate 0.00 0.00 11/03/21 11/03/21 11/03/21 11/03/21 14:46 14:46 14:50 15:00 Temp 37.1 Resp 16 18 B/P (MAP) 102/63 (76) 102/63 (76) Pulse Ox 100 100 O2 Delivery OxyMask OxyMask OxyMask OxyMask O2 Flow Rate 6 6 6 6 11/03/21 11/03/21 11/03/21 11/03/21 15:00 15:10 15:12 15:15 Resp 18 18 B/P (MAP) 109/72 (84) 98/62 (74) Pulse Ox 98 96 O2 Delivery OxyMask OxyMask OxyMask OxyMask O2 Flow Rate 6 6 6 6 11/03/21 11/03/21 11/03/21 11/03/21 15:19 15:20 15:23 15:27 Resp 18 B/P (MAP) 113/68 (83) Pulse Ox 100 O2 Delivery OxyMask OxyMask OxyMask Room Air O2 Flow Rate 4 4 2 11/03/21 11/03/21 11/03/21 11/03/21 15:30 15:40 15:40 16:00 Temp 36.8 36.8 Pulse 52 Resp 18 18 24 B/P (MAP) 114/63 (80) 118/65 (82) 116/62 (80) Pulse Ox 98 98 96 O2 Delivery Room Air Room Air Room Air Room Air 11/03/21 00:00 Intake Total 1220 ml Output Total 0 ml Balance 1220 ml Capillary Refill : Less Than 3 Seconds Constitutional: AAO x 3, well-developed, well-nourished HEENT: PERRL, hearing is well preserved, oral hygience is good Neck: No carotid bruit; carotid pulses are 2 + bilaterally Respiratory: No accessory muscle use, No respiratory distress; chest expansion is symmetric, chest is bilaterally symmetric, lungs clear to auscultation Cardiovascular: regular rate-rhythm; No JVD; S1 and S2 Gastrointestinal: tender (RLQ), soft; No guarding; audible bowel sounds Rectal: deferred Extremities: no lower extremity edema bilateral Neurologic/Psychiatric: grossly intact (moves all extremities) Skin: No rash on exposed areas, No ulcerations on exposed areas Lymphatic: no adenopathy (cervical or supraclavicular) Data Review Labs Laboratory Tests 11/02/21 18:50: White Blood Count 9.0, Red Blood Count 4.33, Hemoglobin 14.1, Hematocrit 42, Mean Corpuscular Volume 98, Mean Corpuscular Hemoglobin 33, Mean Corpuscular Hemoglobin Concent 33, Red Cell Distribution Width 11.8, Platelet Count 233, Mean Platelet Volume 10.5, Immature Granulocyte % (Auto) 0, Neutrophils (%) (Auto) 68, Lymphocytes (%) (Auto) 22, Monocytes (%) (Auto) 9, Eosinophils (%) (Auto) 1, Basophils (%) (Auto) 0, Neutrophils # (Auto) 6.1, Lymphocytes # (Auto) 1.9, Monocytes # (Auto) 0.8, Eosinophils # (Auto) 0.1, Basophils # (Auto) 0.0, Immature Granulocyte # (Auto) 0.0, Sodium Level 138, Potassium Level 4.1, Chl oride Level 102, Carbon Dioxide Level 21, Anion Gap 15H, Blood Urea Nitrogen 13, Creatinine 0.87, Estimat Glomerular Filtration Rate 66, BUN/Creatinine Ratio 15, Glucose Level 97, Calcium Level 10.3H, Corrected Calcium 10.0, Total Bilirubin 2.5H, Aspartate Amino Transf (AST/SGOT) 19, Alanine Aminotransferase (ALT/SGPT) 19, Alkaline Phosphatase 35L, Total Protein 7.8, Albumin 4.4, Lipase 14 11/02/21 19:22: Urine Color YELLOW, Urine Clarity CLEAR, Urine pH 6.0, Urine Specific [place] <=1.005, Urine Protein NEGATIVE, Urine Glucose (UA) NEGATIVE, Urine Ketones 1+H, Urine Nitrite NEGATIVE, Urine Bilirubin NEGATIVE, Urine Urobilinogen 0.2, Urine Leukocyte Esterase NEGATIVE, Urine RBC (Auto) 2+H, Urine RBC RARE, Urine WBC NONE, Urine Squamous Epithelial Cells NONE, Urine Renal Epithelial Cells NONE, Urine Crystals NONE, Urine Bacteria NEGATIVE, Urine Casts NONE, Urine Mucus NEGATIVE, Urine Culture Indicated NO 11/02/21 21:30: SARS-CoV-2 RNA (RT-PCR) Not Detected A/P-Cardiology Assessment/Admission Diagnosis Acute appendicitis - s/p surgery on 11/03/21 PAF first diagnosed during a hospitalization in 2016. - Recurrence of a-fib for which she has had multiple cardioversions in the past - ILR implant [address] Luna - H/O a-fib ablation July 11, [address] Luna. - Recurrence of a-fib with RVR Jul 23, 2020 - cardioverted by Dr. Luna - Recurrent of a-fib with RVR Nov 09, 2020 - cardioverted at that time - Recurrent a-fib with RVR 10-07-21 - cardioverted in the ED at that time - OAC with Eliquis Mild acute renal insuff on blood work of 08/26/17 MPI of February 21, 2019 showed no evidence of any significant myocardial ischemia of infarction. LVEF 61%. Echocardiogram of June 16, [address] Luna LVEF 55-65%. PASP 30-35 mmHg DISHA prior to cardioversion on 09-07-17 showed LVEF approx 50%. Trivial MR Family h/o CAD Normal TSH on lab of 09-16-16 Discussion and Recomendations Management of acute appendicitis is per Surgical services Continue home medications Continue OAC with Eliquis for stroke prophylaxis following procedure if deemed surgically safe by Dr. Anderson Monitor lab Tele MC WADE MD FACP FAC CCDS Nov 03, 2021 17:13
--- NOTE | 2021-11-04 08:30 | Anesthesia-General Post-Op ---
General Patient Condition Mental Status/LOC: Same as Preop Cardiovascular: Satisfactory Nausea/Vomiting: Absent Respiratory: Satisfactory Pain: Controlled Complications: Absent Post Op Complications Complications None Follow Up Care/Instructions Patient Instructions None needed. Anesthesia/Patient Condition Patient Condition Patient is doing well, no complaints, stable vital signs, no apparent adverse anesthesia problems. No complications reported per nursing. [place] [facility] [place]: Yes MIGUEL LAURA CRNA Nov 04, 2021 08:30
== END 2021-11-03 19:08 | disposition home or self-care (01) ==
LOC: EDUNIT# 18:33 → ER 18:35 → 4TH 19:59 → UNDOADMOB 19:59 → 4TH 19:59 → SDC 19:59 → UNDODISOB 11-03 19:08
PROVIDERS: ATTEND Surgery
DX: K35.80 Unspecified acute appendicitis (principal); K42.9 Umbilical hernia without obstruction or gangrene; I10 Essential (primary) hypertension; J30.2 Other seasonal allergic rhinitis; I48.0 Paroxysmal atrial fibrillation; I44.4 Left anterior fascicular block; Z79.899 Other long term (current) drug therapy; Z79.01 Long term (current) use of anticoagulants
CPT/HCPCS: 36415; 80053; 81000; 83690; 85025; 87081; 87636; 88302; 88304; 93005; 96361; 96365

== ENCOUNTER → 2021-11-02 | Outpatient (CLI) | payer SELFPAY ==
[~2021-11-02] MED LIST changes: +ACET-2267 PO; +ACHD5005 PO; +ASCO-262 PO; +ASCO500T7 PO; +CALC-823 PO; +CRAN1CAP9 PO; +CRAN500T3 PO; +FISH12002 PO; +HOLD METFORMIN - RECEIVED CONTRAST 20 ML VIAL IV SCH; +IOHEXOL 350 MG/ML 100 ML (OMNIPAQUE 350) VIAL IV ONE; +L.AC1CAP6 PO; +LYSI500T37 PO; +MAGN250T35 PO; +NS 100 ML (IVPB) BAG IV ONE; +TUME1CAP PO
--- NOTE | 2021-11-02 17:40 | Diagnostic Imaging Report ---
PROCEDURE; CT pelvis with and without contrast. TECHNIQUE: After oral contrast administration, imaging was obtained from the iliac crest to the lesser trochanters. Repeat imaging was performed after intravenous contrast administration. Auto Exposure Controls were utilized during the CT exam to meet ALARA standards for radiation dose reduction. INDICATION: Right lower quadrant pain. Concern for appendicitis. COMPARISON: None. FINDINGS: There is a dilated and fluid-filled appendix measuring 1.1 cm in diameter. Periventricular fat stranding is seen. No evidence of bowel obstruction. No free fluid or free air is seen in the abdomen and pelvis. Diverticuli are seen in the sigmoid colon. No mass is seen in the pelvis. A fat-containing periumbilical hernia is seen. No acute osseous abnormalities. IMPRESSION: Findings consistent with acute uncomplicated appendicitis. Findings were called to the emergency department at 5:38 PM on 11/02/[address] Jose Adkins. Dictated by: Dictated on workstation # [id number]
== END ==
LOC: RAD 16:18
PROVIDERS: ATTEND Nurse Practitioner Community Health
DX: R10.31 Right lower quadrant pain (principal)
CPT/HCPCS: 72194

== ENCOUNTER → 2021-11-25 | Outpatient (CLI) | payer SELFPAY ==
[~2021-11-25] MED LIST changes: +ACET-2267 PO; +ACHD5005 PO; +ASCO-262 PO; +CALC-823 PO; +CRAN1CAP9 PO; +FISH12002 PO; +LYSI500T37 PO; +MAGN250T35 PO; +TUME1CAP PO
--- NOTE | 2021-11-25 12:57 | Diagnostic Imaging Report ---
Indication: Primary mucinous adenocarcinoma of the appendix, initial staging. Serum blood glucose level at time of injection 98 mg/dL. Patient was administered 12.9 mCi F-18 FDG intravenously in the right antecubital location and PET imaging was performed from the top skull to mid thighs. Noncontrast CT was also performed for attenuation correction and anatomic correlation. No prior PET/CT studies are available for comparison. There is symmetric activity throughout the brain. Soft tissues of the neck are unremarkable. No mediastinal or hilar hypermetabolism is identified. No pulmonary parenchymal hypermetabolism is identified. Physiologic activity throughout the gastrointestinal and genitourinary tracts of abdomen and pelvis are noted. There is an area of uptake in the midline pelvis just above the level of the urinary bladder shows a SUV max of 17. This is associated with sigmoid colonic bowel loops. Patient does have extensive diverticulosis. Uncertain if this area of uptake represents gastrointestinal excretion versus a possible sigmoid mass. No other suspicious abnormality is identified. IMPRESSION: Essentially unremarkable PET/CT study apart from an area of uptake in the midline low pelvis associated with sigmoid colonic bowel loops. It is uncertain if this represents normal excretion of radionuclide versus a uptake within a sigmoid mass. Colonoscopy would be useful for further evaluation. No other significant abnormality is detected. Dictated by: Dictated on workstation # [id number]
== END ==
LOC: RAD 08:24
PROVIDERS: ATTEND Surgery
DX: C18.1 Malignant neoplasm of appendix (principal)
CPT/HCPCS: 78815; A9552

== ENCOUNTER 2021-12-02 09:03 | Outpatient (RCR) | payer SELFPAY ==
[2021-12-02 10:47] LABS: BASOPHILS % (AUTO) 1 % (0-10); EOSINOPHILS # (AUTO) 0.1 10^3/uL (0.0-0.3); EOSINOPHILS % (AUTO) 2 % (0-10); HEMATOCRIT 44 % (35-52); HEMOGLOBIN 14.7 g/dL (11.5-16.0); LYMPHOCYTES # (AUTO) 1.4 10^3/uL (1.0-4.0); LYMPHOCYTES % (AUTO) 26 % (12-44); MEAN CORPUSCULAR HEMOGLOBIN 33 pg (25-34); MEAN CORPUSCULAR HGB CONC 34 g/dL (32-36); MEAN CORPUSCULAR VOLUME 98 fL (80-99); MEAN PLATELET VOLUME 10.3 fL (9.0-12.2); MONOCYTES # (AUTO) 0.4 10^3/uL (0.0-1.0); MONOCYTES % (AUTO) 8 % (0-12); NEUTROPHILS # (AUTO) 3.3 10^3/uL (1.8-7.8); NEUTROPHILS % (AUTO) 63 % (42-75); PLATELET COUNT 242 10^3/uL (130-400); WHITE BLOOD COUNT 5.2 10^3/uL (4.3-11.0)
[2021-12-02 11:10] LABS: ALBUMIN 4.5 GM/DL (3.2-4.5); BILIRUBIN,TOTAL 1.1 MG/DL (0.1-1.0); CALCIUM 10.1 MG/DL (8.5-10.1); CREATININE SERUM 0.83 MG/DL (0.60-1.30); POTASSIUM 3.9 MMOL/L (3.6-5.0); TOTAL PROTEIN 7.9 GM/DL (6.4-8.2)
[2021-12-27] MEDS ORDERED: APIX5TAB PO (09:55)
== END 2021-12-29 | disposition home or self-care (01) ==
LOC: ONC 09:03
PROVIDERS: ATTEND Internal Medicine Hematology & Oncology
DX: C18.1 Malignant neoplasm of appendix (principal); K57.30 Diverticulosis of large intestine without perforation or abscess without bleeding; I48.20 Chronic atrial fibrillation, unspecified
CPT/HCPCS: 80053; 82378; 85025; G0463; 99214

== ENCOUNTER 2021-12-24 05:31 | Outpatient (CLI) | payer SELFPAY ==
[~2021-12-24] VITALS: Ht 172.7 cm; Wt 57.2 kg
[2021-12-27] MEDS ORDERED: APIX5TAB PO (09:55)
== END 2021-12-27 09:51 | disposition home or self-care (01) ==
LOC: PREOP 05:31
PROVIDERS: ATTEND Surgery
DX: Z01.818 Encounter for other preprocedural examination (principal)

== ENCOUNTER 2021-12-31 07:08 | Inpatient (IN) | payer SELFPAY ==
[~2021-12-31] VITALS: Ht 172.7 cm; Wt 57.2 kg
[2021-12-31] VITALS (11 sets, daily range): BP systolic 92–125; BP diastolic 52–80
[2021-12-31] MEDS ORDERED: ceFAZolin 2 GM IV Premixed 50 ML IV ONE (07:30)
[2021-12-31] MEDS ORDERED: metroNIDAZOLE 500MG/100ML IVPB 100 ML IV ONE (07:30)
[2021-12-31] MEDS ORDERED: MIDAZOLAM 2 MG/2 ML (VERSED) VIAL ONE (07:37)
[2021-12-31] MEDS ORDERED: GLYCOPYRROLATE 0.2 MG/ML (ROBINUL) 2 ML VIAL ONE (07:37)
[2021-12-31] MEDS ORDERED: NEOSTIGMINE 3 MG/3 ML VIAL ONE (07:37)
[2021-12-31] MEDS ORDERED: LIDOCAINE PF 2% 5 ML (XYLOCAINE) VIAL ONE (07:37)
[2021-12-31] MEDS ORDERED: ROCURONIUM 50 MG/5 ML (ZEMURON) VIAL IV ONE (07:37)
[2021-12-31] MEDS ORDERED: ONDANSETRON 4 MG/2 ML (SDV) Z0FRAN ONE (07:37)
[2021-12-31] MEDS ORDERED: fentaNYL INJ 100 MCG/2 ML AMP ONE (07:37)
[2021-12-31] MEDS ORDERED: proPOfol 200 MG/20 ML (DIPRIVAN) VIAL IV ONE (07:37)
[2021-12-31] MEDS: LACTATED RINGERS 1,000 ML IV PRN ×2 (08:29→09:30)
--- NOTE | 2021-12-31 09:35 | Progress Note-Post Operative ---
Post-Operative Progess Note Surgeon (s)/Hat Blocker (s) Surgeon MARY ANDERSON DO Hat Blocker: none Pre-Operative Diagnosis PRIMARY MUCINOUS ANDENOCARCINOMA OF APPENDIX Post-Operative Diagnosis Polyps Diverticula int hemorrhoids Procedure & Operative Findings Date of Procedure 12/31/21 Procedure Performed/Findings Colonoscopy PROCEDURE NOTE: After informed consent was obtained, the patient was brought to the Operating room and placed on bed supine and then frog-legged in position. She was intubated for the surgery to follow; the SPORTS COMPLEX ATTENDANT then monitored her vitals the entire time, heart rate, blood pressure and pulse ox and the scope was inserted. Pushed all the way to about 150 cm to get into the cecum. On the way in noted diverticula and took a picture of them. Once in the cecum took a picture of the appendiceal orifice and noted the ileo-cecal valve; then slowly withdrew the scope insufflating to look circumferentially at the mckeon. Starting in the cecum and then noted a small polyp just outside the cecum, but left it alone because it will come with the colon specimen. Continued up the ascending colon to the hepatic flexure, then down the transverse colon to the splenic flexure. Next into the descending colon, where I saw the diverticula and then what looked like a polyp in a diverticula; took a picture but elected not to biopsy. Finally down in the sigmoid and then into the rectal vault and retroflexed the scope. Took picture of the internal hemorrhoids. Anesthesia Type GET Estimated Blood Loss Estimated blood loss (mL): none Specimens/Packing Specimens Removed none MARY ANDERSON DO Dec 31, 2021 09:35
--- NOTE | 2021-12-31 10:10 | Progress Note-Post Operative ---
Post-Operative Progess Note Surgeon (s)/Perinatal Social Worker (s) Surgeon MARY ANDERSON DO Perinatal Social Worker: [place] Pre-Operative Diagnosis PRIMARY MUCINOUS ANDENOCARCINOMA OF APPENDIX Post-Operative Diagnosis same pending path Procedure & Operative Findings Date of Procedure 12/31/21 Procedure Performed/Findings Right colon resection with primary anastomosis Anesthesia Type GET Estimated Blood Loss Estimated blood loss (mL): scant Specimens/Packing Specimens Removed Right colon with portion of TI and portion of transverse colon MARY ANDERSON DO Dec 31, 2021 10:10
[2021-12-31] MEDS ORDERED: SEVOFLURANE (ULTANE) 15 ML INHAL SOLN ONE (10:13)
[2021-12-31] MEDS ORDERED: ONDANSETRON 4 MG/2 ML (SDV) Z0FRAN IVP PRN ×2 (10:15→10:30)
--- NOTE | 2021-12-31 10:20 | Anesthesia-General Post-Op ---
General Patient Condition Mental Status/LOC: Same as Preop Cardiovascular: Satisfactory Nausea/Vomiting: Absent Respiratory: Satisfactory Pain: Controlled Complications: Absent Post Op Complications Complications None Follow Up Care/Instructions Patient Instructions None needed. Anesthesia/Patient Condition Patient Condition Patient is doing well, no complaints, stable vital signs, no apparent adverse anesthesia problems. No complications reported per nursing. SHERRY ANGEL CRNA Dec 31, 2021 10:20
[2021-12-31] MEDS ORDERED: morphine INJ 10 MG/ML 1ML (SYR OR VIAL) IVP ONE (10:30)
[2021-12-31] MEDS ORDERED: KETOROLAC 30 MG/ML VIAL ONE (10:30)
[2021-12-31] MEDS ORDERED: fentaNYL INJ 100 MCG/2 ML AMP IVP ONE (10:30)
[2021-12-31] MEDS ORDERED: HYDROmorphone 2 MG/ML VIAL (DILAUDID) IV ONE (10:30)
[2021-12-31] MEDS: KETOROLAC 30 MG/ML VIAL IVP SCH ×3 (10:31→20:29)
[2021-12-31] MEDS ORDERED: morphine INJ 10 MG/ML 1ML (SYR OR VIAL) ONE (10:35)
[2021-12-31] MEDS: LACTATED RINGERS 1,000 ML IV SCH ×3 (12:22→21:39)
[2021-12-31] MEDS: ACETAMINOPHEN 500 MG TAB (TYLENOL) PO SCH ×2 (12:23→20:28)
[2021-12-31] MEDS: metroNIDAZOLE 500MG/100ML IVPB 100 ML IV SCH (17:04)
[2021-12-31] MEDS: ceFAZolin 2 GM IV Premixed 50 ML IV SCH (18:29)
--- NOTE | 2022-01-01 00:03 | OPERATIVE REPORT ---
DATE OF SERVICE: 12/31/2021 PREOPERATIVE DIAGNOSIS: Mucinous adenocarcinoma of the appendix. POSTOPERATIVE DIAGNOSIS: Mucinous adenocarcinoma of the appendix, pending pathology. PROCEDURE: Right colon resection. SURGEON: Casimiro Pérez DO CORRECTIONAL MAINTENANCE TECHNICIAN: Placido Sidhu DO. ANESTHESIA: General endotracheal tube. SPECIMEN: Right colon, portion of terminal ileum and portion of transverse colon. BLOOD LOSS: Scant. FLUIDS: Per anesthesia. POSTOPERATIVE CONDITION: Stable. INDICATION FOR PROCEDURE: The patient is a 61-year-old female who had an appendectomy, which showed mucinous adenocarcinoma with spread, needed a definitive treatment, which was a right hemicolectomy. FINDINGS: The patient had a right hemicolectomy performed, did not really feel any lymph nodes, did not see anything in the liver and this was sent to pathology. PROCEDURE NOTE: After informed consent was obtained, the patient was brought to the operating room, placed on the table in supine position. She was sterilely prepped and draped in normal fashion, made midline incision from just above the umbilicus to below. Approximately 6 cm incision was made, carried down through the skin into subcutaneous tissue, then deepened down to subcutaneous tissue with Bovie electrocautery down to fascia. Fascia was incised with Bovie electrocautery and bluntly entered the abdomen. Increased the incision superiorly and inferiorly with Bovie electrocautery, protecting the intestine with my hand and then able to grasp the right colon and actually delivered right through the incision very easily as well as transverse colon and terminal ileum. At this point, I elected to do a [id number]-vg-[id number] anastomosis, making a defect in the mesentery with Bovie electrocautery getting under the transverse colon as well as then a defect in the mesentery getting under the terminal ileum, then made a hole in the tinea of the transverse colon and then another hole on the antimesenteric border of the terminal ileum, placed MONICA-75 on either side, clamped together, thereby creating a fucb-vj-[id number] functional end-to-end anastomosis. I used a 3-0 Vicryl to tie off crotch stitch and then held for 30 seconds, fired, thereby creating a kruu-qq-mter anastomosis, then used a second staple to fire below these to close this enterocolotomy. This closed nicely, had allowed some of the air from the colonoscopy to release and then used the LigaSure to come across the mesentery to take all the mesentery back all the way to the peritoneal reflection in the colic gutter, coming across this in a stepwise fashion, clamping, coagulating and transecting in this fashion removing this right colon, then closed the mesenteric defect with a 3-0 Vicryl popoff suture running from the inferior portion up to the intestine. This closed nicely. I then dropped all this intestine back into the abdomen, changed gloves. There was really no spillage of fecal material. We had put some blue towels down to hold this and there was some on the towels but none into the abdomen. At this point, then elected to close the incision, closing with #1 double stranded PDS suture running from superior portion to inferior portion, tying to itself, copiously irrigating the midline incision and then closing the skin with candace. Area was cleaned and dried and dressing placed. The patient tolerated the procedure. She was transferred to recovery room in stable condition. Sponge, instrument and needle count correct at the end of the case. Dr. Sidhu assisted in this case helping to make incisions, close incisions, identify anatomy, hold anatomy out of the way. Job ID: [id number] DocumentID: [id number] Dictated Date: 12/31/2021 16:17:44 Drill Sergeant Date: 01/01/2022 00:03:35 Dictated By: DO ALISE SAHA
[2022-01-01 00:09] VITALS: BP 134/52
[2022-01-01] MEDS: metroNIDAZOLE 500MG/100ML IVPB 100 ML IV SCH (01:13)
[2022-01-01] MEDS: ceFAZolin 2 GM IV Premixed 50 ML IV SCH (02:17)
[2022-01-01 04:44] VITALS: BP 91/51
[2022-01-01] MEDS: ACETAMINOPHEN 500 MG TAB (TYLENOL) PO SCH ×2 (04:48→13:15)
[2022-01-01] MEDS: KETOROLAC 30 MG/ML VIAL IVP SCH ×3 (04:49→16:33)
[2022-01-01 08:00] VITALS: BP 113/70
--- NOTE | 2022-01-01 08:29 | Progress Note - Surgery ---
[facility] 01/01/22 0829: Subjective Date Seen by a Provider: Jan 01, 2022 Time Seen by a Provider: 08:24 Subjective/Events-last exam POD 1, S/P R Colon Resection No Acute events overnight, Patient remains afebrile Patient has been compliant with OOB activity No BM at this time, but reports she believes she will have one today Tolerating clear liquids with no nausea Pain is well controlled Review of Systems General: No Chills, No Other (fevers) Pulmonary: No Dyspnea, No Cough Cardiovascular: No: Chest Pain, Palpitations Gastrointestinal: Abdominal Pain (minimal incisional pain,); No: Nausea, Vomiting Objective Exam Vital Signs Date Time Temp Pulse Resp B/P (MAP) Pulse Ox O2 Delivery O2 Flow Rate FiO2 01/01/22 05:18 36.2 01/01/22 04:44 36.2 61 18 91/51 (64) 95 Room Air 01/01/22 00:09 36.5 59 18 134/52 (79) 95 Room Air 12/31/21 20:58 37.0 12/31/21 20:20 98 Room Air 12/31/21 20:00 37.0 66 18 95/52 (66) 98 Room Air 12/31/21 15:58 36.3 62 18 92/56 (68) 100 Room Air 12/31/21 14:43 Room Air 12/31/21 12:00 36.3 104 16 116/63 (80) 100 Room Air 12/31/21 11:15 Room Air 12/31/21 11:04 36.1 17 125/79 (94) 97 Room Air 12/31/21 11:00 14 123/73 (90) 96 Room Air 12/31/21 10:50 12 124/80 (95) 99 Room Air 12/31/21 10:40 14 113/75 (88) 100 OxyMask 10 12/31/21 10:40 OxyMask 10 12/31/21 10:30 14 113/75 (88) 100 OxyMask 10 12/31/21 10:20 16 103/66 (78) 100 OxyMask 10 12/31/21 10:15 36.1 26 98/64 (75) 97 OxyMask 10 12/31/21 10:15 OxyMask 10 I & O 01/01/22 07:00 Intake Total 3550 ml Output Total 0 ml Balance 3550 ml Capillary Refill : General Appearance: No Apparent Distress, WD/WN HEENT: PERRL/EOMI, Pharynx Normal, Moist Mucous Membranes Neck: Non Tender, Supple Respiratory: Chest Non Tender, No Accessory Muscle Use, No Respiratory Distress Cardiovascular: Regular Rate, Rhythm, No Murmur Peripheral Pulses: 2+ Radial Pulses (R), 2+ Radial Pulses (L) Gastrointestinal: soft, distended (minimally); No guarding; tenderness (at incision), other (dressing has minimal serosangiuneous drainage) Neurologic/Psychiatric: Alert, Oriented x3 Lymphatic: No Adenopathy (posterior cervical or supraclavicular) Assessment/Plan Assessment/Plan Assessment/Plan S/P Open R colon resection - Advance diet as tolerated - continue DVT prophylaxis - Continue OOB activity - Dressing changes as needed CASIMIRO PÉREZ DO 01/01/22 1325: Subjective Time Seen by a Provider: 10:47 Subjective/Events-last exam Pt seen and examined, states pain is controlled with tylenol. She is tolerating soft diet and had some minimal flatus, no BM. Review of Systems General: No Chills Pulmonary: No Dyspnea, No Cough Cardiovascular: No: Chest Pain, Palpitations Gastrointestinal: Abdominal Pain (minimal incisional pain,); No: Nausea, Vomiting Objective Exam General Appearance: No Apparent Distress, Thin Respiratory: Chest Non Tender, Lungs Clear, Normal Breath Sounds, No Accessory Muscle Use, No Respiratory Distress Cardiovascular: Regular Rate, Rhythm, No Murmur Gastrointestinal: soft; No distended, No guarding; tenderness (at incision), other (Incision is c/d/i) Assessment/Plan Assessment/Plan Assessment/Plan S/P Open R colon resection - D/C IV and D/C home Supervisory-Addendum Brief Verification & Attestation Participated in pt care: history, MDM, physical Personally performed: exam, history, MDM, supervision of care Care discussed with: Medical Student Procedures: n/a Verification and Attestation of Medical Student E/M Service A medical student performed and documented this service. I then reviewed and verified all information documented by the medical student and made modifications to such information, when appropriate. I personally performed a p hysical exam, medical decision making and then discussed any differences between the notes and made revisions as necessary to create one note. Casimiro Pérez , 01/01/22 , 13:25 [facility] Jan 01, 2022 08:29 CASIMIRO PÉREZ DO Jan 01, 2022 13:25
[2022-01-01] MEDS ORDERED: PANTOPRAZOLE 40 MG (PROTONIX) VIAL IVP SCH (09:00)
[2022-01-01] MEDS ORDERED: ENOXAPARIN 40 MG/0.4 ML (LOVENOX) SYR SC SCH (10:15)
[2022-01-01] MEDS: LACTATED RINGERS 1,000 ML IV SCH (10:25)
[2022-01-01 12:10] VITALS: BP 108/63
[2022-01-01 16:35] VITALS: BP 108/63
--- NOTE | 2022-01-01 16:35 | Discharge Inst-Surgical ---
Discharge Inst-Surgical Depart Medication/Instructions New, Converted or Re-Newed RX: Other (use home meds) Patient Instructions Follow up Appt: Make appointment for January 13. [phone] Instructions: No lifting greater than 20 pounds. No strenuous activity. May shower in 24 hours, no tub bath or soaking. Use incentive spirometer at home as directed. No Smoking Skin/Wound Care: May remove bandages in am. You need to leave the Dermabond on incision it will fall off on it's own. Symptoms to Report: Appetite Changes, Extremity Discoloration, Numbness/Tingling, Swelling Increased, Bleeding Excessive, Eyesight Changes, Pain Increased, Urine Color Change, Constipation(Persistent), Fever over 101 degree F, Pain/Pressure in chest, Urinating Difficulty, Cough Up/Vomit Blood, Heart Beat Irreg/Pounding, Pain/Pressure in jaw, Cramps in feet or legs, Lightheadedness, Pain/Pressure in shoulder, Diarrhea(Persistent), Memory Changes Suddenly, Questions/Concerns, Weight gain consecutive days, Dizziness/Fainting, Nausea/Vomiting, Shortness of Breath, Weight gain over 2 pounds If questions or concerns contact your physician Or seek help at emergency department. Activity Activity as Tolerated: Yes Activity Instructions: Avoid Stress to Incision Driving Instructions: You May Drive Diet Discharge Diet: No Restrictions Diet After 24 Hours: Clear Liquid if Nauseous If Any Problems/Questions/Issu: Contact Your Physician, Go to Emergency Room Skin/Wound Care Infection Signs and Symptoms: Increased Redness, Foul Odor of Wound, Increased Drainage, Skin Itchy or Has a Rash, Increased Swelling, Temperature Above 101 F Bathing Instructions: Shower Stitches/[place]/Dermabond Dis: Care of MARY Rivera DO Jan 01, 2022 16:35
== END 2022-01-01 16:50 | disposition home or self-care (01) | DRG 331 ==
LOC: 4TH 07:08 → SURG 07:09 → 4TH 10:25
PROVIDERS: ADMIT Surgery; ATTEND Surgery
PROC: 0DTF0ZZ Resection of Right Large Intestine, Open Approach (ICD-10-PCS; principal; 2021-12-31 09:01)
PROC: 0DJD8ZZ Inspection of Lower Intestinal Tract, Via Natural or Artificial Opening Endoscopic (ICD-10-PCS; 2021-12-31 09:01)
DX: C18.1 Malignant neoplasm of appendix (principal); K63.5 Polyp of colon; K57.90 Diverticulosis of intestine, part unspecified, without perforation or abscess without bleeding; K64.8 Other hemorrhoids; I48.0 Paroxysmal atrial fibrillation; I10 Essential (primary) hypertension; Z79.02 Long term (current) use of antithrombotics/antiplatelets
CPT/HCPCS: 86850; 86900; 86901; 87081; 88309; 94664

== ENCOUNTER 2022-10-14 07:51 | Emergency (ER) | payer SELFPAY ==
[~2022-10-14] VITALS: Ht 172.7 cm; Wt 56.7 kg
[~2022-10-14 07:51] MED LIST changes: -CRAN500T3 PO; +CRAN500T4 PO
[2022-10-14] MEDS ORDERED: dilTIAZem DRIP PRE-MIX 125 ML IV SCH (08:15)
--- NOTE | 2022-10-14 08:19 | ED Cardiac General ---
History of Present Illness General Chief Complaint: Cardiac/General Problems Stated Complaint: AFIB Nursing Triage Note: PT AMB TO RM 5 W C/O AFIB ONSET AT APPROX 2230 ON 10/13/22. PT DENIES PAIN, REPORTS SHE USUALLY REQUIRES A CARDIOVERSON TO CONVERT, A&OX4. Source: patient, old records Exam Limitations: no limitations History of Present Illness Date Seen by Provider: Oct 14, 2022 Time Seen by Provider: 08:05 Initial Comments This 62-year-old woman presents to the emergency room with complaints of atrial fibrillation with RVR. She has history of paroxysmal atrial fibrillation requiring cardioversion in the past. She takes sotalol and Eliquis. She is followed by Dr. Quinn. Her associated symptoms are tachycardia, mild shortness of breath, mild lightheadedness, and generalized weakness. She believes she has been in RVR since approximately 20:30. She denies chest pain. Her primary care provider is Dr. Hernandez. Allergies and Home Medications Allergies Coded Allergies: codeine (Verified Allergy, Mild, NAUSEA, 09/15/16) kiwi (Verified Allergy, Mild, Vomiting, 12/31/21) Patient Home Medication List Home Medication List Reviewed: Yes Acetaminophen (Tylenol Extra Strength) 500 Mg Tablet, 1,000 MG PO Q8H PRN for PAIN-MILD (1-4), (Reported) Entered as Reported by: NORMAN GLASGOW on 11/03/21 1202 Apixaban (Eliquis) 5 Mg Tablet, 5 MG PO BID, (Reported) Entered as Reported by: EUSEBIA DORAN on 12/27/21 0955 Ascorbate Calcium (Vitamin C) 500 Mg Tablet, 500 MG PO DAILY, (Reported) Entered as Reported by: NORMAN GLASGOW on 11/03/21 1149 Calcium Carbonate/Vitamin D3 (Calcium 600 + Vit D Caplet) 1 Each Tablet, 1 TAB PO BID, (Reported) Entered as Reported by: SHRUTHI BIRCH on 09/15/16 1456 Cranberry Conc/Ascorbic Acid (Cranberry Concentrate Softgel) 1 Each Capsule, 1 EACH PO DAILY, (Reported) Entered as Reported by: NORMAN GLASGOW on 11/03/21 1149 Fish Oil/Borage/Flax/Om3,6,9#1 (Crocker 3-6-9 1,200 mg Softgel) 1,200 Mg Capsule, 1,200 MG PO DAILY, (Reported) Entered as Reported by: NORMAN GLASGOW on 11/03/21 1137 L.acidoph & Paracasei,B.lactis (Probiotic) 1 Each Capsule, 1 EACH PO DAILY, (Reported) Entered as Reported by: SOL HUGHES on 10/31/21 1520 Lysine HCl (l-Lysine) 500 Mg Tablet, 500 MG PO DAILY, (Reported) Entered as Reported by: NORMAN GLASGOW on 11/03/21 1137 Magnesium Oxide (Magnesium Oxide) 250 Mg Tablet, 250 MG PO DAILY, (Reported) Entered as Reported by: NORMAN GLASGOW on 11/03/21 1137 Multivitamin (Multivitamins) 1 Each Tablet, 1 TAB PO DAILY, (Reported) Entered as Reported by: SHRUTHI BIRCH on 09/15/16 1456 Sotalol HCl (Sotalol) 120 Mg Tablet, 120 MG PO BID, (Reported) Entered as Reported by: VALARIE BEASLEY on 06/16/20 1138 Tumeric/Ging/[place]/Oreg/Capryl (Candicidal Capsule) 1 Each Capsule, 1 EACH PO DAILY, (Reported) Entered as Reported by: NORMAN GLASGOW on 11/03/21 1157 Review of Systems Review of Systems Constitutional: see HPI EENTM: No Symptoms Reported Respiratory: See HPI Cardiovascular: See HPI Gastrointestinal: No Symptoms Reported Genitourinary: No Symptoms Reported Musculoskeletal: no symptoms reported Skin: no symptoms reported Psychiatric/Neurological: No Symptoms Reported Endocrine: No Symptoms Reported Hematologic/Lymphatic: No Symptoms Reported Past Lyscsip-Hdyppp-Rjeiow Hx Patient Social History Tobacco Use?: No Use of E-Cig and/or Vaping dev: No Substance use?: No Alcohol Use?: No Immunizations Up To Date Tetanus Booster (TDap): Unknown First/Initial COVID19 Vaccinat: NONE Second COVID19 Vaccination Corey: NONE Third COVID19 Vaccination Date: NONE Seasonal Allergies Seasonal Allergies: Yes Past Medical History Surgery/Hospitalization HX: APPENDECTOMY 10/2021, AFIB/CARDIOVERSION-LAST ON 08/19, CARDIAC ABLATION 07/11/2020 Surgeries: Yes (Pt states she had a lump removed from her face but couldn't recall details) Abdominal (Partial colon resection), Appendectomy, Cardiac (Cardioversion and ablation), Orthopedic Respiratory: No Currently Using CPAP: No Currently Using BIPAP: No Cardiac: Yes (AFIB) Atrial Fibrillation, Hypertension Neurological: No Reproductive Disorders: No Sexually Transmitted Disease: No HIV/AIDS: No Genitourinary: No Gastrointestinal: No Musculoskeletal: Yes (history of sciatica and chronic bilateral shoulder pain) Endocrine: No HEENT: Yes Cataract Hearing Impairment: Denies Cancer: Yes Colon (Involving the appendix) Did You Recieve Any Treatments: Yes What Type of Treatment Did You: Surgical Intervention Psychosocial: No Integumentary: No Blood Disorders: No Adverse Reaction/Blood Tranf: No Family Medical History Reviewed Nursing Family Hx Cardiovascular disease 19 FATHER 19 MOTHER Hypercholesterolemia 19 MOTHER Hypertension, Other Conditions/Hx Physical Exam Vital Signs Vital Signs - First Documented 10/14/22 10/14/22 07:54 10:09 Temp 37.4 Pulse 130 Resp 18 B/P (MAP) 95/84 (88) Pulse Ox 100 O2 Delivery Room Air O2 Flow Rate 2.00 Capillary Refill : Less Than 3 Seconds Height, Weight, BMI Height: 5'8.00" Weight: 132lbs. 11.2oz. [id number]; 19.00 BMI Method:Stated General Appearance: No Apparent Distress, WD/WN, Thin HEENT: PERRL/EOMI, Normal ENT Inspection Neck: JVD Respiratory: Lungs Clear, Normal Breath Sounds, No Accessory Muscle Use, No Respiratory Distress Cardiovascular: No Edema, No Murmur, Irregularly Irregular, Tachycardia Gastrointestinal: Non Tender, Soft; No Distended Extremity: Normal Inspection, No Pedal Edema Neurologic/Psychiatric: Alert, Oriented x3, No Motor/Sensory Deficits, Normal Mood/Affect Skin: Normal Color, Warm/Dry Procedures/Interventions Patient Education: Explained Benefits, Explained Risks, Pt. Ack. Understanding Agreement on procedure with pt: Yes Patient History: Problem w/Sedation (Etomidate) Breath Sounds per Auscultation: Clear Heart Sounds per Auscultation: Irregular Airway Exam: Mouth opens >2 fingers Sedation Adminstration Time: 10:10 Total Time spent in 12 After informed consent and signature, patient was sedated with fentanyl 50 mcg IV and Versed 4 mg IV. Adequate sedation was achieved. She was cardioverted with synchronized cardioversion at 120 J. The first attempt was successful with immediate return to sinus rhythm. Patient tolerated the procedure well. Re-examination Time: 10:52 Progress/Results/Core Measures Results/Orders Lab Results Laboratory Tests Test 10/14/22 07:29 Range/Units White Blood Count 8.9 4.3-11.0 10^3/uL Red Blood Count 4.54 3.80-5.11 10^6/uL Hemoglobin 15.1 11.5-16.0 g/dL Hematocrit 44 35-52 % Mean Corpuscular Volume 97 80-99 fL Mean Corpuscular Hemoglobin 33 25-34 pg Mean Corpuscular Hemoglobin Concent 34 32-36 g/dL Red Cell Distribution Width 12.2 10.0-14.5 % Platelet Count 335 130-400 10^3/uL Mean Platelet Volume 10.0 9.0-12.2 fL Immature Granulocyte % (Auto) 0 % Neutrophils (%) (Auto) 72 42-75 % Lymphocytes (%) (Auto) 21 12-44 % Monocytes (%) (Auto) 5 0-12 % Eosinophils (%) (Auto) 1 0-10 % Basophils (%) (Auto) 1 0-10 % Neutrophils # (Auto) 6.4 1.8-7.8 10^3/uL Lymphocytes # (Auto) 1.9 1.0-4.0 10^3/uL Monocytes # (Auto) 0.5 0.0-1.0 10^3/uL Eosinophils # (Auto) 0.1 0.0-0.3 10^3/uL Basophils # (Auto) 0.0 0.0-0.1 10^3/uL Immature Granulocyte # (Auto) 0.0 0.0-0.1 10^3/uL Sodium Level 138 135-145 MMOL/L Potassium Level 4.1 3.6-5.0 MMOL/L Chloride Level 104 98-107 MMOL/L Carbon Dioxide Level 23 21-32 MMOL/L Anion Gap 11 5-14 MMOL/L Blood Urea Nitrogen 15 7-18 MG/DL Creatinine 0.87 0.60-1.30 MG/DL Estimat Glomerular Filtration Rate 75 BUN/Creatinine Ratio 17 Glucose Level 165 H 70-105 MG/DL Calcium Level 10.2 H 8.5-10.1 MG/DL Corrected Calcium 9.8 8.5-10.1 MG/DL Magnesium Level 1.8 1.6-2.4 MG/DL Total Bilirubin 0.9 0.1-1.0 MG/DL Aspartate Amino Transf (AST/SGOT) 26 5-34 U/L Alanine Aminotransferase (ALT/SGPT) 24 0-55 U/L Alkaline Phosphatase 34 L 40-136 U/L Total Protein 7.8 6.4-8.2 GM/DL Albumin 4.5 3.2-4.5 GM/DL TSH [place] Testing 3.52 0.35-4.94 UIU/ML My Orders Orders - KATELYN DAVIS MD Monitor-Rhythm Ecg Trace Only (10/14/22 07:57) Cbc With Automated Diff (10/14/22 08:12) Comprehensive Metabolic Panel (10/14/22 08:12) Magnesium (10/14/22 08:12) Thyroid Analyzer (10/14/22 08:12) Ed Iv/Invasive Line Start (10/14/22 08:12) Chest 1 View, Ap/Pa Only (10/14/22 08:20) Ekg Tracing (10/14/22 08:04) Ns Iv 500 Ml (Sodium Chloride 0.9%) (10/14/22 08:45) Midazolam Injection (Versed Injection) (10/14/22 09:00) Fentanyl Inj (Sublimaze Injection) (10/14/22 09:00) Ekg Tracing (10/14/22 10:14) Apixaban Tablet (Eliquis Tablet) (10/14/22 10:15) Lactated Ringers (Lr 1000 Ml Iv Solution (10/14/22 11:00) Medications Given in ED Current Medications Medications Dose Ordered Sig/Ealyne Route Start Time Stop Time Status Last Admin Dose Admin Fentanyl Citrate 50 mcg ONCE ONCE IVP 10/14/22 09:00 10/14/22 09:01 DC 10/14/22 10:10 50 MCG Lactated Ringer's 1,000 ml @ 0 mls/hr Q0M ONCE IV 10/14/22 11:00 10/14/22 11:01 DC 10/14/22 11:11 0 MLS/HR Midazolam HCl 4 mg ONCE ONCE IVP 10/14/22 09:00 10/14/22 09:01 DC 10/14/22 10:10 4 MG Sodium Chloride 500 ml @ 0 mls/hr Q0M ONCE IV 10/14/22 08:45 10/14/22 08:46 DC 10/14/22 09:02 0 MLS/HR Vital Signs/I&O 10/14/22 10/14/22 10/14/22 07:54 10:09 10:15 Temp 37.4 Pulse 130 Resp 18 B/P (MAP) 95/84 (88) Pulse Ox 100 97 O2 Delivery Room Air Nasal Cannula Nasal Cannula O2 Flow Rate 2.00 2.00 Blood Pressure Mean: 88 Progress Progress Note #1: Time: 08:34 Progress Note Patient was interviewed and examined. Labs and a Cardizem drip with bolus were ordered. Patient is declining the Cardizem at this time stating it never works and she has required cardioversion in the past. Review of chart notes she did have multiple cardioversions in the emergency room in 2019 and 2020. It has been over a year since she has had a cardioversion. I would like to discuss with Dr. Quinn prior to performing cardioversion in the emergency room. He has been paged. Progress Note #2: Time: 11:47 Progress Note Patient was successfully cardioverted and remains in sinus rhythm. She is alert with a stable blood pressure. She did have a period of hypotension, but this is not unusual for her. Review of her chart reveals that she frequently runs systolic blood pressures in the 80s and 90s. She does not feel lightheaded or dizzy. She is alert, oriented, and ready for discharge. She did take her own supply of Eliquis and sotalol after cardioversion. Dr. Quinn updated. Initial ECG Impression Date: Oct 14, 2022 Initial ECG Impression Time: 08:05 Initial ECG Rate: 136 Initial ECG Rhythm: A Fib/Flutter Comment Atrial fibrillation with RVR. No diagnostic ST elevation or depression. Incomplete right bundle branch block by automated read with left axis deviation. EKG : EKG Time: 10:36 Rate: 77 Rhythm: Normal Sinus Comment Sinus rhythm with no ST elevation or depression. Incomplete right bundle branch block by automated read. This EKG represents a conversion to sinus rhythm from atrial flutter with RVR with synchronized cardioversion at 120 J under conscious sedation. Critical Care Note Critical Care Progress Greater than 30 minutes total of critical care time was spent on this patient in divided intervals. This time includes examination, consultation with the patient, consultation with Dr. Quinn, review of records, and direct management of conscious sedation and cardioversion. Departure Impression Primary Impression: Atrial fibrillation with RVR Disposition: ADMITTED INPATIENT Condition: Stable Admissions Decision to Admit Reason: Admit from ER (General) Decision to Admit/Date: Oct 14, 2022 Departure-Patient Inst. Decision time for Depature: 10:52 Referrals: TAMAR HERNANDEZ MD (PCP/Family) Primary Care Physician Patient Instructions: Atrial Fibrillation, Procedural Sedation, Adult ED Add. Discharge Instructions: Please schedule follow-up with Dr. Quinn is soon as possible. Continue your usual medications as previously directed. You have already taken the Eliquis and sotalol morning doses. Return to care if you have recurrent episodes of sustained atrial fibrillation with rapid heart rate or have other symptoms such as chest pain, shortness of breath, lightheadedness, etc. All discharge instructions reviewed with patient and/or family. Voiced understanding. Copy Copies To 1: MC QUINN MD FACP FACC CCDS Copies To 2: TAMAR HERNANDEZ MD, JOSHUA T MD Oct 14, 2022 08:19
[2022-10-14 08:23] LABS: BASOPHILS % (AUTO) 1 % (0-10); EOSINOPHILS # (AUTO) 0.1 10^3/uL (0.0-0.3); EOSINOPHILS % (AUTO) 1 % (0-10); HEMATOCRIT 44 % (35-52); HEMOGLOBIN 15.1 g/dL (11.5-16.0); LYMPHOCYTES # (AUTO) 1.9 10^3/uL (1.0-4.0); LYMPHOCYTES % (AUTO) 21 % (12-44); MEAN CORPUSCULAR HEMOGLOBIN 33 pg (25-34); MEAN CORPUSCULAR HGB CONC 34 g/dL (32-36); MEAN CORPUSCULAR VOLUME 97 fL (80-99); MONOCYTES # (AUTO) 0.5 10^3/uL (0.0-1.0); MONOCYTES % (AUTO) 5 % (0-12); NEUTROPHILS # (AUTO) 6.4 10^3/uL (1.8-7.8); NEUTROPHILS % (AUTO) 72 % (42-75); PLATELET COUNT 335 10^3/uL (130-400); WHITE BLOOD COUNT 8.9 10^3/uL (4.3-11.0)
[2022-10-14 08:24] LABS: ALBUMIN 4.5 GM/DL (3.2-4.5); POTASSIUM 4.1 MMOL/L (3.6-5.0)
[2022-10-14 08:25] LABS: CALCIUM 10.2 MG/DL (8.5-10.1)
[2022-10-14 08:26] LABS: TOTAL PROTEIN 7.8 GM/DL (6.4-8.2)
[2022-10-14 08:28] LABS: BILIRUBIN,TOTAL 0.9 MG/DL (0.1-1.0)
[2022-10-14 08:30] LABS: CREATININE SERUM 0.87 MG/DL (0.60-1.30)
[2022-10-14 08:33] LABS: MAGNESIUM 1.8 MG/DL (1.6-2.4)
[2022-10-14] MEDS ORDERED: NS IV 500 ML 500 ML IV ONE (08:45)
[2022-10-14 08:53] LABS: TSH (THYROID ANALYZER) 3.52 UIU/ML (0.35-4.94)
[2022-10-14] MEDS ORDERED: MIDAZOLAM 5 MG/5 ML (VERSED) VIAL IVP ONE (09:00)
[2022-10-14] MEDS ORDERED: fentaNYL INJ 100 MCG/2 ML AMP IVP ONE (09:00)
--- NOTE | 2022-10-14 09:02 | Diagnostic Imaging Report ---
CHEST 1 VIEW, AP/PA ONLY Indication: Shortness of air, atrial fibrillation Comparison: 06/28/2021 Findings: No focal airspace disease in the visualized lungs. No pleural effusion or pneumothorax. Normal cardiomediastinal silhouette. Implantable loop recorder device is in place. Impression: 1. No acute cardiopulmonary process by portable radiography. Dictated by: Dictated on workstation # [id number]
[2022-10-14] MEDS ORDERED: APIXABAN 5 MG (ELIQUIS) TABLET PO ONE (10:15)
[2022-10-14] MEDS ORDERED: LACTATED RINGERS 1,000 ML IV ONE (11:00)
[2022-10-14 12:25] VITALS: BP 106/81
== END 2022-10-14 12:25 | disposition other institution (70) ==
LOC: EDUNIT# 07:51 → ER 07:54
DX: I48.20 Chronic atrial fibrillation, unspecified (principal); I10 Essential (primary) hypertension; Z28.310 Unvaccinated for COVID-19; Z79.01 Long term (current) use of anticoagulants; Z79.899 Other long term (current) drug therapy; Z98.890 Other specified postprocedural states
CPT/HCPCS: 36415; 71045; 80053; 83735; 84443; 85025; 93005; 93041

== ENCOUNTER 2022-10-27 05:52 | Emergency (ER) | payer SELFPAY ==
--- NOTE | 2022-10-27 06:37 | ED Abdominal Pain ---
General Chief Complaint: Abdominal/GI Problems Stated Complaint: ABD PAIN Nursing Triage Note: PT AMBULATORY INTO ER WITH COMPLAINT OF ABDOMINAL PAIN X3 DAYS. PATIENT STATES THAT FOR THE LAST 3 DAYS SHE HAS SEVERE PAIN WHEN ATTEMPTING TO EAT OR DRINK SOMETHING. PT HAS HISTORY OF SOME DISCOMFORT WITH SOME SELECT FOODS, BUT NOW PAIN IS WORSE WITH EVERYTHING. PATIENT ALSO NOTICED BLOODY MUCOUSY STOOLS LAST NIGHT. Source of Information: Patient Exam Limitations: No Limitations History of Present Illness Date Seen by Provider: Oct 27, 2022 Time Seen by Provider: 06:20 Initial Comments Patient is a 62-year-old female who presents to the emergency department today with a chief complaint of diffuse abdominal pain, onset of bloody, mucousy stools last evening. Multiple throughout the night. She is chronically anticoa gulated on Eliquis with a history of A. fib. Her online content editor is Dr. Quinn. She has a history of cancer diagnosed after an appendectomy earlier in the year. She had a partial colectomy. She states at that time she had a colonoscopy done and no significant pathology was found. She did not have to have radiation or chemotherapy when she was diagnosed with cancer. Patient is nauseous, she states she cannot really eat or drink anything as it causes lower abdominal pain. She denied fever but is noted to be 38.1 here in the emergency department. Movement makes her pain worse and eating. She never had anything like this before. Describes it as a dull pain when she is laying still. No recent antibiotic use. She is on city water. Timing/Duration: 2-3 Days Severity/Quality: Moderate, Cramping, Dull Location: Generalized Abdomen Radiation: No Radiation Associated Symptoms: Nausea/Vomiting (decreased appetite) Allergies and Home Medications Allergies Coded Allergies: codeine (Verified Allergy, Mild, NAUSEA, 09/15/16) kiwi (Verified Allergy, Mild, Vomiting, 12/31/21) Patient Home Medication List Home Medication List Reviewed: Yes Acetaminophen (Tylenol Extra Strength) 500 Mg Tablet, 1,000 MG PO Q8H PRN for PAIN-MILD (1-4), (Reported) Entered as Reported by: NORMAN GLASGOW on 11/03/21 1202 Apixaban (Eliquis) 5 Mg Tablet, 5 MG PO BID, (Reported) Entered as Reported by: EUSEBIA DORAN on 12/27/21 0955 Ascorbate Calcium (Vitamin C) 500 Mg Tablet, 500 MG PO DAILY, (Reported) Entered as Reported by: NORMAN GLASGOW on 11/03/21 1149 Calcium Carbonate/Vitamin D3 (Calcium 600 + Vit D Caplet) 1 Each Tablet, 1 TAB PO BID, (Reported) Entered as Reported by: SHRUTHI BIRCH on 09/15/16 1456 Ciprofloxacin HCl (Ciprofloxacin HCl) 500 Mg Tablet, 500 MG PO BID Prescribed by: TRAE GILL on 10/27/22 09 Cranberry Conc/Ascorbic Acid (Cranberry Concentrate Softgel) 1 Each Capsule, 1 EACH PO DAILY, (Reported) Entered as Reported by: NORMAN GLASGOW on 11/03/21 1149 Fish Oil/Borage/Flax/Om3,6,9#1 (Parnell 3-6-9 1,200 mg Softgel) 1,200 Mg Capsule, 1,200 MG PO DAILY, (Reported) Entered as Reported by: NORMAN GLASGOW on 11/03/21 1137 Hydrocodone/Acetaminophen (Hydrocodone-Acetamin 5-325 mg) 5 Mg-325 Mg Tablet, 1 TAB PO Q6H PRN for PAIN-MODERATE (5-7) Prescribed by: TARE GILL on 10/27/22916 L.acidoph & Paracasei,B.lactis (Probiotic) 1 Each Capsule, 1 EACH PO DAILY, (Reported) Entered as Reported by: SOL HUGHES on 10/31/21 1520 Lysine HCl (l-Lysine) 500 Mg Tablet, 500 MG PO DAILY, (Reported) Entered as Reported by: NORMAN GLASGOW on 11/03/21 1137 Magnesium Oxide (Magnesium Oxide) 250 Mg Tablet, 250 MG PO DAILY, (Reported) Entered as Reported by: NORMAN GLASGOW on 11/03/21 1137 Metronidazole (Metronidazole) 500 Mg Tablet, 500 MG PO TID Prescribed by: TRAE GILL on 10/27/22916 Multivitamin (Multivitamins) 1 Each Tablet, 1 TAB PO DAILY, (Reported) Entered as Reported by: SHRUTHI BIRCH on 09/15/16 1456 Ondansetron (Ondansetron Odt) 4 Mg Tab.rapdis, 4 MG SL Q8H PRN for NAUSEA/VOMITING Prescribed by: TRAE GILL on 10/27/22 09 Sotalol HCl (Sotalol) 120 Mg Tablet, 120 MG PO BID, (Reported) Entered as Reported by: VALARIE BEASLEY on 06/16/20 1138 Tumeric/Ging/[place]/Oreg/Capryl (Candicidal Capsule) 1 Each Capsule, 1 EACH PO DAILY, (Reported) Entered as Reported by: NORMAN GLASGOW on 11/03/21 1157 Review of Systems Review of Systems Constitutional: see HPI, malaise EENTM: No Symptoms Reported Respiratory: No Symptoms Reported Cardiovascular: No Symptoms Reported Gastrointestinal: Abdominal Pain, Diarrhea (bloody mucousy stool), Nausea, Poor Appetite Genitourinary: No Symptoms Reported Musculoskeletal: no symptoms reported Skin: no symptoms reported All Other Systems Reviewed Negative Unless Noted: Yes Past Idtqoss-Zpdvqq-Stlvnz Hx Patient Social History Tobacco Use?: No Use of E-Cig and/or Vaping dev: No Substance use?: No Alcohol Use?: No Pt feels they are or have been: No Immunizations Up To Date Tetanus Booster (TDap): Unknown Influenza Vaccine Up-to-Date: No; Not Current First/Initial COVID19 Vaccinat: NONE Second COVID19 Vaccination Corey: NONE Third COVID19 Vaccination Date: NONE Seasonal Allergies Seasonal Allergies: Yes Past Medical History Surgery/Hospitalization HX: APPENDECTOMY 10/2021, AFIB/CARDIOVERSION-LAST ON 08/19, CARDIAC ABLATION 07/11/2020 Surgeries: Yes (Pt states she had a lump removed from her face but couldn't recall details) Abdominal, Appendectomy, Cardiac, Orthopedic Respiratory: No Currently Using CPAP: No Currently Using BIPAP: No Cardiac: Yes (AFIB) Atrial Fibrillation, Hypertension Neurological: No Reproductive Disorders: No Sexually Transmitted Disease: No HIV/AIDS: No Genitourinary: No Gastrointestinal: No Musculoskeletal: Yes (history of sciatica and chronic bilateral shoulder pain) Endocrine: No HEENT: Yes Cataract Hearing Impairment: Denies Cancer: Yes Colon Did You Recieve Any Treatments: Yes What Type of Treatment Did You: Surgical Intervention Psychosocial: No Integumentary: No Blood Disorders: No Adverse Reaction/Blood Tranf: No Family Medical History Cardiovascular disease 19 FATHER 19 MOTHER Hypercholesterolemia 19 MOTHER Hypertension, Other Conditions/Hx Physical Exam Vital Signs Vital Signs - First Documented 10/27/22 06:17 Temp 38.1 Pulse 84 Resp 20 B/P (MAP) 138/81 (100) Pulse Ox 99 O2 Delivery Room Air Capillary Refill : Less Than 3 Seconds Height/Weight/BMI Height: 5'8.00" Weight: 132lbs. 11.2oz. 59.238476gt; 19.00 BMI Method:Stated General Appearance: no apparent distress, thin HEENT: PERRL/EOMI Neck: normal inspection Respiratory: lungs clear, normal breath sounds, no respiratory distress, no accessory muscle use Cardiovascular: irregularly irregular Gastrointestinal: normal bowel sounds (slightly hyperactive), soft, guarding Neurologic/Psychiatric: alert, normal mood/affect, oriented x 3 Skin: normal color, warm/dry Procedures/Interventions Patient Education: Explained Benefits, Explained Risks, Pt. Ack. Understanding Patient History: Problem w/Sedation Breath Sounds per Auscultation: Clear Heart Sounds per Auscultation: Irregular Airway Exam: Mouth opens >2 fingers Sedation Adminstration Time: 1010 Re-examination Time: 1052 Progress/Results/Core Measures Results/Orders Lab Results Laboratory Tests Test 10/27/22 06:55 Range/Units White Blood Count 9.1 4.3-11.0 10^3/uL Red Blood Count 3.83 3.80-5.11 10^6/uL Hemoglobin 12.6 11.5-16.0 g/dL Hematocrit 38 35-52 % Mean Corpuscular Volume 99 80-99 fL Mean Corpuscular Hemoglobin 33 25-34 pg Mean Corpuscular Hemoglobin Concent 33 32-36 g/dL Red Cell Distribution Width 12.3 10.0-14.5 % Platelet Count 250 130-400 10^3/uL Mean Platelet Volume 10.4 9.0-12.2 fL Immature Granulocyte % (Auto) 0 % Neutrophils (%) (Auto) 78 H 42-75 % Lymphocytes (%) (Auto) 14 12-44 % Monocytes (%) (Auto) 7 0-12 % Eosinophils (%) (Auto) 0 0-10 % Basophils (%) (Auto) 0 0-10 % Neutrophils # (Auto) 7.1 1.8-7.8 10^3/uL Lymphocytes # (Auto) 1.3 1.0-4.0 10^3/uL Monocytes # (Auto) 0.6 0.0-1.0 10^3/uL Eosinophils # (Auto) 0.0 0.0-0.3 10^3/uL Basophils # (Auto) 0.0 0.0-0.1 10^3/uL Immature Granulocyte # (Auto) 0.0 0.0-0.1 10^3/uL Sodium Level 138 135-145 MMOL/L Potassium Level 4.0 3.6-5.0 MMOL/L Chloride Level 103 98-107 MMOL/L Carbon Dioxide Level 24 21-32 MMOL/L Anion Gap 11 5-14 MMOL/L Blood Urea Nitrogen 10 7-18 MG/DL Creatinine 0.75 0.60-1.30 MG/DL Estimat Glomerular Filtration Rate 89 BUN/Creatinine Ratio 13 Glucose Level 104 70-105 MG/DL Calcium Level 9.5 8.5-10.1 MG/DL Corrected Calcium 9.4 8.5-10.1 MG/DL Total Bilirubin 1.4 H 0.1-1.0 MG/DL Aspartate Amino Transf (AST/SGOT) 20 5-34 U/L Alanine Aminotransferase (ALT/SGPT) 13 0-55 U/L Alkaline Phosphatase 33 L 40-136 U/L Total Protein 7.5 6.4-8.2 GM/DL Albumin 4.1 3.2-4.5 GM/DL My Orders Orders - TRAE GILL MD Ed Iv/Invasive Line Start (10/27/22 06:32) Cbc With Automated Diff (10/27/22 06:32) Comprehensive Metabolic Panel (10/27/22 06:32) Ct Abdomen/Pelvis W (10/27/22 06:32) Ns Iv 1000 Ml (Sodium Chloride 0.9%) (10/27/22 06:45) Acetaminophen Tablet (Tylenol Tablet) (10/27/22 06:45) Fentanyl Inj (Sublimaze Injection) (10/27/22 06:45) Ondansetron Injection (Zofran Injectio (10/27/22 06:45) Ciprofloxacin Iv 400mg/200ml (Cipro Iv S (10/27/22 08:45) Metronidazole 500mg/100ml Ivpb (Flagyl 5 (10/27/22 08:45) Medications Given in ED Vital Signs/I&O 10/27/22 10/27/22 10/27/22 06:17 06:56 10:29 Temp 38.1 38.1 37.4 Pulse 84 61 Resp 20 20 B/P (MAP) 138/81 (100) 91/54 Pulse Ox 99 99 O2 Delivery Room Air Room Air Blood Pressure Mean: 100 Progress Progress Note : Time: 10:14 Progress Note Patient seen and evaluated, 62-year-old with abdominal pain, decreased appetite and nausea, bloody stool all night long. Evaluation today includes physical exam, basic laboratory studies and CT of the abdomen and pelvis with IV contrast. Patient was treated with IV fluids, nausea and pain medications. At the time of reevaluation she feels much better. Abdominal exam is nonsurgical, no involuntary guarding no distention normoactive bowel sounds. CT shows 2 lesions in the liver, 1 small area of soft tissue density in the area of prior appendectomy as well as thickening in the region of the sigmoid colon consistent with enterocolitis/diverticulitis. Case was discussed with Dr. Anderson, the patient's surgeon who performed her appendectomy and prior colonoscopy. He will see her this week. He recommended home with antibiotics. We will refer patient back to her primary care and to Dr. Anderson for further evaluation of the lesions on the liver. Patient is comfortable with the plan of care. Home with Cipro, Flagyl, pain medicines and nausea medicines. Return precautions provided. Diagnostic Imaging Diagonstic Imaging: CT Comments [facility], [place] NAME: STEVE COLLIER [facility] REC#: [id number] PT STATUS: REG ER : 1960 PHYSICIAN: TRAE GILL MD ADMIT DATE: 10/27/22/ER Draft Date of Exam:10/27/22 CT ABDOMEN/PELVIS W PROCEDURE: CT abdomen and pelvis with contrast. TECHNIQUE: Multiple contiguous axial images were obtained through the abdomen and pelvis after administration of intravenous contrast. Auto Exposure Controls were utilized during the CT exam to meet ALARA standards for radiation dose reduction. All CT scans use one or more of the following dose optimizing techniques: automated exposure control, MA and/or KvP adjustment based on patient size and exam type or iterative reconstruction. INDICATION: 62-year-old female, abdominal pain. History of primary mucinous adenocarcinoma of the appendix. CORRELATION STUDY: CT pelvis 11/02/2021 FINDINGS: LOWER THORAX: Mild pectus excavatum does result in slight distortion of the heart contour. Minimal basilar atelectasis. LIVER: Segment 3, there is a 1.8 x 1.4 cm low-density mass not suggested on prior PET/CT. Question additional subtle 0.9 cm mass more laterally segment 3. The remainder of the liver is somewhat heterogeneous. GALLBLADDER: Unremarkable. No overt bile duct dilatation. However, there is very slight prominence of central intrahepatic biliary tree. SPLEEN: Unremarkable. PANCREAS: Unremarkable. ADRENAL GLANDS: Unremarkable. KIDNEYS: Normal configuration. No calcification or obstruction. ABDOMINAL AORTA: Mild wall calcification, nonaneurysmal. Mildly prominent upper abdominal aortocaval lymph nodes. GASTROINTESTINAL TRACT: Colonic diverticulosis. There is rather pronounced wall thickening and inflammatory changes large segment of the sigmoid colon. Small amount of pelvic fluid. No definitive drainable abscess suggested at this time. No definitive abnormal nodularity about the mesentery. Interval appendectomy. At the previous site of the appendix, there is a questionable soft tissue density that measures approximately 14 mm. URINARY BLADDER: Relatively decompressed. REPRODUCTIVE: Unremarkable. OSSEOUS STRUCTURES: No acute abnormality. OTHER: Moderately advanced degenerative changes lower lumbar spine with scattered Schmorl's node deformities and various degrees of disc space narrowing. IMPRESSION: 1. Colonic diverticulosis with rather significant inflammatory changes with wall thickening at the long segment sigmoid colon. Could potentially reflect acute sigmoid diverticulitis versus alternative colitis. No drainable abscess collection at this time. 2. Low-density lesion suggested left hepatic lobe. Given the inflammatory changes, possibility of hepatic abscess is not excluded. Alternatively, given history of malignancy, neoplasm is definitely in the differential at this time. 3. Nodularity of the right lower quadrant. May reflect postoperative changes with some folding of the small bowel. Neoplastic nodule, however, is not excluded. Additionally, there does appear to be borderline prominent upper abdominal aortocaval lymph nodes. 4. Ultimately close clinical short-term follow-up imaging evaluation is recommended. Dictated on workstation # [id number] Dict: 10/27/22 0732 Trans: 10/27/22 0755 KATE [id number] Interpreted by: ABI BASILIO DO Electronically signed by: Departure Impression Primary Impression: Diverticulitis large intestine Qualified Codes: K57.33 - Diverticulitis of large intestine without perforation or abscess with bleeding Additional Impressions: Liver mass, left lobe Chronic anticoagulation Disposition: 01 HOME, SELF-CARE Condition: Stable Departure-Patient Inst. Decision time for Depature: 10:16 Referrals: MARY ANDERSON BETHANY N MD (PCP/Family) Primary Care Physician Patient Instructions: Diverticulitis Add. Discharge Instructions: Follow a clear liquid diet for the next 24 hours. Take the antibiotics as prescribed, Cipro twice daily and metronidazole 3 times a day. Hydrocodone 5 mg 1 with 1 extra strength Tylenol every 6 hours as needed for pain. Do not drive and take this medication. Ondansetron 4 mg tablets 1 every 8 hours as needed for nausea Please call Dr. Anderson's office today for a follow-up appointment for this October 29. If you develop a fever greater than 101, worsening pain, worsening bloody stools or any other emergent concerning symptoms please come back to the emergency department for reevaluation. You also need to follow-up with your primary care physician. Scripts Hydrocodone/Acetaminophen (Hydrocodone-Acetamin 5-325 mg) 5 Mg-325 Mg Tablet 1 TAB PO Q6H PRN for PAIN-MODERATE (5-7), #15 TAB Prov: TRAE GILL MD 10/27/22 Ondansetron (Ondansetron Odt) 4 Mg Tab.rapdis 4 MG SL Q8H PRN for NAUSEA/VOMITING, #15 TAB Prov: TRAE GILL MD 10/27/22 Ciprofloxacin HCl (Ciprofloxacin HCl) 500 Mg Tablet 500 MG PO BID, #14 TAB Prov: TRAE GILL MD 10/27/22 Metronidazole (Metronidazole) 500 Mg Tablet 500 MG PO TID, #21 TAB Prov: TRAE GILL MD 10/27/22 Copy Copies To 1: MARY ANDERSON DO; TAMAR HERNANDEZ MD Copies To 2: ADDIS HINOJOSA MD, KATHRYN M MD Oct 27, 2022 06:37
[2022-10-27] MEDS ORDERED: NS IV 1000 ML 1,000 ML IV SCH (06:45)
[2022-10-27] MEDS ORDERED: fentaNYL INJ 100 MCG/2 ML AMP IVP ONE (06:45)
[2022-10-27] MEDS ORDERED: ACETAMINOPHEN 500 MG TAB (TYLENOL) PO ONE (06:45)
[2022-10-27] MEDS ORDERED: ONDANSETRON 4 MG/2 ML (SDV) Z0FRAN IVP ONE (06:45)
[2022-10-27 07:10] LABS: BASOPHILS % (AUTO) 0 % (0-10); EOSINOPHILS % (AUTO) 0 % (0-10); HEMATOCRIT 38 % (35-52); HEMOGLOBIN 12.6 g/dL (11.5-16.0); LYMPHOCYTES # (AUTO) 1.3 10^3/uL (1.0-4.0); LYMPHOCYTES % (AUTO) 14 % (12-44); MEAN CORPUSCULAR HEMOGLOBIN 33 pg (25-34); MEAN CORPUSCULAR HGB CONC 33 g/dL (32-36); MEAN CORPUSCULAR VOLUME 99 fL (80-99); MEAN PLATELET VOLUME 10.4 fL (9.0-12.2); MONOCYTES # (AUTO) 0.6 10^3/uL (0.0-1.0); MONOCYTES % (AUTO) 7 % (0-12); NEUTROPHILS # (AUTO) 7.1 10^3/uL (1.8-7.8); NEUTROPHILS % (AUTO) 78 % (42-75); PLATELET COUNT 250 10^3/uL (130-400); WHITE BLOOD COUNT 9.1 10^3/uL (4.3-11.0)
[2022-10-27 07:24] LABS: ALBUMIN 4.1 GM/DL (3.2-4.5); BILIRUBIN,TOTAL 1.4 MG/DL (0.1-1.0); CALCIUM 9.5 MG/DL (8.5-10.1); CREATININE SERUM 0.75 MG/DL (0.60-1.30); TOTAL PROTEIN 7.5 GM/DL (6.4-8.2)
[2022-10-27] MEDS ORDERED: HOLD METFORMIN - RECEIVED CONTRAST 20 ML VIAL IV SCH (07:45)
[2022-10-27] MEDS ORDERED: IOHEXOL 350 MG/ML 100 ML (OMNIPAQUE 350) VIAL IV ONE (07:45)
[2022-10-27] MEDS ORDERED: NS 100 ML (IVPB) BAG IV ONE (07:45)
--- NOTE | 2022-10-27 07:57 | Diagnostic Imaging Report ---
PROCEDURE: CT abdomen and pelvis with contrast. TECHNIQUE: Multiple contiguous axial images were obtained through the abdomen and pelvis after administration of intravenous contrast. Auto Exposure Controls were utilized during the CT exam to meet ALARA standards for radiation dose reduction. All CT scans use one or more of the following dose optimizing techniques: automated exposure control, MA and/or KvP adjustment based on patient size and exam type or iterative reconstruction. INDICATION: 62-year-old female, abdominal pain. History of primary mucinous adenocarcinoma of the appendix. CORRELATION STUDY: CT pelvis 11/02/2021 FINDINGS: LOWER THORAX: Mild pectus excavatum does result in slight distortion of the heart contour. Minimal basilar atelectasis. LIVER: Segment 3, there is a 1.8 x 1.4 cm low-density mass not suggested on prior PET/CT. Question additional subtle 0.9 cm mass more laterally segment 3. The remainder of the liver is somewhat heterogeneous. GALLBLADDER: Unremarkable. No overt bile duct dilatation. However, there is very slight prominence of central intrahepatic biliary tree. SPLEEN: Unremarkable. PANCREAS: Unremarkable. ADRENAL GLANDS: Unremarkable. KIDNEYS: Normal configuration. No calcification or obstruction. ABDOMINAL AORTA: Mild wall calcification, nonaneurysmal. Mildly prominent upper abdominal aortocaval lymph nodes. GASTROINTESTINAL TRACT: Colonic diverticulosis. There is rather pronounced wall thickening and inflammatory changes large segment of the sigmoid colon. Small amount of pelvic fluid. No definitive drainable abscess suggested at this time. No definitive abnormal nodularity about the mesentery. Interval appendectomy. At the previous site of the appendix, there is a questionable soft tissue density that measures approximately 14 mm. URINARY BLADDER: Relatively decompressed. REPRODUCTIVE: Unremarkable. OSSEOUS STRUCTURES: No acute abnormality. OTHER: Moderately advanced degenerative changes lower lumbar spine with scattered Schmorl's node deformities and various degrees of disc space narrowing. IMPRESSION: 1. Colonic diverticulosis with rather significant inflammatory changes with wall thickening at the long segment sigmoid colon. Could potentially reflect acute sigmoid diverticulitis versus alternative colitis. No drainable abscess collection at this time. 2. Low-density lesion suggested left hepatic lobe. Given the inflammatory changes, possibility of hepatic abscess is not excluded. Alternatively, given history of malignancy, neoplasm is definitely in the differential at this time. 3. Nodularity of the right lower quadrant. May reflect postoperative changes with some folding of the small bowel. Neoplastic nodule, however, is not excluded. Additionally, there does appear to be borderline prominent upper abdominal aortocaval lymph nodes. 4. Ultimately close clinical along with short-term follow-up imaging evaluation is recommended. Dictated by: Dictated on workstation # [id number]
[2022-10-27] MEDS ORDERED: CIPROFLOXACIN IV 400MG/200ML 200 ML IV ONE (08:45)
[2022-10-27] MEDS ORDERED: metroNIDAZOLE 500MG/100ML IVPB 100 ML IV ONE (08:45)
[2022-10-27] MEDS ORDERED: CIPR500T5 PO (09:17)
[2022-10-27] MEDS ORDERED: ACHD5005 PO (09:17)
[2022-10-27] MEDS ORDERED: METR-145 PO (09:17)
[2022-10-27] MEDS ORDERED: ONDA4TAB11 SL (09:17)
[2022-10-27 10:29] VITALS: BP 91/54
== END 2022-10-27 10:29 | disposition home or self-care (01) ==
LOC: EDUNIT# 05:52 → ER 05:55
DX: K57.32 Diverticulitis of large intestine without perforation or abscess without bleeding (principal); R16.0 Hepatomegaly, not elsewhere classified; I48.91 Unspecified atrial fibrillation; Z79.01 Long term (current) use of anticoagulants; Z28.310 Unvaccinated for COVID-19; Z85.038 Personal history of other malignant neoplasm of large intestine; Z90.49 Acquired absence of other specified parts of digestive tract; Z88.5 Allergy status to narcotic agent
CPT/HCPCS: 36415; 74177; 80053; 85025

== ENCOUNTER → 2022-11-04 | Outpatient (CLI) | payer SELFPAY ==
[~2022-11-04] MED LIST changes: +CIPR500T5 PO; +METR-145 PO; +ONDA4TAB11 SL
[2022-11-04 15:59] LABS: BASOPHILS % (AUTO) 1 % (0-10); EOSINOPHILS # (AUTO) 0.1 10^3/uL (0.0-0.3); EOSINOPHILS % (AUTO) 1 % (0-10); HEMATOCRIT 37 % (35-52); HEMOGLOBIN 12.6 g/dL (11.5-16.0); LYMPHOCYTES # (AUTO) 1.9 10^3/uL (1.0-4.0); LYMPHOCYTES % (AUTO) 31 % (12-44); MEAN CORPUSCULAR HEMOGLOBIN 33 pg (25-34); MEAN CORPUSCULAR HGB CONC 34 g/dL (32-36); MEAN CORPUSCULAR VOLUME 99 fL (80-99); MEAN PLATELET VOLUME 9.4 fL (9.0-12.2); MONOCYTES # (AUTO) 0.5 10^3/uL (0.0-1.0); MONOCYTES % (AUTO) 8 % (0-12); NEUTROPHILS # (AUTO) 3.6 10^3/uL (1.8-7.8); NEUTROPHILS % (AUTO) 59 % (42-75); PLATELET COUNT 397 10^3/uL (130-400); WHITE BLOOD COUNT 6.1 10^3/uL (4.3-11.0)
[2022-11-04 16:14] LABS: ALBUMIN 4.3 GM/DL (3.2-4.5)
[2022-11-04 16:15] LABS: CALCIUM 9.7 MG/DL (8.5-10.1)
[2022-11-04 16:17] LABS: TOTAL PROTEIN 7.3 GM/DL (6.4-8.2)
[2022-11-04 16:19] LABS: BILIRUBIN,TOTAL 0.3 MG/DL (0.1-1.0)
[2022-11-04 16:20] LABS: CREATININE SERUM 0.76 MG/DL (0.60-1.30)
== END ==
LOC: LAB 15:34
PROVIDERS: ATTEND Surgery
DX: R10.9 Unspecified abdominal pain (principal)
CPT/HCPCS: 36415; 80053; 85025

== ENCOUNTER 2022-11-25 07:24 | Outpatient (CLI) | payer SELFPAY ==
[2022-11-25] VITALS (12 sets, daily range): BP systolic 107–144; BP diastolic 56–91
[~2022-11-25] VITALS: Ht 172.7 cm; Wt 68.5 kg
[2022-11-25 07:57] LABS: HEMATOCRIT 40 % (35-52); HEMOGLOBIN 13.6 g/dL (11.5-16.0); MEAN CORPUSCULAR HEMOGLOBIN 34 pg (25-34); MEAN CORPUSCULAR HGB CONC 34 g/dL (32-36); MEAN CORPUSCULAR VOLUME 100 fL (80-99); PLATELET COUNT 238 10^3/uL (130-400); WHITE BLOOD COUNT 5.9 10^3/uL (4.3-11.0)
[2022-11-25] MEDS ORDERED: NS IV 1000 ML 1,000 ML IV STA (08:28)
[2022-11-25] MEDS ORDERED: MIDAZOLAM 2 MG/2 ML (VERSED) VIAL IVP ONE (08:30)
[2022-11-25] MEDS ORDERED: fentaNYL INJ 100 MCG/2 ML AMP IVP ONE (08:30)
[2022-11-25] MEDS ORDERED: LIDOCAINE 1% INJ 30 ML (XYLOCAINE) VIAL INJ ONE (08:30)
[2022-11-25] MEDS ORDERED: NS IV 1000 ML 1,000 ML ONE (08:37)
[2022-11-25] MEDS ORDERED: LIDOCAINE 1% INJ 30 ML (XYLOCAINE) VIAL ONE (08:37)
[2022-11-25] MEDS ORDERED: fentaNYL INJ 100 MCG/2 ML AMP ONE (08:38)
[2022-11-25] MEDS ORDERED: MIDAZOLAM 2 MG/2 ML (VERSED) VIAL ONE (08:38)
[2022-11-25 08:40] LABS: INR 1.1 (0.8-1.4); PROTHROMBIN TIME PATIENT 14.6 SEC (12.2-14.7)
--- NOTE | 2022-11-25 09:54 | Pre-Op Note & Conscious Sedat ---
Pre-Operative Progress Note Date of Available H&P: Nov 25, 2022 Date H&P Reviewed: Nov 25, 2022 Time H&P Reviewed: 08:00 Pre-Op Diagnosis: Liver mass Conscious Sedation Pre-Proced Time 08:00 ASA Score 2 For ASA 3 and 4: Consider anesthesia and medical clearance. Also, for patients with a history of failed moderate sedation consider anesthesia. Airway Lungs Heart ASA score ASA 1: a normal healthy patient ASA 2: a patient with a mild systemic disease (mid diabetes, controlled hypertension, obesity ASA 3: a patient with a severe systemic disease that limits activity (angina, COPD, prior Myocardial infarction) ASA 4: a patient with an incapacitating disease that is a constant threat to life (CHF, renal failure) ASA 5: a moribund patient not expected to survive 24 hrs. (ruptured aneurysm) ASA 6: a declared brain- patient whose organs are being harvested. For emergent operations, add the letter E after the classification Mallampati Classification Grade 2 Sedation Plan Analgesia, Amnesia, Plan communicated to team members, Discussed options with patient/fam, Discussed risks with patient/fam The patient is an appropriate candidate to undergo the planned procedure, sedation, and anesthesia. The patient immediately re-assessed prior to indication. CARYN CAO MD Nov 25, 2022 09:54
[2022-11-25] MEDS ORDERED: HYDROcodone/APAP 5 MG/325 MG (LORTAB) TAB PO PRN (10:00)
--- NOTE | 2022-11-25 10:38 | Diagnostic Imaging Report ---
INDICATION: Liver mass. Patient presents for CT-guided biopsy. TECHNIQUE: All CT scans use one or more of the following dose optimizing techniques: automated exposure control, MA and/or KvP adjustment based on patient size and exam type or iterative reconstruction. DETAILS OF THE PROCEDURE: The patient was brought to the CT suite and placed on the table in the supine position. Axial imaging through the abdomen was performed to evaluate for an appropriate entry site. The midline upper abdomen was prepped and draped in the usual sterile fashion. A small amount of 1% lidocaine was utilized for local anesthesia. The study was performed utilizing conscious sedation with Radiology nursing and constant patient monitoring. The patient was given a total of 50 mcg of fentanyl intravenously and 0.5 mg of Versed intravenously. The total procedure time was approximately 6 minutes. An 18-gauge coaxial Temno needle was advanced and placed within the low-density lesion in the left lobe of the liver. Four core biopsies were obtained. The needle was withdrawn and hemostasis was obtained. Followup imaging shows no complicating features. The patient tolerated the procedure well and left the Department in stable condition. IMPRESSION: Successful CT-guided liver mass biopsy utilizing conscious sedation. Pathology results are currently pending. Dictated by: Dictated on workstation # [id number]
== END 2022-11-25 11:50 ==
LOC: SDC 07:24
PROVIDERS: ATTEND Surgery
DX: R16.0 Hepatomegaly, not elsewhere classified (principal)
CPT/HCPCS: 36415; 77012; 85027; 85610; 85730; 99156

== ENCOUNTER → 2022-12-01 | Outpatient (CLI) | payer SELFPAY | END | disposition home or self-care (01) | LOC: PREOP 05:40 | PROVIDERS: ATTEND Surgery | DX: Z01.818 Encounter for other preprocedural examination (principal) ==

== ENCOUNTER → 2022-12-02 | Outpatient (CLI) | payer SELFPAY ==
[~2022-12-02] MED LIST changes: +LACTATED RINGERS 1,000 ML IV SCH
[2022-12-02 10:41] VITALS: BP 119/74
== END ==
LOC: SDC 09:34
PROVIDERS: ATTEND Surgery
DX: E86.0 Dehydration (principal)
CPT/HCPCS: 96360; 96361

== ENCOUNTER 2022-12-07 14:48 | Outpatient (RCR) | payer SELFPAY ==
[~2022-12-07 14:48] MED LIST changes: -LACTATED RINGERS 1,000 ML IV SCH
== END 2022-12-29 | disposition home or self-care (01) ==
LOC: ONC 14:48
PROVIDERS: ATTEND Internal Medicine Hematology & Oncology
DX: C18.1 Malignant neoplasm of appendix (principal); I48.20 Chronic atrial fibrillation, unspecified; K57.30 Diverticulosis of large intestine without perforation or abscess without bleeding
CPT/HCPCS: 99204